=== PATIENT | male | born 1950 | race Caucasian/White ===

== ENCOUNTER 2020-03-11 18:19 | Inpatient (IN) | payer MEDICARE, MEDICAID, SELFPAY ==
--- NOTE | ~2020-03-11 | XR_ITS ---
EXAMINATION: XR chest 1V portable INDICATION: Shortness of breath TECHNIQUE: Portable AP chest at 2040 hours COMPARISON: None available FINDINGS: The lungs are free of acute opacities. A calcified nodule of the right upper lobe is consis tent with old granulomatous disease. There is no pleural effusion or pneumothorax. The cardiomediasti nal silhouette is normal. 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 IMPRESSION: 1. No acute cardiopulmonary abnormality. Reviewed, dictated and finalized at location A.
[2020-03-11 18:27] VITALS: BP 169/90; PULSE 107; RESP 22; TEMP 36.6; O2SAT 91
[2020-03-11 18:38] VITALS: O2SAT 91
--- NOTE | 2020-03-11 18:48 | PC.NURSE ---
o2 increased to 3 lpm nc due to o2 sat 90-91 on 2 lmp cannula. denies sob
[2020-03-11 19:42] LABS: Basophils Percent Auto 0.5 % (0.2-1.2); Eosinophils Percent Auto 0.5 % (0-4.4); Hemoglobin 15.9 g/dL (14.0-18.0); Immature Granulocyte Absolute 0.01 K/mm3 (0.00-0.031); Immature Granulocyte Percent A 0.2 % (0-0.5); Lymphocytes Absolute Auto 0.54 K/mm3 (0.9-3.2); Lymphocytes Percent Auto 9.6 % (18.3-44.2); Mean Corpuscular HGB Conc 33.1 g/dl (32-36); Mean Corpuscular Hemoglobin 31.9 pg (26-34); Mean Corpuscular Volume 96.4 fl (80-100); Mean Platelet Volume 12.1 fl (7.4-10.4); Monocytes Absolute Auto 0.5 K/mm3 (0.1-0.6); Monocytes Percent Auto 9.6 % (2.6-8.5); Neutrophils Absolute Auto 4.5 K/mm3 (1.3-6.7); Neutrophils Percent Auto 79.6 % (45.5-73.1); Platelet Count Result 140 k/mm3 (150-375); Red Blood Count 4.98 M/mm3 (4.6-6.20); Red Cell Distribution Width 14.6 % (11.5-14.5); White Blood Count 5.6 K/mm3 (4.5-10.0)
[2020-03-11 20:05] VITALS: BP 157/84; PULSE 90; RESP 18; O2SAT 97
[2020-03-11 20:10] LABS: Add Urine Microscopic? YES; Appearance Urine Clear (Clear); Bacteria Urine Trace /hpf; Bilirubin Urine Negative (Negative); Blood Urine Negative (Negative); Color Urine Yellow (Yellow); Glucose Urine UA Negative (Negative); Ketones Urine Negative (Negative); Leukocyte Esterase Ur Negative LEU/UL (Negative); Mucus Urine Rare /lpf; Nitrate Urine Negative (Negative); Protein Urine 2+ mg/dL (Negative); RBC Urine 0-2 /hpf (0-2); Squamous Epithelial Cell Urine Rare /hpf (Few); WBC Urine 0-3 /hpf
[2020-03-11 20:14] LABS: Alanine Aminotransferase 21 U/L (4-50); Albumin Level 3.7 g/dL (3.5-5.1); Alkaline Phosphatase 52 U/L (38-126); Aspartate Amino Transferase 26 U/L (17-59); Bilirubin,Total 0.7 mg/dL (0.2-1.3); Blood Urea Nitrogen 21 mg/dL (9-20); Calcium 8.5 mg/dL (8.4-10.2); Carbon Dioxide > 40 mmol/L (22-30); Chloride 91 mmol/L (98-107); Estimated CRCL calculation 69 ml/min; Estimated Glomerular Filt Rate > 60; Glucose 116 mg/dL (75-110); Potassium 4.6 mmol/L (3.4-5.0); Sodium 131 mmol/L (137-145)
[2020-03-11 20:20] LABS: INR 1.2; Prothrombin Time 14.7 Seconds (11.1-14.7)
[2020-03-11 20:26] LABS: NT Pro B Type Natriuretic Pept 5560 PG/ML (5-100); Troponin I 0.024 ng/mL (0.000-0.034)
--- NOTE | 2020-03-11 20:31 | ECG_ITS ---
Measurements Intervals [place] Rate: 100 P: 85 IN: 186 QRS: 90 QRSD: 72 T: 41 QT: 327 QTc: 423 Interpretive Statements SINUS TACHYCARDIA DELAYED PRECORDIAL R/S TRANSITION T WAVE ABNORMALITY IN ANTERIOR LEADS- CONSIDER ISCHEMIA BASELINE ARTIFACT- I, III, AVL, V1, V5-V6 ABNORMAL ECG Electronically Signed On 03-12-2020 7:45:29 CDT by Austin Shelley D.O.
--- NOTE | 2020-03-11 20:37 | ED.GENADULT ---
HPI - General Adult General Chief complaint: Extremity Problem,Nontraumatic Stated complaint: SWELLING LEGS Time Seen by Provider: 03/11/20 18:23 Source: patient Mode of arrival: ambulatory Limitations: no limitations History of Present Illness HPI narrative: 69-year-old with no major medical problems here with the complaints of bilateral leg swelling for last several weeks. He states that by end of the day the legs and ankles swell up and has difficulty in walking. He denies any chest pain, shortness of breath. No history of fever or chills. No previous history of any coronary artery disease or congestive heart failure. He states that he has not seen a doctor in several years. Onset (ago): week(s) (5) Severity: moderate Associated symptoms: denies other symptoms Related Data Home Medications Medication Instructions Recorded Confirmed No Home Medications 03/11/20 03/11/20 Allergies Allergy/AdvReac Type Severity Reaction Status Date / Time No Known Allergies Allergy Verified 03/11/20 18:37 Review of Systems Review of Systems: All systems reviewed & are unremarkable except as noted in HPI and below Constitutional: Constitutional: Reports no additional constitutional complaints Eyes: Eyes: Reports no additional eye complaints ENT: Reports system reviewed and no additional complaints, except as documented Cardiovascular: Cardiovascular: Reports no additional cardiovascular complaints Respiratory: Respiratory: Reports no additional respiratory complaints Gastrointestinal: Gastrointestinal: Reports no additional gastrointestinal complaints Musculoskeletal: Musculoskeletal: Reports no additional musculoskeletal complaints Neurologic: Reports system reviewed and no additional complaints, except as documented Endocrine: Endocrine: Reports no additional endocrine complaints Hematologic/Lymphatic: Hematologic/Lymphatic: Reports no additional hematologic/lymphatic complaints [facility] Social History Social History Gender identity (if verbalized by the patient): Male Exam Narrative: Exam Narrative: GENERAL: Well-appearing, thin, and in no acute distress. HEAD: Normocephalic, atraumatic. EYES: PERRLA and EOMI. ENT: Nares clear, Mucous membranes moist. NECK: Supple. CHEST: Clear to auscultation. No respiratory distress. HEART: Regular rate and rhythm. No murmur heard. Normal peripheral pulses. ABDOMEN: Soft, non tender, non distended, normal active bowel sounds. EXTREMITIES: Normal range of motion. has 2 plus edema SKIN: Warm, dry, no rash. NEURO: No focal deficits. Alert and oriented x3. PSYCH: Normal mood and affect. Course Course Emergency Course: Inform patient about his lab work. We will admit him to the hospital as his BNP is elevated. He has no primary care doctor to follow-up. We will give him Lasix 40 mg IV here in the ER. Consult cardiology in the morning. Discussed with Dr. Kwan agreed to admit the pt . Vital Signs Vital signs: Vital Signs Temperature 36.6 C 03/11/20 18:27 Pulse Rate 107 H 03/11/20 18:27 Respiratory Rate 22 H 03/11/20 18:27 Blood Pressure 169/90 H 03/11/20 18:27 Pulse Oximetry 91 03/11/20 18:27 Temperature 36.6 C 03/11/20 18:27 Pulse Rate 90 03/11/20 20:05 Respiratory Rate 18 03/11/20 20:05 Blood Pressure 157/84 H 03/11/20 20:05 Pulse Oximetry 97 03/11/20 20:05 Medical Decision Making Vital Signs Vital Signs: Vital Signs Temperature 36.6 C 03/11/20 18:27 Pulse Rate 107 H 03/11/20 18:27 Respiratory Rate 22 H 03/11/20 18:27 Blood Pressure 169/90 H 03/11/20 18:27 Pulse Oximetry 91 03/11/20 18:27 Temperature 36.6 C 03/11/20 18:27 Pulse Rate 90 03/11/20 20:05 Respiratory Rate 18 03/11/20 20:05 Blood Pressure 157/84 H 03/11/20 20:05 Pulse Oximetry 97 03/11/20 20:05 Lab Data Result diagrams: 03/11/20 19:32 03/11/20 19:54 Labs: Lab Results 03/11/20 03/11/20 06
[2020-03-11] MEDS: FUROSEMIDE INJ 40 MG/4 ML VIAL IV PUSH (21:17)
[2020-03-11 21:34] VITALS: BP 146/85; PULSE 90; RESP 19; O2SAT 90
[2020-03-11 22:00] VITALS: PULSE 102
[2020-03-11 22:31] VITALS: BP 143/83; PULSE 105; RESP 22; TEMP 36.7; O2SAT 91
[2020-03-11 22:33] VITALS: BMI 18.8
--- NOTE | 2020-03-11 23:47 | PM.IMHP ---
H&P: HPI History of Present Illness Chief complaint: Leg swelling and shortness of breath Narrative: Date and time of patient contact: 03/12/2020 at 1:10 a.m. Sam Sanchez is a 69 year old male a past medical history of chronic tobacco use and who has not seen a doctor in 50 years presented to the ER via EMS with new onset bilateral lower extremity swelling for 4 weeks. When EMS arrived at patient's home patient was found to have oxygen saturations of 84% on room air and was placed on 2 L nasal cannula. The patient reports that he has been having shortness of breath with exertion for about 3 weeks. He has not noticed any increased cough beyond his usual smoker's cough. He has noticed occasional wheezing. He denies any palpitations orthopnea or paroxysmal nocturnal dyspnea. When he arrived t he has not had any fevers or chills. He denies any recent ill contacts. He reports that his shortness of breath has improved after IV Lasix was administered in the ER. He reports his legs are much less swollen than they had been when he presented to the ER. He reports that his girlfriend has CHF and he eats the same diet that she eats. However he is not specific as to whether not this is a low-sodium diet. The patient does report she has always been on the thin side but over the last couple of years he has lost more weight. His weight loss has been gradual. He attributes most of his weight loss to the stress of having his girlfriend's adult son was a drug addict to living with them. He denies any nausea or vomiting. He has not noticed any hematochezia, melena or changes in bowel habits. When I arrived to the room to examine the patient he did not have his nasal cannula in place and stated that he did not have any shortness of breath and did not need the oxygen. Review of Systems Review of Systems: Narrative: 12 systems were reviewed with pertinent positives and negatives per HPI. Except as documented in the HPI, all other systems were reviewed and are negative. [facility] Past Medical History Medical History Tobacco use Surgical History Surgical History (Updated 03/12/20 @ 03:45 by Caitlin Kwan DO) Status post cataract extraction of both eyes with insertion of intraocular lens Approximately 2009 Family History Family History (Updated 03/12/20 @ 03:36 by Caitlin Kwan DO) Sibling Heart disease 3/4 the patient has 4 brothers have of heart disease. Diabetes mellitus The patient has 1 remaining living brother has diabetes. Social History Social History (Updated 03/12/20 @ 03:39 by Caitlin Kwan DO) Social History: Primary care physician: None Code status: Full code per EMR Smoking packs per day: 1 Smoking cigarettes per day: 20.0 Years smoked: 56 Smoking pack-years: 56.00 Smoking status: Current every day smoker Tobacco type: cigarettes Additional smoking assessment comments: The patient started smoking at age 13. Alcohol intake: former Alcohol use details: He used to drink a 12 pack of beer a day. He gradually decreased his alcohol consumption and quit drinking altogether about a month ago. He denies ever having symptoms of alcohol withdrawal. Substance use: never Additional living arrangements comments: He lives with his girlfriend of 11 years and her adult son who is addicted to drugs. He has 4 grown children her relatively healthy. 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 Gender identity (if verbalized by the patient): Male Spiritual care concerns: No Meds Home Medications and Allergies Home Medications Medication Instructions Recorded Confirmed Type No Home Medications 03/11/20 03/11/20 History Allergies Allergy/AdvReac Type Severity Reaction St
[2020-03-12] VITALS (19 sets, daily range): BP systolic 100–120; BP diastolic 50–68; PULSE 72–101; RESP 16–22; TEMP 36.3–36.9; O2SAT 91–100
--- NOTE | 2020-03-12 | ECHO_ITS ---
Patient Info Name: Sam Sanchez Age: 69 years : 1950 Gender: Male Ht: 69 in Wt: 124 lbs BSA: 1.64 m2 HR: 84 bpm Heart Rhythm: Sinus Rhythm Technical Quality: Good Exam Date: 03/12/2020 7:29 AM Exam Location: [facility] Pulmonary Exam Room: 343 Patient Status: Inpatient Admit Date: 03/12/2020 Staff Ordering Physician: Hank Sen MD Hog Man: Ambar Michel RDCS Attending Provider: Aviva Gonzalez PA-C Exam Type: CA echo doppler color flow Study Info Indications - CHF Complete two-dimensional, color flow and Doppler transthoracic echocardiogram is performed. Summary 1. Normal left ventricular size and thickness, with normal left ventricular systolic function and no focal wall motion abnormalities. The ejection fraction is calculated to be 77%. Global longitudinal strain is normal at -22%, again consistent with normal systolic function. There is grade 2 diastolic dysfunction. 2. Right ventricular chamber dimension is moderately enlarged, with moderate hypokinesis and right ventricular hypertrophy. 3. Left atrial chamber dimension is mildly enlarged. 4. Right atrial chamber dimension is moderately enlarged. 5. There is mild tricuspid valve regurgitation. 6. Moderate pulmonary hypertension, estimated pulmonary arterial systolic pressure is 50 mmHg. 7. Dilated inferior vena cava with >50% collapse upon inspiration consistent with elevated right atrial pressure, 10 mmHg. 8. Normal sinus rhythm. Left Ventricle Left ventricular chamber dimension is normal. Left ventricular systolic function is normal, estimated at >70%. There is no increased left ventricular wall thickness. Left ventricular septal wall motion is normal. The left ventricular diastolic function is grade II diastolic dysfunction. Global longitudinal strain is normal at 22 %. Right Ventricle Right ventricular chamber dimension is moderately enlarged, with moderate hypokinesis and right ventricular hypertrophy. Right ventricular systolic function is reduced. Left Atria Left atrial chamber dimension is mildly enlarged. Right Atria Right atrial chamber dimension is moderately enlarged. Aortic Valve The aortic valve is trileaflet. There is mild aortic valve sclerosis. There is no aortic valve stenosis. There is no aortic valve regurgitation. Pulmonic Valve The pulmonic valve is normal. There is no pulmonic valve stenosis. There is no pulmonic regurgitation. Mitral Valve The mitral valve has calcified annulus. There is no mitral valve stenosis. There is trace mitral valve regurgitation. Tricuspid Valve The tricuspid valve leaflets are normal. There is no significant tricuspid valve stenosis. There is mild tricuspid valve regurgitation. Moderate pulmonary hypertension, estimated pulmonary arterial systolic pressure is 50 mmHg. Pericardium/Pleural The pericardium appears normal. There is no pericardial effusion. Inferior Vena Cava Dilated inferior vena cava with >50% collapse upon inspiration consistent with elevated right atrial pressure, 10 mmHg. Aorta The aortic root size at the sinus of Valsalva is normal. The prox ascending aorta size is normal. Left Ventricular Outflow Tract Name Value Normal LVOT 2D
--- NOTE | 2020-03-12 00:39 | ADMGEN ---
This patient, Sam Sanchez, was admitted to Medical Room 343-01. Patient/family oriented to hospital policies and general routines including ID bracelet, bed and alarms, visiting hours, pain management, procedures, bathroom and other care routines, personal items, smoking policy, room service/diet, and visiting hours. Valuables list has been completed. Information on how to activate the Rapid Response Team has been discussed. Patient/Family are encouraged to report perceived risks to care and to ask questions if they do not understand what they are told or what they should do.
[2020-03-12 00:55] LABS: Troponin I 0.044 ng/mL (0.000-0.034)
[2020-03-12] MEDS: ALBUTEROL SULFATE NEB 2.5 MG/0.5 ML INH 5 MG INHALATION ×4 (01:50→19:06)
[2020-03-12] MEDS: IPRATROPIUM BR 0.02% INH SOLN 0.5 MG/2.5 ML VIAL INHALATION ×4 (01:51→19:06)
[2020-03-12 03:12] LABS: Blood Urea Nitrogen 19 mg/dL (9-20); Calcium 8.4 mg/dL (8.4-10.2); Carbon Dioxide > 40 mmol/L (22-30); Chloride 88 mmol/L (98-107); Cholesterol 122 mg/dL (0-200); Estimated CRCL calculation 78 ml/min; Estimated Glomerular Filt Rate > 60; Glucose 104 mg/dL (75-110); HDL Direct 62 mg/dL; Potassium 4.1 mmol/L (3.4-5.0); Sodium 132 mmol/L (137-145); Triglycerides 54 mg/dL (<150)
[2020-03-12 03:17] LABS: Hemoglobin A1C 5.8 % (<5.7)
[2020-03-12 03:24] LABS: LDL Cholesterol Direct 53 mg/dL
[2020-03-12 03:30] LABS: Troponin I 0.045 ng/mL (0.000-0.034)
[2020-03-12] MEDS: FUROSEMIDE INJ 40 MG/4 ML VIAL IV PUSH (08:24)
[2020-03-12] MEDS: ENOXAPARIN 40 MG/0.4 ML SYRINGE SUB-Q (08:25)
[2020-03-12 10:53] LABS: Hematocrit 47.6 % (42.0-52.0); Hemoglobin 15.7 g/dL (14.0-18.0); Mean Corpuscular Volume 96.9 fl (80-100); Mean Platelet Volume 12.3 fl (7.4-10.4); Platelet Count Result 126 k/mm3 (150-375); Red Blood Count 4.91 M/mm3 (4.6-6.20); Red Cell Distribution Width 14.5 % (11.5-14.5); White Blood Count 5.3 K/mm3 (4.5-10.0)
--- NOTE | 2020-03-12 12:20 | WPDCN ---
Assessment and Plan Assessment and plan (1) Acute right heart failure: Code(s): I50.811 - Acute right heart failure Status: Acute Assessment and Plan: The patient presents with signs and symptoms of heart failure but relatively clear lungs by chest x-ray and exam, suggesting this is primarily right-sided heart failure. The T-wave inversion on his EKG is probably from right heart strain. He has right ventricular enlargement and hypokinesis secondary to pulmonary hypertension, which is secondary to COPD and, perhaps to a degree, chronic diastolic heart failure. No evidence of any other etiologies such as chronic thromboembolic disease etc.. Continue diuresis Check a BMP in the morning (2) Acute diastolic heart failure: Code(s): I50.31 - Acute diastolic (congestive) heart failure Status: Acute Assessment and Plan: Patient has diastolic dysfunction on his echo, and probably a long standing history of hypertension which is untreated. Low-salt diet, control blood pressure (3) Pulmonary hypertension: Code(s): I27.20 - Pulmonary hypertension, unspecified Status: Acute Assessment and Plan: Pulmonary hypertension secondary to COPD and perhaps, to a degree, diastolic dysfunction (4) Hypertension: Code(s): I10 - Essential (primary) hypertension Status: Acute Assessment and Plan: Likely has been untreated for many years. Jose Maria inhibitors and beta-blockers as blood pressure tolerates. (5) COPD (chronic obstructive pulmonary disease): Code(s): J44.9 - Chronic obstructive pulmonary disease, unspecified Status: Acute Assessment and Plan: Treatment per hospitalists (6) Tobacco abuse disorder: Code(s): Z72.0 - Tobacco use Status: Acute Assessment and Plan: Reviewed the effects of smoking on lungs and heart. Strongly recommended complete cessation. Patient requested nicotine patch HPI Data of Consult Date/Time: 03/12/20 12:20 Requesting Physician: Aviva Gonzalez PA-C Primary Care Provider: JACK TAMP OPERATOR PHYSICIAN Consult Narrative Narrative: Date of service: 03/12/2020 Sam Sanchez is a 69 year old male whom we were asked to see at the request of Dr. Kwan for advice and opinion regarding his new onset of CHF in consultation. Mr. Sanchez has not seen a physician for a few decades. He was told once he has high blood pressure and took the medication until ran out. Over the last 2 months he has had progressive shortness of breath such that carrying in groceries or walking up stairs makes him very short of breath and worn out. He also has developed lower extremity edema. He came to the emergency room and appeared to be in heart failure with hypoxia and a proBNP of 5600. Subsequently he has been diuresed and is feeling better. Pain pressure tightness, PND orthopnea. No history of blood clots. No known diabetes, or hyperlipidemia. The patient smoked 1-1 and half packs daily since the age of 13. He does have some wheezing at times. He has experienced some weight loss but does not know how much. Review of Systems Constitutional: Constitutional: Reports lethargy Eyes: Eyes: Reports no additional eye complaints ENT: Denies epistaxis Cardiovascular: Cardiovascular: Denies chest pain, Reports pedal edema, Reports leg edema, Denies lightheadedness and Denies palpitations Respiratory: Respiratory: Reports dyspnea, Reports dyspnea on exertion and Reports wheezing Gastrointestinal: Gastrointestinal: Denies abdominal pain, Denies melena, Denies hematochezia, Denies constipation, Denies diarrhea and Denies nausea Genitourinary: Genitourinary: Denies hematuria and Denies dysuria Musculoskeletal: Musculoskeletal: Denies back p
--- NOTE | 2020-03-12 13:01 | PM.IMPN ---
Progress Note: A&P Assessment and Plan (1) CHF (congestive heart failure): Qualifiers: Heart failure chronicity: acute Heart failure type: unspecified Qualified Code(s): I50.9 - Heart failure, unspecified Code(s): I50.9 - Heart failure, unspecified Status: Acute Assessment and Plan: -----swelling and dyspnea on exertion likely related to CHF, although this is undiagnosed as he has not seen a doctor in 50 years. Echo has been ordered and pending. EKG shows twave abnormalities in anteroseptal leads. He was started on Lasix and is feeling better with that. He has had 2000 mL out so far today. We will wean oxygen as tolerated.. Lipid panel looks okay. Nephrotic syndrome seems less likely as he does have 2+ protein in his UA but his albumin and lipid panel is normal. Await further recommendations from cardiology. (2) Tobacco abuse disorder: Code(s): Z72.0 - Tobacco use Status: Acute Assessment and Plan: -----I spoke with the patient about the importance of stopping smoking. He says he would like a nicotine patch. (3) COPD (chronic obstructive pulmonary disease): Code(s): J44.9 - Chronic obstructive pulmonary disease, unspecified Status: Acute Assessment and Plan: -----will start maintenance inhalers. The patient is having trouble affording them since he does not have any Medicare prescription coverage. I talked to him about setting up with [facility] as I know they can see patient is on a sliding scale and may have [employer] resources. We also talked about obtaining his medications from [facility] or a smaller pharmacy which is typically cheaper and to utilize [facility] [employer] He needs to quit smoking and we discussed this for >10 min Time Spent With Patient Time with patient: 25 - 35 minutes Subjective Date/time seen: 03/12/20 13:01 Interval history: Pt is a 69-year-old male here for lower extremity swelling and shortness of breath. Patient states that he is currently not having any shortness of breath and his lower extremity swelling has improved. He is able to walk to the bathroom without any dyspnea on exertion. He says in the last couple months he has noticed some dyspnea on exertion walking longer distances but attributed this to his smoking. He then started having leg swelling about 4 weeks ago. His typical diet include sandwiches, some canned food, and occasional fast food. He used to salt his fries a lot but now tries to refrain from salt. He states he is able to lay flat and has not had any heart palpitations. He smokes about a pack cigarettes a day and has not tried quitting. He knows he has COPD but does not take any medications. The patient states he has not seen a primary care doctor because he cannot afford it. I spoke with him about low income care such as [facility], [facility], and [facility] Review of Systems Review of Systems: All systems reviewed & are unremarkable except as noted in HPI and below Exam Narrative: Exam Narrative: General: Underweight man resting comfortably in bed in no acute distress HEENT: normocephalic Neck: supple Neuro: Alert and oriented x4 CV:RRR. Telemetry shows occasional sinus tachycardia but otherwise relatively normal Resp: Moderately decreased breath sounds. No wheezing or rhonchi Abd: Soft, non distended. No pain to palpation. Positive bowel sounds Extremities: 2+ pitting edema up to the mid neff. No erythema or pain to palpation Objective Data Vital Signs Vital Signs: Vital Signs - 24 hr 03/11/20 18:27 03/11/20 18:38 03/11/20 20:05 Temperature 97.8 F Pulse Rate 107 H 90 Respiratory Rate 22 H 18 Blood Pressure 169/90 H 157/84 H Pulse Oximetry 91 91 97 03/11/20 21:34 03/11/20 22:00 03/11/20 22:31 Temperature 98.1 F Pulse Rate 90 102 H 105 H Respiratory Rate 19 22 H Blood Pressure 146/85 H 143/83 H Pulse Oximetry 90 91
[2020-03-12] MEDS: NICOTINE (*PBKC) 21 MG PATCH 1 PATCH TRANSDERM (13:51)
[2020-03-12] MEDS: lisinopriL 5 MG TABLET PO (16:24)
[2020-03-13] VITALS (17 sets, daily range): BP systolic 96–116; BP diastolic 53–58; PULSE 83–101; RESP 14–20; TEMP 36.5–37; O2SAT 87–100
[2020-03-13] MEDS: ALBUTEROL SULFATE NEB 2.5 MG/0.5 ML INH 5 MG INHALATION ×4 (01:08→20:18)
[2020-03-13] MEDS: IPRATROPIUM BR 0.02% INH SOLN 0.5 MG/2.5 ML VIAL INHALATION ×4 (01:09→20:17)
[2020-03-13 06:04] LABS: Blood Urea Nitrogen 15 mg/dL (9-20); Carbon Dioxide > 40 mmol/L (22-30); Chloride 86 mmol/L (98-107); Estimated CRCL calculation 75 ml/min; Estimated Glomerular Filt Rate > 60; Glucose 83 mg/dL (75-110); Potassium 3.7 mmol/L (3.4-5.0); Sodium 132 mmol/L (137-145)
[2020-03-13] MEDS: FUROSEMIDE INJ 40 MG/4 ML VIAL IV PUSH (08:08)
[2020-03-13] MEDS: ENOXAPARIN 40 MG/0.4 ML SYRINGE SUB-Q (08:08)
[2020-03-13] MEDS: NICOTINE (*PBKC) 21 MG PATCH 1 PATCH TRANSDERM (08:08)
[2020-03-13] MEDS: lisinopriL 5 MG TABLET PO (08:08)
--- NOTE | 2020-03-13 12:06 | PM.PNCARD ---
Progress Note: A&P Assessment and Plan (1) Acute right heart failure: Code(s): I50.811 - Acute right heart failure Status: Acute Assessment and Plan: Acute CHF, primarily right-sided 2nd COPD and pulm HTN, with diastolic dysfunction and perhaps a mild component of left sided diastolic failure. Counseled pt about CHF. Great response to IV Lasix. Change to po. OK for discharge if BP OK. Rec furosemide 20 mg qd, lisiinopril 5 mg qd, OPT BMP and FU w/ me and a cnc manufacturing engineer. (2) Acute diastolic heart failure: Code(s): I50.31 - Acute diastolic (congestive) heart failure Status: Acute Assessment and Plan: Has diastolic dysfunction, but a clear CXR, so this is not the primarly cause of his CHF. (3) Pulmonary hypertension: Code(s): I27.20 - Pulmonary hypertension, unspecified Status: Acute Assessment and Plan: 2nd to COPD and perhaps to diastolic dysfunction. (4) COPD (chronic obstructive pulmonary disease): Code(s): J44.9 - Chronic obstructive pulmonary disease, unspecified Status: Acute Assessment and Plan: REviewed effects of smoking on lungs. Pt likely has advanced COPD. May need home O2. (5) Hypertension: Code(s): I10 - Essential (primary) hypertension Status: Acute Assessment and Plan: Running low today 2nd diuresis. (6) Tobacco abuse disorder: Code(s): Z72.0 - Tobacco use Status: Acute Assessment and Plan: Pt says he is doing well w/o cigarettes using the nicotine patch. Subjective Date/time seen: 03/13/20 12:06 Follow-up for CHF, primarily right-sided, with some diastolic dysfunction as well. Patient presented with shortness of breath and edema, elevated BNP but clear chest x-ray. Echo showed EF 77%, grade 2 diastolic dysfunction, moderate right ventricular enlargement, hypokinesis and hypertrophy. RVSP 50 mmHg with mild valve disease. I felt he had acute CHF primarily right-sided due to his COPD and pulmonary hypertension, perhaps with a mild contribution of left-sided diastolic heart failure as well. Date of service: 03/13/2020 Feeling fine, wants to go home. Impressive diuresis; I's and O's yesterday were 1600 in and 3900 cc's out. Blood pressure is a little low this a.m. O2 sat low today 87% on O2. Review of Systems Constitutional: Constitutional: Denies difficulty sleeping Eyes: Eyes: Reports no additional eye complaints ENT: Denies nasal congestion Cardiovascular: Cardiovascular: Denies chest pain, Denies pedal edema and Denies palpitations Respiratory: Respiratory: Denies cough and Denies dyspnea Gastrointestinal: Gastrointestinal: Denies abdominal pain and Denies hematochezia Genitourinary: Genitourinary: Denies hematuria Musculoskeletal: Musculoskeletal: Denies back pain Integumentary/Breasts: Skin/Breast: Denies rash Neurologic: Denies confusion Psychiatric: Psychiatric: Reports no additional psychiatric complaints Exam Narrative: Exam Narrative: Thin male, friendly, NAD Const: General: comfortable and no acute distress HENMT: Mouth: Yes moist mucous membranes Eyes: EOM: EOMs intact bilaterally Neck: Neck: supple Resp: Effort & Inspection: normal respiratory effort Auscultation: diminished lung sounds (diminished BS throughout lung carreon) Cardio: Rate: regular rate Heart sounds: no murmurs GI: Inspection: non-distended Skin: General skin exam: no rashes or lesions noted Neuro: Speech: normal speech Motor exam (neuro): Normal motor muscle tone present throughout Extrem: General: normal to inspection and no edema Psych: Mental Status: mental status grossly normal Affect: normal affect Objective Data Vital Signs Vital Signs:
--- NOTE | 2020-03-13 15:17 | PM.IMPN ---
Progress Note: A&P Assessment and Plan (1) CHF (congestive heart failure): Qualifiers: Heart failure chronicity: acute Heart failure type: unspecified Qualified Code(s): I50.9 - Heart failure, unspecified Code(s): I50.9 - Heart failure, unspecified Status: Acute Assessment and Plan: -----acute on chronic right-sided heart failure with lower extremity swelling and clear lungs. Likely due to his COPD and pulmonary hypertension. The patient says he does not go to the doctor and he understands he probably has COPD. He has never been tested for sleep apnea. He has been urinating a lot on the diuretics and feels better. He is still requiring oxygen at this time. Plan to do an apnea link overnight and a home O2 evaluation in the morning. Patient only has Medicare Part a and may need financial assistance or help with oxygen at home if needed. He said he is going to quit smoking altogether. (2) Tobacco abuse disorder: Code(s): Z72.0 - Tobacco use Status: Acute Assessment and Plan: -----I spoke with the patient about the importance of stopping smoking. He says he would like a nicotine patch. (3) COPD (chronic obstructive pulmonary disease): Code(s): J44.9 - Chronic obstructive pulmonary disease, unspecified Status: Acute Assessment and Plan: -----will start maintenance inhalers. The patient is having trouble affording them since he does not have any Medicare prescription coverage. I talked to him about setting up with [facility] as I know they can see patient is on a sliding scale and may have [employer] resources. We also talked about obtaining his medications from [facility] or a smaller pharmacy which is typically cheaper and to utilize [employer]. He needs to quit smoking and we discussed this for >10 min (4) Acute respiratory failure with hypoxia: Code(s): J96.01 - Acute respiratory failure with hypoxia Status: Acute Assessment and Plan: -----patient has significant COPD and should range 89 and 92. 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 Home O2 evaluation the morning. Subjective Date/time seen: 03/13/20 15:17 Interval history: Pt is a 69-year-old male here for lower extremity swelling and shortness of breath. Pt was seen today and says he is feeling much better than when he was at home. He says his lower extremity swelling is better than it has been in a while. Pt denies nausea, vomiting, fevers, chills, constipation, diarrhea, chest pain, sob, or abdominal pain. 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 Exam Narrative: Exam Narrative: General: Underweight man resting comfortably in bed in no acute distress HEENT: normocephalic Neck: supple Neuro: Alert and oriented x4 CV:RRR. Telemetry shows occasional sinus tachycardia but otherwise relatively normal Resp: Moderately decreased breath sounds. No wheezing or rhonchi Abd: Soft, non distended. No pain to palpation. Positive bowel sounds Extremities: 1+ pitting edema--improved. No erythema or pain to palpation Objective Data Vital Signs Vital Signs: Vital Signs - 24 hr 03/12/20 16:00 03/12/20 16:22 03/12/20 19:07 Temperature Pulse Rate 87 90 Respiratory Rate 20 Blood Pressure 113/58 L Pulse Oximetry 03/12/20 19:10 03/12/20 19:13 03/12/20 20:00 Temperature 98.5 F Pulse Rate 92 101 H Respiratory Rate 20 16 Blood Pressure 100/50 L Pulse Oximetry 93 97 03/12/20 22:15 03/13/20 00:00 03/13/20 01:09 Temperature 97.7 F Pulse Rate 85 92 90 Respiratory Rate 18 18 18 Blood Pressure 106/57 L Pulse Oximetry 100 100 03/13/20 01:14 03/13/20 04:00 03/13/20 08:00 Temperature 98.1 F 98.2 F Pulse Rate 85 87 101 H Respiratory Rate 18 14 16 Blood Pressure 114/54 L 96/54 L Pulse Oximetry 96 93 03/13/20 08:06 03/13/20
[2020-03-14] VITALS (18 sets, daily range): BP systolic 111–126; BP diastolic 52–61; PULSE 65–104; RESP 16–18; TEMP 36.2–36.7; O2SAT 84–97
[2020-03-14 05:52] LABS: Blood Urea Nitrogen 13 mg/dL (9-20); Calcium 8.5 mg/dL (8.4-10.2); Carbon Dioxide > 40 mmol/L (22-30); Chloride 87 mmol/L (98-107); Estimated CRCL calculation 74 ml/min; Estimated Glomerular Filt Rate > 60; Glucose 86 mg/dL (75-110); Potassium 4.4 mmol/L (3.4-5.0); Sodium 134 mmol/L (137-145)
--- NOTE | 2020-03-14 06:41 | PCRCNOTE ---
Apnea link perform as ordered not enough data will re attempt 03/14
[2020-03-14] MEDS: FUROSEMIDE 20 MG TABLET PO (08:47)
[2020-03-14] MEDS: lisinopriL 5 MG TABLET PO (08:47)
[2020-03-14] MEDS: ENOXAPARIN 40 MG/0.4 ML SYRINGE SUB-Q (08:47)
[2020-03-14] MEDS: NICOTINE (*PBKC) 21 MG PATCH 1 PATCH TRANSDERM (08:47)
[2020-03-14] MEDS: ALBUTEROL SULFATE NEB 2.5 MG/0.5 ML INH 5 MG INHALATION ×2 (09:08→14:43)
[2020-03-14] MEDS: IPRATROPIUM BR 0.02% INH SOLN 0.5 MG/2.5 ML VIAL INHALATION ×2 (09:08→14:43)
--- NOTE | 2020-03-14 09:42 | PCRCNOTE ---
Apnea link did not record the flow. The test did record number of desaturations. Will scan results into patient chart. Will repeat testing tonight.
--- NOTE | 2020-03-14 11:18 | PCDIET ---
Dietitian Screen for BMI: 17.6 underweight. Patient is currently on a heart healthy diet. Spoke with patient today regarding diet and weight. He states to no diet questions and states his weight has been stable. Patient Instructions attached. No further nutritional interventions.
--- NOTE | 2020-03-14 12:22 | PM.PNCARD ---
Progress Note: A&P Assessment and Plan (1) Acute right heart failure: Code(s): I50.811 - Acute right heart failure Status: Acute Assessment and Plan: Acute CHF, primarily right-sided 2nd COPD and pulm HTN, with diastolic dysfunction and perhaps a mild component of left sided diastolic failure. Continue furosemide 20 mg qd, lisinopril 5 mg qd. Needs to establish primary care provider. Follow-up with [facility] has been arranged. (2) Acute diastolic heart failure: Code(s): I50.31 - Acute diastolic (congestive) heart failure Status: Acute Assessment and Plan: Has diastolic dysfunction, but a clear CXR, so this is not the primarly cause of his CHF. (3) Pulmonary hypertension: Code(s): I27.20 - Pulmonary hypertension, unspecified Status: Acute Assessment and Plan: 2nd to COPD and perhaps to diastolic dysfunction. (4) COPD (chronic obstructive pulmonary disease): Qualifiers: COPD type: unspecified COPD Qualified Code(s): J44.9 - Chronic obstructive pulmonary disease, unspecified Code(s): J44.9 - Chronic obstructive pulmonary disease, unspecified Status: Acute Assessment and Plan: He likely has advanced COPD. Smoking cessation counseling again done. Waiting home O2 eval (5) Hypertension: Qualifiers: Hypertension type: essential hypertension Qualified Code(s): I10 - Essential (primary) hypertension Code(s): I10 - Essential (primary) hypertension Status: Acute Assessment and Plan: Blood pressure stable. (6) Tobacco abuse disorder: Code(s): Z72.0 - Tobacco use Status: Acute Assessment and Plan: Doing well w/o cigarettes using the nicotine patch. Additional Plan OK to discharge from cardiac standpoint. See discharge instructions for follow-up Plan discussed with Dr Weber 12:30 03/14/2020 Time Spent With Patient Time with patient: less than 15 minutes Subjective Date/time seen: 03/14/20 12:22 Interval history: Follow-up for: Lower extremity swelling and shortness of breath found to have diastolic heart failure Date of service: 03/14/2020 Subjective: Denied chest discomfort, shortness of breath as long as he has oxygen. No lightheadedness or palpitations. Lower extremity edema improving. Review of Systems Constitutional: Constitutional: Denies difficulty sleeping Eyes: Eyes: Denies blurry vision ENT: Denies epistaxis and Denies nasal congestion Cardiovascular: Cardiovascular: Denies chest pain, Denies pedal edema, Reports leg edema (Improving), Denies lightheadedness, Denies palpitations, Denies dyspnea and Reports dyspnea on exertion (Better with oxygen) Respiratory: Respiratory: Denies cough, Denies dyspnea, Reports dyspnea on exertion and Denies wheezing Gastrointestinal: Gastrointestinal: Denies abdominal pain, Denies melena, Denies hematochezia, Denies constipation, Denies diarrhea and Denies nausea Genitourinary: Genitourinary: Denies hematuria and Denies dysuria Musculoskeletal: Musculoskeletal: Denies back pain and Denies arthralgias Integumentary/Breasts: Skin/Breast: Denies rash Neurologic: Denies Abnormal speech present and Denies confusion Psychiatric: Psychiatric: Reports no additional psychiatric complaints, Denies anxiety and Denies confusion Endocrine: Endocrine: Denies palpitations Allergic/Immunologic: Allergic/Immunologic: Reports wheezing Exam Narrative: Exam Narrative: Thin male laying in bed. No distress. Denied discomfort. Const: General: comfortable and no acute distress; No confusion Orientation/consciousness: No confusion HENMT: Mouth: Yes moist mucous membranes Eyes: General: appearance normal, both eyes
--- NOTE | 2020-03-14 16:12 | HOMEO2EVAL ---
Home Oxygen Evaluation RC: Home Oxygen (O2) Evaluation Start: 03/14/20 15:49 Freq: Status: Active Protocol: RPE Activity Type Activity Date Activity User E-Sign Co-Sign Detail Recorded Client Recorded Date Recorded By Document 03/14/20 15:30 CINTIA [id number] 03/14/20 15:58 CINTIA Document 03/14/20 15:33 CINTIA [email or web address] 03/14/20 15:58 CINTIA Document 03/14/20 15:35 CINTIA [email or web address] 03/14/20 15:58 CINTIA Document 03/14/20 15:40 CINTIA [email or web address] 03/14/20 15:58 CINTIA Document 03/14/20 15:43 CINTIA [email or web address] 03/14/20 15:58 CINTIA Document 03/14/20 15:50 CINTIA [email or web address] 03/14/20 15:58 CINTIA 03/14/20 03/14/20 03/14/20 15:30 15:33 15:35 Home O2 Evaluation Test Phase Resting Resting Resting Oxygen Delivery Room Air Nasal Cannula Nasal Cannula Oxygen Flow Rate (L/min) 1 2 Pulse Oximetry (90-100 %) 84 L 85 L 92 Pulse Rate (60-100 beats/min) 92 Ambulation Distance (feet) Home Oxygen Evaluation Comments Treatment Charges O2 Evaluation 03/14/20 03/14/20 03/14/20 15:40 15:43 15:50 Home O2 Evaluation Test Phase Exercise Exercise Resting Oxygen Delivery Nasal Cannula Nasal Cannula Nasal Cannula Oxygen Flow Rate (L/min) 2 3 2 Pulse Oximetry (90-100 %) 87 L 92 93 Pulse Rate (60-100 beats/min) 102 H 104 H 96 Ambulation Distance (feet) 300 Home Oxygen Evaluation Comments PT REQUIRES 2 L AT REST AND 3 L WITH ACTIVITY Treatment Charges
--- NOTE | 2020-03-14 17:06 | PM.DS ---
DS: Admitting Diagnosis Admitting Diagnosis Admitting Diagnosis: Heart failure, unspecified DS: Discharge Diagnosis Discharge Diagnosis (1) CHF (congestive heart failure): Qualifiers: Heart failure chronicity: acute Heart failure type: unspecified Qualified Code(s): I50.9 - Heart failure, unspecified Code(s): I50.9 - Heart failure, unspecified Status: Acute Assessment and Plan: -----acute on chronic right-sided heart failure with lower extremity swelling and clear lungs. Likely due to his COPD and pulmonary hypertension. The patient says he does not go to the doctor and he understands he probably has COPD. He has never been tested for sleep apnea. He has been urinating a lot on the diuretics and feels better. He had a home O2 evaluation which showed that he required oxygen. Patient states he can afford it and he was educated about oxygen use. He said he is going to quit smoking altogether. (2) Tobacco abuse disorder: Code(s): Z72.0 - Tobacco use Status: Acute Assessment and Plan: -----I spoke with the patient about the importance of stopping smoking. (3) COPD (chronic obstructive pulmonary disease): Qualifiers: COPD type: unspecified COPD Qualified Code(s): J44.9 - Chronic obstructive pulmonary disease, unspecified Code(s): J44.9 - Chronic obstructive pulmonary disease, unspecified Status: Acute Assessment and Plan: -----will start maintenance inhalers. The patient is having trouble affording them since he does not have any Medicare prescription coverage. I talked to him about setting up with [facility] as I know they can see patient is on a sliding scale and may have better resources. We also talked about obtaining his medications from [employer] [facility] [employer] or a smaller pharmacy which is typically cheaper and to utilize [facility]. He needs to quit smoking and we discussed this for >10 min (4) Acute respiratory failure with hypoxia: Code(s): J96.01 - Acute respiratory failure with hypoxia Status: Acute Assessment and Plan: -----patient has significant COPD and should range 89 and 92. 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 DS: Summary Hospital Course Reason for hospitalization: Shortness of breath with leg swelling Hospital Course: Patient is 69-year-old male who presented emergency room for shortness of breath and bilateral leg swelling. Vitals in the ER were temperature 36.6 degree C, pulse 107, respiratory rate 22, blood pressure 169/90, pulse ox 91 on room air. White blood cell count within normal limits. Platelets slightly low 140. Sodium 131, potassium 4.6, chloride 91, CO2 greater than 40, BUN 21, creatinine 0.7, glucose 116. Chest x-ray revealed no Cardiopulmonary abnormalities. Patient was admitted to the hospitalist service for CHF exacerbation and started on Lasix. He underwent an echo which showed a normal EF but grade 2 diastolic dysfunction. He also had right ventricular hypokinesis and hypertrophy likely due to pulmonary hypertension and uncontrolled COPD. He did have moderate pulmonary hypertension as well. Patient was seen by Cardiology and started on the medications below. He was unable to be weaned off oxygen and this was likely due to his COPD and not CHF exacerbation since his CHF exacerbation was mostly right-sided as his lungs were clear. He was educated about smoking cessation. Overall, the patient had much improvement through his stay. He was given resources and told he would need an outpatient sleep study. He was educated about the worrisome signs and symptoms come back to emergency room for was discharged stable condition. Time spent discussing smoking cessation with patient: more than 10 minutes Status at Discharge Functional status at discharge: independent ambulation Overall status at discharge: patient is back to baseline Time Spent with Pa
--- NOTE | 2020-03-14 17:13 | PCRCNOTE ---
PT TO PAY OUT OF POCKET FOR TANKS AND CONCENTRATOR FROM [email or web address]. TANK DROPPED OFF TO PT FOR TRANSPORT HOME ALONG WITH INFO OF PRICING AND PT AGREES. ALL REQUIRED DOCUMENTS WERE FAXED TO [facility] AND [facility] WILL BE EXPECTING HIS CALL FOR DELIVERY OF EQUIPMENT.
== END 2020-03-14 18:21 | disposition home or self-care (01) | DRG 291 ==
LOC: ANHED 20:49 → ANH3MED 21:16
PROVIDERS: Physician Assistant; Admitting Provider Internal Medicine; Emergency Provider Family Medicine; Visit Provider Internal Medicine
DX: I11.0 Hypertensive heart disease with heart failure (principal); I50.31 Acute diastolic (congestive) heart failure; J96.01 Acute respiratory failure with hypoxia; I50.813 Acute on chronic right heart failure; I27.20 Pulmonary hypertension, unspecified; J44.9 Chronic obstructive pulmonary disease, unspecified; F17.210 Nicotine dependence, cigarettes, uncomplicated; Z98.42 Cataract extraction status, left eye; Z98.41 Cataract extraction status, right eye; Z96.1 Presence of intraocular lens
CPT/HCPCS: 36415; 71045; 80048; 80053; 80061; 81001; 83036; 83880; 84443; 84484; 85025; 85027; 85055; 85610; 93005; 93306; 94618; 94640; 94762; 96374; 99285; A9270; G0378; J1650; J1940

== ENCOUNTER 2020-08-02 14:53 | Observation (INO) | payer MEDICAID, SELFPAY ==
[2020-08-02] VITALS (28 sets, daily range): BP systolic 98–141; BP diastolic 47–77; PULSE 76–127; RESP 13–27; TEMP 36.7–37.2; O2SAT 92–100
--- NOTE | ~2020-08-02 | XR_ITS ---
XR chest 2V DATE: 08/02/2020 15:44 INDICATION: Chest pain. History of hypertension and COPD. TECHNIQUE: PA and lateral views COMPARISON: 03/11/2020 portable AP chest FINDINGS: Bilateral hyperinflation and flattening of the diaphragm, as well as increased retrosternal airspace, consistent with given COPD clinical diagnosis. No pulmonary infiltrate or consolidation, pleural effusion or pulmonary vascular congestion or pneumo thorax. Old pulmonary granulomatous disease. Normal heart size. Aortic and great vessel calcification. Degenerative change and dextroscoliosis of the thoracic spine. IMPRESSION: COPD; no active cardiopulmonary disease Aortic and great vessel atherosclerosis Reviewed, dictated and finalized at location B. ER
--- NOTE | 2020-08-02 15:00 | ECG_ITS ---
Measurements Intervals [place] Rate: 127 P: VA: 0 QRS: 90 QRSD: 68 T: 76 QT: 276 QTc: 402 Interpretive Statements ATRIAL FLUTTER/TACHYCARDIA WITH RAPID VENTRICULAR RESPONSE BASELINE ARTIFACT- I, II, III, AVR, AVL, AVF, V2 ABNORMAL ECG Electronically Signed On 08-02-2020 16:02:59 BUNCH [employer] by Austin Shelley D.O.
[2020-08-02] MEDS: ASPIRIN 81 MG CHEWABLE TABLET 324 MG PO (15:05)
[2020-08-02 15:21] LABS: Basophils Percent Auto 0.3 % (0.2-1.2); Eosinophils Absolute Auto 0.1 K/mm3 (0-0.3); Eosinophils Percent Auto 1.3 % (0-4.4); Hematocrit 46.2 % (42.0-52.0); Hemoglobin 14.9 g/dL (14.0-18.0); Immature Granulocyte Absolute 0.02 K/mm3 (0.00-0.031); Immature Granulocyte Percent A 0.3 % (0-0.5); Lymphocytes Absolute Auto 0.98 K/mm3 (0.9-3.2); Lymphocytes Percent Auto 14.6 % (18.3-44.2); Mean Corpuscular HGB Conc 32.3 g/dl (32-36); Mean Corpuscular Hemoglobin 32.7 pg (26-34); Mean Corpuscular Volume 101.3 fl (80-100); Mean Platelet Volume 11.4 fl (7.4-10.4); Monocytes Absolute Auto 0.8 K/mm3 (0.1-0.6); Monocytes Percent Auto 11.9 % (2.6-8.5); Neutrophils Absolute Auto 4.8 K/mm3 (1.3-6.7); Neutrophils Percent Auto 71.6 % (45.5-73.1); Platelet Count Result 185 k/mm3 (150-375); Red Blood Count 4.56 M/mm3 (4.6-6.20); White Blood Count 6.7 K/mm3 (4.5-10.0)
[2020-08-02 15:29] LABS: INR 0.9; Prothrombin Time 12.6 Seconds (11.1-14.7)
[2020-08-02 15:30] LABS: Partial Thromboplastin Time 30.5 SECONDS (22.3-36.8)
[2020-08-02 15:33] LABS: Anion Gap 7.99999 mmol/L (8-16); Blood Urea Nitrogen 22 mg/dL (9-20); Calcium 9.2 mg/dL (8.4-10.2); Carbon Dioxide > 40 mmol/L (22-30); Chloride 92 mmol/L (98-107); Estimated CRCL calculation 62 ml/min; Estimated Glomerular Filt Rate > 60; Glucose 120 mg/dL (75-110); Potassium 4.6 mmol/L (3.4-5.0); Sodium 140 mmol/L (137-145)
[2020-08-02 15:42] LABS: Troponin I < 0.012 ng/mL (0.000-0.034)
--- NOTE | 2020-08-02 15:48 | ED.ARRPALP ---
HPI - Arrhythmia/Palpitations General Chief Complaint: Arrhythmia/Palpitations Stated Complaint: palpitations Time Seen by Provider: 08/02/20 15:45 History of Present Illness HPI narrative: He saw his babbitter yesterday and he was told that his heart rate was too fast and he should come to the ED. He was not having any symptoms, so he decided to wait until today. He was reportedly in flutter at 160 previously. EKG done during triage was suspiscious for flutter. He denies any symptoms. He was not aware that his heart was beating fast until he was told. Related Data Allergies Allergy/AdvReac Type Severity Reaction Status Date / Time No Known Allergies Allergy Verified 03/11/20 18:37 Review of Systems Review of Systems: All systems reviewed & are unremarkable except as noted in HPI and below Constitutional: Constitutional: Denies chills and Denies fever(s) Cardiovascular: Cardiovascular: Denies chest pain Respiratory: Respiratory: Denies dyspnea Gastrointestinal: Gastrointestinal: Denies abdominal pain and Denies nausea Neurologic: Denies dizziness and Denies weakness Psychiatric: Psychiatric: Denies anxiety [facility] Past Medical History Medical History Atrial flutter Chronic obstructive pulmonary disease Chronic respiratory failure with hypoxia, on home oxygen therapy Congestive heart failure Echocardiogram dated 03/12/2020 showed normal LV size and function with an EF of 77%, grade 2 diastolic dysfunction, and a moderately enlarged right ventricle with moderate hypokinesis and right ventricular hypertrophy. Hypertension Moderate pulmonary arterial systolic hypertension On echocardiogram dated 03/12/2020 with an estimated pulmonary arterial systolic pressure of 50 mmHg. Pulmonary hypertension Tobacco abuse Surgical History Surgical History History of cataract extraction Family History Family History Sibling Heart disease 3/4 the patient has 4 brothers have of heart disease. Diabetes mellitus The patient has 1 remaining living brother has diabetes. Mother Stomach cancer age 54, or perhaps a fourdrinier operator cancer, patient unsure. Father COPD (chronic obstructive pulmonary disease) age 87 of asbestosis and COPD Social History Social History Social History: Surrogate decision maker: Martínez Sanchez, brother. Code status: Full code. Smoking packs per day: 1 Smoking cigarettes per day: 20.0 Years smoked: 56 Smoking pack-years: 56.00 Smoking status: Current every day smoker Tobacco type: cigarettes Additional smoking assessment comments: Began smoking at age 13. Down to 1/2 pack a day as of 08/02/2020. Alcohol intake: former Substance use: never Substance use type: does not use Additional living arrangements comments: He lives in [place] with his girlfriend of 11 years. He has 4 grown children her relatively healthy. Has 2 daughters and 2 sons. 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 Gender identity (if verbalized by the patient): Male Spiritual care concerns: No Exam Const: General: no acute distress, alert and ill appearing chronically Nutritional Appearance: thin Orientation/consciousness: patient oriented x3 HENMT: Head: normal to inspection Neck: Neck: normal visual inspection and no lymphadenopathy Chest: Chest palpation & inspection: no tenderness Resp: Effort & Inspection: normal respiratory effort Auscultation: clear to auscultation bilaterally, no rales, no rhonchi and no wheezes Cardio: Jugular venous distens
[2020-08-02] MEDS: dilTIAZem HCl INJ 25 MG/5 ML VIAL 10 MG IV PUSH (16:13)
--- NOTE | 2020-08-02 18:12 | PM.CNCAR ---
Assessment and Plan Assessment and plan (1) Atrial flutter with rapid ventricular response: Code(s): I48.92 - Unspecified atrial flutter Status: Acute Assessment and Plan: New onset of atrial flutter, rapid ventricular response, well tolerated so far but putting him at risk of CHF and cardioembolic events. Will try to get control of the atrial flutter with Cardizem and avoid beta-blockers if possible. We will anticoagulate. I understand the patient does not have prescription drug coverage so will re-explore this but likely need to use warfarin, unfortunately, particularly in view of the patient's lack of follow-up and compliance. Also start Lovenox. If we cannot get control of the rhythm during the stay then we will consider a TAWNYA guided cardioversion. Because of his COPD he would be a little higher risk of respiratory problems with this procedure. (2) Chronic obstructive pulmonary disease: Code(s): J44.9 - Chronic obstructive pulmonary disease, unspecified Status: Acute Assessment and Plan: Severe COPD on home O2, relatively stable. (3) Pulmonary hypertension: Code(s): I27.20 - Pulmonary hypertension, unspecified Status: Acute Assessment and Plan: Pulmonary hypertension secondary to COPD, stable (4) CHF (congestive heart failure): Qualifiers: Heart failure chronicity: acute Heart failure type: unspecified Qualified Code(s): I50.9 - Heart failure, unspecified Code(s): I50.9 - Heart failure, unspecified Status: Acute Assessment and Plan: History of diastolic CHF and right-sided CHF, stable. (5) Noncompliance: Code(s): Z91.19 - Patient's noncompliance with other medical treatment and regimen Status: Acute Assessment and Plan: Noncompliance with follow-up History of Present Illness History of Present Illness Consult date/time: 08/02/20 18:13 Requesting physician: Mary Ann Stoddard MD Reason For Visit: New onset a fib/flutter Narrative: Date Of Service: 08/02/2020 Mr. Sam Sanchez is a 70-year-old white male with history of right-sided CHF and COPD whom we are asked to see at the request of hospitalist for our advice and opinion regarding his atrial flutter with rapid ventricular response. We met the patient in February when he was admitted with swelling, shortness of breath and CHF (ProBNP 5600, right-sided greater than left-sided ). Echo showed Echo showed EF 77%, grade 2 diastolic dysfunction, moderate right ventricular enlargement, hypokinesis and hypertrophy. RVSP 50 mmHg with mild valve disease. He was diuresed and discharged on home O2, but did not follow-up for his office as he had a lot of other things going on (girlfriend's son is having difficulties with drugs). He has no PCP. He ran out of his medications earlier this month and came in for an appointment yesterday. He was found to have a heart rate of 150 and was in new onset atrial flutter. He was urged to go to the emergency room but left the office having to take care of his dog but saying he would come back later. He had not arrived today so we reminded him he should go to the emergency room where he presented with atrial flutter, heart rate 130s. He has just been started on a Cardizem drip. He denies any palpitations, CP, edema or unusual ROBERTO. Does have shortness of breath with activity particularly if he does not wear his O2. No history of any bleeding problems. Review of Systems Constitutional: Constitutional: Denies fatigue Eyes: Eyes: Reports no additional eye complaints ENT: Reports epistaxis ( dry nose and mild epistaxis secondary to oxygen) and Denies nasal congestion Cardiovascular: Cardiovascular: Denies chest pain, Denies diap
--- NOTE | 2020-08-02 18:34 | PC.NURSE ---
1833 report received from DELIO Dexter.
[2020-08-02 18:38] LABS: Troponin I < 0.012 ng/mL (0.000-0.034)
[2020-08-02 19:12] LABS: Prothrombin Time 13.6 Seconds (11.1-14.7)
--- NOTE | 2020-08-02 20:04 | ADMIMU ---
This patient, Sam Sanchez, was admitted to IMU status, and placed in IMU Room 205-02 at 1853. Patient/family oriented to hospital policies and general routines including ID bracelet, bed and alarms, visiting hours, pain management, procedures, bathroom and other care routines, personal items, smoking policy, room service/diet, and visiting hours. Valuables list has been completed. Information on how to activate the Rapid Response Team has been discussed. Patient/Family are encouraged to report perceived risks to care and to ask questions if they do not understand what they are told or what they should do.
--- NOTE | 2020-08-02 20:05 | PC.NURSE ---
1904 Stood to walk to other side of bed, lost balance. Landed on buttocks - no injury noted. Patient reports frequent loss of balance at home. 1934 notified MOISE Tipton via face to face conversation.
--- NOTE | 2020-08-02 20:30 | PM.IMHP ---
H&P: HPI History of Present Illness Date/Time: 08/02/20 20:30 Chief complaint: ?Elevated heart rate.? Narrative: Sam Sanchez is a 70-year-old male smoker with chronic respiratory failure on home oxygen, COPD, hypertension, pulmonary hypertension, and congestive heart failure who presented to the emergency department earlier today via EMS from home for evaluation of an ?elevated heart rate.? He was seen by the nurse practitioner at Dr. Bay's office today for follow-up, as he had run out of his medications earlier this month. He was found to have a heart rate of 150 and was in new onset atrial flutter and was urged of the emergency department however he left the office as he had to go home to take care of his dog, and he said he would return later. He did not have a ride, and decided today to come in via EMS after Dr. Bay is office called to check on him. On presentation to the emergency department he was in atrial flutter with a heart rate in the 130s, and he has since been started on a Cardizem drip with some improvement in his rate. He is remarkably asymptomatic and denies palpitations and feelings of racing heart. He has occasional shortness of breath but nothing significant, and he attributes that to being started on inhalers and home oxygen after his admission in February 2020. He has not had chest pain, lightheadedness, nausea, vomiting, or sweats. Review of Systems Review of Systems: Narrative: Twelve systems were reviewed with pertinent positives and negatives as per HPI. He has a chronic smoker's cough which is unchanged. Weight has remained stable. He has had a good appetite. No orthopnea, PND, or lower extremity edema. He denies concerns for sleep apnea. Except as documented, all other systems were reviewed and are negative. [facility] Past Medical History Medical History (Updated 08/02/20 @ 22:56 by Laly Xavier PA-C) Atrial flutter Chronic obstructive pulmonary disease Chronic respiratory failure with hypoxia, on home oxygen therapy Congestive heart failure Echocardiogram dated 03/12/2020 showed normal LV size and function with an EF of 77%, grade 2 diastolic dysfunction, and a moderately enlarged right ventricle with moderate hypokinesis and right ventricular hypertrophy. Hypertension Moderate pulmonary arterial systolic hypertension On echocardiogram dated 03/12/2020 with an estimated pulmonary arterial systolic pressure of 50 mmHg. Pulmonary hypertension Tobacco abuse Surgical History Surgical History History of cataract extraction Family History Family History Sibling Heart disease 3/4 the patient has 4 brothers have of heart disease. Diabetes mellitus The patient has 1 remaining living brother has diabetes. Mother Stomach cancer age 54, or perhaps a fire tender cancer, patient unsure. Father COPD (chronic obstructive pulmonary disease) age 87 of asbestosis and COPD Social History Social History (Updated 08/02/20 @ 22:57 by Laly Xavier PA-C) Social History: Surrogate decision maker: Martínez Sanchez, brother. Code status: Full code. Smoking packs per day: 1 Smoking cigarettes per day: 20.0 Years smoked: 56 Smoking pack-years: 56.00 Smoking status: Current every day smoker Tobacco type: cigarettes Additional smoking assessment comments: Began smoking at age 13. Down to 1/2 pack a day as of 08/02/2020. Alcohol intake: former Substance use: never Substance use type: does not use Additional living arrangements comments: He lives in [place] with his girlfriend of 11 years. He has 4 grown children her relatively healthy. Has 2 daughters and 2 sons. 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 He then spent
[2020-08-02] MEDS: ENOXAPARIN 60 MG/0.6 ML SYRINGE 55 MG SUB-Q (21:13)
[2020-08-02] MEDS: WARFARIN (*PBKC) 7.5 MG TABLET PO (21:13)
[2020-08-02 22:06] LABS: Troponin I 0.013 ng/mL (0.000-0.034)
[2020-08-03] VITALS (19 sets, daily range): BP systolic 96–110; BP diastolic 47–61; PULSE 68–90; RESP 16–20; TEMP 36.1–36.7; O2SAT 93–98
[2020-08-03 05:11] LABS: Prothrombin Time 14.1 Seconds (11.1-14.7)
[2020-08-03 05:26] LABS: Alanine Aminotransferase 17 U/L (4-50); Albumin Level 3.8 g/dL (3.5-5.1); Alkaline Phosphatase 46 U/L (38-126); Anion Gap 1.99999 mmol/L (8-16); Aspartate Amino Transferase 33 U/L (17-59); Bilirubin,Total 0.5 mg/dL (0.2-1.3); Blood Urea Nitrogen 17 mg/dL (9-20); Calcium 8.8 mg/dL (8.4-10.2); Carbon Dioxide > 40 mmol/L (22-30); Chloride 94 mmol/L (98-107); Estimated CRCL calculation 85 ml/min; Estimated Glomerular Filt Rate > 60; Glucose 91 mg/dL (75-110); Potassium 4.3 mmol/L (3.4-5.0); Sodium 136 mmol/L (137-145)
[2020-08-03] MEDS: lisinopriL 5 MG TABLET PO (08:18)
[2020-08-03] MEDS: FUROSEMIDE 20 MG TABLET PO (08:18)
[2020-08-03] MEDS: ENOXAPARIN 60 MG/0.6 ML SYRINGE 55 MG SUB-Q (08:18)
--- NOTE | 2020-08-03 09:25 | PM.IMPN ---
Progress Note: A&P Assessment and Plan (1) Atrial flutter with rapid ventricular response: Code(s): I48.92 - Unspecified atrial flutter Status: Acute Assessment and Plan: New onset with RVR. Cardiology is following. TSH is normal at 0.761. He had an echocardiogram 03/12/20 which showed normal EF 77%, grade 2 diastolic dysfunction, right ventricular enlargement and hypokinesis in the setting of uncontrolled COPD and pulmonary hypertension. Rate has improved on cardizem gtt and he will be transitioned to cardizem PO today. Beta blockers will be avoided if possible given his COPD/chronic hypoxic respiratory failure. He is on therapeutic lovenox. Discussed with care coordination and both eliquis and xarelto are covered with his prescription drug plan. Will plan to transition to a DOAC at discharge. Appreciate cardiology input. (2) Hypertension: Qualifiers: Hypertension type: essential hypertension Qualified Code(s): I10 - Essential (primary) hypertension Code(s): I10 - Essential (primary) hypertension Status: Chronic Assessment and Plan: Blood pressures are reasonably controlled with a few readings on the soft side. He will be transitioned to cardizem PO from cardizem gtt. Continue lisinopril. Appreciate cardiology input. Continue to monitor. (3) Chronic obstructive pulmonary disease: Code(s): J44.9 - Chronic obstructive pulmonary disease, unspecified Status: Chronic Assessment and Plan: Chronic and not in acute exacerbation. He is on his baseline oxygen requirement of 2 liters per nasal cannula. Continue albuterol as needed and symbicort. (4) Chronic respiratory failure with hypoxia, on home oxygen therapy: Code(s): J96.11 - Chronic respiratory failure with hypoxia; Z99.81 - Dependence on supplemental oxygen Status: Chronic Assessment and Plan: Secondary to COPD. Stable. Continue home oxygen requirement. (5) Tobacco abuse: Code(s): Z72.0 - Tobacco use Status: Chronic Assessment and Plan: Nicoderm patch will be available while inpatient. I will try to encourage him to continue using nicoderm patches for smoking cessation at discharge if he tolerates this well while here. He understands the importance of smoking cessation and he endorses that he has decreased his smoking from 1-1.5PPD to 0.5PPD. I discussed adverse cardiopulmonary outcomes including . He is encouraged to continue working towards smoking cessation. (6) Congestive heart failure: Code(s): I50.9 - Heart failure, unspecified Status: Chronic Assessment and Plan: Chronic. Primarily right-sided due to severe COPD and pulmonary hypertension. He appears euvolemic and clinically compensated at this time. Echocardiogram from 03/12/20 demonstrated normal EF of 77% with grade 2 diastolic dysfunction. Continue to monitor volume status closely with daily weights and strict intake & output. Discontinue IV fluids to avoid volume overload. Subjective Date/time seen: 08/03/20 09:25 Mr. Sanchez is a 70 y.o. male with PMH significant for COPD with chronic hypoxic respiratory failure on 2 liters per nasal cannula, pulmonary hypertension, congestive heart failure, and current tobacco dependence who is seen in follow-up for atrial flutter. He is on cardizem gtt at the time of my evaluation with improvement in rate. He remains in atrial flutter at this time. He is doing very well overall. He notes the onset of the ability to hear my pulse in my ear 1 week ago which has subsided with better heart rate control. He is not having any chest pain, palpitations, or dyspnea. He is not feeling dizzy or lightheaded. He reports that his bowels are regular and he is not having any constipation, diarrhea, melena, or hematochezia. Review of Systems Review of Systems: All systems reviewed & are unremarkable except as noted in HPI and below Exam Narrati
[2020-08-03 10:21] LABS: Thyroid Stimulating Hormone Reflex 0.761 uIU/mL (0.465-4.68)
[2020-08-03] MEDS: dilTIAZem HCL 60 MG TABLET PO ×2 (11:19→17:25)
--- NOTE | 2020-08-03 11:47 | PM.PNCARD ---
Progress Note: A&P Assessment and Plan (1) Atrial flutter: Code(s): I48.92 - Unspecified atrial flutter Status: Acute Assessment and Plan: New onset of atrial flutter, rapid ventricular response, well tolerated so far but putting him at risk of CHF and cardioembolic events. Will try to get control of the atrial flutter with Cardizem and avoid beta-blockers if possible. Switch to p.o. short-acting Cardizem today, perhaps can be discharged tomorrow on long-acting Cardizem CD if heart rate is controlled. Ambulate and see how heart rate does with activity. We will anticoagulate. Warfarin 7.5 mg daily started yesterday as well as Lovenox. I understand the patient does not have prescription drug coverage so will re-explore this but likely need to use warfarin, unfortunately, particularly in view of the patient's lack of follow-up and compliance. Discussed anticoagulation with the patient as well as use of warfarin, follow-up lab tests etc. Possible eventual cardioversion after at least 4 weeks of anticoagulation. (2) Chronic obstructive pulmonary disease: Code(s): J44.9 - Chronic obstructive pulmonary disease, unspecified Status: Acute Assessment and Plan: Stable. Encouraged smoking cessation. Patient requests a nicotine patch. (3) Chronic diastolic CHF (congestive heart failure): Code(s): I50.32 - Chronic diastolic (congestive) heart failure Status: Acute Assessment and Plan: Has chronic diastolic CHF, right-sided greater than left-sided, with pulmonary hypertension, stable. (4) Noncompliance: Code(s): Z91.19 - Patient's noncompliance with other medical treatment and regimen Status: Acute Assessment and Plan: Discussed need for long-term cardiology care and compliance with medications, labs etc.. Subjective Date/time seen: 08/03/20 11:47 follow-up for new onset atrial flutter RVR. History of severe COPD on home O2. Date of service 08/03/2020: Patient was started on a Cardizem drip yesterday with improvement of heart rate, now running in the 80s. Denies any chest pain or shortness of breath. Started on warfarin yesterday but we are exploring the cost of the NOACs. Review of Systems Constitutional: Constitutional: Denies weakness ENT: Denies epistaxis Cardiovascular: Cardiovascular: Denies chest pain, Denies pedal edema, Denies lightheadedness and Denies palpitations Respiratory: Respiratory: Reports dyspnea on exertion (Chronic ROBERTO) and Reports wheezing (Chronic wheezes) Gastrointestinal: Gastrointestinal: Denies abdominal pain and Denies hematochezia Genitourinary: Genitourinary: Denies hematuria Musculoskeletal: Musculoskeletal: Denies back pain Integumentary/Breasts: Skin/Breast: Denies rash Neurologic: Denies confusion Psychiatric: Psychiatric: Denies behavioral changes Exam Const: General: comfortable and no acute distress HENMT: Mouth: Yes Abnormal oral and palatal mucosa present Eyes: EOM: EOMs intact bilaterally Neck: Neck: supple Resp: Effort & Inspection: normal respiratory effort Auscultation: clear to auscultation bilaterally Other: Distant and diminished breath sounds throughout all lung carreon Cardio: Rate: not tachycardic Rhythm: abnormal rhythm irregularly irregular GI: Inspection: non-distended GI Palp: Yes Soft to palpation and No Tenderness to palpation present (GI) Neuro: Speech: normal speech Motor exam (neuro): Normal motor muscle tone present throughout Extrem: General: no pedal edema Psych: Mental Status: mental status grossly normal Affect: normal affect Objective Data Vital Signs Vital Signs: Vital Signs - 24 hr 08/02/20 14:51 08/02/20 15:34 08/02/20 15:35 Temperature 99.0 F Pulse Rate 127 H 126 H 118 H Respiratory Rate 17 20 17 Blood Pressure 141/69 H 118/74
[2020-08-03] MEDS: NICOTINE (*PBKC) 14 MG PATCH 1 PATCH TRANSDERM (13:05)
[2020-08-03] MEDS: APIXABAN 5 MG TABLET PO (20:49)
[2020-08-04] VITALS (14 sets, daily range): BP systolic 100–109; BP diastolic 41–59; PULSE 67–86; RESP 12–20; TEMP 36.3–36.6; O2SAT 96–99
[2020-08-04] MEDS: dilTIAZem HCL 60 MG TABLET PO ×2 (00:06→06:01)
[2020-08-04 05:00] LABS: Hematocrit 31.4 % (42.0-52.0); Hemoglobin 10.6 g/dL (14.0-18.0); Mean Corpuscular HGB Conc 33.8 g/dl (32-36); Mean Corpuscular Hemoglobin 32.6 pg (26-34); Mean Corpuscular Volume 96.6 fl (80-100); Mean Platelet Volume 12.2 fl (7.4-10.4); Platelet Count Result 141 k/mm3 (150-375); Red Blood Count 3.25 M/mm3 (4.6-6.20); Red Cell Distribution Width 12.7 % (11.5-14.5); White Blood Count 6.3 K/mm3 (4.5-10.0)
[2020-08-04 05:08] LABS: INR 1.6; Prothrombin Time 19.5 Seconds (11.1-14.7)
[2020-08-04 05:14] LABS: Anion Gap 3.99999 mmol/L (8-16); Blood Urea Nitrogen 34 mg/dL (9-20); Calcium 8.8 mg/dL (8.4-10.2); Carbon Dioxide > 40 mmol/L (22-30); Chloride 90 mmol/L (98-107); Estimated CRCL calculation 70 ml/min; Estimated Glomerular Filt Rate > 60; Glucose 97 mg/dL (75-110); Magnesium 1.7 mg/dL (1.6-2.3); Potassium 4.6 mmol/L (3.4-5.0); Sodium 134 mmol/L (137-145)
[2020-08-04] MEDS: lisinopriL 5 MG TABLET PO (08:52)
[2020-08-04] MEDS: APIXABAN 5 MG TABLET PO ×2 (08:52→22:34)
[2020-08-04] MEDS: FUROSEMIDE 20 MG TABLET PO (08:52)
[2020-08-04] MEDS: NICOTINE (*PBKC) 14 MG PATCH 1 PATCH TRANSDERM (08:53)
[2020-08-04 09:50] LABS: Cholesterol 135 mg/dL (0-200); HDL Direct 60 mg/dL; Triglycerides 56 mg/dL (<150)
[2020-08-04 10:01] LABS: LDL Cholesterol Direct 54 mg/dL
--- NOTE | 2020-08-04 10:15 | PM.IMPN ---
Progress Note: A&P Assessment and Plan (1) Atrial flutter with rapid ventricular response: Code(s): I48.92 - Unspecified atrial flutter Status: Acute Assessment and Plan: New onset with RVR. Cardiology is following. TSH is normal at 0.761. He had an echocardiogram 03/12/20 which showed normal EF 77%, grade 2 diastolic dysfunction, right ventricular enlargement and hypokinesis in the setting of uncontrolled COPD and pulmonary hypertension. Rate on cardizem. Cardizem gtt was discontinued yesterday and short acting cardizem will be transitioned to long-acting cardizem today. Beta blockers will be avoided if possible given his COPD/chronic hypoxic respiratory failure. Lovenox was transitioned to eliquis last night which is covered by insurance. Appreciate cardiology input. Plan to monitor overnight on telemetry and increase ambulation to monitor heart rate with increased exertion. (2) Hypertension: Qualifiers: Hypertension type: essential hypertension Qualified Code(s): I10 - Essential (primary) hypertension Code(s): I10 - Essential (primary) hypertension Status: Chronic Assessment and Plan: Blood pressures are on the soft side. PO cardizem will be transitioned from short-acting to long-acting today per cardiology. Continue lisinopril. Appreciate cardiology input. Continue to monitor. (3) Chronic obstructive pulmonary disease: Qualifiers: COPD type: unspecified COPD Qualified Code(s): J44.9 - Chronic obstructive pulmonary disease, unspecified Code(s): J44.9 - Chronic obstructive pulmonary disease, unspecified Status: Chronic Assessment and Plan: Chronic and not in acute exacerbation. He is on his baseline oxygen requirement of 2 liters per nasal cannula. Continue albuterol as needed and symbicort. (4) Chronic respiratory failure with hypoxia, on home oxygen therapy: Code(s): J96.11 - Chronic respiratory failure with hypoxia; Z99.81 - Dependence on supplemental oxygen Status: Chronic Assessment and Plan: Secondary to COPD. Stable. Continue home oxygen requirement. (5) Tobacco abuse: Code(s): Z72.0 - Tobacco use Status: Chronic Assessment and Plan: Nicoderm patch will be available while inpatient. I will try to encourage him to continue using nicoderm patches for smoking cessation at discharge if he tolerates this well while here. He understands the importance of smoking cessation and he endorses that he has decreased his smoking from 1-1.5PPD to 0.5PPD. I discussed adverse cardiopulmonary outcomes including . He is encouraged to continue working towards smoking cessation. (6) Congestive heart failure: Code(s): I50.9 - Heart failure, unspecified Status: Chronic Assessment and Plan: Chronic. Primarily right-sided due to severe COPD and pulmonary hypertension. He appears euvolemic and clinically compensated at this time. Echocardiogram from 03/12/20 demonstrated normal EF of 77% with grade 2 diastolic dysfunction. Continue to monitor volume status closely with daily weights and strict intake & output. Subjective Date/time seen: 08/04/20 10:15 Mr. Sanchez is a 70 y.o. male with PMH significant for COPD with chronic hypoxic respiratory failure on 2 liters per nasal cannula, pulmonary hypertension, congestive heart failure, and current tobacco dependence who is seen in follow-up for atrial flutter. He remains in atrial flutter on PO cardizem with rate well-controlled. He is doing well today. He has no chest pain, dyspnea, or palpitations. He is not dizzy or lightheaded. He is tolerating his diet without nausea, vomiting, or abdominal pain. He has no leg pain or swelling. He denies any evidence of bleeding. He has not had a bowel movement yet while here but does not feel constipated. Review of Systems Review of Systems: All systems reviewed & are unremarkable except as noted
--- NOTE | 2020-08-04 12:31 | PM.PNCARD ---
Progress Note: A&P Assessment and Plan (1) Atrial flutter: Qualifiers: Atrial flutter type: unspecified Qualified Code(s): I48.92 - Unspecified atrial flutter Code(s): I48.92 - Unspecified atrial flutter Status: Acute Assessment and Plan: New onset of atrial flutter, rapid ventricular response, well tolerated so far but putting him at risk of CHF and cardioembolic events. Heart rate controlled overnight on short-acting Cardizem. Will transition to long-acting Cardizem CD 240 mg with noon dose. Monitor 1 more night on telemetry. Needs to increase activity such as ambulating in hallway to monitor heart rate response. His insurance does cover Eliquis which has been started. Consider cardioversion in 4-6 weeks if he is able to be compliant with anticoagulation and follow-up . (2) Chronic obstructive pulmonary disease: Qualifiers: COPD type: unspecified COPD Qualified Code(s): J44.9 - Chronic obstructive pulmonary disease, unspecified Code(s): J44.9 - Chronic obstructive pulmonary disease, unspecified Status: Chronic Assessment and Plan: Stable. He states that he has quit smoking. Chronic home oxygen. (3) Chronic diastolic CHF (congestive heart failure): Code(s): I50.32 - Chronic diastolic (congestive) heart failure Status: Acute Assessment and Plan: Has chronic diastolic CHF, right-sided greater than left-sided, with pulmonary hypertension, stable. (4) Noncompliance: Code(s): Z91.19 - Patient's noncompliance with other medical treatment and regimen Status: Acute Assessment and Plan: Discussed need for long-term cardiology care and compliance with medications. Additional Plan Plan discussed with Dr. Gus Vazquez 08/04/2020 Subjective Date/time seen: 08/04/20 12:31 Interval history: Follow-up for: Atrial flutter with rapid ventricular response chronic diastolic heart failure, pulmonary hypertension, noncompliance with medical therapy Date of service: 08/04/2020 Subjective: Feeling very well. Denied chest discomfort, lightheadedness or palpitations. Shortness of breath with exertional activity at baseline. Home oxygen. Review of Systems Constitutional: Constitutional: Denies fatigue and Denies weakness Eyes: Eyes: Denies blind spots and Denies blurry vision ENT: Denies epistaxis and Denies nasal congestion Cardiovascular: Cardiovascular: Denies chest pain, Denies diaphoresis, Denies pedal edema, Denies leg edema, Denies lightheadedness, Denies palpitations, Reports dyspnea and Reports dyspnea on exertion (Chronic ROBERTO) Respiratory: Respiratory: Denies cough, Denies hemoptysis, Reports dyspnea, Reports dyspnea on exertion (Chronic ROBERTO) and Reports wheezing (Chronic wheezes) Gastrointestinal: Gastrointestinal: Denies abdominal pain, Denies hematochezia and Denies hematemesis Genitourinary: Genitourinary: Denies hematuria and Denies dysuria Musculoskeletal: Musculoskeletal: Denies back pain Integumentary/Breasts: Skin/Breast: Denies rash Neurologic: Denies behavioral changes, Denies confusion and Denies weakness Psychiatric: Psychiatric: Reports no additional psychiatric complaints, Denies behavioral changes and Denies confusion Endocrine: Endocrine: Denies fatigue and Denies palpitations Allergic/Immunologic: Allergic/Immunologic: Reports wheezing (Chronic wheezes) Exam Narrative: Exam Narrative: Thin, barrel-chested polite pleasant older male in no distress Const: General: comfortable and no acute distress; No confusion Orientation/consciousness: No confusion HENMT: Mouth: Yes moist mucous membranes and Yes Abnormal oral and palatal mucosa present Other: edentulous Eyes: EOM: EOMs intact bilaterally Neck: Neck: supple Resp: Effort & Inspection: normal respiratory effort and able to
--- NOTE | 2020-08-04 14:26 | PCRCNOTE ---
Window of time for administration has passed. See next scheduled administration.
--- NOTE | 2020-08-04 19:53 | PC.NURSE ---
This patient, Sam Sanchez, was transferred to [facility] on 08/04/20 at 1950. Personal belongings sent with patient. Report given to Jostin KEBEDE. Appropriate documentation sent with patient.
--- NOTE | 2020-08-04 20:00 | PC.NURSE ---
Addendum entered by Corrie Jones RN 08/04/20 21:25: patient personal funds $260.00 taken to 2nd medical lockbox by Priyanka @ [id number] Original Note: This patient, Sam Sanchez, was received from [[id number]] on 08/04/20 at 1942. Patient/family oriented to unit policies and routines
[2020-08-05] VITALS (8 sets, daily range): BP systolic 95–107; BP diastolic 48–63; PULSE 72–93; RESP 14–18; TEMP 36.4–36.6; O2SAT 93–100
[2020-08-05 06:09] LABS: Hematocrit 30.9 % (42.0-52.0); Hemoglobin 10.2 g/dL (14.0-18.0); Mean Corpuscular Hemoglobin 31.5 pg (26-34); Mean Corpuscular Volume 95.4 fl (80-100); Mean Platelet Volume 12.3 fl (7.4-10.4); Platelet Count Result 141 k/mm3 (150-375); Red Blood Count 3.24 M/mm3 (4.6-6.20); Red Cell Distribution Width 12.6 % (11.5-14.5); White Blood Count 6.1 K/mm3 (4.5-10.0)
[2020-08-05 06:16] LABS: Anion Gap 3.99999 mmol/L (8-16); Blood Urea Nitrogen 32 mg/dL (9-20); Calcium 8.9 mg/dL (8.4-10.2); Carbon Dioxide > 40 mmol/L (22-30); Chloride 90 mmol/L (98-107); Estimated CRCL calculation 72 ml/min; Estimated Glomerular Filt Rate > 60; Glucose 97 mg/dL (75-110); Potassium 4.6 mmol/L (3.4-5.0); Sodium 134 mmol/L (137-145)
[2020-08-05] MEDS: NICOTINE (*PBKC) 14 MG PATCH 1 PATCH TRANSDERM (10:05)
[2020-08-05] MEDS: APIXABAN 5 MG TABLET PO (10:05)
[2020-08-05] MEDS: lisinopriL 5 MG TABLET PO (10:05)
[2020-08-05] MEDS: FUROSEMIDE 20 MG TABLET PO (10:08)
--- NOTE | 2020-08-05 12:54 | PM.PNCARD ---
Progress Note: A&P Assessment and Plan (1) Atrial flutter: Qualifiers: Atrial flutter type: unspecified Qualified Code(s): I48.92 - Unspecified atrial flutter Code(s): I48.92 - Unspecified atrial flutter Status: Acute Assessment and Plan: New onset of atrial flutter, rapid ventricular response, well tolerated so far but putting him at risk of CHF and cardioembolic events. Rate well controlled on Cardizem CD 200 40 mg daily. Anticoagulated with Eliquis. Stressed the importance of NOT missing any doses of his medications. Consider cardioversion in 4-6 weeks if he is able to be compliant with anticoagulation and follow-up . (2) Chronic obstructive pulmonary disease: Qualifiers: COPD type: unspecified COPD Qualified Code(s): J44.9 - Chronic obstructive pulmonary disease, unspecified Code(s): J44.9 - Chronic obstructive pulmonary disease, unspecified Status: Chronic Assessment and Plan: Stable. He states that he has quit smoking. Chronic home oxygen. (3) Chronic diastolic CHF (congestive heart failure): Code(s): I50.32 - Chronic diastolic (congestive) heart failure Status: Acute Assessment and Plan: Has chronic diastolic CHF, right-sided greater than left-sided, with pulmonary hypertension, stable. (4) Noncompliance: Code(s): Z91.19 - Patient's noncompliance with other medical treatment and regimen Status: Acute Assessment and Plan: Again discussed need for long-term cardiology care and compliance with medications. He verbalizes an understanding. Additional Plan OK to discharge from a cardiac standpoint if his stool is negative for occult blood. See discharge instructions for follow-up. Will need to follow his lab work as an outpatient. Plan discussed with Dr. Morales at 1:00 p.m. 08/05/2020 Subjective Date/time seen: 08/05/20 12:54 Interval history: Follow-up for: Atrial flutter with rapid ventricular response chronic diastolic heart failure, pulmonary hypertension, noncompliance with medical therapy Date of service: 08/05/2020 Subjective: Denied chest discomfort, shortness of breath, lightheadedness or palpitations. No nausea or vomiting. Review of Systems Constitutional: Constitutional: Denies fatigue and Denies weakness Eyes: Eyes: Denies blind spots and Denies blurry vision ENT: Denies epistaxis and Denies nasal congestion Cardiovascular: Cardiovascular: Denies chest pain, Denies diaphoresis, Denies pedal edema, Denies leg edema, Denies lightheadedness, Denies palpitations, Reports dyspnea and Reports dyspnea on exertion (Chronic ROBERTO) Respiratory: Respiratory: Denies cough, Denies hemoptysis, Reports dyspnea on exertion (Chronic ROBERTO) and Denies wheezing Gastrointestinal: Gastrointestinal: Denies abdominal pain, Denies melena, Denies hematochezia and Denies hematemesis Genitourinary: Genitourinary: Denies hematuria and Denies dysuria Musculoskeletal: Musculoskeletal: Denies back pain Integumentary/Breasts: Skin/Breast: Denies rash Neurologic: Denies behavioral changes, Denies confusion and Denies weakness Psychiatric: Psychiatric: Reports no additional psychiatric complaints, Denies behavioral changes and Denies confusion Endocrine: Endocrine: Denies fatigue and Denies palpitations Allergic/Immunologic: Allergic/Immunologic: Reports wheezing (Chronic wheezes) Exam Narrative: Exam Narrative: Thin, barrel-chested polite pleasant older male in no distress. Wants to go home Const: General: comfortable and no acute distress; No confusion Orientation/consciousness: No confusion HENMT: Mouth: Yes moist mucous membranes and Yes Abnormal oral and palatal mucosa present Other: edentulous Eyes: EOM: EOMs intact bilaterally Neck: Neck: supple Resp: Effort & Inspection: normal respi
[2020-08-05 13:45] LABS: IFOB Positive Control Positive; Immunochemical Fecal Occult Bl Negative (N)
--- NOTE | 2020-08-05 14:41 | PM.DS ---
DS: Admitting Diagnosis Admitting Diagnosis Admitting Diagnosis: ?Elevated heart rate.? DS: Discharge Diagnosis Discharge Diagnosis (1) Atrial flutter with rapid ventricular response: Code(s): I48.92 - Unspecified atrial flutter Status: Acute Assessment and Plan: Discharge Summary (Date of service 08/05/20): Mr. Sanchez is a 70 y.o. male with PMH significant for COPD with chronic hypoxic respiratory failure on 2 liters per nasal cannula, pulmonary hypertension, congestive heart failure, and current tobacco dependence who presented to the emergency department for the evaluation of an elevated heart rate. He was seen by cardiology outpatient and found to be in atrial flutter with rates in the 150s. He was advised to proceed to the emergency department immediatley but did not go right away as he stated that he had to care for his dog. On arrival to the ED, he was noted to be in atrial flutter with rates in the 130s. He noted he could hear his pulse in his ear but was otherwise asymptomatic. He was started on lovenox and cardizem gtt with improvement in his rate. He was admitted to the hospitalist service and cardiology was consulted. He remained in atrial flutter on cardizem gtt. He was transitioned to oral cardizem per cardiology. TSH was normal at 0.761. He had an echocardiogram 03/12/20 which showed normal EF 77%, grade 2 diastolic dysfunction, right ventricular enlargement and hypokinesis in the setting of uncontrolled COPD and pulmonary hypertension. Lovenox was transitioned to eliquis which was covered by his insurance. His Hb did decrease to 9.9. He had no evidence of bleeding and this may have been dilutional since he received IV fluids initially. Guaiac stool testing was performed to r/o GI bleeding and was negative for occult blood. He will need repeat H&H outpatient. He was felt stable for discharge from a cardiology standpoint. Cardiology may consider cardioversion in 4-6 weeks. Compliance was encouraged at length and the risks of non-compliance were discussed including but not limited to adverse cardiovascular outcomes including CVA and . He was discharged in hemodynamically stable condition on the afternoon of 08/05/20. (2) Hypertension: Qualifiers: Hypertension type: essential hypertension Qualified Code(s): I10 - Essential (primary) hypertension Code(s): I10 - Essential (primary) hypertension Status: Chronic Assessment and Plan: Blood pressures were reasonable with some readings on the soft side. Management was deferred to cardiology and he was encouraged to monitor BP daily and follow-up with cardiology outpatient for montoring. (3) Chronic obstructive pulmonary disease: Code(s): J44.9 - Chronic obstructive pulmonary disease, unspecified Status: Chronic Assessment and Plan: Chronic and not in acute exacerbation. Symbicort and albuterol were continued. (4) Chronic respiratory failure with hypoxia, on home oxygen therapy: Code(s): J96.11 - Chronic respiratory failure with hypoxia; Z99.81 - Dependence on supplemental oxygen Status: Chronic Assessment and Plan: Secondary to COPD. Stable. Home oxygen requirement of 2 liters per nasal cannula was continued. (5) Tobacco abuse: Code(s): Z72.0 - Tobacco use Status: Chronic Assessment and Plan: Nicoderm patch was available while inpatient. I discussed the importance of smoking cessation and adverse cardiopulmonary outcomes of tobacco use including . He requested to continue nicoderm patches at discharge for smoking cessation. (6) Congestive heart failure: Code(s): I50.9 - Heart failure, unspecified Status: Chronic Assessment and Plan: Chronic. Primarily right-sided due to severe COPD and pulmonary hypertension. He appeared euvolemic and clinically compensated. Echocardiogram from 03/12/20 demonstrated normal EF of 77% with grade 2 mcmullen
--- NOTE | 2020-08-05 15:35 | PC.NURSE ---
Pt belongings returned. Pt stated that everything is there.
== END 2020-08-05 15:51 | disposition home or self-care (01) ==
LOC: ANHED 15:45 → ANHIMU 20:07 → ANH3MED 08-05 09:25 → ANHIMU 08-08 13:30
PROVIDERS: Physician Assistant; Admitting Provider Family Medicine; Emergency Provider Emergency Medicine; PCP Internal Medicine Cardiovascular Disease; Visit Provider Physician Assistant
DX: I48.92 Unspecified atrial flutter (principal); J96.10 Chronic respiratory failure, unspecified whether with hypoxia or hypercapnia; I11.0 Hypertensive heart disease with heart failure; I50.32 Chronic diastolic (congestive) heart failure; I27.20 Pulmonary hypertension, unspecified; F17.210 Nicotine dependence, cigarettes, uncomplicated; J44.9 Chronic obstructive pulmonary disease, unspecified; Z91.19 Patient's noncompliance with other medical treatment and regimen; Z99.81 Dependence on supplemental oxygen; Z23 Encounter for immunization
CPT/HCPCS: 36415; 71046; 80048; 80053; 80061; 82274; 83735; 84443; 84484; 85025; 85027; 85610; 85730; 90471; 90653; 93005; 94640; 96365; 96366; 96372; 96376; 99285; A9270; G0008; G0378; G0379; J1650

== ENCOUNTER 2020-08-10 14:42 | Outpatient (CLI) | payer MEDICAID, SELFPAY ==
[2020-08-10 15:21] LABS: Hematocrit 30.8 % (42.0-52.0); Hemoglobin 9.9 g/dL (14.0-18.0)
[2020-08-10 15:34] LABS: Anion Gap 6.99999 mmol/L (8-16); Blood Urea Nitrogen 28 mg/dL (9-20); Calcium 8.8 mg/dL (8.4-10.2); Carbon Dioxide > 40 mmol/L (22-30); Chloride 87 mmol/L (98-107); Estimated Glomerular Filt Rate > 60; Glucose 107 mg/dL (75-110); Potassium 5.7 mmol/L (3.4-5.0); Sodium 134 mmol/L (137-145)
== END 2020-08-10 14:43 | disposition home or self-care (01) ==
LOC: ANHLAB 14:44
PROVIDERS: PCP Internal Medicine Cardiovascular Disease; Visit Provider Physician Assistant
DX: D64.9 Anemia, unspecified (principal); I48.92 Unspecified atrial flutter
CPT/HCPCS: 36415; 80048; 85014; 85018

== ENCOUNTER 2020-10-13 12:47 | Inpatient (IN) | payer MEDICARE, MEDICAID, SELFPAY ==
[2020-10-13] VITALS (21 sets, daily range): BP systolic 102–155; BP diastolic 50–67; PULSE 82–110; RESP 16–30; TEMP 36.2–36.8; O2SAT 87–100; BMI 16.7
--- NOTE | ~2020-10-13 | XR_ITS ---
EXAMINATION: XR chest 1V portable EXAM DATE: 10/13/2020 13:34 INDICATION: Altered mental status and weakness. TECHNIQUE: Portable AP frontal chest x-ray was obtained. Comparison is made to prior examination from 08/02/2020. FINDINGS: Right upper lobe calcified granuloma unchanged. Chronic hyperinflation. The lungs are other torres clear. There are no pleural effusions. The cardiomediastinal silhouette is within normal limit s. There is no pneumothorax suspected. The bones and soft tissues are unremarkable. There is no si gnificant interval change. IMPRESSION: 1. No acute cardiopulmonary findings. 2. Hyperinflation. Reviewed, dictated and finalized at location A. E EXAMINER
--- NOTE | ~2020-10-13 | CT_ITS ---
EXAMINATION: CT brain wo con DATE: 10/14/2020 13:28 INDICATION: Altered mental status. TECHNIQUE: Computed tomography (CT) of the head was performed without intravenous contrast. Sagittal and coronal reconstructions were performed. The mA was adjusted according to patient size. Iterative reconstruction technique was employed. The dose-length product was 605.33 mGy-cm. COMPARISON: None FINDINGS: No acute intracranial hemorrhage, acute infarction or abnormal extra axial fluid collection. Ventricl es are normal and symmetric. 8 x 4 x 3 mm hyperdense lesion in the anterior third ventricle near the foramen of Pérez. Changes of bilateral intraocular lens replacement. The orbits, paranasal sinuses a nd mastoid air cells are normal. Intracranial calcified cerebral atherosclerosis is noted. IMPRESSION: 1. 8 x 4 x 3 mm hyperdense lesion at the anterior third ventricle with classic location and appearanc e for a colloid cyst. Differential would include meningioma or astrocytoma. Although there is no evid ent hydronephrosis to suggest current obstruction, these can predispose towards acute onset obstructi on with potentially life-threatening hydrocephalus. Would recommend neurosurgical consultation which if patient is asymptomatic could be performed on a nonemergent basis as well as pre and postcontrast MRI to exclude solid neoplasm neurosurgical consultation. Reviewed, dictated and finalized at location B. [employer] IMPRESSION: 1. 8 x 4 x 3 mm hyperdense lesion at the anterior third ventricle with classic location and appearance for a colloid cyst. Differential would include meningio ma or astrocytoma. Although there is no evident hydronephrosis to suggest curre nt obstruction, these can predispose towards acute onset obstruction with poten tially life-threatening hydrocephalus. Would recommend neurosurgical consultati on which if patient is asymptomatic could be performed on a nonemergent basis a s well as pre and postcontrast MRI to exclude solid neoplasm neurosurgical cons ultation.
--- NOTE | 2020-10-13 13:07 | ECG_ITS ---
Measurements Intervals [place] Rate: 0 P: [place]: 0 QRS: QRSD: 0 T: QT: 0 QTc: 0 Interpretive Statements ATRIAL FLUTTER WITH RAPID VENTRICULAR RESPONSE BASELINE ARTIFACT- I, II, AVR, AVL, V3-V6 ABNORMAL ECG Electronically Signed On 10-13-2020 13:20:36 STAMP CLERK by Austin Shelley D.O.
--- NOTE | 2020-10-13 13:25 | ED.SOB ---
HPI - SOB/Dyspnea General Chief Complaint: Shortness of Breath/Dyspnea Stated Complaint: COPD/SOB Time Seen by Provider: 10/13/20 13:16 History of Present Illness HPI Narrative: 70 yo male w/ h/o COPD, a-fib presents to the ED for AMS. Family called EMS due to change in mental status. EMS found that he had an O2 saturation in the 70s on baseline 2 liters. They gave him a nebulizer treatment and increased his O2. On arrival to the ED he is obtunded and unable to answer most questions. History limited by medical condition. Related Data Allergies Allergy/AdvReac Type Severity Reaction Status Date / Time No Known Allergies Allergy Verified 10/13/20 20:25 Review of Systems Review of Systems: ROS unobtainable: Yes unobtainable due to medical condition and unobtainable due to mental status PMFSH Past Medical History Medical History Atrial flutter Chronic obstructive pulmonary disease Chronic respiratory failure with hypoxia, on home oxygen therapy Congestive heart failure Echocardiogram dated 03/12/2020 showed normal LV size and function with an EF of 77%, grade 2 diastolic dysfunction, and a moderately enlarged right ventricle with moderate hypokinesis and right ventricular hypertrophy. Hypertension Moderate pulmonary arterial systolic hypertension On echocardiogram dated 03/12/2020 with an estimated pulmonary arterial systolic pressure of 50 mmHg. Pulmonary hypertension Tobacco abuse Surgical History Surgical History History of cataract extraction Family History Family History Sibling Heart disease 3/4 the patient has 4 brothers have of heart disease. Diabetes mellitus The patient has 1 remaining living brother has diabetes. Mother Stomach cancer age 54, or perhaps a public works commissioner cancer, patient unsure. Father COPD (chronic obstructive pulmonary disease) age 87 of asbestosis and COPD Social History Social History (Updated 10/13/20 @ 17:35 by Lola Osullivan NP) Social History: The patient continues to smoke at least a half a pack a cigarettes a day. Surrogate decision maker: Martínez Daniel, brother. Code status: Full code. Smoking packs per day: 1 Smoking cigarettes per day: 20.0 Years smoked: 56 Smoking pack-years: 56.00 Smoking status: Current every day smoker Tobacco type: cigarettes Additional smoking assessment comments: Began smoking at age 13. Down to 1/2 pack a day as of 08/02/2020. Alcohol intake: former Substance use: never Substance use type: does not use Additional living arrangements comments: He lives in [place] with his girlfriend of 16 years. He has 4 grown children her relatively healthy. Has 2 daughters and 2 sons. 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 Gender identity (if verbalized by the patient): Male Sexual Orientation (if Verbalized by the Patient): Straight or Heterosexual Spiritual care concerns: No Exam Const: General: ill appearing Nutritional Appearance: thin Other: Moderate distress. Obtunded. HENMT: Head: normal to inspection Resp: Effort & Inspection: labored Auscultation: diminished lung sounds Cardio: Rate: tachycardic Rhythm: abnormal rhythm regularly irregular GI: GI Palp: Yes Soft to palpation and No Tenderness to palpation present (GI) Skin: General skin exam: normal color Neuro: General: moves all extremities Other: oriented x2 Extrem: General: normal to inspection Course Vital Signs Vital signs: Vital Signs Temperature 36.8 C 10/13/20 13:07 Pulse Rate 93 10/13/20 13:07 Respiratory Rate 25 H 10/13/20 13:07 Blood Pr
[2020-10-13] MEDS: IPRATROPIUM BR 0.02% INH SOLN 0.5 MG/2.5 ML VIAL 1 MG INHALATION (13:44)
[2020-10-13] MEDS: ALBUTEROL SULFATE NEB 2.5 MG/0.5 ML INH 10 MG INHALATION (13:44)
--- NOTE | 2020-10-13 14:03 | PC.NURSE ---
patient straight cath attempt at this time, 0ml urine output at this time.
[2020-10-13 14:09] LABS: Basophils Percent Auto 0.1 % (0.2-1.2); Hematocrit 50.4 % (42.0-52.0); Hemoglobin 15.5 g/dL (14.0-18.0); Immature Granulocyte Absolute 0.02 K/mm3 (0.00-0.031); Immature Granulocyte Percent A 0.3 % (0-0.5); Lymphocytes Absolute Auto 0.31 K/mm3 (0.9-3.2); Mean Corpuscular HGB Conc 30.8 g/dl (32-36); Mean Corpuscular Hemoglobin 32.6 pg (26-34); Mean Corpuscular Volume 106.1 fl (80-100); Mean Platelet Volume 12.6 fl (7.4-10.4); Monocytes Absolute Auto 0.4 K/mm3 (0.1-0.6); Monocytes Percent Auto 5.7 % (2.6-8.5); Neutrophils Absolute Auto 6.9 K/mm3 (1.3-6.7); Neutrophils Percent Auto 89.9 % (45.5-73.1); Platelet Count Result 123 k/mm3 (150-375); Red Blood Count 4.75 M/mm3 (4.6-6.20); Red Cell Distribution Width 13.6 % (11.5-14.5); White Blood Count 7.7 K/mm3 (4.5-10.0)
[2020-10-13 14:20] LABS: INR 1.5; Prothrombin Time 18.4 Seconds (11.1-14.7)
[2020-10-13 14:21] LABS: Partial Thromboplastin Time 32.4 SECONDS (22.3-36.8)
[2020-10-13 14:23] LABS: Alveolar/Arterial O2 Gradient 42.1 mmHg; Base Excess ABG 15.8 mEq/l (+/-2.0); Fractional Inspired Oxygen 50 %; HCO3 ABG 53.3 mEq/l (22.0-26.0); Oxygen Content ABG 19.7 %vol (16.0-22.0); Oxygen Saturation ABG 96.2 % (95.0-100.0); Oxyhemoglobin 92.5 % THb (90.0-100.0); PO2 ABG 119.9 mmHg (80.0-100.0)
[2020-10-13 14:26] LABS: Device NON-INVASIVE VENT; PCO2 ABG 172.9 mmHg (35.0-45.0); Site Drawn LEFT BRACHIAL; pH ABG 7.107 (7.350-7.450)
[2020-10-13 14:28] LABS: Non-Invasive Expiratory Pressure 7 CMH2O; Non-Invasive Inspiratory Pressure 14 CMH2O; Non-Invasive Vent Rate 14 /MIN
[2020-10-13 14:30] LABS: Ammonia 40 umol/L (9-30); Ethanol < 10 mg/dL (<10)
[2020-10-13 14:32] LABS: Lactic Acid Reflex 2.3 mmol/L (0.7-2.1)
[2020-10-13 14:40] LABS: Alanine Aminotransferase 25 U/L (4-50); Albumin Level 4.2 g/dL (3.5-5.1); Alkaline Phosphatase 68 U/L (38-126); Aspartate Amino Transferase 39 U/L (17-59); Blood Urea Nitrogen 32 mg/dL (9-20); Calcium 8.8 mg/dL (8.4-10.2); Carbon Dioxide > 40 mmol/L (22-30); Chloride 79 mmol/L (98-107); Estimated CRCL calculation 47 ml/min; Estimated Glomerular Filt Rate > 60; Glucose 130 mg/dL (75-110); Potassium 4.6 mmol/L (3.4-5.0); Sodium 133 mmol/L (137-145)
[2020-10-13 14:42] LABS: NT Pro B Type Natriuretic Pept 5710 PG/ML (5-100); Troponin I 0.025 ng/mL (0.000-0.034)
[2020-10-13] MEDS: SODIUM CHLORIDE 0.9% IV 1,000 ML 999 ML IV CONT (14:45)
[2020-10-13] MEDS: methylPREDNISolone SOD SUCC 125 MG VIAL IV PUSH (15:04)
[2020-10-13 15:40] LABS: Add Urine Microscopic? YES; Appearance Urine Cloudy (Clear); Bacteria Urine Trace /hpf; Bilirubin Urine Negative (Negative); Blood Urine 1+ (Negative); Color Urine Yellow (Yellow); Glucose Urine UA Negative (Negative); Hyaline Casts Urine 20-29 /lpf; Ketones Urine Negative (Negative); Leukocyte Esterase Ur Negative LEU/UL (Negative); Mucus Urine Rare /lpf; Nitrate Urine Negative (Negative); Protein Urine 2+ mg/dL (Negative); Squamous Epithelial Cell Urine Rare /hpf (Few); Urobilinogen Urine Negative mg/dL (<2.0)
[2020-10-13 16:25] LABS: Alveolar/Arterial O2 Gradient 141.5 mmHg; Base Excess ABG 15.8 mEq/l (+/-2.0); Fractional Inspired Oxygen 50 %; HCO3 ABG 49.2 mEq/l (22.0-26.0); Oxygen Content ABG 18.4 %vol (16.0-22.0); Oxygen Saturation ABG 92.9 % (95.0-100.0); Oxyhemoglobin 91.3 % THb (90.0-100.0); PO2 FiO2 Ratio Arterial Blood 1.64 %; Total Hemoglobin 14.3 g/dL (12.0-18.0)
[2020-10-13 16:28] LABS: Modified Allen's Test Pass; PCO2 ABG 118.2 mmHg (35.0-45.0); Site Drawn RIGHT RADIAL; pH ABG 7.237 (7.350-7.450)
[2020-10-13 16:29] LABS: Device NON-INVASIVE VENT
[2020-10-13 16:30] LABS: Non-Invasive Expiratory Pressure 7 CMH2O; Non-Invasive Inspiratory Pressure 14 CMH2O; Non-Invasive Vent Rate 20 /MIN
[2020-10-13 17:06] LABS: Reflex Lactic Acid Yes or No Add Lactic
--- NOTE | 2020-10-13 17:25 | PM.IMHP ---
H&P: HPI History of Present Illness Date/Time: 10/13/20 17:25 Chief Complaint: confused Narrative: Sam Sanchez is a 70 year old male with a history of COPD and tobacco abuse. The patient chronically wears oxygen at 2 L at home. However I was told that his filter in his oxygen at home was pretty much plugged. The patient stated that he has been short of breath today and he was also confused. The patient was found to have an O2 saturation the 70s on baseline today. They gave him a nebulizer treatment and increased his oxygen level. The patient was obtunded when he 1st came to the emergency room. ABGs were performed in 1st pH was 7.107 with 2nd repeat pH was 7.237. Patient's CO2 was 172.9 now 118.2. Patient's PO2 was 119.9 on the 1st draw and 82 on the 2nd. When I went to see the patient in the emergency room he was awake and talking. He was responding appropriately. The patient has been on a BiPAP 14/. With 50% oxygen bleed in. The patient denies any sleep apnea and stated that he thinks something went wrong with his oxygen at home since the filter was plugged.He does not have a nebulizer machine at home. lactic was 2.3. Patient was given a nebulizer treatment. He is also given a bolus of IV fluids and Solu-Medrol. patient's EKG was read as atrial flutter with rapid ventricular response when I saw the patient his heart rate was in the lower 100s. Chest x-ray was read as hyperinflation no acute cardiopulmonary findings. The patient had been swabbed for COVID-19 place and droplet isolation. Patient is being admitted to inpatient medical floor on the date of service 10/05/2020 Review of Systems Review of Systems: All systems reviewed & are unremarkable except as noted in HPI and below Constitutional: Constitutional: Reports as per HPI and Reports no additional constitutional complaints Eyes: Eyes: Reports as per HPI and Reports no additional eye complaints ENT: Reports system reviewed and no additional complaints, except as documented and Reports Normal hearing present Cardiovascular: Cardiovascular: Reports no additional cardiovascular complaints Respiratory: Respiratory: Reports no additional respiratory complaints and Reports no additional respiratory complaints Gastrointestinal: Gastrointestinal: Reports as per HPI and Reports no additional gastrointestinal complaints Musculoskeletal: Musculoskeletal: Reports no additional musculoskeletal complaints Integumentary/Breasts: Skin/Breast: Reports system reviewed and no additional complaints, except as docu and Reports as per HPI Neurologic: Reports system reviewed and no additional complaints, except as documented, Reports as per HPI and Reports Normal hearing present Psychiatric: Psychiatric: Reports no additional psychiatric complaints and Reports as per HPI Endocrine: Endocrine: Reports no additional endocrine complaints Hematologic/Lymphatic: Hematologic/Lymphatic: Reports no additional hematologic/lymphatic complaints Allergic/Immunologic: Allergic/Immunologic: Reports no additional allergic/immunologic complaints [facility] Past Medical History Medical History Atrial flutter Chronic obstructive pulmonary disease Chronic respiratory failure with hypoxia, on home oxygen therapy Congestive heart failure Echocardiogram dated 03/12/2020 showed normal LV size and function with an EF of 77%, grade 2 diastolic dysfunction, and a moderately enlarged right ventricle with moderate hypokinesis and right ventricular hypertrophy. Hypertension Moderate pulmonary arterial systolic hypertension On echocardiogram dated 03/12/2020 with an estimated pulmonary arterial systolic pressure of 50 mmHg. Pulmonary hypertension Tobacco abuse Surgical History Surgical History History of cataract extraction Family History Family History (Reviewed 10/13/20 @ 17:34 by Lola Osullivan
[2020-10-13 18:17] LABS: Lactic Acid 2.7 mmol/L (0.7-2.1)
--- NOTE | 2020-10-13 18:38 | PC.NURSE ---
Waiting for Respiratory to take patient to inpatient bed at this time due to Bi-PAP
--- NOTE | 2020-10-13 20:24 | ADMGEN ---
This patient, Sam Sanchez, was admitted to IMU Room 207-01 on 10/13/20 at 1930. Patient/family oriented to hospital policies and general routines including ID bracelet, bed and alarms, visiting hours, pain management, procedures, bathroom and other care routines, personal items, smoking policy, room service/diet, and visiting hours. Information on how to activate the Rapid Response Team has been discussed. Patient/Family are encouraged to report perceived risks to care and to ask questions if they do not understand what they are told or what they should do.
[2020-10-13 21:42] LABS: SARS-CoV-2 RNA PCR Negative
[2020-10-13] MEDS: IPRATROPIUM BR 0.02% INH SOLN 0.5 MG/2.5 ML VIAL INHALATION (22:42)
[2020-10-13] MEDS: ALBUTEROL SULFATE NEB 2.5 MG/0.5 ML INH 5 MG INHALATION (22:42)
[2020-10-13] MEDS: methylPREDNISolone SOD SUCC 125 MG VIAL 60 MG IV PUSH (23:40)
[2020-10-14] VITALS (25 sets, daily range): BP systolic 88–122; BP diastolic 51–70; PULSE 93–129; RESP 20–32; TEMP 36.1–37.5; O2SAT 90–98; BMI 16.7
[2020-10-14] MEDS: APIXABAN 5 MG TABLET PO ×3 (00:50→20:02)
[2020-10-14] MEDS: IPRATROPIUM BR 0.02% INH SOLN 0.5 MG/2.5 ML VIAL INHALATION ×4 (03:50→20:55)
[2020-10-14] MEDS: ALBUTEROL SULFATE NEB 2.5 MG/0.5 ML INH 5 MG INHALATION ×4 (03:50→20:54)
[2020-10-14] MEDS: methylPREDNISolone SOD SUCC 125 MG VIAL 60 MG IV PUSH ×4 (05:14→22:04)
[2020-10-14 05:21] LABS: Eosinophils Percent Auto 0.2 % (0-4.4); Hematocrit 37.8 % (42.0-52.0); Hemoglobin 12.3 g/dL (14.0-18.0); Immature Granulocyte Absolute 0.01 K/mm3 (0.00-0.031); Immature Granulocyte Percent A 0.2 % (0-0.5); Immature Platelet Fraction Pct 18.3 % (0.9-11.2); Lymphocytes Absolute Auto 0.09 K/mm3 (0.9-3.2); Lymphocytes Percent Auto 1.9 % (18.3-44.2); Mean Corpuscular HGB Conc 32.5 g/dl (32-36); Mean Corpuscular Hemoglobin 31.9 pg (26-34); Mean Corpuscular Volume 97.9 fl (80-100); Mean Platelet Volume 13.1 fl (7.4-10.4); Monocytes Absolute Auto 0.1 K/mm3 (0.1-0.6); Monocytes Percent Auto 1.5 % (2.6-8.5); Neutrophils Absolute Auto 4.5 K/mm3 (1.3-6.7); Neutrophils Percent Auto 96.2 % (45.5-73.1); Platelet Count Result 110 k/mm3 (150-375); Red Blood Count 3.86 M/mm3 (4.6-6.20); Red Cell Distribution Width 13.8 % (11.5-14.5); White Blood Count 4.7 K/mm3 (4.5-10.0)
[2020-10-14 05:31] LABS: Lactic Acid Reflex 0.8 mmol/L (0.7-2.1)
[2020-10-14 05:36] LABS: Alanine Aminotransferase 19 U/L (4-50); Albumin Level 3.4 g/dL (3.5-5.1); Alkaline Phosphatase 44 U/L (38-126); Aspartate Amino Transferase 30 U/L (17-59); Bilirubin,Total 0.8 mg/dL (0.2-1.3); Blood Urea Nitrogen 39 mg/dL (9-20); Calcium 8.5 mg/dL (8.4-10.2); Carbon Dioxide > 40 mmol/L (22-30); Chloride 82 mmol/L (98-107); Estimated CRCL calculation 60 ml/min; Estimated Glomerular Filt Rate > 60; Glucose 118 mg/dL (75-110); Magnesium 1.4 mg/dL (1.6-2.3); Potassium 4.9 mmol/L (3.4-5.0); Sodium 131 mmol/L (137-145)
[2020-10-14 06:19] LABS: Thyroid Stimulating Hormone Reflex 0.199 uIU/mL (0.465-4.68)
[2020-10-14 11:01] LABS: Alveolar/Arterial O2 Gradient 118.2 mmHg; Fractional Inspired Oxygen 35 %; HCO3 ABG 43.9 mEq/l (22.0-26.0); Oxygen Content ABG 17.7 %vol (16.0-22.0); Oxygen Saturation ABG 94.4 % (95.0-100.0); Oxyhemoglobin 93.1 % THb (90.0-100.0); PCO2 ABG 55.8 mmHg (35.0-45.0); PO2 ABG 66.5 mmHg (80.0-100.0); Total Hemoglobin 13.5 g/dL (12.0-18.0)
[2020-10-14 11:06] LABS: Device NON-INVASIVE VENT; Modified Allen's Test Pass; Site Drawn RIGHT RADIAL; pH ABG 7.514 (7.350-7.450)
[2020-10-14 11:08] LABS: Non-Invasive Expiratory Pressure 7 CMH2O; Non-Invasive Inspiratory Pressure 14 CMH2O; Non-Invasive Vent Rate 20 /MIN
--- NOTE | 2020-10-14 11:47 | PCNSR ---
On 10/14/20, the student, Evon De La Torre, provided care and [facility]. I have reviewed the student's documentation and agree with the findings.
[2020-10-14] MEDS: FUROSEMIDE 20 MG TABLET PO (12:19)
[2020-10-14 12:51] LABS: Free T4 Free Thyroxine Reflex 1.08 ng/dL (0.78-2.19)
--- NOTE | 2020-10-14 13:45 | PM.IMPN ---
Progress Note: A&P Assessment and Plan (1) COPD (chronic obstructive pulmonary disease): Qualifiers: COPD type: unspecified COPD Qualified Code(s): J44.9 - Chronic obstructive pulmonary disease, unspecified Code(s): J44.9 - Chronic obstructive pulmonary disease, unspecified Status: Acute Assessment and Plan: Acute COPD exacerbation associated with acute on top of chronic hypercapnic respiratory failure secondary to malfunctioning BiPAP continue with nebulizer treatments and Solu-Medrol. Patient has malfunctioning BiPAP machine at home case folder to evaluate. (2) Suspected COVID-19 virus infection: Code(s): Z20.822 - Contact with and (suspected) exposure to COVID-19 Status: Acute Assessment and Plan: COVID-19 was negative BC precaution. (3) Congestive heart failure: Code(s): I50.9 - Heart failure, unspecified Status: Chronic Assessment and Plan: Most likely diastolic stable continue with Lasix and lisinopril (4) Atrial flutter: Qualifiers: Atrial flutter type: unspecified Qualified Code(s): I48.92 - Unspecified atrial flutter Code(s): I48.92 - Unspecified atrial flutter Status: Acute Assessment and Plan: Continue home medication Cardizem and Eliquis (5) Hypertension: Qualifiers: Hypertension type: essential hypertension Qualified Code(s): I10 - Essential (primary) hypertension Code(s): I10 - Essential (primary) hypertension Status: Chronic Assessment and Plan: Continue Cardizem lisinopril Subjective Date/time seen: 10/14/20 13:45 Interval history: Patient seen and examined Patient feels weak is still complaining of shortness of breath but better than yesterday Patient denies fever headache chest I am seeing the patient for CO2 retention Exam Narrative: Exam Narrative: Alert Chest scattered wheeze Abdomen nontender nondistended CVS S1 + S2 Negative Lower extremity edema Objective Data Vital Signs Vital Signs: Vital Signs - 24 hr 10/13/20 13:53 10/13/20 14:00 10/13/20 14:17 Temperature Pulse Rate 102 H 94 94 Respiratory Rate 30 H 20 16 Blood Pressure 155/64 H Pulse Oximetry 99 93 10/13/20 15:05 10/13/20 15:34 10/13/20 15:56 Temperature Pulse Rate 97 110 H 100 Respiratory Rate 16 24 H 26 H Blood Pressure 128/67 109/61 Pulse Oximetry 100 99 10/13/20 16:15 10/13/20 16:59 10/13/20 17:53 Temperature Pulse Rate 102 H 82 98 Respiratory Rate 25 H 16 19 Blood Pressure 103/50 L 107/66 Pulse Oximetry 93 96 99 10/13/20 17:57 10/13/20 19:01 10/13/20 19:44 Temperature Pulse Rate 97 84 98 Respiratory Rate 17 18 Blood Pressure 107/66 102/61 Pulse Oximetry 96 100 10/13/20 19:58 10/13/20 20:00 10/13/20 22:00 Temperature 97.2 F L Pulse Rate 103 H 103 H 95 Respiratory Rate 22 H 22 H Blood Pressure 113/63 Pulse Oximetry 100 100 10/13/20 22:43 10/13/20 22:59 10/13/20 23:00 Temperature Pulse Rate 97 102 H 97 Respiratory Rate 20 20 20 Blood Pressure Pulse Oximetry 94 10/14/20 00:00 10/14/20 02:00 10/14/20 03:50 Temperature 97.2 F L Pulse Rate 103 H 93 108 H Respiratory Rate 32 H 20 Blood Pressure 116/69 Pulse Oximetry 97 10/14/20 03:56 10/14/20 04:00 10/14/20 04:01 Temperature 99.5 F Pulse Rate 108 H 103 H 99 Respiratory Rate 20 20 20 Blood Pressure 122/69 Pulse Oximetry 96 98 10/14/20 06:00 10/14/20 08:00 10/14/20 08:32 Temperature 97.2 F L Pulse Rate 108 H 110 H 124 H Respiratory Rate 26 H 20 Blood Pressure 100/70 Pulse Oximetry 98 10/14/20 08:35 10/14/20 08:44 10/14/20 10:00 Temperature Pulse Rate 124 H 124 H 115 H Respiratory Rate 20 20 Blood Pressure Pulse Oximetry 96 10/14/20 10:55 10/14/20 11:30 10/14/20 12:00 Temperature 97 F L Pulse Rate 111 H 110 H 129 H Respiratory Rate 20 20 26 H Blood Pressure 113/67 Pulse Oximetry 96 96 97 01/2
--- NOTE | 2020-10-14 13:45 | PM.CNCAR ---
Assessment and Plan Assessment and plan (1) Acute on chronic respiratory failure with hypoxia and hypercapnia: Code(s): J96.21 - Acute and chronic respiratory failure with hypoxia; J96.22 - Acute and chronic respiratory failure with hypercapnia Status: Acute Assessment and Plan: Markedly improved (2) Chronic diastolic CHF (congestive heart failure): Code(s): I50.32 - Chronic diastolic (congestive) heart failure Status: Acute Assessment and Plan: Compensated (3) Atrial flutter with rapid ventricular response: Code(s): I48.92 - Unspecified atrial flutter Status: Acute Assessment and Plan: Continue anticoagulation and will increase his diltiazem to 360 mg daily (4) Pulmonary hypertension: Code(s): I27.20 - Pulmonary hypertension, unspecified Status: Acute Assessment and Plan: Related to underlying lung disease History of Present Illness History of Present Illness Consult date/time: 10/14/20 13:45 Requesting physician: Lola Osullivan NP Consult reason: Other (Atrial flutter) Reason For Visit: Acute on chronic respiratory failure e hypercapnea Narrative: Date of service 10/14/2020: History patient is a 70-year-old male the history of COPD and tobacco abuse. History of atrial flutter and was admitted last fall. He was control with diltiazem at that time. Follows with Dr. jimenez. He is on anticoagulation. Came to hospital with a CO2 most 170. Him altered mental status and confusion his O2 sats were in the 70s. ABG showed a pH of 7.1. He was placed on BiPAP which did keep him from becoming intubated. He is now off of BiPAP actually in his gases have markedly improved. He is in atrial flutter with rapid ventricular response but tolerating it well. He denies any chest pain, shortness of breath, syncope, presyncope, paroxysmal nocturnal dyspnea, orthopnea, edema palpitations. His oral diltiazem has been resumed. Review of Systems Review of Systems: All systems reviewed & are unremarkable except as noted in HPI and below Constitutional: Constitutional: Denies weakness Eyes: Eyes: Denies blurry vision ENT: Reports Normal hearing present Cardiovascular: Cardiovascular: Denies chest pain Respiratory: Respiratory: Reports dyspnea Gastrointestinal: Gastrointestinal: Denies abdominal pain Genitourinary: Genitourinary: Denies dysuria Musculoskeletal: Musculoskeletal: Denies neck pain Integumentary/Breasts: Skin/Breast: Denies dry skin Neurologic: Denies headache(s) Psychiatric: Psychiatric: Denies anxiety and Denies confusion Endocrine: Endocrine: Denies fatigue Hematologic/Lymphatic: Hematologic/Lymphatic: Denies easy bleeding Allergic/Immunologic: Allergic/Immunologic: Denies GI upset with certain foods PMFSH Past Medical History Medical History Atrial flutter Chronic obstructive pulmonary disease Chronic respiratory failure with hypoxia, on home oxygen therapy Congestive heart failure Echocardiogram dated 03/12/2020 showed normal LV size and function with an EF of 77%, grade 2 diastolic dysfunction, and a moderately enlarged right ventricle with moderate hypokinesis and right ventricular hypertrophy. Hypertension Moderate pulmonary arterial systolic hypertension On echocardiogram dated 03/12/2020 with an estimated pulmonary arterial systolic pressure of 50 mmHg. Pulmonary hypertension Tobacco abuse Surgical History Surgical History History of cataract extraction Family History Family History Sibling Heart disease 3/4 the patient has 4 brothers have of heart disease. Diabetes mellitus The patient has 1 remaining living brother has diabetes. Mother Stomach cancer age 54, or perhaps a java developer analyst cancer, patient unsure.
[2020-10-15] VITALS (22 sets, daily range): BP systolic 97–117; BP diastolic 43–72; PULSE 79–140; RESP 18–24; TEMP 36.2–36.7; O2SAT 90–99
[2020-10-15] MEDS: IPRATROPIUM BR 0.02% INH SOLN 0.5 MG/2.5 ML VIAL INHALATION ×4 (02:36→20:45)
[2020-10-15] MEDS: ALBUTEROL SULFATE NEB 2.5 MG/0.5 ML INH 5 MG INHALATION ×4 (02:36→20:45)
[2020-10-15] MEDS: methylPREDNISolone SOD SUCC 125 MG VIAL 60 MG IV PUSH ×4 (03:40→22:57)
[2020-10-15] MEDS: lisinopriL 5 MG TABLET PO (09:14)
[2020-10-15] MEDS: FUROSEMIDE 20 MG TABLET PO (09:14)
[2020-10-15] MEDS: dilTIAZem HCL CD 180 MG CAP.ER.24H 360 MG PO (09:14)
[2020-10-15] MEDS: APIXABAN 5 MG TABLET PO ×2 (09:15→19:51)
--- NOTE | 2020-10-15 11:15 | PM.IMPN ---
Progress Note: A&P Assessment and Plan (1) COPD (chronic obstructive pulmonary disease): Qualifiers: COPD type: unspecified COPD Qualified Code(s): J44.9 - Chronic obstructive pulmonary disease, unspecified Code(s): J44.9 - Chronic obstructive pulmonary disease, unspecified Status: Acute Assessment and Plan: Acute COPD exacerbation associated with acute on top of chronic hypercapnic respiratory failure secondary to malfunctioning BiPAP continue with nebulizer treatments and Solu-Medrol. Patient has malfunctioning BiPAP machine at home caseworker protective services to evaluate Shortness of breath has improved Anticipate discharge in 1-2 days 1 shortness of breath improved. (2) Suspected COVID-19 virus infection: Code(s): Z20.822 - Contact with and (suspected) exposure to COVID-19 Status: Acute Assessment and Plan: COVID-19 was negative DC precaution. (3) Congestive heart failure: Code(s): I50.9 - Heart failure, unspecified Status: Chronic Assessment and Plan: Most likely diastolic stable continue with Lasix and lisinopril (4) Atrial flutter: Qualifiers: Atrial flutter type: unspecified Qualified Code(s): I48.92 - Unspecified atrial flutter Code(s): I48.92 - Unspecified atrial flutter Status: Acute Assessment and Plan: Continue home medication Cardizem and Eliquis (5) Hypertension: Qualifiers: Hypertension type: essential hypertension Qualified Code(s): I10 - Essential (primary) hypertension Code(s): I10 - Essential (primary) hypertension Status: Chronic Assessment and Plan: Continue Cardizem lisinopril Subjective Date/time seen: 10/15/20 11:15 Interval history: Patient seen and examined Patient still short breath have requiring intermittent BiPAP but better than yesterday continue on IV steroid Discussed with the nurse to arrange for CPAP as outpatient Patient denies fever headache chest I am seeing the patient for CO2 retention Exam Narrative: Exam Narrative: Alert Chest decreased air entry bilateral short of breath but better than yesterday Abdomen nontender nondistended CVS S1 + S2 Negative Lower extremity edema Objective Data Vital Signs Vital Signs: Vital Signs - 24 hr 10/14/20 11:30 10/14/20 12:00 10/14/20 12:20 Temperature 97 F L Pulse Rate 110 H 129 H Respiratory Rate 20 26 H Blood Pressure 113/67 Pulse Oximetry 96 97 97 10/14/20 13:59 10/14/20 14:20 10/14/20 14:22 Temperature Pulse Rate 113 H 123 H 122 H Respiratory Rate 20 Blood Pressure Pulse Oximetry 90 10/14/20 16:00 10/14/20 18:00 10/14/20 20:00 Temperature 97.2 F L 97.4 F L Pulse Rate 116 H 129 H 104 H Respiratory Rate 22 H 20 Blood Pressure 88/67 L 97/51 L Pulse Oximetry 92 94 10/14/20 20:55 10/14/20 21:06 10/14/20 22:00 Temperature Pulse Rate 102 H 100 105 H Respiratory Rate 22 H 22 H Blood Pressure Pulse Oximetry 92 10/15/20 00:00 10/15/20 01:30 10/15/20 02:36 Temperature 97.2 F L Pulse Rate 101 H 94 94 Respiratory Rate 20 24 H Blood Pressure 97/50 L Pulse Oximetry 97 96 10/15/20 02:46 10/15/20 04:00 10/15/20 05:40 Temperature 97.4 F L Pulse Rate 97 107 H 107 H Respiratory Rate 24 H 20 Blood Pressure 117/55 L Pulse Oximetry 99 10/15/20 08:00 10/15/20 10:07 Temperature 97.4 F L Pulse Rate 139 H 95 Respiratory Rate 20 22 H Blood Pressure 102/58 L Pulse Oximetry 94 Intake/Output Intake/Output: Intake & Output 10/12/20 10/13/20 10/14/20 10/15/20 23:59 23:59 23:59 23:59 Intake Total 1000 340 422 Output Total 340 400 400 Balance 660 -60 22 Meds/Results Medications: Active Medications Generic Name Dose Route Start Last Admin Trade Name Freq PRN Reason Stop Dose Admin Albuterol 5 mg 10/13/20 20:00 10/15/20 10:04 Albuterol Sulfate Neb 2.5 Mg/0.5 Ml Inh INHALATION 5 mg Q6HRT REDD Administration Apixa
[2020-10-15 11:30] LABS: Eosinophils Percent Auto 0.1 % (0-4.4); Hematocrit 35.1 % (42.0-52.0); Hemoglobin 11.7 g/dL (14.0-18.0); Immature Granulocyte Absolute 0.03 K/mm3 (0.00-0.031); Immature Granulocyte Percent A 0.4 % (0-0.5); Lymphocytes Absolute Auto 0.07 K/mm3 (0.9-3.2); Lymphocytes Percent Auto 0.8 % (18.3-44.2); Mean Corpuscular HGB Conc 33.3 g/dl (32-36); Mean Corpuscular Hemoglobin 31.8 pg (26-34); Mean Corpuscular Volume 95.4 fl (80-100); Mean Platelet Volume 12.9 fl (7.4-10.4); Monocytes Absolute Auto 0.2 K/mm3 (0.1-0.6); Monocytes Percent Auto 2.5 % (2.6-8.5); Neutrophils Absolute Auto 8.1 K/mm3 (1.3-6.7); Neutrophils Percent Auto 96.2 % (45.5-73.1); Platelet Count Result 104 k/mm3 (150-375); Red Blood Count 3.68 M/mm3 (4.6-6.20); White Blood Count 8.4 K/mm3 (4.5-10.0)
[2020-10-15 11:56] LABS: Alanine Aminotransferase 19 U/L (4-50); Albumin Level 3.3 g/dL (3.5-5.1); Alkaline Phosphatase 36 U/L (38-126); Aspartate Amino Transferase 28 U/L (17-59); Bilirubin,Total 0.7 mg/dL (0.2-1.3); Blood Urea Nitrogen 42 mg/dL (9-20); Calcium 8.4 mg/dL (8.4-10.2); Carbon Dioxide > 40 mmol/L (22-30); Chloride 83 mmol/L (98-107); Estimated CRCL calculation 65 ml/min; Estimated Glomerular Filt Rate > 60; Glucose 263 mg/dL (75-110); Potassium 3.9 mmol/L (3.4-5.0); Sodium 129 mmol/L (137-145)
--- NOTE | 2020-10-15 13:07 | PM.PNCARD ---
Progress Note: A&P Assessment and Plan (1) Acute on chronic respiratory failure with hypoxia and hypercapnia: Code(s): J96.21 - Acute and chronic respiratory failure with hypoxia; J96.22 - Acute and chronic respiratory failure with hypercapnia Status: Acute Assessment and Plan: Improved, remains on O2. Continue supportive care, bronchodilator, steroids. (2) Chronic diastolic CHF (congestive heart failure): Code(s): I50.32 - Chronic diastolic (congestive) heart failure Status: Acute Assessment and Plan: Compensated at present but concerned if a flutter not controlled may compromise cardiovascular status. Remains on Lasix 20 mg daily. (3) Atrial flutter with rapid ventricular response: Code(s): I48.92 - Unspecified atrial flutter Status: Acute Assessment and Plan: Persistent, rapid ventricular response not controlled despite increase in diltiazem to 360 mg daily. Discussed options, given severe underlying lung disease best to avoid beta-clemencia therapy if possible. Renal function stable as are electrolytes. Discussed digoxin. Will give IV 0.25 mg followed by 0.125 mg 6 hours later and observe response. Concern for development of tachycardia-induced Cardiomyopathy if remains poorly controlled. Poor candidate for sedation for CV. (4) Pulmonary hypertension: Code(s): I27.20 - Pulmonary hypertension, unspecified Status: Acute Assessment and Plan: Related to underlying lung disease Subjective Date/time seen: Date of service: 10/15/20 13:07 Follow-up for atrial flutter with rapid ventricular response, respiratory failure, diastolic heart failure Patient states she feels okay. Denies new or progressive shortness of breath at this time. Patient has been in atrial flutter with rapid ventricular response generally 140-150 beats per minute. Patient on occasion notes palpitations. Denies chest pain. Denies bleeding. No hemoptysis. Review of Systems Review of Systems: All systems reviewed & are unremarkable except as noted in HPI and below Constitutional: Constitutional: Reports as per HPI, Denies fatigue, Denies headache(s) and Denies weakness Eyes: Eyes: Reports as per HPI and Denies blurry vision ENT: Reports as per HPI, Reports Normal hearing present, Denies headache(s) and Denies neck pain Cardiovascular: Cardiovascular: Reports as per HPI, Denies chest pain, Reports palpitations and Reports dyspnea Respiratory: Respiratory: Reports as per HPI, Reports cough, Reports dyspnea and Reports dyspnea on exertion Gastrointestinal: Gastrointestinal: Reports as per HPI and Denies abdominal pain Genitourinary: Genitourinary: Reports as per HPI and Denies dysuria Musculoskeletal: Musculoskeletal: Reports as per HPI and Denies neck pain Integumentary/Breasts: Skin/Breast: Reports as per HPI and Denies dry skin Neurologic: Reports as per HPI, Reports Normal hearing present, Denies confusion, Denies headache(s) and Denies weakness Psychiatric: Psychiatric: Reports as per HPI, Denies anxiety and Denies confusion Endocrine: Endocrine: Reports no additional endocrine complaints, Reports as per HPI and Denies fatigue Hematologic/Lymphatic: Hematologic/Lymphatic: Reports no additional hematologic/lymphatic complaints, Reports as per HPI and Denies easy bleeding Allergic/Immunologic: Allergic/Immunologic: Reports no additional allergic/immunologic complaints and Denies GI upset with certain foods Exam Narrative: Exam Narrative: Cachectic but awake and alert. Sitting upright in bed Const: General: comfortable and no acute distress; No confusion Orientation/consciousness: No confusion HENMT: General nose exam: Normal nares present Other: Nasal cannula noted Eyes: Sclera: sclerae normal Neck: Neck: supple and no JVD Chest: Other: Barrel chested Resp: Auscultation: diminished lung sounds Cardio: Rate: tachycardic Rhythm: abnormal rhythm regularly
[2020-10-15] MEDS: DIGOXIN INJ 250 MCG/ML 2 ML AMP (*BKC) IV PUSH (16:14)
[2020-10-15] MEDS: DIGOXIN INJ 250 MCG/ML 2 ML AMP (*BKC) 125 MCG IV PUSH (22:58)
[2020-10-15] MEDS: guaiFENesin/DEXTROMETHORPHAN 10 ML UDC PO (23:03)
[2020-10-16] VITALS (21 sets, daily range): BP systolic 108–125; BP diastolic 53–64; PULSE 68–127; RESP 18–24; TEMP 36.1–36.8; O2SAT 93–98
[2020-10-16] MEDS: ALBUTEROL SULFATE NEB 2.5 MG/0.5 ML INH 5 MG INHALATION ×4 (02:17→20:29)
[2020-10-16] MEDS: IPRATROPIUM BR 0.02% INH SOLN 0.5 MG/2.5 ML VIAL INHALATION ×4 (02:17→20:30)
[2020-10-16] MEDS: methylPREDNISolone SOD SUCC 125 MG VIAL 60 MG IV PUSH ×4 (04:09→20:55)
[2020-10-16 09:27] LABS: Blood Urea Nitrogen 35 mg/dL (9-20); Calcium 8.3 mg/dL (8.4-10.2); Carbon Dioxide > 40 mmol/L (22-30); Chloride 82 mmol/L (98-107); Estimated CRCL calculation 68 ml/min; Estimated Glomerular Filt Rate > 60; Glucose 214 mg/dL (75-110); Magnesium 1.2 mg/dL (1.6-2.3); Potassium 3.7 mmol/L (3.4-5.0); Sodium 128 mmol/L (137-145)
[2020-10-16] MEDS: APIXABAN 5 MG TABLET PO ×2 (10:32→20:55)
[2020-10-16] MEDS: FUROSEMIDE 20 MG TABLET PO (10:33)
[2020-10-16] MEDS: lisinopriL 5 MG TABLET PO (10:33)
[2020-10-16] MEDS: dilTIAZem HCL CD 180 MG CAP.ER.24H 360 MG PO (10:33)
[2020-10-16] MEDS: DIGOXIN TAB 125 MCG TABLET PO (10:34)
--- NOTE | 2020-10-16 11:37 | PM.PNCARD ---
Progress Note: A&P Assessment and Plan (1) Atrial flutter with rapid ventricular response: Code(s): I48.92 - Unspecified atrial flutter Status: Acute Assessment and Plan: Persistent, rapid ventricular response much improved yesterday after receiving IV Digoxin load. More tachycardic this AM therefore will continue daily Digoxin, Will order. -Continue Diltiazem 360mg daily and Digoxin .125mg daily. Will check level tomorrow. May need to increase to 0.25 mg daily. -Discussed once again concern for development of tachycardia-induced Cardiomyopathy if remains poorly controlled. Poor candidate for sedation for CV. -Must monitor renal function and electrolytes to avoid arrhythmia/toxicity complications. (2) Acute on chronic respiratory failure with hypoxia and hypercapnia: Code(s): J96.21 - Acute and chronic respiratory failure with hypoxia; J96.22 - Acute and chronic respiratory failure with hypercapnia Status: Acute Assessment and Plan: Improved, remains on O2. Continue supportive care, bronchodilator, steroids. (3) Chronic diastolic CHF (congestive heart failure): Code(s): I50.32 - Chronic diastolic (congestive) heart failure Status: Acute Assessment and Plan: Compensated at present but concerned if a flutter not controlled may compromise cardiovascular status. Remains on Lasix 20 mg daily. (4) Pulmonary hypertension: Code(s): I27.20 - Pulmonary hypertension, unspecified Status: Acute Assessment and Plan: Related to underlying lung disease Subjective Date/time seen: Date of service: 10/16/20 11:37 Follow-up for atrial flutter with rapid ventricular response Patient feels better this morning. Denies significant shortness of breath. Notes increased cough after nebulizer treatments occasionally productive. No chest pain. Received IV digoxin yesterday due to uncontrolled atrial flutter with marked improvement although more tachycardic this morning prior to receiving medications. Patient less aware palpitations denies chest pain, fevers, chills. Eating well without difficulty. Review of Systems Review of Systems: All systems reviewed & are unremarkable except as noted in HPI and below Constitutional: Constitutional: Reports as per HPI, Denies fatigue, Denies headache(s) and Denies weakness Eyes: Eyes: Reports as per HPI and Denies blurry vision ENT: Reports as per HPI, Reports Normal hearing present, Denies headache(s) and Denies neck pain Cardiovascular: Cardiovascular: Reports as per HPI, Denies chest pain, Reports palpitations, Reports dyspnea and Reports dyspnea on exertion Respiratory: Respiratory: Reports as per HPI, Reports cough, Reports dyspnea and Reports dyspnea on exertion Gastrointestinal: Gastrointestinal: Reports as per HPI and Denies abdominal pain Genitourinary: Genitourinary: Reports as per HPI and Denies dysuria Musculoskeletal: Musculoskeletal: Reports as per HPI and Denies neck pain Integumentary/Breasts: Skin/Breast: Reports as per HPI and Denies dry skin Neurologic: Reports as per HPI, Reports Normal hearing present, Denies confusion, Denies headache(s) and Denies weakness Psychiatric: Psychiatric: Reports as per HPI, Denies anxiety and Denies confusion Endocrine: Endocrine: Reports no additional endocrine complaints, Reports as per HPI, Denies fatigue and Reports palpitations Hematologic/Lymphatic: Hematologic/Lymphatic: Reports no additional hematologic/lymphatic complaints, Reports as per HPI and Denies easy bleeding Allergic/Immunologic: Allergic/Immunologic: Reports no additional allergic/immunologic complaints and Denies GI upset with certain foods Exam Narrative: Exam Narrative: Cachectic but awake and alert. Sitting upright in bed eating Const: General: comfortable and no acute distress; No confusion Orientation/consciousness: No confusion HENMT: General nose exam: Normal nares present Other: Nasal cannula note
[2020-10-16] MEDS: MAGNESIUM SULF 2 GM/WATER 50ML 2 GM/50 ML BAG IVPB (13:12)
--- NOTE | 2020-10-16 13:17 | PM.IMPN ---
Progress Note: A&P Assessment and Plan (1) COPD (chronic obstructive pulmonary disease): Qualifiers: COPD type: unspecified COPD Qualified Code(s): J44.9 - Chronic obstructive pulmonary disease, unspecified Code(s): J44.9 - Chronic obstructive pulmonary disease, unspecified Status: Acute Assessment and Plan: Acute COPD exacerbation associated with acute on top of chronic hypercapnic respiratory failure secondary to malfunctioning BiPAP continue with nebulizer treatments and Solu-Medrol. Patient has malfunctioning BiPAP machine at home major case detective to evaluate Shortness of breath has improved Anticipate discharge in 1-2 days 1 shortness of breath improved. 10/16/20 13:17 patient is 70-year-old male with history of severe COPD chronic respiratory failure on home oxygen 2 L secondary to chronic hypercapnic respiratory failure patient had been using malfunctioning BiPAP at home, while in hospital patient is on BIPAP and his CO2 is improving, patient is being treated with Solu-Medrol and updraft for exacerbation of COPD, patient also had developed ventricle tachycardia seen by mobile sales consultant patient is on diltiazem 360 mg daily, digoxin was loaded is 0.25 mg IV and continue on 0.125mg q.6 and heart rate is trending down and digoxin is switch over to daily, patient is high risk of developing tachycardia induced cardiomyopathy, patient is clinically stable, will continue to monitor will have a PT OT evaluate the patient (2) Suspected COVID-19 virus infection: Code(s): Z20.822 - Contact with and (suspected) exposure to COVID-19 Status: Acute Assessment and Plan: COVID-19 was negative DC precaution. (3) Congestive heart failure: Code(s): I50.9 - Heart failure, unspecified Status: Chronic Assessment and Plan: Most likely diastolic stable continue with Lasix and lisinopril (4) Atrial flutter: Qualifiers: Atrial flutter type: unspecified Qualified Code(s): I48.92 - Unspecified atrial flutter Code(s): I48.92 - Unspecified atrial flutter Status: Acute Assessment and Plan: Continue home medication Cardizem and Eliquis (5) Hypertension: Qualifiers: Hypertension type: essential hypertension Qualified Code(s): I10 - Essential (primary) hypertension Code(s): I10 - Essential (primary) hypertension Status: Chronic Assessment and Plan: Continue Cardizem lisinopril Subjective Date/time seen: 10/16/20 13:17 patient is 70-year-old male with history of severe COPD chronic respiratory failure on home oxygen 2 L secondary to chronic hypercapnic respiratory failure patient had been using malfunctioning BiPAP at home, while in hospital patient is on BIPAP and his CO2 is improving, patient is being treated with Solu-Medrol and updraft for exacerbation of COPD, patient also had developed ventricle tachycardia seen by mobile sales consultant patient is on diltiazem 360 mg daily, digoxin was loaded is 0.25 mg IV and continue on 0.125mg q.6 and heart rate is trending down and digoxin is switch over to daily, patient is high risk of developing tachycardia induced cardiomyopathy, patient is clinically stable, will continue to monitor will have a PT OT evaluate the patient Review of Systems Review of Systems: All systems reviewed & are unremarkable except as noted in HPI and below Exam Narrative: Exam Narrative: Appears chronically ill and malnourished Patient is comfortable, NAD HEENT: eyes are clear and none icteric LUNGS: Bilateral poor air entry with rhonchi and wheezing HEART: RR S1S2 ABD: BS+, Soft and nontender Lower extremities: no edema SKIN: nonjaundiced Neuro: grossly intact. Objective Data Vital Signs Vital Signs: Vital Signs - 24 hr 10/15/20 14:00 10/15/20 15:01 10/15/20 16:00 Temperature 98.1 F Pulse Rate 113 H 95 103 H Respiratory Rate 20 18 Blood Pressure 97/53 L Pulse Oximetry 90 10/15/20 16:14
[2020-10-16 15:36] LABS: Blood Urea Nitrogen 35 mg/dL (9-20); Carbon Dioxide > 40 mmol/L (22-30); Chloride 80 mmol/L (98-107); Estimated CRCL calculation 59 ml/min; Estimated Glomerular Filt Rate > 60; Glucose 180 mg/dL (75-110); Magnesium 1.7 mg/dL (1.6-2.3); Potassium 3.6 mmol/L (3.4-5.0); Sodium 127 mmol/L (137-145)
[2020-10-16] MEDS: POTASSIUM CHLORIDE 20 MEQ TABLET 40 MEQ PO (17:33)
[2020-10-16] MEDS: MAGNESIUM OXIDE 400 MG TABLET PO (17:33)
[2020-10-17] VITALS (24 sets, daily range): BP systolic 99–118; BP diastolic 50–61; PULSE 78–106; RESP 16–24; TEMP 36.1–36.7; O2SAT 91–98
[2020-10-17] MEDS: ALBUTEROL SULFATE NEB 2.5 MG/0.5 ML INH 5 MG INHALATION ×4 (02:00→21:28)
[2020-10-17] MEDS: IPRATROPIUM BR 0.02% INH SOLN 0.5 MG/2.5 ML VIAL INHALATION ×4 (02:01→21:28)
[2020-10-17 04:44] LABS: Hematocrit 33.7 % (42.0-52.0); Hemoglobin 11.1 g/dL (14.0-18.0); Mean Corpuscular HGB Conc 32.9 g/dl (32-36); Mean Corpuscular Hemoglobin 31.5 pg (26-34); Mean Corpuscular Volume 95.7 fl (80-100); Mean Platelet Volume 12.1 fl (7.4-10.4); Platelet Count Result 102 k/mm3 (150-375); Red Blood Count 3.52 M/mm3 (4.6-6.20); Red Cell Distribution Width 13.7 % (11.5-14.5); White Blood Count 8.2 K/mm3 (4.5-10.0)
[2020-10-17] MEDS: methylPREDNISolone SOD SUCC 125 MG VIAL 60 MG IV PUSH ×4 (05:06→21:48)
[2020-10-17 05:25] LABS: Blood Urea Nitrogen 36 mg/dL (9-20); Calcium 7.9 mg/dL (8.4-10.2); Carbon Dioxide > 40 mmol/L (22-30); Chloride 84 mmol/L (98-107); Estimated CRCL calculation 68 ml/min; Estimated Glomerular Filt Rate > 60; Glucose 137 mg/dL (75-110); Magnesium 1.6 mg/dL (1.6-2.3); Potassium 5.2 mmol/L (3.4-5.0); Sodium 128 mmol/L (137-145)
[2020-10-17 05:58] LABS: Digoxin 0.8 ng/mL (0.8-2.0)
[2020-10-17] MEDS: DIGOXIN TAB 125 MCG TABLET PO (10:20)
[2020-10-17] MEDS: lisinopriL 5 MG TABLET PO (10:20)
[2020-10-17] MEDS: FUROSEMIDE 20 MG TABLET PO (10:20)
[2020-10-17] MEDS: dilTIAZem HCL CD 180 MG CAP.ER.24H 360 MG PO (10:20)
[2020-10-17] MEDS: MAGNESIUM OXIDE 400 MG TABLET PO (10:20)
[2020-10-17] MEDS: APIXABAN 5 MG TABLET PO ×2 (10:20→21:48)
--- NOTE | 2020-10-17 10:57 | PCDIET ---
Nutrition Follow-Up Complete: Nutrition Diagnosis: Inadequate oral intake related to BiPAP as evidenced by NPO diet. Nutrition Goal: Meet nutritional needs. Goal in progress. Patient consuming 100% of meals on heart healthy diet and reports good appetite. Reports taking Ensure at home and would like to receive while here. Recommend Ensure Enlive (350kcal, 20g protein) TID to promote weight gain. Last recorded weight is 52.8 kg which is increased from last review. Bowel Motility: Last documented BM on 10/15/20. Labs Reviewed: Hgb (11.1), Hct (33.7), Glu (137), BUN (36), Cr (0.6), K (5.2), Na (128), Ca (7.9) Meds Noted: Albuterol, Symbicort, Lasix, Atrovent, Lisinopril, Mag-Ox, Solu Medrol Additional Notes: No skin breakdown documented. Will continue to monitor with same goal. Nutrition Monitoring and Evaluation: Follow up in 5 days.
--- NOTE | 2020-10-17 11:03 | PC.NURSE ---
Notified Dr. Wray of patient Poatassium level. Ordered repeat BMP and Magnesium count for 1500 today.
--- NOTE | 2020-10-17 14:58 | PM.PNCARD ---
Progress Note: A&P Assessment and Plan (1) Atrial flutter with rapid ventricular response: Code(s): I48.92 - Unspecified atrial flutter Status: Acute Assessment and Plan: Persistent, rapid ventricular response but overall better controlled. Continue digoxin 0.125 mg daily in addition to diltiazem 360 mg daily. Digoxin level 0.8. -Continue Diltiazem 360mg daily and Digoxin .125mg daily. -Discussed once again concern for development of tachycardia-induced Cardiomyopathy if remains poorly controlled. Poor candidate for sedation for CV. -Must monitor renal function and electrolytes to avoid arrhythmia/toxicity complications. -outpatient referral for atrial flutter ablation (2) Acute on chronic respiratory failure with hypoxia and hypercapnia: Code(s): J96.21 - Acute and chronic respiratory failure with hypoxia; J96.22 - Acute and chronic respiratory failure with hypercapnia Status: Acute Assessment and Plan: Improved, remains on O2. Continue supportive care, bronchodilator, steroids. (3) Chronic diastolic CHF (congestive heart failure): Code(s): I50.32 - Chronic diastolic (congestive) heart failure Status: Acute Assessment and Plan: Compensated at present but concerned if a flutter not controlled may compromise cardiovascular status. Remains on Lasix 20 mg daily. (4) Pulmonary hypertension: Code(s): I27.20 - Pulmonary hypertension, unspecified Status: Acute Assessment and Plan: Related to underlying lung disease (5) Hyperkalemia: Code(s): E87.5 - Hyperkalemia Status: Acute Assessment and Plan: Potassium 5.2 after supplementation yesterday afternoon. Caution to monitor electrolyte abnormalities. Hold off on potassium supplementation. Magnesium now repleted. Check level in a.m.. Subjective Date/time seen: Date of service: 10/17/20 14:58 Follow-up for atrial flutter with rapid ventricular response Feels okay. Wheezing this morning. Denies palpitations, chest pain. No nausea vomiting. Heart rate better controlled although remains somewhat rapid low 100s. No bleeding. Review of Systems Review of Systems: All systems reviewed & are unremarkable except as noted in HPI and below Constitutional: Constitutional: Reports as per HPI, Denies fatigue, Denies headache(s) and Denies weakness Eyes: Eyes: Reports as per HPI and Denies blurry vision ENT: Reports as per HPI, Reports Normal hearing present, Denies headache(s) and Denies neck pain Cardiovascular: Cardiovascular: Reports as per HPI, Denies chest pain, Reports palpitations, Reports dyspnea and Reports dyspnea on exertion Respiratory: Respiratory: Reports as per HPI, Reports cough, Reports dyspnea and Reports dyspnea on exertion Gastrointestinal: Gastrointestinal: Reports as per HPI and Denies abdominal pain Genitourinary: Genitourinary: Reports as per HPI and Denies dysuria Musculoskeletal: Musculoskeletal: Reports as per HPI and Denies neck pain Integumentary/Breasts: Skin/Breast: Reports as per HPI and Denies dry skin Neurologic: Reports as per HPI, Reports Normal hearing present, Denies confusion, Denies headache(s) and Denies weakness Psychiatric: Psychiatric: Reports as per HPI, Denies anxiety and Denies confusion Endocrine: Endocrine: Reports no additional endocrine complaints, Reports as per HPI, Denies fatigue and Reports palpitations Hematologic/Lymphatic: Hematologic/Lymphatic: Reports no additional hematologic/lymphatic complaints, Reports as per HPI and Denies easy bleeding Allergic/Immunologic: Allergic/Immunologic: Reports no additional allergic/immunologic complaints and Denies GI upset with certain foods Exam Narrative: Exam Narrative: Cachectic but awake and alert. Sitting upright in bed eating Const: General: comfortable and no acute distress; No confusion Orientation/consciousness: No confusion HENMT: General nose exam: Normal nares present Othe
[2020-10-17 15:01] LABS: Magnesium 1.6 mg/dL (1.6-2.3)
[2020-10-17 15:04] LABS: Blood Urea Nitrogen 34 mg/dL (9-20); Calcium 8.1 mg/dL (8.4-10.2); Carbon Dioxide > 40 mmol/L (22-30); Chloride 80 mmol/L (98-107); Estimated CRCL calculation 61 ml/min; Estimated Glomerular Filt Rate > 60; Glucose 148 mg/dL (75-110); Potassium 5.1 mmol/L (3.4-5.0); Sodium 127 mmol/L (137-145)
--- NOTE | 2020-10-17 17:25 | PM.IMPN ---
Progress Note: A&P Assessment and Plan (1) COPD (chronic obstructive pulmonary disease): Qualifiers: COPD type: unspecified COPD Qualified Code(s): J44.9 - Chronic obstructive pulmonary disease, unspecified Code(s): J44.9 - Chronic obstructive pulmonary disease, unspecified Status: Acute Assessment and Plan: Acute COPD exacerbation associated with acute on top of chronic hypercapnic respiratory failure secondary to malfunctioning BiPAP continue with nebulizer treatments and Solu-Medrol. Patient has malfunctioning BiPAP machine at home nurse outreach case manager to evaluate Shortness of breath has improved Anticipate discharge in 1-2 days 1 shortness of breath improved. 10/17/20 17:25 patient is 70-year-old male with history of severe COPD chronic respiratory failure on home oxygen 2 L secondary to chronic hypercapnic respiratory failure patient had been using malfunctioning BiPAP at home, while in hospital patient is on BIPAP and his CO2 is improving, patient is being treated with Solu-Medrol and updraft for exacerbation of COPD, patient also had developed ventricle tachycardia seen by e learning manager patient is on diltiazem 360 mg daily, digoxin was loaded is 0.25 mg IV and continue on 0.125mg q.6 and heart rate is trending down and digoxin is switch over to daily, patient is high risk of developing tachycardia induced cardiomyopathy, patient is clinically stable, will continue to monitor will have a PT OT evaluate the patient 10/17 patient with atrial fibrillation ventricle tachycardia on diltiazem 360mg and digoxin 0.125 mg heart rate remains stable slightly of 100, patient seen by e learning manager, patient is not candidate for cardio is patient cannot tolerate sedation due to severe COPD, patient is clinically stable will continue to monitor, will keep potassium above 4 and magnesium above 2. Will monitor digoxin level. (2) Suspected COVID-19 virus infection: Code(s): Z20.822 - Contact with and (suspected) exposure to COVID-19 Status: Acute Assessment and Plan: COVID-19 was negative DC precaution. (3) Congestive heart failure: Code(s): I50.9 - Heart failure, unspecified Status: Chronic Assessment and Plan: Most likely diastolic stable continue with Lasix and lisinopril (4) Atrial flutter: Qualifiers: Atrial flutter type: unspecified Qualified Code(s): I48.92 - Unspecified atrial flutter Code(s): I48.92 - Unspecified atrial flutter Status: Acute Assessment and Plan: Continue home medication Cardizem and Eliquis (5) Hypertension: Qualifiers: Hypertension type: essential hypertension Qualified Code(s): I10 - Essential (primary) hypertension Code(s): I10 - Essential (primary) hypertension Status: Chronic Assessment and Plan: Continue Cardizem lisinopril Subjective Date/time seen: 10/17/20 17:25 patient is 70-year-old male with history of severe COPD chronic respiratory failure on home oxygen 2 L secondary to chronic hypercapnic respiratory failure patient had been using malfunctioning BiPAP at home, while in hospital patient is on BIPAP and his CO2 is improving, patient is being treated with Solu-Medrol and updraft for exacerbation of COPD, patient also had developed ventricle tachycardia seen by e learning manager patient is on diltiazem 360 mg daily, digoxin was loaded is 0.25 mg IV and continue on 0.125mg q.6 and heart rate is trending down and digoxin is switch over to daily, patient is high risk of developing tachycardia induced cardiomyopathy, patient is clinically stable, will continue to monitor will have a PT OT evaluate the patient 10/17 patient with atrial fibrillation ventricle tachycardia on diltiazem 360mg and digoxin 0.125 mg heart rate remains stable slightly of 100, patient seen by e learning manager, patient is not candidate for cardio is patient cannot tolerate sedation due to severe COPD, patient is clinically stable will
[2020-10-17] MEDS: guaiFENesin/DEXTROMETHORPHAN 10 ML UDC PO (17:50)
[2020-10-17] MEDS: MAG HYDROX/AL HYDROX/SIMETH 30 ML UDC PO (18:32)
[2020-10-18] VITALS (28 sets, daily range): BP systolic 104–142; BP diastolic 52–64; PULSE 77–116; RESP 16–25; TEMP 35.9–36.8; O2SAT 90–99
[2020-10-18] MEDS: ALBUTEROL SULFATE NEB 2.5 MG/0.5 ML INH 5 MG INHALATION ×4 (02:45→22:15)
[2020-10-18] MEDS: IPRATROPIUM BR 0.02% INH SOLN 0.5 MG/2.5 ML VIAL INHALATION ×4 (02:45→22:15)
[2020-10-18] MEDS: methylPREDNISolone SOD SUCC 125 MG VIAL 60 MG IV PUSH ×2 (03:27→08:34)
[2020-10-18 04:47] LABS: Hematocrit 33.5 % (42.0-52.0); Hemoglobin 11.2 g/dL (14.0-18.0); Mean Corpuscular HGB Conc 33.4 g/dl (32-36); Mean Corpuscular Hemoglobin 31.8 pg (26-34); Mean Corpuscular Volume 95.2 fl (80-100); Mean Platelet Volume 12.4 fl (7.4-10.4); Platelet Count Result 98 k/mm3 (150-375); Red Blood Count 3.52 M/mm3 (4.6-6.20); Red Cell Distribution Width 13.6 % (11.5-14.5); White Blood Count 6.9 K/mm3 (4.5-10.0)
[2020-10-18 05:04] LABS: Blood Urea Nitrogen 32 mg/dL (9-20); Calcium 8.1 mg/dL (8.4-10.2); Carbon Dioxide > 40 mmol/L (22-30); Chloride 82 mmol/L (98-107); Estimated CRCL calculation 62 ml/min; Estimated Glomerular Filt Rate > 60; Glucose 133 mg/dL (75-110); Magnesium 1.8 mg/dL (1.6-2.3); Potassium 5.5 mmol/L (3.4-5.0); Sodium 127 mmol/L (137-145)
[2020-10-18] MEDS: guaiFENesin/DEXTROMETHORPHAN 10 ML UDC PO (08:34)
[2020-10-18] MEDS: MAGNESIUM OXIDE 400 MG TABLET PO (08:34)
[2020-10-18] MEDS: FUROSEMIDE 20 MG TABLET PO (08:34)
[2020-10-18] MEDS: lisinopriL 5 MG TABLET PO (08:34)
[2020-10-18] MEDS: DIGOXIN TAB 125 MCG TABLET PO (08:34)
[2020-10-18] MEDS: APIXABAN 5 MG TABLET PO ×2 (08:34→20:16)
[2020-10-18] MEDS: dilTIAZem HCL CD 180 MG CAP.ER.24H 360 MG PO (08:34)
--- NOTE | 2020-10-18 09:34 | PCRCNOTE ---
Arrangements for home Trilogy pending with [facility].
[2020-10-18] MEDS: SODIUM POLYSTYRENE SULFONONATE 15 GM/60 ML BTL PO (11:20)
--- NOTE | 2020-10-18 15:42 | PM.PNCARD ---
Progress Note: A&P Assessment and Plan (1) Atrial flutter with rapid ventricular response: Code(s): I48.92 - Unspecified atrial flutter Status: Acute Assessment and Plan: Persistent, rapid ventricular response but overall better but refractory to medical therapy. Continue digoxin 0.125 mg daily in addition to diltiazem 360 mg daily. Digoxin level is fine. Electrolyte abnormalities concerning any to be rectified. Lisinopril discontinued due to persistent hyperkalemia. Once clarified we discussed options with regards to management of his atrial flutter as I am not comfortable with his current level tachycardia. Discussed IV amiodarone in hopes he would convert but discussed risk with concomitant digoxin and calcium channel clemencia therapy particularly with electrolyte abnormalities. We discussed electrical cardioversion but patient and I share concerns with regards to sedation in his ability to tolerate. He states he is not interested in undergoing sedation even with Anesthesiology due to the severity of his lungs. -Continue Diltiazem 360mg daily and Digoxin .125mg daily. -Discussed once again concern for development of tachycardia-induced Cardiomyopathy if remains poorly controlled. Poor candidate for sedation for CV. -Must monitor renal function and electrolytes to avoid arrhythmia/toxicity complications. -outpatient referral for atrial flutter ablation but would like to cardiovert prior to discharge if possible. -trying to avoid beta-clemencia due to severity of his underlying lung disease. Further recommendations to follow once electrolyte abnormalities are corrected. Patient remains hyponatremic. Defer to primary service for further workup and management. (2) Acute on chronic respiratory failure with hypoxia and hypercapnia: Code(s): J96.21 - Acute and chronic respiratory failure with hypoxia; J96.22 - Acute and chronic respiratory failure with hypercapnia Status: Acute Assessment and Plan: Improved, remains on O2. Continue supportive care, bronchodilator, steroids. (3) Chronic diastolic CHF (congestive heart failure): Code(s): I50.32 - Chronic diastolic (congestive) heart failure Status: Acute Assessment and Plan: Compensated at present but concerned if a flutter not controlled may compromise cardiovascular status. Remains on Lasix 20 mg daily. (4) Pulmonary hypertension: Code(s): I27.20 - Pulmonary hypertension, unspecified Status: Acute Assessment and Plan: Related to underlying lung disease (5) Hyperkalemia: Code(s): E87.5 - Hyperkalemia Status: Acute Assessment and Plan: Potassium 5.5 without additional supplementation or change in renal function. I discontinue lisinopril. Primary service give Kayexalate. Will repeat electrolytes. Subjective Date/time seen: Date of service: 10/18/20 15:42 Follow-up for atrial flutter with rapid ventricular response Patient feels okay. Denies palpitation. Remains tachycardic but improved overall heart rate in the low 100s. Tolerating medications. Potassium elevated at 5.5 this morning, given Kayexalate by primary service. Patient states he wants to go home. Still wheezing but improved overall. No chest pain or new shortness of breath. Review of Systems Review of Systems: All systems reviewed & are unremarkable except as noted in HPI and below Constitutional: Constitutional: Reports as per HPI, Denies fatigue, Denies headache(s) and Denies weakness Eyes: Eyes: Reports as per HPI and Denies blurry vision ENT: Reports as per HPI, Reports Normal hearing present, Denies headache(s) and Denies neck pain Cardiovascular: Cardiovascular: Reports as per HPI, Denies chest pain, Reports palpitations, Reports dyspnea and Reports dyspnea on exertion Respiratory: Respiratory: Reports as per HPI, Reports cough, Reports dyspnea and Reports dyspnea on exertion Gastrointestinal: Gastrointestinal: Reports
--- NOTE | 2020-10-18 16:42 | PM.IMPN ---
Progress Note: A&P Assessment and Plan (1) COPD (chronic obstructive pulmonary disease): Qualifiers: COPD type: unspecified COPD Qualified Code(s): J44.9 - Chronic obstructive pulmonary disease, unspecified Code(s): J44.9 - Chronic obstructive pulmonary disease, unspecified Status: Acute Assessment and Plan: Acute COPD exacerbation associated with acute on top of chronic hypercapnic respiratory failure secondary to malfunctioning BiPAP continue with nebulizer treatments and Solu-Medrol. Patient has malfunctioning BiPAP machine at home high risk case manager to evaluate Shortness of breath has improved Anticipate discharge in 1-2 days 1 shortness of breath improved. 10/18/20 16:42 patient is 70-year-old male with history of severe COPD chronic respiratory failure on home oxygen 2 L secondary to chronic hypercapnic respiratory failure patient had been using malfunctioning BiPAP at home, while in hospital patient is on BIPAP and his CO2 is improving, patient is being treated with Solu-Medrol and updraft for exacerbation of COPD, patient also had developed ventricle tachycardia seen by service dog trainer patient is on diltiazem 360 mg daily, digoxin was loaded is 0.25 mg IV and continue on 0.125mg q.6 and heart rate is trending down and digoxin is switch over to daily, patient is high risk of developing tachycardia induced cardiomyopathy, patient is clinically stable, will continue to monitor will have a PT OT evaluate the patient 2/ patient with atrial fibrillation ventricle tachycardia on diltiazem 360mg and digoxin 0.125 mg heart rate remains stable slightly of 100, patient seen by service dog trainer, patient is not candidate for cardio is patient cannot tolerate sedation due to severe COPD, patient is clinically stable will continue to monitor, will keep potassium above 4 and magnesium above 2. Will monitor digoxin level. 2/ patient with atrial fibrillation ventricle tachycardia on diltiazem 360mg and digoxin 0.125 mg heart rate remains stable slightly above 100, patient seen by service dog trainer, patient is not candidate for cardiovert as patient cannot tolerate sedation due to severe COPD, discussed with Cardiology recommending continue present management as patient is clinically stable, patient with hyperkalemia etiology uncertain will give Kayexalate and monitor, patient with hyponatremia will place the patient on fluid restriction to help with hyponatremia, patient is on low-dose of Lasix 20 mg q.day p.o. will continue, patient will be seen by Nephrology and further recommendation to follow, patient with history of severe COPD hypercapnic respiratory failure on home oxygen, patient will benefit from noninvasive ventilator will try to arrange for trilogy for the patient, will also discharge patient home on nebulizer. Will taper patient Solu-Medrol to prednisone as patient's symptoms are improving. (2) Suspected COVID-19 virus infection: Code(s): Z20.822 - Contact with and (suspected) exposure to COVID-19 Status: Acute Assessment and Plan: COVID-19 was negative DC precaution. (3) Congestive heart failure: Code(s): I50.9 - Heart failure, unspecified Status: Chronic Assessment and Plan: Most likely diastolic stable continue with Lasix and lisinopril (4) Atrial flutter: Qualifiers: Atrial flutter type: unspecified Qualified Code(s): I48.92 - Unspecified atrial flutter Code(s): I48.92 - Unspecified atrial flutter Status: Acute Assessment and Plan: Continue home medication Cardizem and Eliquis (5) Hypertension: Qualifiers: Hypertension type: essential hypertension Qualified Code(s): I10 - Essential (primary) hypertension Code(s): I10 - Essential (primary) hypertension Status: Chronic Assessment and Plan: Continue Cardizem lisinopril Subjective Date/time seen: 10/18/20 16:42 patient is 70-year-old male with history of severe COPD
[2020-10-19] VITALS (26 sets, daily range): BP systolic 116–136; BP diastolic 51–67; PULSE 77–109; RESP 18–24; TEMP 35.9–36.6; O2SAT 90–100
[2020-10-19] MEDS: ALBUTEROL SULFATE NEB 2.5 MG/0.5 ML INH 5 MG INHALATION ×2 (02:10→08:07)
[2020-10-19] MEDS: IPRATROPIUM BR 0.02% INH SOLN 0.5 MG/2.5 ML VIAL INHALATION ×4 (02:11→20:25)
[2020-10-19 04:42] LABS: Hematocrit 33.9 % (42.0-52.0); Hemoglobin 11.3 g/dL (14.0-18.0); Mean Corpuscular HGB Conc 33.3 g/dl (32-36); Mean Corpuscular Hemoglobin 31.2 pg (26-34); Mean Corpuscular Volume 93.6 fl (80-100); Mean Platelet Volume 12.1 fl (7.4-10.4); Platelet Count Result 94 k/mm3 (150-375); Red Blood Count 3.62 M/mm3 (4.6-6.20); Red Cell Distribution Width 13.5 % (11.5-14.5); White Blood Count 6.9 K/mm3 (4.5-10.0)
[2020-10-19 05:17] LABS: Blood Urea Nitrogen 28 mg/dL (9-20); Calcium 8.2 mg/dL (8.4-10.2); Carbon Dioxide > 40 mmol/L (22-30); Chloride 83 mmol/L (98-107); Estimated CRCL calculation 72 ml/min; Estimated Glomerular Filt Rate > 60; Glucose 125 mg/dL (75-110); Magnesium 1.6 mg/dL (1.6-2.3); Potassium 4.8 mmol/L (3.4-5.0); Sodium 129 mmol/L (137-145)
[2020-10-19 05:39] LABS: Digoxin 0.6 ng/mL (0.8-2.0)
[2020-10-19] MEDS: guaiFENesin/DEXTROMETHORPHAN 10 ML UDC PO (07:55)
[2020-10-19] MEDS: predniSONE 20 MG TABLET 60 MG PO (09:11)
[2020-10-19] MEDS: MAGNESIUM OXIDE 400 MG TABLET PO (09:11)
[2020-10-19] MEDS: FUROSEMIDE 20 MG TABLET PO (09:11)
[2020-10-19] MEDS: dilTIAZem HCL CD 180 MG CAP.ER.24H 360 MG PO (09:11)
[2020-10-19] MEDS: APIXABAN 5 MG TABLET PO ×2 (09:12→20:46)
[2020-10-19] MEDS: AMIODARONE 150 MG/D5W 100 ML 150 MG/100 ML BAG 600 MG IV CONT (10:46)
--- NOTE | 2020-10-19 10:47 | PM.CNNEP ---
Assessment and Plan Assessment and plan (1) Hyponatremia: Code(s): E87.1 - Hypo-osmolality and hyponatremia Status: Acute Assessment and Plan: the patient has hyponatremia. Most likely this is from several issues. He does have COPD which is fairly severe requiring home oxygen. This can cause hyponatremia at times. He has pulmonary hypertension and swelling and so takes furosemide to get rid of the swelling. He therefore has chronic pre renal azotemia which could lead to hyponatremia as well. Unfortunately we can't do anything about the above 2 issues because if we stop furosemide to have a lot his sodium to get better, he will swell up again. Other causes include : hypothyroidism, adrenal insufficiency : We will check levels. 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 It is unclear whether this would cause hyponatremia. I believe he is going to get neuro surgical evaluation as an outpatient. This is something we will have to work around as well. cancer. He should get cancer surveillance. I will check a serum TSH and cortisol level. At this point I would encourage fluid restriction. If he drinks lots of fluids he may drive his sodium level even lower which can lead to symptoms such as seizures. (2) Hyperkalemia: Code(s): E87.5 - Hyperkalemia Status: Acute Assessment and Plan: This was present on admission but resolved now. (3) Acute on chronic respiratory failure with hypoxia and hypercapnia: Code(s): J96.21 - Acute and chronic respiratory failure with hypoxia; J96.22 - Acute and chronic respiratory failure with hypercapnia Status: Acute Assessment and Plan: I encouraged him to stop smoking. (4) Tobacco abuse: Code(s): Z72.0 - Tobacco use Status: Chronic Assessment and Plan: I encouraged him to stop smoking (5) Anemia: Code(s): D64.9 - Anemia, unspecified Status: Acute History of Present Illness Reason for Consult Consult date: 10/19/20 Chief Complaint Chief complaint: Acute on chronic respiratory failure e hypercapnea History of Present Illness Narrative: Sam is a very pleasant 70-year-old gentleman who has multiple medical problems including current cigarette use, COPD, pulmonary hypertension, right-sided heart failure, hypertension, Atrial flutter,and now a low sodium. the patient came in the hospital because his oxygen tank malfunctioned. Apparently the filter was clogged. He became confused and his girlfriend recognize this and had him taken over to the emergency room. There his pCO2 was extremely high. He was treated supportively and has improved. He is on some diuretics now as he was when he was at home. Over the course of the hospital stay his sodium level has decreased so renal consultation was requested. He says that he is on furosemide at home. He takes this because if he does not take it he swells. The patient says that he does drink a lot of water or soda at home. He does not take nonsteroidal anti-inflammatory agents. He is on Lasix once a day at home. He does not take antidepressants or narcotics. He does not have a history of cancer that he knows of. No history of stroke or other brain abnormality. Of course he does have his COPD. Review of Systems Constitutional: Constitutional: Reports no additional constitutional complaints Eyes: Eyes: Reports no additional eye complaints ENT: Reports system reviewed and no additional complaints, except as documented Cardiovascular: Cardiovascular: Reports no additional cardiovascular complaints Respiratory: Respiratory: Reports no additional respiratory complaints Gastrointestinal: Gastrointestinal: Reports no additional gastrointestinal complaints Genitourinary: Genitourinary: Reports no additional male genitourinary complaints Musculoskeletal: Musculoskeletal: Reports no addition
--- NOTE | 2020-10-19 10:57 | PM.PNCARD ---
Progress Note: A&P Assessment and Plan (1) Atrial flutter with rapid ventricular response: Code(s): I48.92 - Unspecified atrial flutter Status: Acute Assessment and Plan: Persistent, rapid ventricular response refractory to medical therapy. -Once again, discussed IV Amiodarone in hopes he would convert to SR with short term use for 1 month as our options are limited. We discussed several potential risks w/ Amiodarone including effects on the eyes, liver, especially lungs, and thyroid generally over longer term, rarely short term. We should avoid sedation due to severity of underlying lung disease and patient does not wish to pursue in this regard. We again discussed my concerns with regards to bradyarrhythmia with combination of amiodarone, digoxin and diltiazem yet current therapy is not adequately controlling his heart rate raising concern for ventral tachycardia induced cardiomyopathy and grave complications in that regard. Patient verbalized understanding. As such, as his digoxin level is acceptably low at 0.6, electrolytes have been rectified and he has yet to receive his dose of digoxin today I will discontinue digoxin and proceed with IV amiodarone bolus and initial drip in hopes he will convert to sinus rhythm. He states he has been on anticoagulation without interruption since initiation and for at least 4 weeks. Therefore, anticipated embolic stroke risk low/acceptable with chemical cardioversion. -If above management is effective we will continue diltiazem and amiodarone without digoxin as appropriate. -we discussed risks, benefits, and alternatives with the above plan including the possibility we may be unsuccessful, he develope symptomatic bradycardia, and/or high grade AV block. All questions answered to his satisfaction and he is in agreement to proceed with amiodarone in effort to chemically cardiovert to sinus rhythm. -Continue Diltiazem 360mg daily -Discussed once again concern for development of tachycardia-induced Cardiomyopathy if remains poorly controlled. Poor candidate for sedation for CV. -Continue systemic anticoagulation without interruption. Monitor for bleeding. -Must monitor renal function and electrolytes to avoid arrhythmia/toxicity complications. -Trying to avoid beta-clemencia due to severity of his underlying lung disease. (2) Acute on chronic respiratory failure with hypoxia and hypercapnia: Code(s): J96.21 - Acute and chronic respiratory failure with hypoxia; J96.22 - Acute and chronic respiratory failure with hypercapnia Status: Acute Assessment and Plan: Improved, remains on O2. Continue supportive care, bronchodilator, steroids. (3) Chronic diastolic CHF (congestive heart failure): Code(s): I50.32 - Chronic diastolic (congestive) heart failure Status: Acute Assessment and Plan: Compensated at present but concerned if a flutter not controlled may compromise cardiovascular status. Remains on Lasix 20 mg daily. (4) Pulmonary hypertension: Code(s): I27.20 - Pulmonary hypertension, unspecified Status: Acute Assessment and Plan: Related to underlying lung disease (5) Hyperkalemia: Code(s): E87.5 - Hyperkalemia Status: Acute Assessment and Plan: Resolved this morning. Kayexalate given by primary service, lisinopril discontinued. Subjective Date/time seen: Date of service: 10/19/20 10:57 Follow-up for atrial flutter with rapid ventricular response, acute on chronic respiratory failure and COPD exacerbation Feels okay. Notes exertional dyspnea but generally improved. Walking physical therapy without great difficulty with exception of dyspnea. No chest pain or palpitation. Patient remains in atrial flutter with rapid ventricular response. No dizziness, bleeding. Review of Systems Review of Systems: All systems reviewed & are unremarkable except as noted in HPI and below Constitutional: Constitutional
--- NOTE | 2020-10-19 11:10 | PCRCNOTE ---
CARE MEDICAL NOTIFED OF ORDER FOR HOME NEBULIZER.
[2020-10-19] MEDS: AMIODARONE 360 MG/D5W 200 ML 360 MG/200 ML BAG 33.33 MG IV CONT (11:36)
[2020-10-19 13:47] LABS: Sodium Urine Random 66 meq/L
[2020-10-19] MEDS: ALBUTEROL SULFATE NEB 2.5 MG/0.5 ML INH INHALATION ×2 (14:32→20:26)
--- NOTE | 2020-10-19 15:15 | PM.IMPN ---
Progress Note: A&P Assessment and Plan (1) COPD (chronic obstructive pulmonary disease): Qualifiers: COPD type: unspecified COPD Qualified Code(s): J44.9 - Chronic obstructive pulmonary disease, unspecified Code(s): J44.9 - Chronic obstructive pulmonary disease, unspecified Status: Acute Assessment and Plan: Acute COPD exacerbation associated with acute on top of chronic hypercapnic respiratory failure secondary to malfunctioning BiPAP continue with nebulizer treatments and Solu-Medrol. Patient has malfunctioning BiPAP machine at home casework specialist to evaluate Shortness of breath has improved Anticipate discharge in 1-2 days 1 shortness of breath improved. 10/19/20 15:15 patient is 70-year-old male with history of severe COPD chronic respiratory failure on home oxygen 2 L secondary to chronic hypercapnic respiratory failure patient had been using malfunctioning BiPAP at home, while in hospital patient is on BIPAP and his CO2 is improving, patient is being treated with Solu-Medrol and updraft for exacerbation of COPD, patient also had developed ventricle tachycardia seen by marketing liaison patient is on diltiazem 360 mg daily, digoxin was loaded is 0.25 mg IV and continue on 0.125mg q.6 and heart rate is trending down and digoxin is switch over to daily, patient is high risk of developing tachycardia induced cardiomyopathy, patient is clinically stable, will continue to monitor will have a PT OT evaluate the patient 2/ patient with atrial fibrillation ventricle tachycardia on diltiazem 360mg and digoxin 0.125 mg heart rate remains stable slightly of 100, patient seen by marketing liaison, patient is not candidate for cardio is patient cannot tolerate sedation due to severe COPD, patient is clinically stable will continue to monitor, will keep potassium above 4 and magnesium above 2. Will monitor digoxin level. 2/ patient with atrial fibrillation ventricle tachycardia on diltiazem 360mg and digoxin 0.125 mg heart rate remains stable slightly above 100, patient seen by marketing liaison, patient is not candidate for cardiovert as patient cannot tolerate sedation due to severe COPD, discussed with Cardiology recommending continue present management as patient is clinically stable, patient with hyperkalemia etiology uncertain will give Kayexalate and monitor, patient with hyponatremia will place the patient on fluid restriction to help with hyponatremia, patient is on low-dose of Lasix 20 mg q.day p.o. will continue, patient will be seen by Nephrology and further recommendation to follow, patient with history of severe COPD hypercapnic respiratory failure on home oxygen, patient will benefit from noninvasive ventilator will try to arrange for trilogy for the patient, will also discharge patient home on nebulizer. Will taper patient Solu-Medrol to prednisone as patient's symptoms are improving. 2/ patient with atrial fibrillation ventricle tachycardia on diltiazem 360mg and digoxin 0.125 mg heart rate remains stable slightly above 100, patient seen by marketing liaison, patient is not candidate for cardiovert as patient cannot tolerate sedation due to severe COPD, discussed with Cardiology recommending to start amiodarone drip in hope chemically converting to sinus rhythm, marketing liaison spoke with the patient in great detail the side effects of amiodarone and patient is agreeable with treatment, digoxin is discontinue, will continue to monitor, patient with hyperkalemiaon 10/18 etiology uncertain received Kayexalate on 10/19 potassium is close to normal and monitor, patient with hyponatremia placed the patient on fluid restriction on 10/18 to help with hyponatremia, patient seen by Nephrology and agreed with the plan, patient is on low-dose of Lasix 20 mg q.day p.o. will continue, patient will be seen by Nephrology and further recommendation to follow, patient with history of severe COPD hypercapnic respiratory failure on home oxygen, patient will benefit from n
[2020-10-19] MEDS: AMIODARONE 360 MG/D5W 200 ML 360 MG/200 ML BAG 16.67 MG IV CONT (18:53)
[2020-10-19] MEDS: guaiFENesin 12 HR 600 MG TABCR PO (20:46)
[2020-10-20] VITALS (30 sets, daily range): BP systolic 103–129; BP diastolic 50–65; PULSE 74–91; RESP 12–23; TEMP 35.6–36.7; O2SAT 92–100
[2020-10-20] MEDS: IPRATROPIUM BR 0.02% INH SOLN 0.5 MG/2.5 ML VIAL INHALATION ×4 (02:59→20:48)
[2020-10-20] MEDS: ALBUTEROL SULFATE NEB 2.5 MG/0.5 ML INH INHALATION ×4 (02:59→20:48)
[2020-10-20 05:18] LABS: Hemoglobin 10.7 g/dL (14.0-18.0); Mean Corpuscular HGB Conc 32.4 g/dl (32-36); Mean Corpuscular Hemoglobin 30.9 pg (26-34); Mean Corpuscular Volume 95.4 fl (80-100); Mean Platelet Volume 12.2 fl (7.4-10.4); Platelet Count Result 98 k/mm3 (150-375); Red Blood Count 3.46 M/mm3 (4.6-6.20); Red Cell Distribution Width 13.7 % (11.5-14.5); White Blood Count 9.3 K/mm3 (4.5-10.0)
[2020-10-20 05:38] LABS: Chloride 82 mmol/L (98-107)
[2020-10-20 05:56] LABS: Albumin Level 2.8 g/dL (3.5-5.1); Blood Urea Nitrogen 37 mg/dL (9-20); Calcium 7.9 mg/dL (8.4-10.2); Carbon Dioxide > 40 mmol/L (22-30); Estimated CRCL calculation 72 ml/min; Estimated Glomerular Filt Rate > 60; Glucose 90 mg/dL (75-110); Magnesium 1.6 mg/dL (1.6-2.3); Phosphorus 2.6 mg/dL (2.5-4.5); Potassium 4.5 mmol/L (3.4-5.0); Sodium 127 mmol/L (137-145)
[2020-10-20 06:08] LABS: Digoxin 0.7 ng/mL (0.8-2.0)
[2020-10-20] MEDS: AMIODARONE 360 MG/D5W 200 ML 360 MG/200 ML BAG 16.67 MG IV CONT (08:38)
[2020-10-20] MEDS: MAGNESIUM OXIDE 400 MG TABLET PO (08:38)
[2020-10-20] MEDS: guaiFENesin 12 HR 600 MG TABCR PO ×2 (08:38→20:37)
[2020-10-20] MEDS: APIXABAN 5 MG TABLET PO ×2 (08:38→20:37)
[2020-10-20] MEDS: dilTIAZem HCL CD 180 MG CAP.ER.24H 360 MG PO (08:38)
[2020-10-20] MEDS: FUROSEMIDE 20 MG TABLET PO (08:39)
[2020-10-20] MEDS: predniSONE 20 MG TABLET 60 MG PO (08:39)
--- NOTE | 2020-10-20 10:40 | PCPTNOTE ---
Patient refused treatment this session due to fatigue. Patient states not right now, I am waiting on my doctor and I have an IV in. Patient requested for therapy to come back later. Eli Atwood, POLYETHYLENE BAG MACHINE OPERATOR
--- NOTE | 2020-10-20 13:04 | PM.PNNEP ---
Progress Note: A&P Assessment and Plan (1) Hyponatremia: Code(s): E87.1 - Hypo-osmolality and hyponatremia Status: Acute Assessment and Plan: the patient has hyponatremia. Most likely this is from several issues, including COPD, pulmonary hypertension, chronic pre renal azotemia,? 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 Today sodium is pending Continue fluid restriction. (2) Hyperkalemia: Code(s): E87.5 - Hyperkalemia Status: Acute Assessment and Plan: This was present on admission but resolved now. (3) Acute on chronic respiratory failure with hypoxia and hypercapnia: Code(s): J96.21 - Acute and chronic respiratory failure with hypoxia; J96.22 - Acute and chronic respiratory failure with hypercapnia Status: Acute Assessment and Plan: I encouraged him to stop smoking. (4) Tobacco abuse: Code(s): Z72.0 - Tobacco use Status: Chronic Assessment and Plan: I encouraged him to stop smoking (5) Anemia: Code(s): D64.9 - Anemia, unspecified Status: Acute Assessment and Plan: hemoglobin is 10.7. Subjective Date/time seen: 10/20/20 13:04 Interval history: Sam is feeling about the same . He is still swollen. Breathing okay on his oxygen Review of Systems Cardiovascular: Cardiovascular: Reports no additional cardiovascular complaints Respiratory: Respiratory: Reports no additional respiratory complaints Gastrointestinal: Gastrointestinal: Reports no additional gastrointestinal complaints Genitourinary: Genitourinary: Reports no additional male genitourinary complaints Exam Narrative: Exam Narrative: WDWN in NAD skin no rash head ncat lungs decreased breath sounds at the bases, mild increase in expiratory phase cor reg no rub abd BS+ nontender and soft ext no edema. Objective Data Vital Signs Vital Signs: Vital Signs - 24 hr 10/19/20 14:00 10/19/20 14:32 10/19/20 14:40 Temperature Pulse Rate 88 79 80 Respiratory Rate 20 22 H Blood Pressure Pulse Oximetry 10/19/20 16:00 10/19/20 16:22 10/19/20 18:00 Temperature 35.9 C L Pulse Rate 84 84 90 Respiratory Rate 24 H Blood Pressure 136/51 L Pulse Oximetry 100 93 10/19/20 20:00 10/19/20 20:26 10/19/20 20:29 Temperature 36.6 C Pulse Rate 79 78 78 Respiratory Rate 20 20 18 Blood Pressure 120/55 L Pulse Oximetry 93 93 10/19/20 20:39 10/19/20 21:43 10/19/20 23:44 Temperature 36.6 C Pulse Rate 79 79 77 Respiratory Rate 20 20 Blood Pressure 116/53 L Pulse Oximetry 97 10/20/20 00:00 10/20/20 00:05 10/20/20 02:00 Temperature Pulse Rate 78 78 78 Respiratory Rate 20 Blood Pressure Pulse Oximetry 92 92 10/20/20 02:59 10/20/20 03:02 10/20/20 03:07 Temperature Pulse Rate 79 79 77 Respiratory Rate 20 20 Blood Pressure Pulse Oximetry 94 10/20/20 04:00 10/20/20 06:00 10/20/20 08:00 Temperature 36.4 C Pulse Rate 76 78 76 Respiratory Rate 20 23 H Blood Pressure 118/59 L Pulse Oximetry 97 100 10/20/20 08:31 10/20/20 08:38 10/20/20 10:00 Temperature 35.8 C L Pulse Rate 76 76 91 Respiratory Rate 23 H Blood Pressure 103/65 Pulse Oximetry 100 10/20/20 12:26 Temperature 35.6 C L Pulse Rate 79 Respiratory Rate 22 H Blood Pressure 106/50 L Pulse Oximetry 92 Intake/Output Intake/Output: Intake & Output 10/17/20 10/18/20 10/19/20 10/20/20 23:59 23:59 23:59 23:59 Intake Total 2984 1810 1460 690 Output Total 1310 2250 840 875 Balance 0554 -772 841 -173 Meds/Results Medications: Active Medications Generic Name Dose Route Start Last Admin Trade Name Freq PRN Reason Stop Dose Admin Albuterol 2.5 mg 10/19/20 14:00 10/20/20 07:43 Albuterol Sulfate Neb 2.5 Mg/0.5 Ml Inh INHALATION 2.5 mg Q6HRT REDD Administration Apixaban 5 mg 10/13/20 23:05 10/20/20 08:38 Apixaban 5 Mg Tablet PO 5 mg Q12HR REDD Administration Budesonide/Formotero
[2020-10-20 13:13] LABS: Blood Urea Nitrogen 39 mg/dL (9-20); Calcium 8.2 mg/dL (8.4-10.2); Carbon Dioxide > 40 mmol/L (22-30); Chloride 81 mmol/L (98-107); Estimated CRCL calculation 72 ml/min; Estimated Glomerular Filt Rate > 60; Glucose 202 mg/dL (75-110); Potassium 4.8 mmol/L (3.4-5.0); Sodium 128 mmol/L (137-145)
--- NOTE | 2020-10-20 14:27 | PM.PNCARD ---
Progress Note: A&P Assessment and Plan (1) Atrial flutter with rapid ventricular response: Code(s): I48.92 - Unspecified atrial flutter Status: Acute Assessment and Plan: Persistent, rapid ventricular response refractory to medical therapy. - continue diltiazem. Lower extremity edema may be due to diltiazem; continue Lasix 20 mg daily. Atrial flutter persistent despite intravenous amiodarone. Heart rate better controlled. Will transition to oral regimen 400 mg p.o. t.i.d. x2 days, 400 mg b.i.d. for 4 days, then 400mg daily for 1 week then 200mg daily with plans for short term use one month or until seen in the office. - if he does not revert to uncontrolled a flutter with RVR or symptomatic bradycardia may be discharged home tomorrow to follow up in the office within the next 2 weeks. Patient verbalized understanding and agreed with plan of care. - Continue Eliquis 5 mg twice daily. Monitor for bleeding particularly given thrombocytopenia. -Trying to avoid beta-clemencia due to severity of his underlying lung disease. (2) Acute on chronic respiratory failure with hypoxia and hypercapnia: Code(s): J96.21 - Acute and chronic respiratory failure with hypoxia; J96.22 - Acute and chronic respiratory failure with hypercapnia Status: Acute Assessment and Plan: Improved, remains on O2. Continue supportive care, bronchodilator, steroids. (3) Chronic diastolic CHF (congestive heart failure): Code(s): I50.32 - Chronic diastolic (congestive) heart failure Status: Acute Assessment and Plan: Compensated at present but concerned if a flutter not controlled may compromise cardiovascular status. Remains on Lasix 20 mg daily. (4) Pulmonary hypertension: Code(s): I27.20 - Pulmonary hypertension, unspecified Status: Acute Assessment and Plan: Related to underlying lung disease (5) Hyperkalemia: Code(s): E87.5 - Hyperkalemia Status: Acute Assessment and Plan: Resolved (6) Hyponatremia: Code(s): E87.1 - Hypo-osmolality and hyponatremia Status: Acute Assessment and Plan: Fluid restriction, recommendations per Nephrology. (7) Thrombocytopenia: Code(s): D69.6 - Thrombocytopenia, unspecified Status: Acute Assessment and Plan: Slowly progressive but not new since admission. Monitor for bleeding, no active signs at this time. H&H stable. Check in a.m.. Subjective Date/time seen: date of service: 10/20/20 14:27 Follow-up for atrial flutter with rapid ventricular response, COPD exacerbation, acute on chronic respiratory failure patient denies new issues overnight. Shortness of breath with activity, no dizziness or lightheadedness. No palpitations. Remains in atrial flutter despite intravenous amiodarone yet heart rate much better controlled. No bleeding. Notes increasing lower extremity edema. Review of Systems Review of Systems: All systems reviewed & are unremarkable except as noted in HPI and below Constitutional: Constitutional: Reports as per HPI, Denies fatigue, Denies headache(s) and Denies weakness Eyes: Eyes: Reports as per HPI and Denies blurry vision ENT: Reports as per HPI, Reports Normal hearing present, Denies headache(s) and Denies neck pain Cardiovascular: Cardiovascular: Reports as per HPI, Denies chest pain, Reports palpitations, Reports dyspnea and Reports dyspnea on exertion Respiratory: Respiratory: Reports as per HPI, Reports cough, Reports dyspnea and Reports dyspnea on exertion Gastrointestinal: Gastrointestinal: Reports as per HPI and Denies abdominal pain Genitourinary: Genitourinary: Reports as per HPI and Denies dysuria Musculoskeletal: Musculoskeletal: Reports as per HPI and Denies neck pain Integumentary/Breasts: Skin/Breast: Reports as per HPI and Denies dry skin Neurologic: Reports as per HPI, Reports Normal hearing present, Denies confusion, Denies headach
--- NOTE | 2020-10-20 14:37 | PM.IMPN ---
Progress Note: A&P Assessment and Plan (1) COPD (chronic obstructive pulmonary disease): Qualifiers: COPD type: unspecified COPD Qualified Code(s): J44.9 - Chronic obstructive pulmonary disease, unspecified Code(s): J44.9 - Chronic obstructive pulmonary disease, unspecified Status: Acute Assessment and Plan: Acute COPD exacerbation associated with acute on top of chronic hypercapnic respiratory failure secondary to malfunctioning BiPAP continue with nebulizer treatments and Solu-Medrol. 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 10/20/20 14:37 patient is 70-year-old male with history of severe COPD chronic respiratory failure on home oxygen 2 L secondary to chronic hypercapnic respiratory failure patient had been using malfunctioning BiPAP at home, while in hospital patient is on BIPAP and his CO2 is improving, patient is being treated with Solu-Medrol and updraft for exacerbation of COPD, patient also had developed ventricle tachycardia seen by food mixer assembler patient is on diltiazem 360 mg daily, digoxin was loaded is 0.25 mg IV and continue on 0.125mg q.6 and heart rate is trending down and digoxin is switch over to daily, patient is high risk of developing tachycardia induced cardiomyopathy, patient is clinically stable, will continue to monitor will have a PT OT evaluate the patient 2/ patient with atrial fibrillation ventricle tachycardia on diltiazem 360mg and digoxin 0.125 mg heart rate remains stable slightly of 100, patient seen by food mixer assembler, patient is not candidate for cardio is patient cannot tolerate sedation due to severe COPD, patient is clinically stable will continue to monitor, will keep potassium above 4 and magnesium above 2. Will monitor digoxin level. 2/ patient with atrial fibrillation ventricle tachycardia on diltiazem 360mg and digoxin 0.125 mg heart rate remains stable slightly above 100, patient seen by food mixer assembler, patient is not candidate for cardiovert as patient cannot tolerate sedation due to severe COPD, discussed with Cardiology recommending continue present management as patient is clinically stable, patient with hyperkalemia etiology uncertain will give Kayexalate and monitor, patient with hyponatremia will place the patient on fluid restriction to help with hyponatremia, patient is on low-dose of Lasix 20 mg q.day p.o. will continue, patient will be seen by Nephrology and further recommendation to follow, patient with history of severe COPD hypercapnic respiratory failure on home oxygen, patient will benefit from noninvasive ventilator will try to arrange for trilogy for the patient, will also discharge patient home on nebulizer. Will taper patient Solu-Medrol to prednisone as patient's symptoms are improving. 2/ patient with atrial fibrillation ventricle tachycardia on diltiazem 360mg and digoxin 0.125 mg heart rate remains stable slightly above 100, patient seen by food mixer assembler, patient is not candidate for cardiovert as patient cannot tolerate sedation due to severe COPD, discussed with Cardiology recommending to start amiodarone drip in hope chemically converting to sinus rhythm, food mixer assembler spoke with the patient in great detail the side effects of amiodarone and patient is agreeable with treatment, digoxin is discontinue, will continue to monitor, patient with hyperkalemiaon 10/18 etiology uncertain received Kayexalate on 10/19 potassium is close to normal and monitor, patient with hyponatremia placed the patient on fluid restriction on 10/18 to help with hyponatremia, patient seen by Nephrology and agreed with the plan, patient is on low-dose of Lasix 20 mg q.day p.o. will continue, patient will be seen by Nephrology and further recommendation to follow, patient with history of severe COPD hypercapnic respiratory failure on home oxygen, patient will benefit from n
--- NOTE | 2020-10-20 15:25 | PCPTNOTE ---
Patient refused treatment this session due to fatigue. Attempted to see patient again in PM at 15:18, however patient continues to refuse PT. Patient states that he is tired and already did therapy today. Will attempt to see patient tomorrow as appropriate. Eli Atwood, MOTORBIKE COURIER
[2020-10-20] MEDS: AMIODARONE HCL 200 MG TABLET 400 MG PO ×2 (15:58→20:37)
[2020-10-21] VITALS (19 sets, daily range): BP systolic 111–132; BP diastolic 57–63; PULSE 71–104; RESP 16–20; TEMP 36.2–36.8; O2SAT 90–97
[2020-10-21] MEDS: IPRATROPIUM BR 0.02% INH SOLN 0.5 MG/2.5 ML VIAL INHALATION ×3 (02:20→13:44)
[2020-10-21] MEDS: ALBUTEROL SULFATE NEB 2.5 MG/0.5 ML INH INHALATION ×3 (02:20→13:44)
[2020-10-21 04:53] LABS: Hematocrit 31.6 % (42.0-52.0); Hemoglobin 10.5 g/dL (14.0-18.0); Mean Corpuscular HGB Conc 33.2 g/dl (32-36); Mean Corpuscular Hemoglobin 32.2 pg (26-34); Mean Corpuscular Volume 96.9 fl (80-100); Mean Platelet Volume 12.4 fl (7.4-10.4); Platelet Count Result 102 k/mm3 (150-375); Red Blood Count 3.26 M/mm3 (4.6-6.20); Red Cell Distribution Width 13.7 % (11.5-14.5); White Blood Count 8.9 K/mm3 (4.5-10.0)
[2020-10-21 05:19] LABS: Digoxin 0.5 ng/mL (0.8-2.0)
[2020-10-21 05:25] LABS: Albumin Level 2.8 g/dL (3.5-5.1); Blood Urea Nitrogen 33 mg/dL (9-20); Calcium 7.7 mg/dL (8.4-10.2); Carbon Dioxide > 40 mmol/L (22-30); Chloride 84 mmol/L (98-107); Estimated CRCL calculation 85 ml/min; Estimated Glomerular Filt Rate > 60; Glucose 157 mg/dL (75-110); Magnesium 1.5 mg/dL (1.6-2.3); Phosphorus 3.1 mg/dL (2.5-4.5); Potassium 4.3 mmol/L (3.4-5.0); Sodium 127 mmol/L (137-145)
--- NOTE | 2020-10-21 10:11 | PM.PNNEP ---
Progress Note: A&P Assessment and Plan (1) Hyponatremia: Code(s): E87.1 - Hypo-osmolality and hyponatremia Status: Acute Assessment and Plan: the patient has hyponatremia. Most likely this is from several issues, including COPD, pulmonary hypertension, chronic pre renal azotemia,? 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 Sodium level is relatively stable in the high 120s. Continue fluid restriction, especially since he is on furosemide. (2) Hyperkalemia: Code(s): E87.5 - Hyperkalemia Status: Acute Assessment and Plan: This was present on admission but resolved now. (3) Acute on chronic respiratory failure with hypoxia and hypercapnia: Code(s): J96.21 - Acute and chronic respiratory failure with hypoxia; J96.22 - Acute and chronic respiratory failure with hypercapnia Status: Acute Assessment and Plan: Getting supportive care (4) Tobacco abuse: Code(s): Z72.0 - Tobacco use Status: Chronic Assessment and Plan: I encouraged him to stop smoking (5) Anemia: Code(s): D64.9 - Anemia, unspecified Status: Acute Assessment and Plan: hemoglobin is 10.5. Subjective Date/time seen: 10/21/20 10:11 Interval history: Sam is feeling about the same . His swelling is better he says. He is getting used to his fluid restriction. Exam Narrative: Exam Narrative: WDWN in NAD skin no rash head ncat lungs decreased breath sounds at the bases, mild increase in expiratory phase cor reg no rub or gallop abd BS+ nontender and soft ext 1+ edema. Objective Data Vital Signs Vital Signs: Vital Signs - 24 hr 10/20/20 12:00 10/20/20 12:26 10/20/20 13:58 Temperature 35.6 C L Pulse Rate 86 79 76 Respiratory Rate 23 H 22 H 20 Blood Pressure 106/50 L Pulse Oximetry 100 92 10/20/20 14:00 10/20/20 15:58 10/20/20 16:00 Temperature 36.4 C L Pulse Rate 75 80 85 Respiratory Rate 12 Blood Pressure 129/59 L Pulse Oximetry 93 10/20/20 16:45 10/20/20 18:00 10/20/20 20:00 Temperature Pulse Rate 75 77 75 Respiratory Rate 20 Blood Pressure Pulse Oximetry 94 10/20/20 20:35 10/20/20 20:37 10/20/20 20:49 Temperature 36.7 C Pulse Rate 78 78 84 Respiratory Rate 18 20 Blood Pressure 123/57 L Pulse Oximetry 92 94 10/20/20 20:50 10/20/20 22:00 10/20/20 23:18 Temperature Pulse Rate 80 78 80 Respiratory Rate 20 Blood Pressure Pulse Oximetry 95 10/20/20 23:40 10/20/20 23:58 10/21/20 02:00 Temperature 36.6 C Pulse Rate 74 74 74 Respiratory Rate 20 20 Blood Pressure 118/64 Pulse Oximetry 93 93 10/21/20 02:19 10/21/20 02:20 10/21/20 03:01 Temperature 36.2 C L Pulse Rate 84 72 78 Respiratory Rate 20 20 Blood Pressure 122/61 Pulse Oximetry 94 97 10/21/20 04:00 10/21/20 05:58 10/21/20 08:00 Temperature 36.8 C Pulse Rate 76 72 91 Respiratory Rate 20 18 Blood Pressure 111/63 Pulse Oximetry 97 94 10/21/20 08:05 10/21/20 08:15 10/21/20 08:45 Temperature Pulse Rate 77 78 104 H Respiratory Rate 20 20 Blood Pressure Pulse Oximetry 10/21/20 09:25 Temperature Pulse Rate 85 Respiratory Rate 20 Blood Pressure Pulse Oximetry 94 Intake/Output Intake/Output: Intake & Output 10/18/20 10/19/20 10/20/20 10/21/20 23:59 23:59 23:59 23:59 Intake Total 1810 1460 1545.5 480 Output Total 2250 840 1475 700 Balance -440 620 70.5 -220 Meds/Results Medications: Active Medications Generic Name Dose Route Start Last Admin Trade Name lAexeiq PRN Reason Stop Dose Admin Albuterol 2.5 mg 10/19/20 14:00 10/21/20 08:06 Albuterol Sulfate Neb 2.5 Mg/0.5 Ml Inh INHALATION 2.5 mg Q6HRT REDD Administration Amiodarone HCl 400 mg 10/20/20 15:00 10/20/20 20:37 Amiodarone Hcl 200 Mg Tablet PO 400 mg TID REDD Administration Apixaban 5 mg 10/13/20 23:05 10/20/20 20:37 Apixaban 5 Mg Tablet PO 5 mg Q12HR REDD Administration Budesonide/
[2020-10-21] MEDS: MAGNESIUM SULF 2 GM/WATER 50ML 2 GM/50 ML BAG IVPB (10:15)
[2020-10-21] MEDS: AMIODARONE HCL 200 MG TABLET 400 MG PO ×2 (10:16→14:14)
[2020-10-21] MEDS: FUROSEMIDE 20 MG TABLET PO (10:16)
[2020-10-21] MEDS: predniSONE 40 MG, predniSONE 10 MG 50 MG PO (10:16)
[2020-10-21] MEDS: dilTIAZem HCL CD 180 MG CAP.ER.24H 360 MG PO (10:17)
[2020-10-21] MEDS: APIXABAN 5 MG TABLET PO (10:17)
[2020-10-21] MEDS: guaiFENesin 12 HR 600 MG TABCR PO (10:17)
[2020-10-21] MEDS: MAGNESIUM OXIDE 400 MG TABLET PO (10:17)
--- NOTE | 2020-10-21 11:26 | PM.DS ---
DS: Admitting Diagnosis Admitting Diagnosis Admitting Diagnosis: Confused DS: Discharge Diagnosis Discharge Diagnosis (1) COPD (chronic obstructive pulmonary disease): Qualifiers: COPD type: unspecified COPD Qualified Code(s): J44.9 - Chronic obstructive pulmonary disease, unspecified Code(s): J44.9 - Chronic obstructive pulmonary disease, unspecified Status: Acute Assessment and Plan: Acute COPD exacerbation associated with acute on top of chronic hypercapnic respiratory failure secondary to malfunctioning BiPAP continue with nebulizer treatments and Solu-Medrol. Patient has malfunctioning BiPAP machine at home onsite case manager to evaluate Shortness of breath has improved Anticipate discharge in 1-2 days 1 shortness of breath improved. 10/20/20 14:37 patient is 70-year-old male with history of severe COPD chronic respiratory failure on home oxygen 2 L secondary to chronic hypercapnic respiratory failure patient had been using malfunctioning BiPAP at home, while in hospital patient is on BIPAP and his CO2 is improving, patient is being treated with Solu-Medrol and updraft for exacerbation of COPD, patient also had developed ventricle tachycardia seen by cognos bi developer patient is on diltiazem 360 mg daily, digoxin was loaded is 0.25 mg IV and continue on 0.125mg q.6 and heart rate is trending down and digoxin is switch over to daily, patient is high risk of developing tachycardia induced cardiomyopathy, patient is clinically stable, will continue to monitor will have a PT OT evaluate the patient 2 patient with atrial fibrillation ventricle tachycardia on diltiazem 360mg and digoxin 0.125 mg heart rate remains stable slightly of 100, patient seen by cognos bi developer, patient is not candidate for cardio is patient cannot tolerate sedation due to severe COPD, patient is clinically stable will continue to monitor, will keep potassium above 4 and magnesium above 2. Will monitor digoxin level. 2/ patient with atrial fibrillation ventricle tachycardia on diltiazem 360mg and digoxin 0.125 mg heart rate remains stable slightly above 100, patient seen by cognos bi developer, patient is not candidate for cardiovert as patient cannot tolerate sedation due to severe COPD, discussed with Cardiology recommending continue present management as patient is clinically stable, patient with hyperkalemia etiology uncertain will give Kayexalate and monitor, patient with hyponatremia will place the patient on fluid restriction to help with hyponatremia, patient is on low-dose of Lasix 20 mg q.day p.o. will continue, patient will be seen by Nephrology and further recommendation to follow, patient with history of severe COPD hypercapnic respiratory failure on home oxygen, patient will benefit from noninvasive ventilator will try to arrange for trilogy for the patient, will also discharge patient home on nebulizer. Will taper patient Solu-Medrol to prednisone as patient's symptoms are improving. 2/ patient with atrial fibrillation ventricle tachycardia on diltiazem 360mg and digoxin 0.125 mg heart rate remains stable slightly above 100, patient seen by cognos bi developer, patient is not candidate for cardiovert as patient cannot tolerate sedation due to severe COPD, discussed with Cardiology recommending to start amiodarone drip in hope chemically converting to sinus rhythm, cognos bi developer spoke with the patient in great detail the side effects of amiodarone and patient is agreeable with treatment, digoxin is discontinue, will continue to monitor, patient with hyperkalemiaon 10/18 etiology uncertain received Kayexalate on 10/19 potassium is close to normal and monitor, patient with hyponatremia placed the patient on fluid restriction on 10/18 to help with hyponatremia, patient seen by Nephrology and agreed with the plan, patient is on low-dose of Lasix 20 mg q.day p.o. will continue, patient will be seen by Nephrology and further recommendation to follow, patient with history of sev
--- NOTE | 2020-10-21 14:09 | PCDIET ---
Nutrition Follow-Up Complete: Nutrition Diagnosis: Inadequate oral intake related to BiPAP as evidenced by NPO diet. Nutrition Goal: Meet nutritional needs. Goal met. Patient consumed average of 88% of recorded meals since 10/18/20 and reports taking Ensure Enlive TID. Diet is heart healthy with 1200mL fluid restriction. Patient would like to continue to receive Ensure with meals, even though it is contributing significantly toward fluid restriction. Last recorded weight is 54 kg which is increased from last review. Bowel Motility: Last documented BM on 10/18/20. Labs Reviewed: Hgb (10.5), Hct (31.6), Glu (157), BUN (33), Cr (0.5), Na (127), Alb (2.8), Ashly Ca (8.66), Mg (1.5) Meds Noted: Magnesium Sulfate, Mag-Ox, Albuterol, Atrovent, Symbicort, Lasix, Prednisone Additional Notes: No documented pressure ulcers. Will continue to monitor with same goal. Nutrition Monitoring and Evaluation: Follow up in 7 days.
--- NOTE | 2020-10-21 14:12 | PM.PNCARD ---
Progress Note: A&P Assessment and Plan (1) Atrial flutter with rapid ventricular response: Code(s): I48.92 - Unspecified atrial flutter Status: Acute Assessment and Plan: Persistent Atrial flutter refractory to medical therapy heart rate better controlled on diltiazem and amiodarone. -Amiodarone 400 mg p.o. t.i.d. today. -Starting tomorrow 10/22/20 take Amiodarone 400 mg b.i.d. for 4 days, then 400mg daily for 7 days, then 200mg daily thereafter with plans for short term use until seen in the office. - Reviewed the above in detail with the patient verbalized understanding and agreed with plan of care. All questions answered to his satisfaction. - Stable for discharge from cardiovascular perspective. Disposition per hospitalist service. -Follow-up with Dr. Bay in [place] office in 2-4 weeks as scheduled. - Continue Eliquis 5 mg twice daily. Monitor for bleeding particularly given thrombocytopenia. (2) Acute on chronic respiratory failure with hypoxia and hypercapnia: Code(s): J96.21 - Acute and chronic respiratory failure with hypoxia; J96.22 - Acute and chronic respiratory failure with hypercapnia Status: Acute Assessment and Plan: Improved, remains on O2. Continue supportive care, bronchodilator, steroids. (3) Chronic diastolic CHF (congestive heart failure): Code(s): I50.32 - Chronic diastolic (congestive) heart failure Status: Acute Assessment and Plan: Compensated at present but concerned if a flutter not controlled may compromise cardiovascular status. Remains on Lasix 20 mg daily. (4) Pulmonary hypertension: Code(s): I27.20 - Pulmonary hypertension, unspecified Status: Acute Assessment and Plan: Related to underlying lung disease (5) Hyperkalemia: Code(s): E87.5 - Hyperkalemia Status: Acute Assessment and Plan: Resolved (6) Hyponatremia: Code(s): E87.1 - Hypo-osmolality and hyponatremia Status: Acute Assessment and Plan: Fluid restriction, recommendations per Nephrology. (7) Thrombocytopenia: Code(s): D69.6 - Thrombocytopenia, unspecified Status: Acute Assessment and Plan: Slowly progressive but not new since admission. Monitor for bleeding, no active signs at this time. H&H stable. Check in a.m.. Subjective Date/time seen: Date of service: 10/21/20 14:12 Follow-up for atrial flutter with rapid ventricular response patient feels fairly well. Denies shortness of breath at rest still with some exertional dyspnea but much improved since admission. No chest pain or palpitations. Heart rate controlled generally 70s to 90s in atrial flutter despite amiodarone. Mild edema no change. Eating well, no nausea, vomiting. Review of Systems Review of Systems: All systems reviewed & are unremarkable except as noted in HPI and below Constitutional: Constitutional: Reports as per HPI, Denies fatigue, Denies headache(s) and Denies weakness Eyes: Eyes: Reports as per HPI and Denies blurry vision ENT: Reports as per HPI, Reports Normal hearing present, Denies headache(s) and Denies neck pain Cardiovascular: Cardiovascular: Reports as per HPI, Denies chest pain, Reports palpitations, Reports dyspnea and Reports dyspnea on exertion Respiratory: Respiratory: Reports as per HPI, Reports cough, Reports dyspnea and Reports dyspnea on exertion Gastrointestinal: Gastrointestinal: Reports as per HPI and Denies abdominal pain Genitourinary: Genitourinary: Reports as per HPI and Denies dysuria Musculoskeletal: Musculoskeletal: Reports as per HPI and Denies neck pain Integumentary/Breasts: Skin/Breast: Reports as per HPI and Denies dry skin Neurologic: Reports as per HPI, Reports Normal hearing present, Denies confusion, Denies headache(s) and Denies weakness Psychiatric: Psychiatric: Reports as per HPI, Denies anxiety and Denies confusion Endocrine: Endocrine: Reports no ad
[2020-10-22 04:39] LABS: Osmolality, Urine 487 mOsm/kg (50-1200)
[2020-10-23 04:30] LABS: Albumin 3.9 g/dL (3.8-4.8); Alpha 1 Globulin 0.2 g/dL (0.2-0.3); Alpha 2 Globulin 0.6 g/dL (0.5-0.9); Beta 1 Globulin 0.4 g/dL (0.4-0.6); Gamma Globulin 0.6 g/dL (0.8-1.7); Interpretation Consistent with; Protein, Total 5.8 g/dL (6.1-8.1)
== END 2020-10-21 16:45 | disposition home or self-care (01) | DRG 190 ==
LOC: ANHED 13:21 → ANHIMU 10-14 00:10
PROVIDERS: Emergency Medicine; Internal Medicine; Internal Medicine Cardiovascular Disease; Internal Medicine Nephrology; Nurse Practitioner; Admitting Provider Internal Medicine; Emergency Provider Emergency Medicine; PCP Internal Medicine Cardiovascular Disease; Visit Provider Family Medicine
DX: J44.1 Chronic obstructive pulmonary disease with (acute) exacerbation (principal); J96.21 Acute and chronic respiratory failure with hypoxia; J96.22 Acute and chronic respiratory failure with hypercapnia; E87.1 Hypo-osmolality and hyponatremia; I50.32 Chronic diastolic (congestive) heart failure; I48.92 Unspecified atrial flutter; J95.850 Mechanical complication of respirator; E46 Unspecified protein-calorie malnutrition; Z68.1 Body mass index [BMI] 19.9 or less, adult; I47.2 Ventricular tachycardia; I11.0 Hypertensive heart disease with heart failure; Z20.822 Contact with and (suspected) exposure to COVID-19; E87.5 Hyperkalemia; F17.210 Nicotine dependence, cigarettes, uncomplicated; Z99.81 Dependence on supplemental oxygen; D69.6 Thrombocytopenia, unspecified; D64.9 Anemia, unspecified; I27.20 Pulmonary hypertension, unspecified; G93.9 Disorder of brain, unspecified; Z98.42 Cataract extraction status, left eye; Z98.41 Cataract extraction status, right eye
CPT/HCPCS: 36415; 36600; 70450; 71045; 80048; 80053; 80069; 80162; 80307; 81001; 82140; 82533; 82805; 83605; 83735; 83880; 83930; 83935; 84155; 84165; 84300; 84439; 84443; 84480; 84484; 85025; 85027; 85055; 85610; 85730; 87040; 87077; 93005; 94002; 94003; 94640; 97110; 97116; 97161; 97165; 97530; 97535; 99285; A9270; C9803; J0282; J1160; J2930; J3475; J7030; J7512; U0003; U0005

== ENCOUNTER 2020-10-23 12:06 | Inpatient (IN) | payer MEDICARE, MEDICAID, SELFPAY ==
[2020-10-23] VITALS (72 sets, daily range): BP systolic 86–128; BP diastolic 44–96; PULSE 58–90; RESP 14–20; TEMP 35.7–37.2; O2SAT 97–100; BMI 20.2
--- NOTE | ~2020-10-23 | XR_ITS ---
EXAMINATION: XR chest 1V portable DATE: 11/07/2020 05:45 INDICATION: Acute hypercapnic respiratory failure. Pleural effusion. TECHNIQUE: frontal view of the chest was obtained. COMPARISON: Chest radiograph dated 11/06/2020 FINDINGS: Right upper extremity peripherally inserted central venous catheter (PICC) tip at the mid superior v vignesh cava. Hyperexpansion of lungs suggestive but not diagnostic of COPD. Mild bibasilar opacities wit h blunting at the costophrenic angles consistent with small bilateral pleural effusions with associat ed basilar atelectasis and/or pneumonia. Mild increased interstitial pattern with peripheral Aftab B -lines consistent with mild pulmonary edema. Calcified nodules in the right upper lung zone consisten t with old granulomatous disease. The cardiomediastinal silhouette is normal. IMPRESSION: 1. Small bilateral pleural effusions with bibasilar atelectasis and/or pneumonia. 2. Mild pulmonary edema. 3. Hyperexpansion of lungs suggestive but not diagnostic of COPD. Reviewed, dictated and finalized at location A. GER INFUSION IMPRESSION: 1. Small bilateral pleural effusions with bibasilar atelectasis and/or pneumoni a. 2. Mild pulmonary edema. 3. Hyperexpansion of lungs suggestive but not diagnostic of COPD.
--- NOTE | ~2020-10-23 | XR_ITS ---
EXAMINATION: XR chest 1V portable DATE: 11/12/2020 19:34 INDICATION: Chest pain. TECHNIQUE: A single frontal view of the chest was obtained on 2 radiographs. COMPARISON: Chest single view 11/09/2020, chest CT 11/03/2020, 10/23/2020 FINDINGS: There is complete opacification of left hemithorax with volume loss. There are lucencies in right lung, consistent with emphysema. A calcified right lung nodule is consistent with old granulom atous disease. There is a small right pleural effusion. No pneumothorax. The heart size is normal. A right upper extremity peripherally inserted central venous catheter (PICC) is seen with tip in the fagan perior vena cava. IMPRESSION: 1. Complete opacification of left hemithorax with volume loss, likely a combination of atelectasis an d pleural effusion. Mucous plugging is a likely cause for the volume loss. 2. Small right pleural effusion. 3. Emphysema. Reviewed, dictated and finalized at location A. OWAVE ENGINEER IMPRESSION: 1. Complete opacification of left hemithorax with volume loss, likely a combina tion of atelectasis and pleural effusion. Mucous plugging is a likely cause for the volume loss. 2. Small right pleural effusion. 3. Emphysema.
--- NOTE | ~2020-10-23 | CT_ITS ---
EXAMINATION: CT brain wo con DATE: 10/23/2020 12:52 INDICATION: Unresponsive. TECHNIQUE: Computed tomography (CT) of the head was performed without intravenous contrast. The mA wa s adjusted according to patient size. Iterative reconstruction technique was employed. The dose-lengt h product was 908.00 mGy-cm. COMPARISON: Head CT 10/14/2020 FINDINGS: There is a 5 mm hyperdense mass in the anterior third ventricle. There are scattered areas of low attenuation in the cerebral white matter, which is within normal limits for the patient's age. There is no acute ischemic infarct or intracranial hemorrhage. The ventricles are normal in size. Th e mastoid air cells are normal. There is mucosal thickening in the paranasal sinuses with dependent f luid in the maxillary sinuses. There are likely changes of ocular lens replacement surgeries. IMPRESSION: 1. 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 Reviewed, dictated and finalized at location A. FRAZER
--- NOTE | ~2020-10-23 | XR_ITS ---
EXAMINATION: XR chest 1V portable DATE: 10/26/2020 05:45 INDICATION: Respiratory failure. TECHNIQUE: A single frontal view of the chest was obtained. COMPARISON: Chest single view 10/25/2020, chest CT 10/23/2020 FINDINGS: A calcified right lung nodule is consistent with old granulomatous disease. The lungs are h yperexpanded with chronic reticular opacities, consistent with emphysema. No pleural effusion or pneu mothorax. The heart size is normal. IMPRESSION: 1. Emphysema. Reviewed, dictated and finalized at location A. TESTER IMPRESSION: 1. Emphysema.
--- NOTE | ~2020-10-23 | XR_ITS ---
EXAMINATION: XR ribs LT 2V w CXR 2V EXAM DATE: 10/31/2020 14:41 INDICATION: Left anterior rib pain after CPR. TECHNIQUE: Frontal projection of the upper left ribs, frontal projection of the lower left ribs, obli que projection of the left ribs, frontal and lateral chest x-ray(s) for interpretation. Comparison m ezekiel to chest x-ray from 10/26/2020. FINDINGS: There is an acute sternal fracture about 2 cm below the sternomanubrial junction, with abou t 5 mm posterior depression. This also appears to be posteriorly angulated. This is best seen on the lateral chest x-ray, has been indicated for review. There are no displaced acute left rib fractures i dentified. Consider educating patient that even if there is a radiographically occult nondisplaced ri b fracture, there is no specific treatment other than to refrain from activity that prevents healing. Patient has been extubated. There is right upper lobe granuloma. There is segmental left lower lobe o pacity appearance is most consistent with atelectasis or consolidation such as pneumonia. This is new compared to 10/26/2020. No pneumothorax. Severe chronic appearing hyperinflation. Blunted costophreni c recesses, and possible small pleural effusions. There is aortic arteriosclerosis. Mild thoracic spo ndylosis. IMPRESSION: 1. Acute sternal fracture with mild depression and angulation. 2. No displaced left rib fractures. 3. New segmental retrocardiac segmental atelectasis and/or consolidation. 4.. Chronic findings. Reviewed, dictated and finalized at location G. IDE B2B SALES
--- NOTE | ~2020-10-23 | XR_ITS ---
EXAMINATION: XR chest ET placement DATE: 10/23/2020 12:37 INDICATION: Intubation. TECHNIQUE: A single frontal view of the chest was obtained on 2 radiographs. COMPARISON: Chest single view 10/13/2020 FINDINGS: The lungs are hyperexpanded, consistent with emphysema. A calcified right lung nodule is co nsistent with old granulomatous disease. No pleural effusion or pneumothorax. The heart size is tej l. The endotracheal tube tip is 8.6 cm above the miguel. The nasogastric tube tip is in the stomach. IMPRESSION: 1. Emphysema. Reviewed, dictated and finalized at location A. T PATROL INSPECTOR IMPRESSION: 1. Emphysema.
--- NOTE | ~2020-10-23 | XR_ITS ---
EXAMINATION: XR chest 1V portable INDICATION: Respiratory failure TECHNIQUE: Portable AP chest at 0502 hours COMPARISON: 11/04/2020 FINDINGS: The endotracheal tube ends approximately 4.8 cm above the miguel. The nasogastric tube is f ollowed as far as the stomach. Its tip is beyond the inferior margin of the radiograph. A right upper extremity PICC ends with its tip in the proximal superior vena cava. The lungs are hyperinflated. Th ere are small pleural effusions. Minimal airspace opacities are present in the lung bases. Previously described left perihilar opacities have resolved. There is no pneumothorax. The cardiomediastinal si lhouette is normal. IMPRESSION: 1. Bibasilar airspace opacities, consistent with atelectasis versus pneumonia. 2. Small pleural effusions. Reviewed, dictated and finalized at location A. DISTILLATION SUPERVISOR
--- NOTE | ~2020-10-23 | XR_ITS ---
EXAMINATION: XR chest 1V portable DATE: 11/09/2020 05:40 INDICATION: Acute hypercapnic respiratory failure. Pleural effusion. TECHNIQUE: frontal view of the chest was obtained. COMPARISON: Chest radiograph dated 11/08/2020 FINDINGS: Right upper extremity peripherally inserted central venous catheter (PICC) tip at the mid superior v vignesh cava. Hyperexpansion of lungs. Persistent opacities in the lower lung zones, left greater than right with b lunting at the costophrenic angles. Unchanged mild increased interstitial pattern in the lower lung z ones with peripheral Aftab B-lines on the right consistent with mild pulmonary edema. Calcified nodu les in the right upper lung zone consistent with old granulomatous disease. No pneumothorax. Radio me diastinal silhouette is normal. IMPRESSION: 1. No significant interval change in small bilateral pleural effusions with bibasilar atelectasis and /or pneumonia, left greater than right. 2. Mild pulmonary edema. 3. Hyperexpansion lungs suggestive but not diagnostic of COPD. Reviewed, dictated and finalized at location A. NOLOGY TEACHER IMPRESSION: 1. No significant interval change in small bilateral pleural effusions with bib asilar atelectasis and/or pneumonia, left greater than right. 2. Mild pulmonary edema. 3. Hyperexpansion lungs suggestive but not diagnostic of COPD.
--- NOTE | ~2020-10-23 | XR_ITS ---
EXAMINATION: XR chest 1V portable INDICATION: Worsening hypoxia and shortness of breath TECHNIQUE: Portable AP chest at 1537 hours COMPARISON: 10/31/2020 FINDINGS: There is now complete opacification of the left hemithorax. The patient is slightly rotated to the left. There appears to be leftward shift of the heart and mediastinum, consistent with volume loss in the left hemithorax. The right lung is clear. There is a calcified nodule of the right lung apex. The cardiac silhouette is obscured. IMPRESSION: 1. Interval development of complete opacification of the left hemithorax with volume loss which could be due to pleural effusion and/or atelectasis due to mucous plugging and/or pneumonia. Reviewed, dictated and finalized at location A. DEVELOPMENT DIRECTOR IMPRESSION: 1. Interval development of complete opacification of the left hemithorax with v olume loss which could be due to pleural effusion and/or atelectasis due to muc ous plugging and/or pneumonia.
--- NOTE | ~2020-10-23 | XR_ITS ---
EXAMINATION: XR chest 1V portable DATE: 11/14/2020 05:25 INDICATION: Left pleural effusion. TECHNIQUE: A single frontal view of the chest was obtained. COMPARISON: Chest single view 11/13/2020 FINDINGS: The lungs are hyperexpanded, consistent with emphysema. A calcified right lung nodule is co nsistent with old granulomatous disease. There is a small left pleural effusion. There are airspace o pacities at left lung base. No pneumothorax. The heart size is normal. A right upper extremity periph erally inserted central venous catheter (PICC) is seen with tip in the superior vena cava. IMPRESSION: 1. Small left pleural effusion. 2. Airspace opacities at left lung base with improvement, consistent with atelectasis versus pneumoni a. 3. Emphysema. Reviewed, dictated and finalized at location A. DENT INTERN IMPRESSION: 1. Small left pleural effusion. 2. Airspace opacities at left lung base with improvement, consistent with atele ctasis versus pneumonia. 3. Emphysema.
--- NOTE | ~2020-10-23 | XR_ITS ---
XR chest ET placement DATE: 11/04/2020 13:39 INDICATION: Endotracheal tube placement TECHNIQUE: Portable AP chest on November 04, 2020 at 1339 hours COMPARISON: November 04, 2020 portable AP chest at 0536 hours FINDINGS: Interval placement of endotracheal tube in satisfactory position 4.5 cm above miguel. There is partial reexpansion of the left lung with extensive left mid and upper lung infiltrate and p ersistent left lower lobe atelectasis with leftward shift of the heart and mediastinum. There is blunting of left costophrenic angle consistent with mild left pleural effusion. There is hyperinflation of the right lung suggesting COPD as well as compensatory hyperinflation seco ndary to the left lung atelectasis. No right pleural effusion or pneumothorax is evident. Aortic arch calcification. NG tube in proximal stomach, the proximal port not far beyond the diaphragmatic hiatus. Diffuse osteopenia. Degenerative changes of the thoracic spine. IMPRESSION: ET tube in satisfactory position Partial reexpansion of the left lung; extensive left lung infiltrate and persistent left lower lobe a telectasis, left for shift of heart and mediastinum NG tube in proximal stomach, proximal port not far beyond the diaphragmatic hiatus Reviewed, dictated and finalized at Location A. Reviewed, dictated and finalized at location B. TOR OF EDUCATION IMPRESSION: ET tube in satisfactory position Partial reexpansion of the left lung; extensive left lung infiltrate and persis tent left lower lobe atelectasis, left for shift of heart and mediastinum NG tube in proximal stomach, proximal port not far beyond the diaphragmatic hia lo
--- NOTE | ~2020-10-23 | XR_ITS ---
EXAMINATION: XR chest 1V portable INDICATION: Acute hypercapnic respiratory failure TECHNIQUE: Portable AP chest at 0536 hours COMPARISON: 11/05/2020 FINDINGS: The endotracheal tube ends approximately 5.0 cm above the miguel. The nasogastric tube is f ollowed as far as the stomach. Its tip is beyond the inferior margin of the radiograph. A right upper extremity PICC ends with its tip in the midsuperior vena cava. Small pleural effusions are unchanged . The cardiomediastinal silhouette is normal. Minimal opacities persist in the lung bases without sig nificant change. There is no pneumothorax. IMPRESSION: 1. Minimal bibasilar airspace opacity, consistent with atelectasis versus pneumonia. 2. Small stable pleural effusions. Reviewed, dictated and finalized at location A. ETING OPERATIONS ASSOCIATE IMPRESSION: 1. Minimal bibasilar airspace opacity, consistent with atelectasis versus pneum onia. 2. Small stable pleural effusions.
--- NOTE | ~2020-10-23 | XR_ITS ---
EXAMINATION: XR chest 1V portable DATE: 10/24/2020 05:58 INDICATION: Respiratory failure. TECHNIQUE: A single frontal view of the chest was obtained. COMPARISON: Chest single view 10/23/2020, chest CT 10/23/2020 FINDINGS: The lungs are hyperexpanded with lucencies, consistent with emphysema. A calcified right lou ng nodule is consistent with old granulomatous disease. There are small pleural effusions. No pneumot horax. The heart size is normal. The endotracheal tube tip is 6.2 cm above the miguel. The nasogastri c tube tip is in the stomach. IMPRESSION: 1. Stable small pleural effusions. 2. Emphysema. Reviewed, dictated and finalized at location A. 'S CARPENTER
--- NOTE | ~2020-10-23 | XR_ITS ---
EXAMINATION: [id number]_CR DATE: 11/04/2020 11:25 INDICATION: Status post thoracentesis. TECHNIQUE: frontal and lateral views of the chest were obtained. COMPARISON: Chest radiograph dated 11/04/2020 at 5:36 AM FINDINGS: Decrease in size of a now moderate left pleural effusion with new aeration in the upper half of the l eft hemithorax. The lower half of the left hemithorax remains opacified. No pneumothorax. Right lung remains hyperexpanded. Mild reticular opacities at the right lung base and blunting at the costophren ic angle consistent with mild atelectasis and tiny right pleural effusion. Calcified nodules in the r ight upper lung zone consistent with old granulomatous disease. The cardiac silhouette remains obscur ed on the left. Decrease in the prior leftward shift of the mediastinum. Pectus excavatum likely rela angelica to previously noted sternal and bilateral anterior rib fractures. IMPRESSION: 1. Decreased now small to moderate left pleural effusion with improved aeration of the left upper simone g zone with persistent collapse/consolidation in the right lower lung zone. 2. Tiny right pleural effusion with mild right basilar atelectasis. Reviewed, dictated and finalized at location A. CE CLERK ROUTINE IMPRESSION: 1. Decreased now small to moderate left pleural effusion with improved aeration of the left upper lung zone with persistent collapse/consolidation in the righ t lower lung zone. 2. Tiny right pleural effusion with mild right basilar atelectasis.
--- NOTE | ~2020-10-23 | XR_ITS ---
EXAMINATION: XR abdomen NG/feed tube insert DATE: 10/23/2020 12:37 INDICATION: Nasogastric tube placement. TECHNIQUE: A supine view of the abdomen was obtained. COMPARISON: None. FINDINGS: The lower abdomen is excluded. There are no dilated loops of bowel. The nasogastric tube ti p is in the stomach with proximal side port in the distal esophagus. IMPRESSION: 1. Nasogastric tube tip in the stomach with proximal side port in the distal esophagus. Advancement 4 cm is recommended. Reviewed, dictated and finalized at location A. K DRIVER RUBBISH COLLECTOR IMPRESSION: 1. Nasogastric tube tip in the stomach with proximal side port in the distal es ophagus. Advancement 4 cm is recommended.
--- NOTE | ~2020-10-23 | CT_ITS ---
EXAMINATION: CTA chest PE protocol DATE: 10/23/2020 16:55 AUTOMATED TELLER MANAGER INDICATION: Cardiac arrest. TECHNIQUE: Computed tomographic angiography (CTA) of the chest was performed with 100 mL Omnipaque-35 0 intravenous contrast. The dose-length product was 274.29 mGy-cm. Maximum intensity projection 3D-re constructions of the aorta and other arteries were constructed by the technologist on a separate work station. Automated exposure control and iterative reconstruction technique were employed. COMPARISON: None. FINDINGS: Study is technically adequate without evidence for pulmonary embolism. There is an endotrac heal tube present. Small pleural effusions. No thoracic lymphadenopathy. There is emphysema. There is a calcified granuloma of the right upper lobe. There is a pleural-based density measuring 1.8 x 1.1 cm superior segment right lower lobe. There is an adjacent pleural-based density superiorly measuring 10 x 8 mm. There is dependent atelectasis. There are scattered reticulonodular densities predominant ly in the right upper lobe and middle lobe. IMPRESSION: 1. No evidence for pulmonary embolism. 2: Reticulonodular densities predominantly of the right upper and middle lobe, most likely infectious /inflammatory. 3: Multiple pleural based irregular shaped nodules right upper thorax posteriorly which may be infec tious/inflammatory, although neoplasm is not excluded. 4: Emphysema. 5: Small pleural effusions. Reviewed, dictated and finalized at location A. MATED TELLER MANAGER IMPRESSION: 1. No evidence for pulmonary embolism. 2: Reticulonodular densities predominantly of the right upper and middle lobe, most likely infectious/inflammatory. 3: Multiple pleural based irregular shaped nodules right upper thorax posterio rly which may be infectious/inflammatory, although neoplasm is not excluded. 4: Emphysema. 5: Small pleural effusions.
--- NOTE | ~2020-10-23 | XR_ITS ---
XR abdomen NG/feed tube insert DATE: 11/04/2020 13:39 INDICATION: NG tube placement TECHNIQUE: Portable AP view on November 04, 2020 at 1340 hours COMPARISON: None FINDINGS: NG tube in upper body of stomach, the proximal side port approximately 5-6 cm distal to the diaphragmatic hiatus. Extensive calcification of the abdominal aorta without apparent aneurysm. Left lower lobe atelectasis, left pleural effusion. Leftward shift of heart and mediastinum. Right lou ng hyperinflation. IMPRESSION: NG tube in proximal stomach Reviewed, dictated and finalized at Location A. Reviewed, dictated and finalized at location B. DENTIAL ELECTRICIAN IMPRESSION: NG tube in proximal stomach
--- NOTE | ~2020-10-23 | US_ITS ---
EXAMINATION: US thoracentesis DATE: 11/04/2020 11:16 INDICATION: pleural effusion TECHNIQUE: The procedure and its risks and benefits were discussed with the patient. Potential risks discussed included bleeding, infection, and pneumothorax. The patient understood the risks and agreed to proceed. The skin was prepped and draped in sterile fashion. 1% lidocaine was used for local anes thesia. Under ultrasound guidance, a 5 Fr catheter with trochar was advanced into the left pleural ef fusion. Fluid was aspirated. The catheter was removed, and a dressing was applied. Following the proc edure the patient's oxygen saturations decreased to 75% on 4 L nasal cannula. Postprocedure radiogra ph demonstrated improved aeration in the left upper lung zone with no pneumothorax and persistent col lapse of the left mid to lower lung. The patient was placed on 10 L with a nonrebreather mask with in crease in oxygen saturations to 92%. Per discussion with the patient's nurse the patient had only rec ently been decreased from prior BiPAP ventilation. The patient was transferred to the ICU for closer monitoring and is scheduled for bronchoscopy in a couple hours. FINDINGS: Ultrasound images demonstrate a small to moderate-sized left pleural effusion and the catheter within the fluid. IMPRESSION: 1. Successful ultrasound-guided thoracentesis yielding 1000 mL of maroon-colored fluid. Reviewed, dictated and finalized at location A. MAKE UP ARTIST IMPRESSION: 1. Successful ultrasound-guided thoracentesis yielding 1000 mL of maroon-color ed fluid.
--- NOTE | ~2020-10-23 | XR_ITS ---
EXAMINATION: XR chest 1V portable DATE: 11/08/2020 05:48 INDICATION: Acute hypercapnic respiratory failure. Pleural effusion. TECHNIQUE: frontal view of the chest was obtained. COMPARISON: Chest radiograph dated 11/07/2020 FINDINGS: Right upper extremity peripherally inserted central venous catheter (PICC) tip at the mid superior v vignesh cava. Hyperexpansion of the lungs. Persistent opacities in the bilateral lower lung zones, left g reater than right, with blunting of the costophrenic angles consistent with small bilateral pleural e ffusions. Mild increased interstitial pattern in the mid to lower lung zones consistent with mild pul monary edema. Calcified nodules in the right upper lung zone consistent with old granulomatous diseas e. No pneumothorax. The cardiomediastinal silhouette is normal. IMPRESSION: 1. Small bilateral pleural effusions with bibasilar atelectasis and/or pneumonia with slight worsenin g on the left. 2. Mild pulmonary edema. 3. Hyperexpansion of lungs suggestive but not diagnostic of COPD. Reviewed, dictated and finalized at location A. D/OSTOMY CLINICAL NURSE SPECIALIST IMPRESSION: 1. Small bilateral pleural effusions with bibasilar atelectasis and/or pneumoni a with slight worsening on the left. 2. Mild pulmonary edema. 3. Hyperexpansion of lungs suggestive but not diagnostic of COPD.
--- NOTE | ~2020-10-23 | XR_ITS ---
XR chest 1V portable DATE: 11/13/2020 05:43 INDICATION: COPD. Chest pain. Oxygen desaturation. TECHNIQUE: Portable upright AP chest on November 13, 2020 at 0525 hours COMPARISON: November 12, 2020 portable AP chest at 1934 hours FINDINGS: There is partial reexpansion with interstitial infiltrate of the left upper lung. There is a large left pleural effusion and left lung atelectasis. There is persistent leftward shift of heart and mediastinum. There is hyperinflation of the right lung. No right lung infiltrate is evident. No pneumothorax. Mini mal if any right pleural effusion is noted. Heart size is not optimally evaluated due to silhouette sign of the left cardiac margin by the pleura l effusion and left lung atelectasis. Aortic atherosclerosis. Right upper extremity PIC catheter tip overlies superior vena cava. IMPRESSION: Partial reexpansion of left upper lung since November 12, 2020; persistent large left ple ural effusion Reviewed, dictated and finalized at location A. E INSTALLER IMPRESSION: Partial reexpansion of left upper lung since November 12, 2020; per sistent large left pleural effusion
--- NOTE | ~2020-10-23 | CT_ITS ---
EXAMINATION: CT diagnostic chest w con DATE: 11/03/2020 10:06 INDICATION: r/o left hemothorax, s/p CPR and sternal fx TECHNIQUE: Computed tomography (CT) of the chest was performed with 75 mL Omnipaque-350 intravenous c ontrast. Additional 3D reconstructions utilizing coronal maximum intensity projection (MIP) were perf ormed. Automated exposure control and iterative reconstruction technique were employed. The dose-maya th product was 175.45 mGy-cm. COMPARISON: 10/23/2020 FINDINGS: Emphysema. Complete collapse of the left lower lobe and lingula and partial collapse of the left uppe r lobe. There is low-density fluid/mucus filling the bronchi throughout the majority of the left lung extending into the left mainstem bronchus. There is a moderate-sized left pleural effusion which is of low density argue against hemothorax. There is also volume loss in the left hemithorax with leftwa rd shift of the heart and mediastinum and elevation of the left hemidiaphragm despite the presence of the pleural effusion suggesting the effusion is secondary to the lung disease and associated volume loss as opposed to vice versa. Very small right pleural effusion with dependent compressive atelectas is in the right lower lobe. Calcified right upper lobe nodule consistent with old granulomatous disea se. Subtle scattered tree-in-bud opacities most prominent in the right middle lobe and anterior segme nt of the right upper lobe consistent with endobronchial spread of disease. No pneumothorax. Mild pec tus excavatum along with a transverse fracture of the upper sternum and a few bilateral anterior rib fractures which are new since the prior CT likely secondary to reported interval cardiopulmonary resu scitation. Heart size is normal. No pericardial effusion. Enlargement of the central pulmonary arteri es particularly on the left lung consistent with pulmonary arterial hypertension. Thoracic aorta is n ormal in caliber with no dissection. Attenuation material layering in the dependent aspect of the gal lbladder most likely vicariously excreted contrast related to the earlier CT with differential includ ing sludge or gallstones. IMPRESSION: 1. Sternal fracture and multiple bilateral anterior rib fractures likely sequela of reported recent c ardiopulmonary resuscitation. 2. Very small right and moderate-sized left pleural effusions, which are without increased density to suggest hemothorax. 3. Near complete collapse of the left upper lobe with fluid/mucus filling the bronchi extending to th e left mainstem bronchus. The volume loss in the left hemithorax despite the presence of the pleural effusion suggests effusion is secondary to the collapse of the lung and airspace disease rather than the effusion causing the collapse. Consider pulmonary toilet and/or bronchoscopy. 4. Emphysema. 5. Subtle tree-in-bud opacities in the right upper and middle lobes consistent with endobronchial spr ead of disease. The nondependent predominance would favor bronchitis/bronchiolitis or aspiration or p ulmonary hemorrhage. Reviewed, dictated and finalized at location A. ENTARY ART TEACHER IMPRESSION: 1. Sternal fracture and multiple bilateral anterior rib fractures likely sequel a of reported recent cardiopulmonary resuscitation. 2. Very small right and moderate-sized left pleural effusions, which are withou t increased density to suggest hemothorax. 3. Near complete collapse of the left upper lobe with fluid/mucus filling the b ronchi extending to the left mainstem bronchus. The volume loss in the left hem ithorax despite the presence of the pleural effusion suggests effusion is secon jeffery to the collapse of the lung and airspace disease rather than the effusion causing the collapse. Consider pulmonary toilet and/or bronchoscopy. 4. Emphysema.
--- NOTE | ~2020-10-23 | XR_ITS ---
EXAMINATION: XR chest 1V portable DATE: 10/25/2020 05:51 INDICATION: Respiratory failure. TECHNIQUE: A single frontal view of the chest was obtained. COMPARISON: Chest single view 10/24/2020, 10/13/2020, chest CT 10/23/2020 FINDINGS: The lungs are hyperexpanded with mild chronic reticular opacities, consistent with emphysem a. A calcified right lung nodule is consistent with old granulomatous disease. No pleural effusion or pneumothorax. The heart size is normal. The nasogastric tube tip is beyond the inferior margin of th e radiograph, but at least to the stomach. The endotracheal tube tip is 5.3 cm above the miguel. IMPRESSION: 1. Emphysema. Reviewed, dictated and finalized at location A. WAY PATROL OFFICER IMPRESSION: 1. Emphysema.
--- NOTE | ~2020-10-23 | US_ITS ---
EXAMINATION: US abdomen limited DATE: 10/24/2020 09:27 INDICATION: Abnormal liver function tests. TECHNIQUE: Multiple grayscale and Doppler ultrasound images of the abdomen were obtained. COMPARISON: Chest CT 10/23/2020 FINDINGS: The visualized portions of the head, body, and tail of the pancreas are normal. The liver i s normal without focal lesion. No liver surface nodularity. There is normal flow in main portal vein. The gallbladder is normal in size contains sludge. Gallbladder wall thickening is noted. The common duct is normal and measures 4 mm. IMPRESSION: 1. Gallbladder sludge. Gallbladder wall thickening is likely secondary to interstitial edema. Reviewed, dictated and finalized at location A. NCE CONSULTANT IMPRESSION: 1. Gallbladder sludge. Gallbladder wall thickening is likely secondary to inter stitial edema.
--- NOTE | ~2020-10-23 | XR_ITS ---
EXAMINATION: XR chest 1V portable INDICATION: Left atelectasis/pleural effusion TECHNIQUE: Portable AP chest at 0536 hours COMPARISON: 11/03/2020 FINDINGS: Complete opacification of the left hemithorax is once again developed. There is volume loss in the left hemithorax with mild leftward shift of the mediastinal structures. No pneumothorax is id entified. The right lung is clear. The cardiac silhouette is obscured. A calcified nodule of the righ t lung apex is consistent with old granulomatous disease. IMPRESSION: 1. Complete opacification of the left hemithorax, demonstrated to be a combination of moderate size p leural effusion and atelectasis due to mucous plugging on yesterday's CT. Reviewed, dictated and finalized at location A. ICAL LABORATORY SCIENTIST IMPRESSION: 1. Complete opacification of the left hemithorax, demonstrated to be a combinat ion of moderate size pleural effusion and atelectasis due to mucous plugging on yesterday's CT.
--- NOTE | ~2020-10-23 | XR_ITS ---
EXAMINATION: XR chest PICC line DATE: 11/04/2020 15:14 INDICATION: PICC line placement TECHNIQUE: frontal view of the chest was obtained. COMPARISON: Chest radiograph dated 11/04/2020 at 1:39 PM FINDINGS: Right upper extremity peripherally inserted central venous catheter (PICC) tip at the mid superior v vignesh cava. Endotracheal tube tip 3.3 cm above the miguel. Nasogastric with proximal side-port below l evel of the gastroesophageal junction and with distal tip collimated off the study. Continued significant improvement in aeration of the left lung now including the lower lung zone. [place] in the bilateral lower lung zones, left greater than right with blunting at the costophrenic a ngles consistent with small bilateral pleural effusions and associated basilar atelectasis and/or pne umonia. Decrease in the more subtle perihilar increased interstitial pattern in the left lung which c ould represent increasing atelectasis, pulmonary edema or less likely pneumonia. No pneumothorax. Sawyer cified nodule in the right upper lung zone consistent with old granulomatous disease. The cardiomedia stinal silhouette is normal. IMPRESSION: 1. Right PICC line tip in the midsuperior vena cava. 2. Continued improvement in expansion of the left lung with aeration now extending into the lower simone g zone. 3. Decreasing left perihilar opacities which could represent improving atelectasis, pulmonary edema o r less likely pneumonia. 4. Small bilateral pleural effusions with atelectasis in the lower lung zones, left greater than righ t consistent with associated atelectasis and/or pneumonia. Reviewed, dictated and finalized at location A. LSTERY RESTORER IMPRESSION: 1. Right PICC line tip in the midsuperior vena cava. 2. Continued improvement in expansion of the left lung with aeration now extend ing into the lower lung zone. 3. Decreasing left perihilar opacities which could represent improving atelecta sis, pulmonary edema or less likely pneumonia. 4. Small bilateral pleural effusions with atelectasis in the lower lung zones, left greater than right consistent with associated atelectasis and/or pneumonia .
--- NOTE | ~2020-10-23 | XR_ITS ---
EXAMINATION: XR chest 1V portable INDICATION: Shortness of breath TECHNIQUE: Portable AP chest at 0542 hours COMPARISON: 11/02/2020 FINDINGS: There is near complete opacification of the left hemithorax with slight improvement in the lung apex. Mediastinal structures remain slightly shifted to the left. No pneumothorax is identified. The right lung is clear. The cardiac silhouette is obscured. A calcified nodule of the right lung ap ex is consistent with old granulomatous disease. IMPRESSION: 1. Near complete opacification of the left hemithorax with slight improvement in the lung apex. Findi ng could relate to pleural effusion and/or atelectasis and/or pneumonia. Reviewed, dictated and finalized at location A. WABLE ENERGY DIVISION MANAGER IMPRESSION: 1. Near complete opacification of the left hemithorax with slight improvement i n the lung apex. Finding could relate to pleural effusion and/or atelectasis an d/or pneumonia.
--- NOTE | 2020-10-23 12:14 | PC.NURSE ---
Pt intubated by Dr. Galvan. 8.0 ETT, 24 @ lip, to left side of mouth.
--- NOTE | 2020-10-23 12:21 | ECG_ITS ---
Measurements Intervals [place] Rate: 62 P: 89 NM: 267 QRS: 95 QRSD: 90 T: 168 QT: 426 QTc: 435 Interpretive Statements SINUS RHYTHM WITH FIRST DEGREE AV BLOCK VENTRICULAR PREMATURE COMPLEXES INCOMPLETE RIGHT BUNDLE BRANCH BLOCK BORDERLINE T WAVE ABNORMALITY- INF/HIGH LAT LEADS BASELINE ARTIFACT- I, AVR, AVL, AVF, V1-V6 ABNORMAL ECG Electronically Signed On 10-23-2020 14:17:50 PHYSICAL THERAPY TEACHER by Austin Shelley D.O.
--- NOTE | 2020-10-23 12:35 | PC.NURSE ---
Pt taken to CT- accompanied by RN and RT. Ventilations assisted via BVM.
[2020-10-23] MEDS: fentaNYL CITRATE INJ (*CRX) 100 MCG/2 ML VIAL IV PUSH (12:57)
[2020-10-23] MEDS: MIDAZOLAM HCL (*CRX) 2 MG/2 ML VIAL IV PUSH (12:57)
--- NOTE | 2020-10-23 13:03 | PC.NURSE ---
Pt becoming agitated. 100mg Fentanyl and 2mg Versed given IVP per Dr. Galvan verbal orders.
--- NOTE | 2020-10-23 13:04 | PC.NURSE ---
ETT advanced to 26 at the lip by RT.
--- NOTE | 2020-10-23 13:10 | PC.NURSE ---
Pt is very difficult IV stick. Multiple attempts made at collecting labs.
--- NOTE | 2020-10-23 13:12 | ED.GENADULT ---
HPI - General Adult General Chief complaint: Cardiac Arrest/CPR Stated complaint: cardiac arrest post fall/rosc Time Seen by Provider: 10/23/20 12:21 Source: EMS Mode of arrival: EMS Limitations: clinical condition History of Present Illness HPI narrative: Patient is a 70 year old male with history of COPD, chronic respiratory failure with home O2, CHF who presents from home for altered mental status. EMS reports they were called to patient's house because he has been unresponsive to all day. EMS reports on arrival , patient found to have agonal respiration but with a pulse. Patient lost his pulse while EMS was on scene. They reports he was PEA so they started ACLS protocol. They started chest compressions and he was given 2 doses of epinephrine. They were reports they obtained a pulse again after 10 minutes. EMS is assisting ventilation with an supraglottic airway. Patient has pulse on arrival. He is still unresponsive. Related Data Home Medications Medication Instructions Recorded Confirmed albuterol sulfate 2 puff INHALATION Q4-6H PRN 10/23/20 10/23/20 amiodarone 200 mg PO USEASDIRECTD 10/23/20 10/23/20 Allergies Allergy/AdvReac Type Severity Reaction Status Date / Time No Known Allergies Allergy Verified 10/13/20 20:25 Review of Systems Review of Systems: ROS unobtainable: Yes unobtainable due to endotracheal tube PMFSH Past Medical History Medical History (Updated 10/23/20 @ 22:54 by Michela Galvan MD) Atrial flutter Chronic anemia Chronic obstructive pulmonary disease Chronic respiratory failure with hypoxia, on home oxygen therapy Congestive heart failure Echocardiogram dated 03/12/2020 showed normal LV size and function with an EF of 77%, grade 2 diastolic dysfunction, and a moderately enlarged right ventricle with moderate hypokinesis and right ventricular hypertrophy. Hypertension Moderate pulmonary arterial systolic hypertension On echocardiogram dated 03/12/2020 with an estimated pulmonary arterial systolic pressure of 50 mmHg. Tobacco abuse Surgical History Surgical History History of cataract extraction Family History Family History Sibling Heart disease 3/4 the patient has 4 brothers have of heart disease. Diabetes mellitus The patient has 1 remaining living brother has diabetes. Mother Stomach cancer age 54, or perhaps a sheriff deputy cancer, patient unsure. Father COPD (chronic obstructive pulmonary disease) age 87 of asbestosis and COPD Social History Social History (Updated 10/23/20 @ 19:55 by Laly Xavier PA-C) Social History: Surrogate decision maker: Martínez Sanchez, brother, as documented by myself in July 2020. Code status: Full code. Smoking packs per day: 1 Smoking cigarettes per day: 20.0 Years smoked: 56 Smoking pack-years: 56.00 Smoking status: Current every day smoker Tobacco type: cigarettes Additional smoking assessment comments: Began smoking at age 13. Down to 1/2 pack a day as of 08/02/2020. Alcohol intake: former Substance use: never Substance use type: does not use Additional living arrangements comments: He lives in [place] with his girlfriend of 16 years. He has 4 grown children her relatively healthy. Has 2 daughters and 2 sons. 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 Gender identity (if verbalized by the patient): Male Spiritual care concerns: No Exam Const: General: ill appearing Eyes: Other: bilateral pupils unequal, sluggish Resp: Effort & Inspection: no use of accessory muscles Auscultation: clear to auscultation bilaterally Cardio:
[2020-10-23] MEDS: LACTATED RINGERS 1,000 ML 999 ML IV CONT (13:28)
[2020-10-23 13:30] LABS: Basophils Percent Auto 0.2 % (0.2-1.2); Eosinophils Percent Auto 0.1 % (0-4.4); Hematocrit 37.8 % (42.0-52.0); Hemoglobin 11.8 g/dL (14.0-18.0); Immature Granulocyte Absolute 0.18 K/mm3 (0.00-0.031); Immature Granulocyte Percent A 1.6 % (0-0.5); Lymphocytes Absolute Auto 0.18 K/mm3 (0.9-3.2); Lymphocytes Percent Auto 1.6 % (18.3-44.2); Mean Corpuscular HGB Conc 31.2 g/dl (32-36); Mean Corpuscular Hemoglobin 31.9 pg (26-34); Mean Corpuscular Volume 102.2 fl (80-100); Mean Platelet Volume 11.9 fl (7.4-10.4); Monocytes Absolute Auto 0.7 K/mm3 (0.1-0.6); Monocytes Percent Auto 5.9 % (2.6-8.5); Neutrophils Absolute Auto 10.2 K/mm3 (1.3-6.7); Neutrophils Percent Auto 90.6 % (45.5-73.1); Platelet Count Result 164 k/mm3 (150-375); Red Cell Distribution Width 13.7 % (11.5-14.5); White Blood Count 11.3 K/mm3 (4.5-10.0)
--- NOTE | 2020-10-23 13:37 | PC.NURSE ---
Pt returned to room. Pt becoming agitated. Dr. Galvan at bedside. Breathing assisted via mechanical vent.
[2020-10-23 13:41] LABS: INR 1.4; Prothrombin Time 18.1 Seconds (11.1-14.7)
[2020-10-23 13:42] LABS: Partial Thromboplastin Time 30.3 SECONDS (22.3-36.8)
[2020-10-23 13:45] LABS: Alveolar/Arterial O2 Gradient 327.5 mmHg; Base Excess ABG 4.9 mEq/l (+/-2.0); Carboxyhemoglobin 2.3 % THb (0-2.0); Fractional Inspired Oxygen 70 %; Methemoglobin ABG 0.3 %THb (0-1.5); Oxygen Content ABG 9.8 %vol (16.0-22.0); Oxyhemoglobin 57.7 % THb (90.0-100.0); PO2 FiO2 Ratio Arterial Blood 0.55 %; Reduced Hemoglobin 39.7 %THb (0-5.0); Total Hemoglobin 12.1 g/dL (12.0-18.0)
[2020-10-23 13:52] LABS: PCO2 ABG 123.9 mmHg (35.0-45.0); PO2 ABG 38.4 mmHg (80.0-100.0); pH ABG 7.105 (7.350-7.450)
[2020-10-23 13:53] LABS: Device VENTILATOR; Site Drawn LEFT BRACHIAL
[2020-10-23 13:53] LABS: Lactic Acid Reflex 5.4 mmol/L (0.7-2.1)
[2020-10-23 13:55] LABS: Add Urine Microscopic? YES; Appearance Urine Clear (Clear); Bilirubin Urine Negative (Negative); Blood Urine 2+ (Negative); Color Urine Yellow (Yellow); Glucose Urine UA Negative (Negative); Hyaline Casts Urine 30-49 /lpf; Ketones Urine Negative (Negative); Leukocyte Esterase Ur Negative LEU/UL (Negative); Mucus Urine Few /lpf; Nitrate Urine Negative (Negative); Protein Urine 1+ mg/dL (Negative); RBC Urine >75 /hpf (0-2); Specific Grav Ur 1.017 (1.001-1.035); Squamous Epithelial Cell Urine Occasional /hpf (Few); Urobilinogen Urine Negative mg/dL (<2.0)
[2020-10-23 13:55] LABS: Arterial Blood Gas PEEP 5 cmH2O; Arterial Blood Gas Tidal Volume 450 ml; Arterial Blood Gas Vent Mode CMV; Arterial Blood Gas Ventilator rate 14 /MIN
[2020-10-23 13:56] LABS: Arterial Blood Gas Pressure Support 0 cmH2O
[2020-10-23 13:58] LABS: NT Pro B Type Natriuretic Pept 3490 PG/ML (5-100)
--- NOTE | 2020-10-23 14:25 | PC.NURSE ---
vorb from dr nunn febtanyl 100 mg ivp x1 versed 2mg ivp x1 given 1420.
--- NOTE | 2020-10-23 14:28 | PC.NURSE ---
georgi from dr nunn to give the pt ems fluids 1l ns started 1424
[2020-10-23] MEDS: RAPID SEQUENCE INTUBATION KIT 1 EACH (14:30)
--- NOTE | 2020-10-23 14:47 | PC.NURSE ---
Supplies at bedside for central line placement.
--- NOTE | 2020-10-23 15:05 | PC.NURSE ---
Pt's condition stable. Awaiting lab results. Continuous vital signs and cardiac monitoring in place.
[2020-10-23 15:06] LABS: Troponin I 0.035 ng/mL (0.000-0.034)
[2020-10-23 15:29] LABS: Anion Gap 7 mmol/L (8-16); Blood Urea Nitrogen 59 mg/dL (9-20); Carbon Dioxide 31 mmol/L (22-30); Chloride 95 mmol/L (98-107); Sodium 133 mmol/L (137-145)
[2020-10-23 15:30] LABS: Alanine Aminotransferase 210 U/L (4-50); Aspartate Amino Transferase 189 U/L (17-59); Bilirubin,Total 1.2 mg/dL (0.2-1.3); Estimated Glomerular Filt Rate > 60; Glucose 158 mg/dL (75-110)
[2020-10-23 15:31] LABS: Albumin Level 3.1 g/dL (3.5-5.1); Alkaline Phosphatase 41 U/L (38-126)
--- NOTE | 2020-10-23 15:44 | PC.NURSE ---
Updated pt's daughter in law Mindy and son Sam. Mindy reports pt's breathing has not been well since being discharged from the hospital. Daughter reports pt does not have a working furnace and therefore keeps his gas stove lit at all times in order to keep his house warm.
[2020-10-23] MEDS: LORazepam INJ (*CRX) 2 MG/ML VIAL (16:03)
--- NOTE | 2020-10-23 16:03 | PC.NURSE ---
2 mg Ativan ivp given per Dr. Galvan verbal orders.
--- NOTE | 2020-10-23 16:05 | PC.NURSE ---
Seizure like activity noted. ERP at bedside for evaluation.
[2020-10-23] MEDS: LORazepam INJ (*CRX) 2 MG/ML VIAL 4 MG (16:07)
--- NOTE | 2020-10-23 16:07 | PC.NURSE ---
Seizure activity still noted. 2mg Ativan given ivp per Dr. Galvan verbal orders.
--- NOTE | 2020-10-23 16:11 | PC.NURSE ---
Sam (pt's son) gave verbal consent over the phone to administer IV contrast for chest CT as well as central line placement.
[2020-10-23] MEDS: SODIUM CHLORIDE 0.9% IV 1,000 ML 125 ML IV CONT (16:22)
--- NOTE | 2020-10-23 16:25 | PC.NURSE ---
Respiratory called to help transfer pt to CT.
[2020-10-23 16:53] LABS: Reflex Lactic Acid Yes or No Add Lactic
--- NOTE | 2020-10-23 18:00 | PM.IMHP ---
H&P: HPI History of Present Illness Date/Time: 10/23/20 18:00 Chief Complaint: Unresponsive. Narrative: This is a 70-year-old male smoker with chronic respiratory failure on home oxygen, COPD, hypertension, pulmonary hypertension, diastolic congestive heart failure, and atrial flutter who presented to the emergency department via EMS from home after his significant other called 911 because he had apparently been unresponsive all day. On EMS arrival he was found with agonal respirations but did have a pulse however went into PEA shortly thereafter. CPR was initiated and after 2 doses of epinephrine he had return of spontaneous circulation, within approximately 10 minutes or less. A supraglottic airway was placed and he was being bagged on arrival to the emergency department. He was intubated not long after arrival but on several occasions in the emergency department he did attempt to move around and sit up but he is sedated at the time my evaluation and does not interact. The patient is known to myself and the hospitalist service with a recent admission on 10/13/2020 for acute respiratory failure with hypoxia and hypercarbia as well as COPD exacerbation. He was also in atrial flutter with rapid ventricular response and there were some difficulties controlling his rate, requiring an increase in his amiodarone dosing. In fact he was discharged home on 10/21/2020 with instructions to take 400 mg twice daily for 4 days, then 400 mg daily for 7 days, then 200 mg daily thereafter. Unfortunately I have only been able to get a hold of his daughter in-law, who lives several hours away, and thus do not know exactly what has transpired since his discharge. Review of Systems Review of Systems: Narrative: Unable to be obtained given current condition as detailed above. [facility] Past Medical History Medical History (Updated 10/23/20 @ 20:07 by Laly Xavier PA-C) Atrial flutter Chronic anemia Chronic obstructive pulmonary disease Chronic respiratory failure with hypoxia, on home oxygen therapy Congestive heart failure Echocardiogram dated 03/12/2020 showed normal LV size and function with an EF of 77%, grade 2 diastolic dysfunction, and a moderately enlarged right ventricle with moderate hypokinesis and right ventricular hypertrophy. Hypertension Moderate pulmonary arterial systolic hypertension On echocardiogram dated 03/12/2020 with an estimated pulmonary arterial systolic pressure of 50 mmHg. Tobacco abuse Surgical History Surgical History History of cataract extraction Family History Family History Sibling Heart disease 3/4 the patient has 4 brothers have of heart disease. Diabetes mellitus The patient has 1 remaining living brother has diabetes. Mother Stomach cancer age 54, or perhaps a personal injury attorney cancer, patient unsure. Father COPD (chronic obstructive pulmonary disease) age 87 of asbestosis and COPD Social History Social History (Updated 10/23/20 @ 19:55 by Laly Xavier PA-C) Social History: Surrogate decision maker: Martínez Sanchez, brother, as documented by myself in July 2020. Code status: Full code. Smoking packs per day: 1 Smoking cigarettes per day: 20.0 Years smoked: 56 Smoking pack-years: 56.00 Smoking status: Current every day smoker Tobacco type: cigarettes Additional smoking assessment comments: Began smoking at age 13. Down to 1/2 pack a day as of 08/02/2020. Alcohol intake: former Substance use: never Substance use type: does not use Additional living arrangements comments: He lives in [place] with his girlfriend of 16 years. He has 4 grown children her relatively healthy. Has 2 daughters and 2 sons. 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
[2020-10-23 18:26] LABS: Alveolar/Arterial O2 Gradient 121.6 mmHg; Base Excess ABG 8.5 mEq/l (+/-2.0); Fractional Inspired Oxygen 40 %; HCO3 ABG 34.2 mEq/l (22.0-26.0); Oxygen Content ABG 15.8 %vol (16.0-22.0); Oxygen Saturation ABG 97.7 % (95.0-100.0); Oxyhemoglobin 96.2 % THb (90.0-100.0); PO2 ABG 102.7 mmHg (80.0-100.0); PO2 FiO2 Ratio Arterial Blood 2.57 %; Total Hemoglobin 11.6 g/dL (12.0-18.0); pH ABG 7.428 (7.350-7.450)
[2020-10-23 18:27] LABS: Arterial Blood Gas PEEP 5 cmH2O; Arterial Blood Gas Tidal Volume 450 ml; Arterial Blood Gas Vent Mode ASSIST CONTROL; Arterial Blood Gas Ventilator rate 18 /MIN; Device VENTILATOR; Modified Allen's Test Pass; Site Drawn RIGHT RADIAL
[2020-10-23 18:58] LABS: Glucose Point of Care 104 (65-105)
--- NOTE | 2020-10-23 19:06 | ADMGEN ---
This patient, Sam Sanchez, was admitted to Intensive Care Unit-5 at 1835 on 10/23/20. Report Received from Jo Ann KEBEDE. Patient/family oriented to hospital policies and general routines including ID bracelet, bed and alarms, visiting hours, pain management, procedures, bathroom and other care routines, personal items, smoking policy, room service/diet, and visiting hours. Information on how to activate the Rapid Response Team has been discussed. Patient/Family are encouraged to report perceived risks to care and to ask questions if they do not understand what they are told or what they should do.
--- NOTE | 2020-10-23 19:07 | PC.NURSE ---
STAT Lactic Acid and 1630 Blood Glucose not obtained in ED prior to being transferred to ICU-5. Blood Glucose is 104 at TOA and Lactic Acid was sent to lab and still pending.
[2020-10-23 19:11] LABS: Lactic Acid 2.5 mmol/L (0.7-2.1)
[2020-10-23 21:40] LABS: Anion Gap 3 mmol/L (8-16); Blood Urea Nitrogen 56 mg/dL (9-20); Calcium 7.8 mg/dL (8.4-10.2); Carbon Dioxide 37 mmol/L (22-30); Chloride 89 mmol/L (98-107); Estimated CRCL calculation 56 ml/min; Estimated Glomerular Filt Rate > 60; Glucose 104 mg/dL (75-110); Lactate Dehydrogenase 660 U/L (313-618); Magnesium 1.7 mg/dL (1.6-2.3); Potassium 4.7 mmol/L (3.4-5.0); Sodium 129 mmol/L (137-145)
[2020-10-23 21:53] LABS: Troponin I 0.045 ng/mL (0.000-0.034)
[2020-10-23] MEDS: APIXABAN 5 MG TABLET PO (21:55)
[2020-10-23 23:01] LABS: Thyroid Stimulating Hormone Reflex 0.811 uIU/mL (0.465-4.68)
[2020-10-23 23:02] LABS: Hepatitis B Surface Antigen Negative (Negative)
[2020-10-23 23:07] LABS: HAV RESULT Negative (Negative); Hepatitis B Core IgM Result Negative (Negative)
[2020-10-23 23:19] LABS: Hepatitis C Virus Antibody Negative (Negative)
[2020-10-23] MEDS: SODIUM CHLORIDE 0.9% IV 1,000 ML 60 ML IV CONT (23:32)
[2020-10-23 23:46] LABS: Glucose Point of Care 97 (65-105)
[2020-10-24] VITALS (36 sets, daily range): BP systolic 91–131; BP diastolic 57–87; PULSE 78–94; RESP 14–22; TEMP 36.1–37.2; O2SAT 84–100; BMI 20.7
[2020-10-24] MEDS: ALBUTEROL SULFATE NEB 2.5 MG/0.5 ML INH INHALATION ×4 (02:25→20:29)
[2020-10-24] MEDS: IPRATROPIUM BR 0.02% INH SOLN 0.5 MG/2.5 ML VIAL INHALATION ×4 (02:25→20:30)
[2020-10-24 04:58] LABS: Alveolar/Arterial O2 Gradient 100.2 mmHg; Base Excess ABG 13.1 mEq/l (+/-2.0); Carboxyhemoglobin 0.3 % THb (0-2.0); Fractional Inspired Oxygen 30 %; Methemoglobin ABG 0.3 %THb (0-1.5); Oxygen Content ABG 14.6 %vol (16.0-22.0); Oxygen Saturation ABG 95.7 % (95.0-100.0); Oxyhemoglobin 93.4 % THb (90.0-100.0); PCO2 ABG 39.3 mmHg (35.0-45.0); PO2 ABG 67.5 mmHg (80.0-100.0); PO2 FiO2 Ratio Arterial Blood 2.25 %; Total Hemoglobin 11.1 g/dL (12.0-18.0)
[2020-10-24 04:59] LABS: Arterial Blood Gas Ventilator rate 18 /MIN; Device VENTILATOR; Modified Allen's Test Unable to perform; Site Drawn RIGHT RADIAL
[2020-10-24 05:00] LABS: Arterial Blood Gas PEEP 5 cmH2O; Arterial Blood Gas Tidal Volume 450 ml; Arterial Blood Gas Vent Mode CMV
[2020-10-24 05:06] LABS: Basophils Percent Auto 0.1 % (0.2-1.2); Hematocrit 30.5 % (42.0-52.0); Hemoglobin 10.1 g/dL (14.0-18.0); Immature Granulocyte Absolute 0.12 K/mm3 (0.00-0.031); Immature Granulocyte Percent A 0.9 % (0-0.5); Immature Platelet Fraction Pct 12.5 % (0.9-11.2); Lymphocytes Absolute Auto 0.21 K/mm3 (0.9-3.2); Lymphocytes Percent Auto 1.5 % (18.3-44.2); Mean Corpuscular HGB Conc 33.1 g/dl (32-36); Mean Corpuscular Hemoglobin 31.7 pg (26-34); Mean Corpuscular Volume 95.6 fl (80-100); Mean Platelet Volume 11.7 fl (7.4-10.4); Monocytes Absolute Auto 0.9 K/mm3 (0.1-0.6); Monocytes Percent Auto 6.3 % (2.6-8.5); Neutrophils Absolute Auto 12.5 K/mm3 (1.3-6.7); Neutrophils Percent Auto 91.2 % (45.5-73.1); Platelet Count Result 130 k/mm3 (150-375); Red Blood Count 3.19 M/mm3 (4.6-6.20); Red Cell Distribution Width 13.6 % (11.5-14.5); White Blood Count 13.7 K/mm3 (4.5-10.0)
[2020-10-24 05:19] LABS: INR 1.7; Partial Thromboplastin Time 38.1 SECONDS (22.3-36.8); Prothrombin Time 20.8 Seconds (11.1-14.7)
[2020-10-24 05:20] LABS: Alanine Aminotransferase 166 U/L (4-50); Albumin Level 2.8 g/dL (3.5-5.1); Alkaline Phosphatase 42 U/L (38-126); Anion Gap 4 mmol/L (8-16); Aspartate Amino Transferase 96 U/L (17-59); Blood Urea Nitrogen 55 mg/dL (9-20); Calcium 7.6 mg/dL (8.4-10.2); Carbon Dioxide 37 mmol/L (22-30); Chloride 90 mmol/L (98-107); Estimated CRCL calculation 64 ml/min; Estimated Glomerular Filt Rate > 60; Glucose 86 mg/dL (75-110); Magnesium 1.7 mg/dL (1.6-2.3); Phosphorus 3.2 mg/dL (2.5-4.5); Potassium 4.3 mmol/L (3.4-5.0); Sodium 131 mmol/L (137-145)
[2020-10-24 05:33] LABS: Troponin I 0.045 ng/mL (0.000-0.034)
[2020-10-24] MEDS: BUDESONIDE RESPULE NEB 0.5 MG/2 ML AMP INHALATION ×2 (08:51→20:29)
--- NOTE | 2020-10-24 09:07 | WPDCNINT ---
Assessment and Plan Assessment and plan (1) Acute on chronic respiratory failure with hypoxia and hypercapnia: Code(s): J96.21 - Acute and chronic respiratory failure with hypoxia; J96.22 - Acute and chronic respiratory failure with hypercapnia Status: Acute Assessment and Plan: Acute Respiratory failure secondary to cardiac arrest, COPD exacerbation, questionable aspiration pneumonia CTA Lung 1. No evidence for pulmonary embolism. 2: Reticulonodular densities predominantly of the right upper and middle lobe, most likely infectious/inflammatory. 3: Multiple pleural based irregular shaped nodules right upper thorax posteriorly which may be infectious/inflammatory, although neoplasm is not excluded. 4: Emphysema. 5: Small pleural effusion Continue full mechanical ventilation support to prevent hypoxemia/hypercarbia and end organ damage. ABG and PCXR reviewed Decreased to 350 and respiratory rate decreased to 15. Will repeat ABG Low tidal volume ventilation strategy to prevent volutrauma Bronchodilators, steroids Empiric Zosyn Culture sent and pending (2) Cardiac arrest with pulseless electrical activity: Code(s): I46.9 - Cardiac arrest, cause unspecified Status: Acute Assessment and Plan: Likely secondary to hypercarbic respiratory failure from severe COPD CTA negative for PE Patient following commands (3) Chronic obstructive pulmonary disease: Code(s): J44.9 - Chronic obstructive pulmonary disease, unspecified Status: Chronic Assessment and Plan: See above (4) Diastolic congestive heart failure: Code(s): I50.30 - Unspecified diastolic (congestive) heart failure Status: Acute Assessment and Plan: His last echo showed RV dilation, hypokinesis and hypertrophy suggestive of cor pulmonale along with pulmonary hypertension, also has grade 2 diastolic dysfunction of LV Currently Lasix is on hold (5) Suspected COVID-19 virus infection: Code(s): Z20.822 - Contact with and (suspected) exposure to COVID-19 Status: Acute Assessment and Plan: PCR is pending and patient is in isolation (6) Atrial flutter: Qualifiers: Atrial flutter type: unspecified Qualified Code(s): I48.92 - Unspecified atrial flutter Code(s): I48.92 - Unspecified atrial flutter Status: Acute Assessment and Plan: Currently in NSR Continue amiodarone and Eliquis (7) NSTEMI (non-ST elevated myocardial infarction): Code(s): I21.4 - Non-ST elevation (NSTEMI) myocardial infarction Status: Acute Assessment and Plan: Mildly elevated troponin likely secondary to cardiac arrest CPR and epi, levels are flat EKG reviewed Patient already on Eliquis. Add aspirin Hold beta-clemencia due to low blood pressure and severe COPD Additional Plan DVT prophylaxis -patient is on Eliquis Stress ulcer prophylaxis -start Protonix Nutrition -start Tube Feeds Code Status - Full Code Total Critical Care Time -40 minutes Due to a high probability of clinically significant, life threatening deterioration, the patient required my highest level of preparedness to intervene emergently and I personally spent this critical care time directly and personally managing the patient. This critical care time included obtaining a history; examining the patient; pulse oximetry; ordering and review of studies; arranging urgent treatment with development of a management plan; evaluation of patient's response to treatment; frequent reassessment; and discussions with other providers. It was exclusive of separately billable procedures and treating other patients and teaching time. Please see Assessment and Plan section and the rest of the note for further information on patient assessment and treatment Kick Plate Installer Consult Note Consult date: 10/24/20 Time Seen: 07:30 HPI: Sam Sanchez is a 70 year old male smoker with chronic respiratory failure on home oxygen,
[2020-10-24] MEDS: APIXABAN 5 MG TABLET PO ×2 (09:29→20:25)
[2020-10-24 10:09] LABS: Alveolar/Arterial O2 Gradient 86.9 mmHg; Base Excess ABG 11.9 mEq/l (+/-2.0); Carboxyhemoglobin 0.4 % THb (0-2.0); Fractional Inspired Oxygen 30 %; HCO3 ABG 37.9 mEq/l (22.0-26.0); Methemoglobin ABG 0.4 %THb (0-1.5); Oxygen Content ABG 13.8 %vol (16.0-22.0); Oxygen Saturation ABG 91.6 % (95.0-100.0); Oxyhemoglobin 89.1 % THb (90.0-100.0); PCO2 ABG 56.5 mmHg (35.0-45.0); PO2 ABG 60.6 mmHg (80.0-100.0); PO2 FiO2 Ratio Arterial Blood 2.02 %; Reduced Hemoglobin 10.1 %THb (0-5.0); pH ABG 7.444 (7.350-7.450)
[2020-10-24 10:13] LABS: Modified Allen's Test Pass; Site Drawn RIGHT RADIAL
[2020-10-24 10:14] LABS: Arterial Blood Gas Vent Mode ASSIST CONTROL; Device VENTILATOR
[2020-10-24 10:15] LABS: Arterial Blood Gas PEEP 5 cmH2O; Arterial Blood Gas Tidal Volume 350 ml; Arterial Blood Gas Ventilator rate 15 /MIN
[2020-10-24] MEDS: methylPREDNISolone SOD SUCC 125 MG VIAL 60 MG IV PUSH (11:34)
[2020-10-24] MEDS: PANTOPRAZOLE SODIUM IV 40 MG VIAL IV PUSH (11:34)
[2020-10-24] MEDS: AMIODARONE HCL 200 MG TABLET PO (11:34)
[2020-10-24] MEDS: ASPIRIN 325 MG TABLET PO (11:35)
[2020-10-24 11:57] LABS: Glucose Point of Care 87 (65-105)
--- NOTE | 2020-10-24 12:52 | PM.CNCAR ---
Assessment and Plan Additional Plan Patient is a 70-year-old man with: Extensive chronic obstructive lung disease has markedly his advanced lung disease at least by his exam and appearance of his chest x-ray. His blood gases during last hospitalization are also consistent with this. I suspect he was symptomatic Maribel hypercarbic and sedated and for this reason was unresponsive at home. When he left the hospital last time he was in atrial flutter he is currently in sinus rhythm at a obviously has converted on the amiodarone regimen. This is going to be continued for now as well as continuing the apixaban. The plan was to attempt to wean off the amiodarone after he has been stable for a while as we wish to avoid exposing him to this agent chronically. Will follow with you during this hospitalization thank you for asking us to see this gentleman during this challenging situation Sam Morales MD [facility] History of Present Illness History of Present Illness Consult date/time: 10/24/20 12:52 Reason For Visit: acute respiratory failure/post cardiac arrest Narrative: This is a 70-year-old man on known to me but known to other physicians of our practice. I am seeing him a at the request of the hospitalist-ICU staff because of a PE a arrest that occurred yesterday [facility] after which he was readmitted to the hospital. Spoke with the field sampling technician staff they appears fairly obvious this was a primary respiratory event is he was markedly hypercarbic upon arrival after intubation and is now awake alert responsive and still intubated. The patient has a history of extensive severe chronic obstructive lung disease and is chronically hypercarbic. We were seeing the patient in consultation just in the last week in the hospital because of atrial flutter. He has a history of atrial flutter and was rate controlled in the past with diltiazem and anticoagulated with apixaban. The patient's evaluation has demonstrated normal-appearing LV systolic function. During the last hospitalization heart rate control was somewhat difficult and he was placed on amiodarone at a loading dose with tapering dosage instructions and for follow-up arrangement with Dr. Bay in our office. Patient is currently intubated in the ICU room 5. He is in normal sinus rhythm with a heart rate in the 80s he is receiving his amiodarone and a apixaban through his NG tube. According to the notes that are in the chart he was brought to the emergency room about 36 hours after being discharged because of unresponsiveness and for that reason was intubated upon arrival. Review of Systems Review of Systems: ROS unobtainable: Yes unobtainable due to endotracheal tube PMFSH Past Medical History Medical History Atrial flutter Chronic anemia Chronic obstructive pulmonary disease Chronic respiratory failure with hypoxia, on home oxygen therapy Congestive heart failure Echocardiogram dated 03/12/2020 showed normal LV size and function with an EF of 77%, grade 2 diastolic dysfunction, and a moderately enlarged right ventricle with moderate hypokinesis and right ventricular hypertrophy. Hypertension Moderate pulmonary arterial systolic hypertension On echocardiogram dated 03/12/2020 with an estimated pulmonary arterial systolic pressure of 50 mmHg. Tobacco abuse Surgical History Surgical History History of cataract extraction Family History Family History Sibling Heart disease 3/4 the patient has 4 brothers have of heart disease. Diabetes mellitus The patient has 1 remaining living brother has diabetes. Mother Stomach cancer age 54, or perhaps a warehouse administrator cancer, patient unsure. Father COPD (chronic obstructive pulmonary disease) age 87 of asbestosis and COPD Social History
--- NOTE | 2020-10-24 16:16 | PM.IMPN ---
Progress Note: A&P Assessment and Plan (1) Cardiac arrest with pulseless electrical activity: Code(s): I46.9 - Cardiac arrest, cause unspecified Status: Acute Assessment and Plan: 10/24/20 16:16 this 70-year-old male with severe COPD chronic respiratory failure on home oxygen he was recently discharged by me after he was treated for atrial flutter and was sent home on tapering dose of amiodarone, patient also received a trilogy and he had tried it before discharge, patient was brought to the emergency department as he was unresponsive most of the day at home and his called EMS, upon arrival to emergency department he was having agonal breathing with pulse and later he went into PEA and had a cardiac arrest CPR was was started with ACL protocol and patient was given 2 rounds of epinephrine and he recovered ROSC, and patient was intubated and currently in ICU and being tested for COVID-19 under isolation, patient was seen by his geology teacher and now is in sinus rhythm patient has converted from atrial flutter, patient on vent unable to provide any ROS, history recorded from electronic chart. (2) Acute on chronic respiratory failure with hypoxia and hypercapnia: Code(s): J96.21 - Acute and chronic respiratory failure with hypoxia; J96.22 - Acute and chronic respiratory failure with hypercapnia Status: Acute Assessment and Plan: Chronic (3) Lactic acidosis: Code(s): E87.2 - Acidosis Status: Acute Assessment and Plan: Most likely secondary to hypoxia and cardiac arrest now resolved (4) Elevated LFTs: Code(s): R79.89 - Other specified abnormal findings of blood chemistry Status: Acute Assessment and Plan: Most shock hypoxia cardiac arrest and CPR will continue to monitor (5) Diastolic congestive heart failure: Code(s): I50.30 - Unspecified diastolic (congestive) heart failure Status: Acute Assessment and Plan: Does not appear volume overloaded (6) Pulmonary hypertension: Code(s): I27.20 - Pulmonary hypertension, unspecified Status: Acute Assessment and Plan: Secondary to severe COPD clinically stable (7) Atrial flutter: Qualifiers: Atrial flutter type: unspecified Qualified Code(s): I48.92 - Unspecified atrial flutter Code(s): I48.92 - Unspecified atrial flutter Status: Acute Assessment and Plan: Patient was seen by Cardiology nose discharge on a tapering dose of amiodarone patient converted to sinus rhythm will continue to monitor (8) Hypertension: Qualifiers: Hypertension type: essential hypertension Qualified Code(s): I10 - Essential (primary) hypertension Code(s): I10 - Essential (primary) hypertension Status: Chronic Assessment and Plan: Will monitor (9) Abnormal lung scan: Code(s): R94.2 - Abnormal results of pulmonary function studies Status: Acute Assessment and Plan: No pulmonary emboli most likely chronic infiltrate will continue to monitor Additional Plan The patient was reportedly unresponsive all day before his significant other called 911 this afternoon. He was agonal breathing on EMS arrival and went into PEA shortly thereafter. ROSC was achieved within 10 minutes, and he was intubated on arrival to the emergency department. ABG demonstrates acute on chronic hypercarbic and hypoxic respiratory failure, much improved on repeat gases. I suspect his PEA was a result of his hypoxia and acidosis and less likely a primary cardiac event. Lactic acid is also likely elevated due to hypoxia and arrest although there were some findings of possible infection in the right lung on chest CTA the sepsis needs to be ruled out. He has been empirically started on piperacillin/tazobactam, pending blood and sputum cultures. LFTs are likely elevated due to shock liver from arrest and less likely due to recent increase in amiodarone though will obta
[2020-10-24 18:28] LABS: SARS-CoV-2 RNA PCR Negative
[2020-10-24 19:02] LABS: Glucose Point of Care 122 (65-105)
[2020-10-25] VITALS (32 sets, daily range): BP systolic 100–130; BP diastolic 49–93; PULSE 67–110; RESP 15–24; TEMP 36.1–36.9; O2SAT 40–100
[2020-10-25 00:01] LABS: Glucose Point of Care 138 (65-105)
[2020-10-25] MEDS: IPRATROPIUM BR 0.02% INH SOLN 0.5 MG/2.5 ML VIAL INHALATION ×4 (01:52→19:56)
[2020-10-25] MEDS: ALBUTEROL SULFATE NEB 2.5 MG/0.5 ML INH INHALATION ×4 (01:53→19:56)
[2020-10-25 05:17] LABS: Hematocrit 29.1 % (42.0-52.0); Hemoglobin 9.7 g/dL (14.0-18.0); Mean Corpuscular HGB Conc 33.3 g/dl (32-36); Mean Corpuscular Hemoglobin 31.3 pg (26-34); Mean Corpuscular Volume 93.9 fl (80-100); Mean Platelet Volume 12.2 fl (7.4-10.4); Platelet Count Result 121 k/mm3 (150-375); Red Cell Distribution Width 13.9 % (11.5-14.5)
[2020-10-25 05:19] LABS: Alveolar/Arterial O2 Gradient 56.2 mmHg; Base Excess ABG 14.2 mEq/l (+/-2.0); Carboxyhemoglobin 0.3 % THb (0-2.0); Fractional Inspired Oxygen 30 %; HCO3 ABG 40.1 mEq/l (22.0-26.0); Methemoglobin ABG 0.3 %THb (0-1.5); Oxygen Content ABG 13.2 %vol (16.0-22.0); Oxygen Saturation ABG 96.9 % (95.0-100.0); Oxyhemoglobin 94.9 % THb (90.0-100.0); PCO2 ABG 58.5 mmHg (35.0-45.0); PO2 FiO2 Ratio Arterial Blood 2.97 %; Reduced Hemoglobin 4.5 %THb (0-5.0); Total Hemoglobin 9.8 g/dL (12.0-18.0); pH ABG 7.454 (7.350-7.450)
[2020-10-25 05:20] LABS: Device VENTILATOR; Modified Allen's Test Pass; Site Drawn LEFT RADIAL
[2020-10-25 05:21] LABS: Arterial Blood Gas PEEP 5 cmH2O; Arterial Blood Gas Tidal Volume 350 ml; Arterial Blood Gas Vent Mode CMV; Arterial Blood Gas Ventilator rate 15 /MIN
[2020-10-25 05:32] LABS: Alanine Aminotransferase 127 U/L (4-50); Albumin Level 2.6 g/dL (3.5-5.1); Alkaline Phosphatase 43 U/L (38-126); Aspartate Amino Transferase 46 U/L (17-59); Bilirubin,Total 0.8 mg/dL (0.2-1.3); Blood Urea Nitrogen 43 mg/dL (9-20); Calcium 7.7 mg/dL (8.4-10.2); Carbon Dioxide > 40 mmol/L (22-30); Chloride 92 mmol/L (98-107); Estimated CRCL calculation 71 ml/min; Estimated Glomerular Filt Rate > 60; Glucose 149 mg/dL (75-110); Magnesium 1.7 mg/dL (1.6-2.3); Potassium 3.9 mmol/L (3.4-5.0); Sodium 133 mmol/L (137-145)
--- NOTE | 2020-10-25 08:00 | WPDINTPN ---
Progress Note: A&P Assessment and Plan (1) Acute on chronic respiratory failure with hypoxia and hypercapnia: Code(s): J96.21 - Acute and chronic respiratory failure with hypoxia; J96.22 - Acute and chronic respiratory failure with hypercapnia Status: Acute Assessment and Plan: Acute Respiratory failure secondary to cardiac arrest, COPD exacerbation, questionable aspiration pneumonia CTA Lung 1. No evidence for pulmonary embolism. 2: Reticulonodular densities predominantly of the right upper and middle lobe, most likely infectious/inflammatory. 3: Multiple pleural based irregular shaped nodules right upper thorax posteriorly which may be infectious/inflammatory, although neoplasm is not excluded. 4: Emphysema. 5: Small pleural effusion Continue full mechanical ventilation support to prevent hypoxemia/hypercarbia and end organ damage. ABG and PCXR reviewed Decreased to 300 and respiratory rate decreased to 15. Will attempt weaning trial today Low tidal volume ventilation strategy to prevent volutrauma Bronchodilators, steroids Empiric Zosyn Culture sent and negative till now (2) Cardiac arrest with pulseless electrical activity: Code(s): I46.9 - Cardiac arrest, cause unspecified Status: Acute Assessment and Plan: Likely secondary to hypercarbic respiratory failure from severe COPD CTA negative for PE Patient following commands (3) Chronic obstructive pulmonary disease: Code(s): J44.9 - Chronic obstructive pulmonary disease, unspecified Status: Chronic Assessment and Plan: See above (4) Diastolic congestive heart failure: Code(s): I50.30 - Unspecified diastolic (congestive) heart failure Status: Acute Assessment and Plan: His last echo showed RV dilation, hypokinesis and hypertrophy suggestive of cor pulmonale along with pulmonary hypertension, also has grade 2 diastolic dysfunction of LV Currently Lasix is on hold (5) Suspected COVID-19 virus infection: Code(s): Z20.822 - Contact with and (suspected) exposure to COVID-19 Status: Acute Assessment and Plan: PCR was negative (6) Atrial flutter: Qualifiers: Atrial flutter type: unspecified Qualified Code(s): I48.92 - Unspecified atrial flutter Code(s): I48.92 - Unspecified atrial flutter Status: Acute Assessment and Plan: Currently in NSR Continue amiodarone and Eliquis (7) NSTEMI (non-ST elevated myocardial infarction): Code(s): I21.4 - Non-ST elevation (NSTEMI) myocardial infarction Status: Acute Assessment and Plan: Mildly elevated troponin likely secondary to cardiac arrest CPR and epi, levels are flat EKG reviewed Patient already on Eliquis. Added aspirin Hold beta-clemencia due to low blood pressure and severe COPD Patient seen by Cardiology Additional Plan DVT prophylaxis -patient is on Eliquis Stress ulcer prophylaxis -start Protonix Nutrition -continue tube Feeds Code Status - Full Code Total Critical Care Time -30 minutes Due to a high probability of clinically significant, life threatening deterioration, the patient required my highest level of preparedness to intervene emergently and I personally spent this critical care time directly and personally managing the patient. This critical care time included obtaining a history; examining the patient; pulse oximetry; ordering and review of studies; arranging urgent treatment with development of a management plan; evaluation of patient's response to treatment; frequent reassessment; and discussions with other providers. It was exclusive of separately billable procedures and treating other patients and teaching time. Please see Assessment and Plan section and the rest of the note for further information on patient assessment and treatment Subjective Date/time seen: 10/25/20 0800 Overnight events reviewed. Afebrile Continues to be on mechanical ventilation Continues
[2020-10-25] MEDS: PANTOPRAZOLE SODIUM IV 40 MG VIAL IV PUSH (08:07)
[2020-10-25] MEDS: APIXABAN 5 MG TABLET PO ×2 (08:07→20:13)
[2020-10-25] MEDS: ASPIRIN 325 MG TABLET PO (08:07)
[2020-10-25] MEDS: AMIODARONE HCL 200 MG TABLET PO (08:07)
[2020-10-25] MEDS: methylPREDNISolone SOD SUCC 125 MG VIAL 60 MG IV PUSH (08:08)
[2020-10-25] MEDS: CALCIUM GLUC 2,000 MG/NS 100ML 2,000 MG/100 ML BAG 100 MG IVPB (08:50)
[2020-10-25] MEDS: BUDESONIDE RESPULE NEB 0.5 MG/2 ML AMP INHALATION ×2 (08:56→19:56)
[2020-10-25 09:39] LABS: Alveolar/Arterial O2 Gradient 51.5 mmHg; Base Excess ABG 14.8 mEq/l (+/-2.0); Carboxyhemoglobin 0.1 % THb (0-2.0); Fractional Inspired Oxygen 30 %; HCO3 ABG 42.6 mEq/l (22.0-26.0); Methemoglobin ABG 0.3 %THb (0-1.5); Oxygen Content ABG 14.3 %vol (16.0-22.0); Oxygen Saturation ABG 94.7 % (95.0-100.0); Oxyhemoglobin 93.1 % THb (90.0-100.0); PO2 ABG 77.2 mmHg (80.0-100.0); PO2 FiO2 Ratio Arterial Blood 2.57 %; Reduced Hemoglobin 6.5 %THb (0-5.0); Total Hemoglobin 10.9 g/dL (12.0-18.0); pH ABG 7.387 (7.350-7.450)
[2020-10-25 09:42] LABS: PCO2 ABG 72.5 mmHg (35.0-45.0)
[2020-10-25 09:43] LABS: Arterial Blood Gas PEEP 5 cmH2O; Arterial Blood Gas Vent Mode SPONTANEOUS; Device VENTILATOR; Modified Allen's Test Pass; Site Drawn RIGHT RADIAL
[2020-10-25 09:44] LABS: Arterial Blood Gas Pressure Support 5 cmH2O
[2020-10-25] MEDS: MAGNESIUM SULF 2 GM/WATER 50ML 2 GM/50 ML BAG IVPB (09:54)
--- NOTE | 2020-10-25 11:06 | PCDIET ---
Nutrition Follow-Up Complete: Nutrition Diagnosis: Inadequate oral intake related to oral intubation as evidenced by NPO status. Nutrition Goal: Patient to meet estimated nutritional needs. Goal in progress. Patient tolerated Vital 1.2 at 40mL/hr with goal of 50mL/hr, but currently on hold for anticipated extubation. Last recorded weight is 61 kg which is slightly decreased from last review. -I/O. Bowel Motility: No documented BM as of yet. Labs Reviewed: Hgb (9.7), Hct (29.1), Glu (149), BUN (43), Na (133), Alb (2.6), Ashly Ca (8.82) Meds Noted: Albuterol, Pulmicort, Atrovent, Solu Medrol, Calcium Gluconate, Versed, Protonix, Zosyn, Magnesium Sulfate Additional Notes: Skin tears and blistering reported. Will continue to monitor with same goal. Nutrition Monitoring and Evaluation: Follow up every Saturday/Saturday.
[2020-10-25 23:34] LABS: Glucose Point of Care 153 (65-105)
[2020-10-26] VITALS (27 sets, daily range): BP systolic 115–148; BP diastolic 64–95; PULSE 90–135; RESP 13–27; TEMP 36.1–37.2; O2SAT 89–100
[2020-10-26] MEDS: IPRATROPIUM BR 0.02% INH SOLN 0.5 MG/2.5 ML VIAL INHALATION ×4 (02:03→20:18)
[2020-10-26] MEDS: ALBUTEROL SULFATE NEB 2.5 MG/0.5 ML INH INHALATION ×4 (02:03→20:19)
[2020-10-26 05:10] LABS: Hemoglobin 9.1 g/dL (14.0-18.0); Mean Corpuscular HGB Conc 33.7 g/dl (32-36); Mean Corpuscular Hemoglobin 31.2 pg (26-34); Mean Corpuscular Volume 92.5 fl (80-100); Mean Platelet Volume 12.2 fl (7.4-10.4); Platelet Count Result 133 k/mm3 (150-375); Red Blood Count 2.92 M/mm3 (4.6-6.20); Red Cell Distribution Width 13.8 % (11.5-14.5); White Blood Count 13.1 K/mm3 (4.5-10.0)
[2020-10-26 05:23] LABS: Alveolar/Arterial O2 Gradient 52.7 mmHg; Base Excess ABG 14.8 mEq/l (+/-2.0); Carboxyhemoglobin 0.3 % THb (0-2.0); Fractional Inspired Oxygen 28 %; HCO3 ABG 41.8 mEq/l (22.0-26.0); Methemoglobin ABG 0.4 %THb (0-1.5); Oxygen Content ABG 13.6 %vol (16.0-22.0); Oxygen Saturation ABG 93.4 % (95.0-100.0); Oxyhemoglobin 91.6 % THb (90.0-100.0); PO2 ABG 68.8 mmHg (80.0-100.0); PO2 FiO2 Ratio Arterial Blood 2.46 %; Reduced Hemoglobin 7.7 %THb (0-5.0); Total Hemoglobin 10.5 g/dL (12.0-18.0); pH ABG 7.418 (7.350-7.450)
[2020-10-26 05:27] LABS: Device NASAL CANNULA; Modified Allen's Test Pass; PCO2 ABG 66.2 mmHg (35.0-45.0); Site Drawn RIGHT RADIAL
[2020-10-26 05:45] LABS: Alanine Aminotransferase 97 U/L (4-50); Albumin Level 2.6 g/dL (3.5-5.1); Alkaline Phosphatase 39 U/L (38-126); Aspartate Amino Transferase 27 U/L (17-59); Bilirubin,Total 0.5 mg/dL (0.2-1.3); Blood Urea Nitrogen 38 mg/dL (9-20); Calcium 7.9 mg/dL (8.4-10.2); Carbon Dioxide > 40 mmol/L (22-30); Chloride 93 mmol/L (98-107); Estimated CRCL calculation 63 ml/min; Estimated Glomerular Filt Rate > 60; Glucose 163 mg/dL (75-110); Magnesium 1.8 mg/dL (1.6-2.3); Potassium 4.2 mmol/L (3.4-5.0); Sodium 135 mmol/L (137-145)
[2020-10-26] MEDS: BUDESONIDE RESPULE NEB 0.5 MG/2 ML AMP INHALATION ×2 (08:29→20:19)
--- NOTE | 2020-10-26 08:36 | WPDINTPN ---
Progress Note: A&P Assessment and Plan (1) Acute on chronic respiratory failure with hypoxia and hypercapnia: Code(s): J96.21 - Acute and chronic respiratory failure with hypoxia; J96.22 - Acute and chronic respiratory failure with hypercapnia Status: Acute Assessment and Plan: Acute Respiratory failure secondary to cardiac arrest, COPD exacerbation, questionable aspiration pneumonia CTA Lung 1. No evidence for pulmonary embolism. 2: Reticulonodular densities predominantly of the right upper and middle lobe, most likely infectious/inflammatory. 3: Multiple pleural based irregular shaped nodules right upper thorax posteriorly which may be infectious/inflammatory, although neoplasm is not excluded. 4: Emphysema. 5: Small pleural effusion 2/ extubated after successful weaning trial. Needed BiPAP post extubation until this morning Currently saturating well on nasal cannula 2 L with no respiratory distress Continue nasal cannula and use BiPAP p.r.n. and at night ABG and PCXR reviewed Continue Bronchodilators, steroids Empiric Zosyn. Will continue for 5 days Culture sent and negative till now (2) Cardiac arrest with pulseless electrical activity: Code(s): I46.9 - Cardiac arrest, cause unspecified Status: Acute Assessment and Plan: Likely secondary to hypercarbic respiratory failure from severe COPD CTA negative for PE Patient now alert awake and extubated (3) Chronic obstructive pulmonary disease: Code(s): J44.9 - Chronic obstructive pulmonary disease, unspecified Status: Chronic Assessment and Plan: See above (4) Diastolic congestive heart failure: Code(s): I50.30 - Unspecified diastolic (congestive) heart failure Status: Acute Assessment and Plan: His last echo showed RV dilation, hypokinesis and hypertrophy suggestive of cor pulmonale along with pulmonary hypertension, also has grade 2 diastolic dysfunction of LV Resume Lasix (5) Suspected COVID-19 virus infection: Code(s): Z20.822 - Contact with and (suspected) exposure to COVID-19 Status: Acute Assessment and Plan: PCR was negative (6) Atrial flutter: Qualifiers: Atrial flutter type: unspecified Qualified Code(s): I48.92 - Unspecified atrial flutter Code(s): I48.92 - Unspecified atrial flutter Status: Acute Assessment and Plan: Currently in NSR Continue amiodarone and Eliquis (7) NSTEMI (non-ST elevated myocardial infarction): Code(s): I21.4 - Non-ST elevation (NSTEMI) myocardial infarction Status: Acute Assessment and Plan: Mildly elevated troponin likely secondary to cardiac arrest CPR and epi, levels are flat EKG reviewed Patient already on Eliquis. Added aspirin Hold beta-clemencia due to low blood pressure and severe COPD Patient seen by Cardiology Additional Plan DVT prophylaxis -patient is on Eliquis Stress ulcer prophylaxis -start Protonix Nutrition -advance diet Code Status - Full Code Consult PT OT, incentive spirometry, up in chair Transfer out of ICU today Subjective Date/time seen: 10/26/20 Overnight events reviewed. Patient was extubated yesterday after successful weaning trial but later developed respiratory distress and desaturated. He was placed on BiPAP any wore BiPAP until early this morning. This morning he states he feels better. He was talking on phone when I went to see him. He feels breathing is better although he still feels short of breath on exertion. Continues to have cough which is blood tinged sputum. He also complains of pain in his chest where he received CPR. Denies any fever. He states he is hungry and would like to eat food and was drinking coffee when I went to see him. He claims he wears his BiPAP at night at home All other systems were reviewed and were negative Review of Systems Review of Systems: All systems reviewed & are unremarkable except as noted in HPI and bel
[2020-10-26] MEDS: PANTOPRAZOLE SODIUM IV 40 MG VIAL IV PUSH (09:03)
[2020-10-26] MEDS: methylPREDNISolone SOD SUCC 125 MG VIAL 60 MG IV PUSH (09:03)
[2020-10-26] MEDS: ASPIRIN 325 MG TABLET PO (09:04)
[2020-10-26] MEDS: AMIODARONE HCL 200 MG TABLET PO ×2 (09:04→17:05)
[2020-10-26] MEDS: APIXABAN 5 MG TABLET PO ×2 (09:04→19:47)
[2020-10-26] MEDS: FUROSEMIDE INJ 40 MG/4 ML VIAL 20 MG IV PUSH (10:13)
--- NOTE | 2020-10-26 11:03 | PCDIET ---
Nutrition Follow-Up Complete: Nutrition Diagnosis: Inadequate oral intake related to oral intubation as evidenced by NPO status. Nutrition Goal: Patient to meet estimated nutritional needs. Goal in progress. Patient extubated and ate 100% of breakfast on heart healthy diet. Patient had Ensure Enlive (350kcal, 20g protein) with meals on previous admission and would like to continue with that. Recommend adding the Ensure Enlive TID with meals. Last recorded weight is 61.5 kg which is slightly increased from last review. Bowel Motility: No documented BM as of yet. Labs Reviewed: Hgb (9.1), Hct (27.0), Glu (163), Na (135), Alb (2.6), Ashly Ca (9.02) Meds Noted: Albuterol, Pulmicort, Lasix, Atrovent, Solu Medrol, Protonix Additional Notes: Deep tissue injuries to left ischium and bilateral heels. Left upper nose with abrasion. Will continue to monitor with same goal. Nutrition Monitoring and Evaluation: Follow up every 5 days.
[2020-10-26] MEDS: oxyCODONE/ACETAMINOPHEN (*CRX) 5-325 MG TABLET 1 TABLET PO ×2 (12:02→19:46)
--- NOTE | 2020-10-26 14:36 | PM.PNCARD ---
Progress Note: A&P Assessment and Plan (1) Paroxysmal atrial flutter: Code(s): I48.92 - Unspecified atrial flutter Status: Acute Assessment and Plan: Looks like patient has is likely back in atrial flutter with a reasonably controlled rate on amiodarone 200 mg daily. Will increase to b.i.d.. Continue Eliquis 5 mg b.i.d. We are hoping for short-term amiodarone use but options are limited with this patient. Previously not well controlled with Diltiazem 360 mg daily plus digoxin. I wonder he will ever get well enough to consider an atrial flutter ablation? (2) Acute and chronic respiratory failure: Code(s): J96.20 - Acute and chronic respiratory failure, unspecified whether with hypoxia or hypercapnia Status: Acute Assessment and Plan: Severe COPD. Respiratory failure improving, needs BiPAP at night. (3) Cardiac arrest with pulseless electrical activity: Code(s): I46.9 - Cardiac arrest, cause unspecified Status: Acute Assessment and Plan: Status post PA arrest secondary to hypercarbia, good recovery. (4) Elevated troponin: Code(s): R77.8 - Other specified abnormalities of plasma proteins Status: Acute Assessment and Plan: 0.045 and 0.045, secondary to cardiac arrest not a acute coronary syndrome event. Subjective Date/time seen: 10/26/20 14:36 Interval history: Follow-up for atrial flutter. Admitted with a PE a cardiac arrest likely secondary to hypercarbic respiratory failure secondary to severe COPD. Date of service 10/26/2020: Needed BiPAP overnight. Currently sitting up in a chair, on 2 L of oxygen feeling well. Complains of chest soreness from his CPR. Was admitted in NSR but telemetry on my review now looks like he is in atrial flutter heart rate generally about 104 beats per minute, occasionally up to 130. Review of Systems Constitutional: Constitutional: Reports fatigue ENT: Denies epistaxis Cardiovascular: Cardiovascular: Reports chest pain (Sore from CPR) and Reports pedal edema Respiratory: Respiratory: Denies cough, Denies dyspnea and Reports dyspnea on exertion Gastrointestinal: Gastrointestinal: Denies abdominal pain Musculoskeletal: Musculoskeletal: Denies back pain Integumentary/Breasts: Skin/Breast: Denies rash Neurologic: Denies confusion Psychiatric: Psychiatric: Denies behavioral changes Exam Const: General: comfortable Other: Chronically ill-appearing male sitting up in chair in no distress HENMT: Mouth: Yes moist mucous membranes Eyes: EOM: EOMs intact bilaterally Neck: Neck: supple Resp: Effort & Inspection: normal respiratory effort Auscultation: diminished lung sounds Cardio: Rate: regular rate and tachycardic GI: Inspection: non-distended GI Palp: Yes Soft to palpation and No Firmness to palpation present (GI) Skin: Rashes: no rashes noted Neuro: Cognition (Neuro): normal cognition Speech: normal speech Motor exam (neuro): Normal motor muscle tone present throughout Extrem: General: edema (Mild edema of lower tibia bilaterally) Psych: Mental Status: mental status grossly normal Affect: normal affect Objective Data Vital Signs Vital Signs: Vital Signs - 24 hr 10/25/20 14:55 10/25/20 16:00 10/25/20 16:35 Temperature 98.2 F Pulse Rate 96 98 Respiratory Rate 21 H Blood Pressure 121/74 Pulse Oximetry 100 94 92 10/25/20 18:00 10/25/20 19:51 10/25/20 19:56 Temperature Pulse Rate 110 H 96 93 Respiratory Rate 20 24 H 20 Blood Pressure 120/93 H Pulse Oximetry 95 96 94 10/25/20 20:00 10/25/20 20:10 10/25/20 22:00 Temperature 98.0 F Pulse Rate 98 92 91 Respiratory Rate 22 H 20 15 Blood Pressure 130/65 110/49 L Pulse Oximetry 96 97 10/26/20 00:00 10/26/20 00:36 10/26/20 02:00 Temperature 97.9 F Pulse Rate 111 H 98 96 Respiratory Rate 18 20 18 Blo
[2020-10-27] VITALS (25 sets, daily range): BP systolic 120–145; BP diastolic 61–81; PULSE 84–119; RESP 12–26; TEMP 36–36.6; O2SAT 92–100
[2020-10-27] MEDS: oxyCODONE/ACETAMINOPHEN (*CRX) 5-325 MG TABLET 1 TABLET PO ×4 (00:13→21:32)
[2020-10-27] MEDS: ALBUTEROL SULFATE NEB 2.5 MG/0.5 ML INH INHALATION ×4 (02:32→21:38)
[2020-10-27] MEDS: IPRATROPIUM BR 0.02% INH SOLN 0.5 MG/2.5 ML VIAL INHALATION ×4 (02:32→21:38)
[2020-10-27 06:58] LABS: Alanine Aminotransferase 78 U/L (4-50); Albumin Level 2.9 g/dL (3.5-5.1); Alkaline Phosphatase 44 U/L (38-126); Aspartate Amino Transferase 24 U/L (17-59); Bilirubin,Total 0.9 mg/dL (0.2-1.3); Blood Urea Nitrogen 33 mg/dL (9-20); Calcium 7.9 mg/dL (8.4-10.2); Carbon Dioxide > 40 mmol/L (22-30); Chloride 87 mmol/L (98-107); Estimated CRCL calculation 83 ml/min; Estimated Glomerular Filt Rate > 60; Glucose 112 mg/dL (75-110); Magnesium 1.4 mg/dL (1.6-2.3); Potassium 4.3 mmol/L (3.4-5.0); Sodium 131 mmol/L (137-145)
[2020-10-27 07:18] LABS: Hematocrit 31.9 % (42.0-52.0); Hemoglobin 10.5 g/dL (14.0-18.0); Immature Platelet Fraction Pct 11.9 % (0.9-11.2); Mean Corpuscular HGB Conc 32.9 g/dl (32-36); Mean Corpuscular Hemoglobin 31.6 pg (26-34); Mean Corpuscular Volume 96.1 fl (80-100); Platelet Count Result 136 k/mm3 (150-375); Red Blood Count 3.32 M/mm3 (4.6-6.20); Red Cell Distribution Width 13.6 % (11.5-14.5); White Blood Count 13.6 K/mm3 (4.5-10.0)
[2020-10-27] MEDS: BUDESONIDE RESPULE NEB 0.5 MG/2 ML AMP INHALATION ×2 (08:14→21:38)
[2020-10-27] MEDS: APIXABAN 5 MG TABLET PO ×2 (08:34→21:22)
[2020-10-27] MEDS: AMIODARONE HCL 200 MG TABLET PO ×2 (08:35→17:24)
[2020-10-27] MEDS: PANTOPRAZOLE SODIUM IV 40 MG VIAL IV PUSH (08:35)
[2020-10-27] MEDS: FUROSEMIDE INJ 40 MG/4 ML VIAL 20 MG IV PUSH (08:35)
[2020-10-27] MEDS: ASPIRIN 325 MG TABLET PO (08:35)
[2020-10-27] MEDS: methylPREDNISolone SOD SUCC 125 MG VIAL 60 MG IV PUSH (08:36)
--- NOTE | 2020-10-27 11:01 | WPDINTPN ---
Progress Note: A&P Assessment and Plan (1) Acute on chronic respiratory failure with hypoxia and hypercapnia: Code(s): J96.21 - Acute and chronic respiratory failure with hypoxia; J96.22 - Acute and chronic respiratory failure with hypercapnia Status: Acute Assessment and Plan: Acute Respiratory failure secondary to cardiac arrest, COPD exacerbation, questionable aspiration pneumonia CTA Lung 1. No evidence for pulmonary embolism. 2: Reticulonodular densities predominantly of the right upper and middle lobe, most likely infectious/inflammatory. 3: Multiple pleural based irregular shaped nodules right upper thorax posteriorly which may be infectious/inflammatory, although neoplasm is not excluded. 4: Emphysema. 5: Small pleural effusion / extubated after successful weaning trial. Needed BiPAP post extubation until next morning Currently saturating well on nasal cannula 2 L with no respiratory distress Continue nasal cannula and use BiPAP p.r.n. and at night. Again emphasized need to use BiPAP at night to the patient and he verbalized understanding and agreed to wear tonight Most recent ABG and PCXR reviewed Continue Bronchodilators, steroids Empiric Zosyn for 5 days Culture sent and negative till now (2) Cardiac arrest with pulseless electrical activity: Code(s): I46.9 - Cardiac arrest, cause unspecified Status: Acute Assessment and Plan: Likely secondary to hypercarbic respiratory failure from severe COPD CTA negative for PE Patient now alert awake and extubated (3) Chronic obstructive pulmonary disease: Code(s): J44.9 - Chronic obstructive pulmonary disease, unspecified Status: Chronic Assessment and Plan: See above (4) Diastolic congestive heart failure: Code(s): I50.30 - Unspecified diastolic (congestive) heart failure Status: Acute Assessment and Plan: His last echo showed RV dilation, hypokinesis and hypertrophy suggestive of cor pulmonale along with pulmonary hypertension, also has grade 2 diastolic dysfunction of LV Continue Lasix (5) Suspected COVID-19 virus infection: Code(s): Z20.822 - Contact with and (suspected) exposure to COVID-19 Status: Acute Assessment and Plan: PCR was negative (6) Atrial flutter: Qualifiers: Atrial flutter type: unspecified Qualified Code(s): I48.92 - Unspecified atrial flutter Code(s): I48.92 - Unspecified atrial flutter Status: Acute Assessment and Plan: Currently in NSR Continue amiodarone and Eliquis (7) NSTEMI (non-ST elevated myocardial infarction): Code(s): I21.4 - Non-ST elevation (NSTEMI) myocardial infarction Status: Acute Assessment and Plan: Mildly elevated troponin likely secondary to cardiac arrest CPR and epi, levels are flat EKG reviewed Patient already on Eliquis. Added aspirin Not on beta-clemencia due to severe COPD Resume Cardizem Patient seen by Cardiology (8) Bacteremia: Code(s): R78.81 - Bacteremia Status: Acute Assessment and Plan: Patient is growing out Gram-positive cocci in 1/2 bottles. On empiric vancomycin until identification is back. It may be just a contaminant Additional Plan DVT prophylaxis -patient is on Eliquis Stress ulcer prophylaxis -Protonix Nutrition -advance diet Code Status - Full Code Consult PT OT, incentive spirometry, up in chair Transfer out of ICU today Subjective Date/time seen: 10/27/20 11:01 Patient did not wear BiPAP for most of the night last night. He states he feels better and his breathing is better. He complains of chest pain especially with deep breathing and coughing. Pain is located in the anterior chest likely from the CPR he received. Denies any other complaints. He has good appetite and eating 100% of his tray. Sits in chair most of the day. Saturating well on nasal cannula with no respiratory distress. All other systems were reviewed
[2020-10-27] MEDS: MAGNESIUM SULF 2 GM/WATER 50ML 2 GM/50 ML BAG IVPB (11:13)
[2020-10-27] MEDS: dilTIAZem HCL 60 MG TABLET PO ×3 (13:54→23:41)
--- NOTE | 2020-10-27 16:56 | PC.NURSE ---
This patient, Sam Sanchez, was transferred to [ [facility] imu] on 10/27/20 at 1656. Personal belongings sent with patient. Report given to [elizabeth carroll rn ]. Appropriate documentation sent with patient.
[2020-10-28] VITALS (22 sets, daily range): BP systolic 131–164; BP diastolic 59–70; PULSE 64–101; RESP 17–30; TEMP 36.1–36.7; O2SAT 90–99
[2020-10-28] MEDS: ALBUTEROL SULFATE NEB 2.5 MG/0.5 ML INH INHALATION ×4 (03:11→21:07)
[2020-10-28] MEDS: IPRATROPIUM BR 0.02% INH SOLN 0.5 MG/2.5 ML VIAL INHALATION ×4 (03:11→21:07)
[2020-10-28 05:07] LABS: Alveolar/Arterial O2 Gradient 57.3 mmHg; Base Excess ABG 19.2 mEq/l (+/-2.0); Carboxyhemoglobin 0.3 % THb (0-2.0); Fractional Inspired Oxygen 30 %; HCO3 ABG 45.4 mEq/l (22.0-26.0); Methemoglobin ABG 0.3 %THb (0-1.5); Oxygen Content ABG 13.7 %vol (16.0-22.0); Oxygen Saturation ABG 96.5 % (95.0-100.0); Oxyhemoglobin 95.1 % THb (90.0-100.0); PO2 ABG 83.5 mmHg (80.0-100.0); PO2 FiO2 Ratio Arterial Blood 2.78 %; Reduced Hemoglobin 4.3 %THb (0-5.0); Total Hemoglobin 10.2 g/dL (12.0-18.0); pH ABG 7.481 (7.350-7.450)
[2020-10-28 05:09] LABS: Device NON-INVASIVE VENT; Modified Allen's Test Pass; PCO2 ABG 62.2 mmHg (35.0-45.0); Site Drawn RIGHT RADIAL
[2020-10-28 05:09] LABS: Hematocrit 27.3 % (42.0-52.0); Hemoglobin 9.1 g/dL (14.0-18.0); Immature Platelet Fraction Pct 11.2 % (0.9-11.2); Mean Corpuscular HGB Conc 33.3 g/dl (32-36); Mean Corpuscular Volume 92.9 fl (80-100); Mean Platelet Volume 11.8 fl (7.4-10.4); Platelet Count Result 108 k/mm3 (150-375); Red Blood Count 2.94 M/mm3 (4.6-6.20); Red Cell Distribution Width 13.2 % (11.5-14.5); White Blood Count 11.7 K/mm3 (4.5-10.0)
[2020-10-28 05:10] LABS: Non-Invasive Expiratory Pressure 8 CMH2O; Non-Invasive Inspiratory Pressure 14 CMH2O; Non-Invasive Vent Rate 4 /MIN
[2020-10-28 05:21] LABS: Alanine Aminotransferase 56 U/L (4-50); Albumin Level 2.7 g/dL (3.5-5.1); Alkaline Phosphatase 41 U/L (38-126); Aspartate Amino Transferase 22 U/L (17-59); Bilirubin,Total 0.7 mg/dL (0.2-1.3); Blood Urea Nitrogen 25 mg/dL (9-20); Calcium 7.6 mg/dL (8.4-10.2); Carbon Dioxide > 40 mmol/L (22-30); Chloride 84 mmol/L (98-107); Estimated CRCL calculation 97 ml/min; Estimated Glomerular Filt Rate > 60; Glucose 123 mg/dL (75-110); Magnesium 1.5 mg/dL (1.6-2.3); Potassium 4.4 mmol/L (3.4-5.0); Sodium 127 mmol/L (137-145)
[2020-10-28] MEDS: dilTIAZem HCL 60 MG TABLET PO ×3 (06:01→17:37)
[2020-10-28] MEDS: oxyCODONE/ACETAMINOPHEN (*CRX) 5-325 MG TABLET 1 TABLET PO ×3 (06:49→21:58)
[2020-10-28] MEDS: BUDESONIDE RESPULE NEB 0.5 MG/2 ML AMP INHALATION ×2 (08:23→21:07)
[2020-10-28] MEDS: ASPIRIN 325 MG TABLET PO (09:17)
[2020-10-28] MEDS: methylPREDNISolone SOD SUCC 125 MG VIAL 60 MG IV PUSH (09:17)
[2020-10-28] MEDS: APIXABAN 5 MG TABLET PO ×2 (09:17→21:57)
[2020-10-28] MEDS: FUROSEMIDE INJ 40 MG/4 ML VIAL 20 MG IV PUSH (09:18)
[2020-10-28] MEDS: PANTOPRAZOLE SODIUM IV 40 MG VIAL IV PUSH (09:18)
[2020-10-28] MEDS: AMIODARONE HCL 200 MG TABLET PO ×2 (09:19→17:29)
--- NOTE | 2020-10-28 10:32 | PM.IMPN ---
Progress Note: A&P Assessment and Plan (1) Acute and chronic respiratory failure: Code(s): J96.20 - Acute and chronic respiratory failure, unspecified whether with hypoxia or hypercapnia Status: Acute Assessment and Plan: Patient is getting better. Will continue to use BiPAP. Will start physical therapy. (2) Diastolic congestive heart failure: Code(s): I50.30 - Unspecified diastolic (congestive) heart failure Status: Acute Assessment and Plan: Stable on medications. (3) Cardiac arrest with pulseless electrical activity: Code(s): I46.9 - Cardiac arrest, cause unspecified Status: Acute Assessment and Plan: Stable medications at present time, patient is alert and awake. (4) Hypertension: Qualifiers: Hypertension type: essential hypertension Qualified Code(s): I10 - Essential (primary) hypertension Code(s): I10 - Essential (primary) hypertension Status: Chronic Assessment and Plan: Stable on medication. (5) COPD (chronic obstructive pulmonary disease): Qualifiers: COPD type: unspecified COPD Qualified Code(s): J44.9 - Chronic obstructive pulmonary disease, unspecified Code(s): J44.9 - Chronic obstructive pulmonary disease, unspecified Status: Acute Assessment and Plan: Stable on medications (6) Paroxysmal atrial flutter: Code(s): I48.92 - Unspecified atrial flutter Status: Acute Assessment and Plan: Stable on medication. Subjective Date/time seen: 10/28/20 10:32 Interval history: Patient was seen during the morning rounds today. Patient is feeling much better. Denies any shortness of breath or chest pain. Mood stable. Review of Systems Review of Systems: All systems reviewed & are unremarkable except as noted in HPI and below Constitutional: Constitutional: Reports as per HPI Eyes: Eyes: Reports as per HPI ENT: Reports system reviewed and no additional complaints, except as documented Cardiovascular: Cardiovascular: Reports as per HPI Respiratory: Respiratory: Reports as per HPI Gastrointestinal: Gastrointestinal: Reports as per HPI Musculoskeletal: Musculoskeletal: Reports no additional musculoskeletal complaints Neurologic: Reports system reviewed and no additional complaints, except as documented and Reports as per HPI Psychiatric: Psychiatric: Reports no additional psychiatric complaints and Reports as per HPI Endocrine: Endocrine: Reports as per HPI Exam Const: General: cooperative and no acute distress Orientation/consciousness: oriented to person, oriented to place, oriented to time and patient oriented x3 HENMT: Head: normal to inspection Ears: hearing grossly normal bilaterally and external ears normal General nose exam: Normal external nose present Face and sinus: normal facial exam Mouth: Yes Normal oral and palatal mucosa present Eyes: General: appearance normal, both eyes and all related structures Neck: Neck: normal visual inspection and full ROM Chest: Chest palpation & inspection: normal inspection of the chest and normal palpation of entire chest wall Resp: Effort & Inspection: normal respiratory effort Auscultation: clear to auscultation bilaterally Cardio: Jugular venous distension: no JVD Palpation: normal PMI Rate: regular rate Heart sounds: S1 normal heart sound present and S2 normal heart sound present GI: Inspection: normal to inspection GI Palp: No abdominal tenderness Neuro: General: oriented to person, oriented to place, oriented to time and patient oriented x3 Cranial nerves: Yes CN's II-XII intact bilaterally Speech: normal speech Gait exam (Neuro): Normal gait present Motor exam (neuro): 5/5 motor strength present throughout Sensory Exam: normal sensation Psych: Appearance: grossly normal Objective Data Vital Signs Vital Signs: Vital Signs - 24 hr 10/27/20 11:04 10/27/20 12:00 10/27/20 13:32 Temperatur
--- NOTE | 2020-10-28 12:09 | PM.PNCARD ---
Progress Note: A&P Additional Plan 70-year-old man with: Atrial flutter in the setting of severe/end-stage COPD. Providing rate control with the combination of diltiazem and amiodarone at this time. He is receiving short-acting diltiazem on a Q 6 hours schedule I will transition this to diltiazem CD for convenience in anticipation of discharge at some point. Sam Morales MD [facility] Subjective Date/time seen: Date of service: 10/28/20 12:09 Interval history: Follow-up for atrial flutter. Admitted with a PE a cardiac arrest likely secondary to hypercarbic respiratory failure secondary to severe COPD. Date of service 10/26/2020: Needed BiPAP overnight. Currently sitting up in a chair, on 2 L of oxygen feeling well. Complains of chest soreness from his CPR. Was admitted in NSR but telemetry on my review now looks like he is in atrial flutter heart rate generally about 104 beats per minute, occasionally up to 130. Date of service 10/28/2020: Continues to be in rate controlled atrial flutter. Patient is receiving amiodarone and diltiazem for rate control. Objective Data Vital Signs Vital Signs: Vital Signs - 24 hr 10/27/20 13:32 10/27/20 14:02 10/27/20 15:18 Temperature Pulse Rate 118 H 107 H Respiratory Rate 20 Blood Pressure Pulse Oximetry 95 10/27/20 16:00 10/27/20 17:24 10/27/20 18:00 Temperature 36.6 C Pulse Rate 102 H 113 H 105 H Respiratory Rate 20 Blood Pressure 130/71 Pulse Oximetry 98 10/27/20 19:45 10/27/20 20:00 10/27/20 21:40 Temperature 36.4 C L Pulse Rate 100 100 95 Respiratory Rate 16 18 Blood Pressure 144/68 H Pulse Oximetry 99 98 10/27/20 21:47 10/27/20 22:00 10/27/20 23:42 Temperature 36.0 C L Pulse Rate 87 101 H Respiratory Rate 20 Blood Pressure 145/81 H Pulse Oximetry 98 93 10/27/20 23:55 10/28/20 00:00 10/28/20 02:00 Temperature Pulse Rate 87 88 70 Respiratory Rate 26 H Blood Pressure Pulse Oximetry 98 96 10/28/20 03:11 10/28/20 03:14 10/28/20 04:00 Temperature 36.1 C L Pulse Rate 73 73 70 Respiratory Rate 24 H 24 H 17 Blood Pressure 137/59 L Pulse Oximetry 94 96 10/28/20 05:10 10/28/20 06:00 10/28/20 08:00 Temperature 36.4 C Pulse Rate 68 76 80 Respiratory Rate 30 H 24 H Blood Pressure 164/66 H Pulse Oximetry 99 94 10/28/20 08:20 10/28/20 08:24 10/28/20 08:30 Temperature Pulse Rate 75 78 Respiratory Rate 20 20 Blood Pressure Pulse Oximetry 99 10/28/20 10:00 Temperature Pulse Rate 76 Respiratory Rate Blood Pressure Pulse Oximetry Intake/Output Intake/Output: Intake & Output 10/25/20 10/26/20 10/27/20 10/28/20 23:59 23:59 23:59 23:59 Intake Total 710 2050 1280 850 Output Total 443 497 1847 1250 Balance -190 1625 -260 -400 Meds/Results Medications: Active Medications Generic Name Dose Route Start Last Admin Trade Name Alexeiq PRN Reason Stop Dose Admin Albuterol 2.5 mg 10/24/20 02:00 10/28/20 08:23 Albuterol Sulfate Neb 2.5 Mg/0.5 Ml Inh INHALATION 2.5 mg Q6HRT REDD Administration Amiodarone HCl 200 mg 10/26/20 17:00 10/28/20 09:19 Amiodarone Hcl 200 Mg Tablet PO 200 mg BID REDD Administration Apixaban 5 mg 10/23/20 21:00 10/28/20 09:17 Apixaban 5 Mg Tablet PO 5 mg Q12HR [facility] Administration Aspirin 325 mg 10/24/20 09:25 10/28/20 09:17 Aspirin 325 Mg Tablet PO 325 mg DAILY@0800 REDD Administration Budesonide 0.5 mg 10/24/20 08:35 10/28/20 08:23 Budesonide Respule Neb 0.5 Mg/2 Ml Amp INHALATION 0.5 mg Q12HRT REDD Administration Diltiazem HCl 60 mg 10/27/20 12:00 10/28/20 06:01 Diltiazem Hcl 60 Mg Tablet PO 60 mg Q6HR [facility]D Administration Furosemide 20 mg 10/26/20 09:00 10/28/20 09:18 Furosemide Inj 40 Mg/4 Ml Vial IV PUSH 20 mg DAILY REDD Administration Piperacillin/Tazobactam/Dextrose 3.375 gm in 50 mls @ 100 mls/hr 10/24/20 11:00 10/28/20 06:31 Zosyn 3.375 Gm/D5w
[2020-10-28 18:20] LABS: SARS-CoV-2 RNA PCR Negative
--- NOTE | 2020-10-28 18:44 | PC.NURSE ---
This patient, Sam Sanchez, was transferred to [facility] on 10/28/20 at 1830. Personal belongings sent with patient. Report given to Zabrina. Appropriate documentation sent with patient.
--- NOTE | 2020-10-28 19:57 | PC.NURSE ---
1848 This patient, Sam Sanchez, was received from [IMU ] on 10/28/20 at 1958. Patient/family oriented to unit policies and routines
[2020-10-28 21:54] LABS: Vancomycin Trough 7.1 ug/mL (10.0-20.0)
[2020-10-29] VITALS (19 sets, daily range): BP systolic 110–128; BP diastolic 61–71; PULSE 70–110; RESP 19–22; TEMP 36.3–36.9; O2SAT 89–100
--- NOTE | 2020-10-29 03:55 | PC.NURSE ---
PT STATES HE IS NOT GETTING ANY AIR WITH BIPAP ON; DOES NOT TOLERATE BIPAP. PLACED ON 4LPM. BRYANNA PARRA, MADE AWARE.
[2020-10-29] MEDS: oxyCODONE/ACETAMINOPHEN (*CRX) 5-325 MG TABLET 1 TABLET PO ×5 (06:19→22:22)
[2020-10-29 06:20] LABS: Hematocrit 28.4 % (42.0-52.0); Hemoglobin 9.7 g/dL (14.0-18.0); Mean Corpuscular HGB Conc 34.2 g/dl (32-36); Mean Corpuscular Hemoglobin 31.4 pg (26-34); Mean Corpuscular Volume 91.9 fl (80-100); Mean Platelet Volume 12.3 fl (7.4-10.4); Platelet Count Result 101 k/mm3 (150-375); Red Blood Count 3.09 M/mm3 (4.6-6.20); Red Cell Distribution Width 12.9 % (11.5-14.5); White Blood Count 12.8 K/mm3 (4.5-10.0)
[2020-10-29 06:36] LABS: Alanine Aminotransferase 51 U/L (4-50); Alkaline Phosphatase 41 U/L (38-126); Aspartate Amino Transferase 26 U/L (17-59); Bilirubin,Total 1.2 mg/dL (0.2-1.3); Blood Urea Nitrogen 21 mg/dL (9-20); Calcium 8.1 mg/dL (8.4-10.2); Carbon Dioxide > 40 mmol/L (22-30); Chloride 82 mmol/L (98-107); Estimated CRCL calculation 111 ml/min; Estimated Glomerular Filt Rate > 60; Glucose 101 mg/dL (75-110); Magnesium 1.3 mg/dL (1.6-2.3); Potassium 4.3 mmol/L (3.4-5.0); Sodium 127 mmol/L (137-145)
[2020-10-29] MEDS: ALBUTEROL SULFATE NEB 2.5 MG/0.5 ML INH INHALATION ×3 (08:37→21:01)
[2020-10-29] MEDS: IPRATROPIUM BR 0.02% INH SOLN 0.5 MG/2.5 ML VIAL INHALATION ×3 (08:38→21:01)
[2020-10-29] MEDS: BUDESONIDE RESPULE NEB 0.5 MG/2 ML AMP INHALATION ×2 (08:38→21:01)
[2020-10-29] MEDS: ASPIRIN 325 MG TABLET PO (08:56)
[2020-10-29] MEDS: AMIODARONE HCL 200 MG TABLET PO ×2 (08:58→18:02)
[2020-10-29] MEDS: APIXABAN 5 MG TABLET PO ×2 (08:58→22:12)
[2020-10-29] MEDS: FUROSEMIDE INJ 40 MG/4 ML VIAL 20 MG IV PUSH (08:58)
[2020-10-29] MEDS: PANTOPRAZOLE SODIUM IV 40 MG VIAL IV PUSH (08:59)
--- NOTE | 2020-10-29 10:14 | PM.IMPN ---
Progress Note: A&P Assessment and Plan (1) Acute and chronic respiratory failure: Code(s): J96.20 - Acute and chronic respiratory failure, unspecified whether with hypoxia or hypercapnia Status: Acute Assessment and Plan: Patient is getting better. Will continue to use BiPAP. Will start physical therapy. (2) Diastolic congestive heart failure: Code(s): I50.30 - Unspecified diastolic (congestive) heart failure Status: Acute Assessment and Plan: Stable on medications. (3) Cardiac arrest with pulseless electrical activity: Code(s): I46.9 - Cardiac arrest, cause unspecified Status: Acute Assessment and Plan: Stable medications at present time, patient is alert and awake. (4) Hypertension: Qualifiers: Hypertension type: essential hypertension Qualified Code(s): I10 - Essential (primary) hypertension Code(s): I10 - Essential (primary) hypertension Status: Chronic Assessment and Plan: Stable on medication. (5) COPD (chronic obstructive pulmonary disease): Qualifiers: COPD type: unspecified COPD Qualified Code(s): J44.9 - Chronic obstructive pulmonary disease, unspecified Code(s): J44.9 - Chronic obstructive pulmonary disease, unspecified Status: Acute Assessment and Plan: Stable on medications (6) Paroxysmal atrial flutter: Code(s): I48.92 - Unspecified atrial flutter Status: Acute Assessment and Plan: Stable on medication. Subjective Date/time seen: 10/29/20 10:14 Interval history: Patient was seen during the morning rounds today. Patient is feeling much better. Denies any shortness of breath or chest pain. Mood stable. No new complaints. Review of Systems Review of Systems: All systems reviewed & are unremarkable except as noted in HPI and below (the history and physical) Exam Const: General: cooperative and no acute distress Orientation/consciousness: oriented to person, oriented to place, oriented to time and patient oriented x3 HENMT: Head: normal to inspection Ears: hearing grossly normal bilaterally and external ears normal General nose exam: Normal external nose present Face and sinus: normal facial exam Mouth: Yes Normal oral and palatal mucosa present Eyes: General: appearance normal, both eyes and all related structures Neck: Neck: normal visual inspection and full ROM Chest: Chest palpation & inspection: normal inspection of the chest and normal palpation of entire chest wall Resp: Effort & Inspection: normal respiratory effort Auscultation: clear to auscultation bilaterally Cardio: Jugular venous distension: no JVD Palpation: normal PMI Rate: regular rate Heart sounds: S1 normal heart sound present and S2 normal heart sound present GI: Inspection: normal to inspection Neuro: General: oriented to person, oriented to place, oriented to time and patient oriented x3 Cranial nerves: Yes CN's II-XII intact bilaterally Speech: normal speech Gait exam (Neuro): Normal gait present Motor exam (neuro): 5/5 motor strength present throughout Sensory Exam: normal sensation Psych: Appearance: grossly normal Objective Data Vital Signs Vital Signs: Vital Signs - 24 hr 10/28/20 12:00 10/28/20 14:00 10/28/20 14:35 Temperature 36.3 C L Pulse Rate 91 97 78 Respiratory Rate 26 H 20 Blood Pressure 131/70 Pulse Oximetry 90 10/28/20 14:45 10/28/20 16:00 10/28/20 20:00 Temperature 36.1 C L Pulse Rate 82 93 70 Respiratory Rate 20 20 Blood Pressure 131/62 Pulse Oximetry 99 98 10/28/20 21:11 10/28/20 21:13 10/28/20 21:35 Temperature Pulse Rate 80 79 Respiratory Rate 20 20 Blood Pressure Pulse Oximetry 98 10/28/20 22:00 10/29/20 00:00 10/29/20 01:45 Temperature 36.7 C Pulse Rate 89 75 70 Respiratory Rate 20 19 Blood Pressure 136/70 Pulse Oximetry 93 98 10/29/20 04:00 10/29/20 06:00 10/29/20 08:39 Temperat
--- NOTE | 2020-10-29 10:41 | PM.PNCARD ---
Progress Note: A&P Additional Plan Atrial flutter heart rate response is controlled. Continue current medical regimen for now. Will treat his chest wall pain symptomaticly. Sam Morales MD [facility] Subjective Date/time seen: Date of service: 10/29/20 10:41 Interval history: Follow-up for atrial flutter. Admitted with a PE a cardiac arrest likely secondary to hypercarbic respiratory failure secondary to severe COPD. Date of service 10/29/2020: Patient continues to be in atrial flutter with controlled response. He is receiving both diltiazem and amiodarone for this. Today's reporting more left precordial chest discomfort with respiratory effort that appears to be the result of CPR that he received upon admission Exam Const: General: comfortable and no acute distress; No confusion Orientation/consciousness: No confusion Other: Chronically ill-appearing male sitting up in chair in no distress HENMT: Mouth: Yes moist mucous membranes Eyes: Sclera: sclerae normal Pupils: Equal, round and reactive pupils present EOM: EOMs intact bilaterally Neck: Neck: supple and no JVD Resp: Effort & Inspection: normal respiratory effort Auscultation: diminished lung sounds Other: Breath sounds are markedly diminished in both lung carreon Cardio: Rate: regular rate and tachycardic Rhythm: regular rhythm GI: Inspection: non-distended Auscultation: normal bowel sounds Skin: General skin exam: normal color Rashes: no rashes noted Neuro: General: No confusion Cranial nerves: Yes Equal, round and reactive pupils present Cognition (Neuro): normal cognition Speech: normal speech Motor exam (neuro): Normal motor muscle tone present throughout Other: Cannot assess neurological status as he is currently intubated Extrem: General: normal to inspection and edema (Mild edema of lower tibia bilaterally) Psych: Mental Status: mental status grossly normal Affect: normal affect Objective Data Vital Signs Vital Signs: Vital Signs - 24 hr 10/28/20 12:00 10/28/20 14:00 10/28/20 14:35 Temperature 36.3 C L Pulse Rate 91 97 78 Respiratory Rate 26 H 20 Blood Pressure 131/70 Pulse Oximetry 90 10/28/20 14:45 10/28/20 16:00 10/28/20 20:00 Temperature 36.1 C L Pulse Rate 82 93 70 Respiratory Rate 20 20 Blood Pressure 131/62 Pulse Oximetry 99 98 10/28/20 21:11 10/28/20 21:13 10/28/20 21:35 Temperature Pulse Rate 80 79 Respiratory Rate 20 20 Blood Pressure Pulse Oximetry 98 10/28/20 22:00 10/29/20 00:00 10/29/20 01:45 Temperature 36.7 C Pulse Rate 89 75 70 Respiratory Rate 20 19 Blood Pressure 136/70 Pulse Oximetry 93 98 10/29/20 04:00 10/29/20 06:00 10/29/20 08:39 Temperature 36.8 C Pulse Rate 88 102 H 80 Respiratory Rate 22 H 20 Blood Pressure 128/67 Pulse Oximetry 93 10/29/20 08:40 10/29/20 08:44 10/29/20 08:58 Temperature Pulse Rate 80 110 H Respiratory Rate 20 Blood Pressure Pulse Oximetry 94 Intake/Output Intake/Output: Intake & Output 10/26/20 10/27/20 10/28/20 10/29/20 23:59 23:59 23:59 23:59 Intake Total 2050 1280 1250 500 Output Total 425 1540 1850 600 Balance 1625 -260 -600 -100 Meds/Results Medications: Active Medications Generic Name Dose Route Start Last Admin Trade Name Freq PRN Reason Stop Dose Admin Albuterol 2.5 mg 10/24/20 02:00 10/29/20 08:37 Albuterol Sulfate Neb 2.5 Mg/0.5 Ml Inh INHALATION 2.5 mg Q6HRT [facility] Administration Amiodarone HCl 200 mg 10/26/20 17:00 10/29/20 08:58 Amiodarone Hcl 200 Mg Tablet PO 200 mg BID REDD Administration Apixaban 5 mg 10/23/20 21:00 10/29/20 08:58 Apixaban 5 Mg Tablet PO 5 mg Q12HR [facility] Administration Aspirin 325 mg 10/24/20 09:25 10/29/20 08:56 Aspirin 325 Mg Tablet PO 325 mg DAILY@0800 [facility] Administration Budesonide 0.5 mg 10/24/20 08:35 10/29/20 08:38 Budesonide Respule Neb 0.5 Mg/2 Ml Amp INHALATION 0.5 mg Q12HRT [facility]
--- NOTE | 2020-10-29 11:09 | PCPTNOTE ---
Checked on patient at 1030 this am, RN was giving patient pain medicine and asked therapy to come back when it has kicked in. Therapy came back around 1109 and patient declined therapy stating his chest was hurting him so bad. Attempted to perform LE exercises with encouragement and patient continues to decline. Education provided with no avail. Will continue to check on patient as time allows.
--- NOTE | 2020-10-29 11:47 | PCOTNOTE ---
Attempted to see pt this AM for OT tx. Pt declined all aspects of OT tx including adls, therapeutic activities, or Bue exercises stating increased pain in chest area. RN was informed of pt's complaints and stated that they were aware of his pain due to hx of having compressions done on him. Pt declined to have therapist come back in the PM, stating he would not be up to it then. Will continue per POC frequency/duration tomorrow.
[2020-10-29] MEDS: methylPREDNISolone SOD SUCC 125 MG VIAL 60 MG IV PUSH (13:28)
[2020-10-30] VITALS (22 sets, daily range): BP systolic 128–138; BP diastolic 67–73; PULSE 84–115; RESP 18–34; TEMP 36.1–36.6; O2SAT 90–100
[2020-10-30] MEDS: IPRATROPIUM BR 0.02% INH SOLN 0.5 MG/2.5 ML VIAL INHALATION ×4 (02:11→22:48)
[2020-10-30] MEDS: ALBUTEROL SULFATE NEB 2.5 MG/0.5 ML INH INHALATION ×4 (02:11→22:49)
[2020-10-30] MEDS: oxyCODONE/ACETAMINOPHEN (*CRX) 5-325 MG TABLET 1 TABLET PO ×5 (06:07→23:56)
[2020-10-30 08:07] LABS: Hematocrit 28.1 % (42.0-52.0); Hemoglobin 9.5 g/dL (14.0-18.0); Mean Corpuscular HGB Conc 33.8 g/dl (32-36); Mean Corpuscular Hemoglobin 31.5 pg (26-34); Mean Platelet Volume 12.3 fl (7.4-10.4); Platelet Count Result 69 k/mm3 (150-375); Red Blood Count 3.02 M/mm3 (4.6-6.20); White Blood Count 13.4 K/mm3 (4.5-10.0)
[2020-10-30] MEDS: BUDESONIDE RESPULE NEB 0.5 MG/2 ML AMP INHALATION ×2 (08:49→22:48)
[2020-10-30] MEDS: ASPIRIN 325 MG TABLET PO (09:02)
[2020-10-30] MEDS: APIXABAN 5 MG TABLET PO ×2 (09:03→20:01)
[2020-10-30] MEDS: AMIODARONE HCL 200 MG TABLET PO ×2 (09:03→17:40)
[2020-10-30 09:04] LABS: Vancomycin Trough 10.9 ug/mL (10.0-20.0)
[2020-10-30] MEDS: PANTOPRAZOLE SODIUM IV 40 MG VIAL IV PUSH (09:04)
[2020-10-30] MEDS: FUROSEMIDE INJ 40 MG/4 ML VIAL 20 MG IV PUSH ×3 (09:04→23:57)
[2020-10-30] MEDS: methylPREDNISolone SOD SUCC 125 MG VIAL 60 MG IV PUSH (09:04)
--- NOTE | 2020-10-30 09:12 | PM.IMPN ---
Progress Note: A&P Assessment and Plan (1) Acute and chronic respiratory failure: Code(s): J96.20 - Acute and chronic respiratory failure, unspecified whether with hypoxia or hypercapnia Status: Acute Assessment and Plan: Patient is getting better. Will continue to use BiPAP. Will start physical therapy. (2) Diastolic congestive heart failure: Code(s): I50.30 - Unspecified diastolic (congestive) heart failure Status: Acute Assessment and Plan: Stable on medications. (3) Cardiac arrest with pulseless electrical activity: Code(s): I46.9 - Cardiac arrest, cause unspecified Status: Acute Assessment and Plan: Stable medications at present time, patient is alert and awake. (4) Hypertension: Qualifiers: Hypertension type: essential hypertension Qualified Code(s): I10 - Essential (primary) hypertension Code(s): I10 - Essential (primary) hypertension Status: Chronic Assessment and Plan: Stable on medication. (5) COPD (chronic obstructive pulmonary disease): Qualifiers: COPD type: unspecified COPD Qualified Code(s): J44.9 - Chronic obstructive pulmonary disease, unspecified Code(s): J44.9 - Chronic obstructive pulmonary disease, unspecified Status: Acute Assessment and Plan: Stable on medications. Will switch to p.o. prednisone. (6) Paroxysmal atrial flutter: Code(s): I48.92 - Unspecified atrial flutter Status: Acute Assessment and Plan: Stable on medication. (7) Hyponatremia: Code(s): E87.1 - Hypo-osmolality and hyponatremia Status: Acute Assessment and Plan: Sodium is still running low will consult nephrology. Subjective Date/time seen: 10/30/20 09:12 Interval history: Patient was seen during the morning rounds today. Patient is feeling much better. Denies any shortness of breath or chest pain. Mood stable. No new complaints. Review of Systems Review of Systems: All systems reviewed & are unremarkable except as noted in HPI and below (the history and physical) Constitutional: Constitutional: Reports as per HPI Eyes: Eyes: Reports as per HPI ENT: Reports system reviewed and no additional complaints, except as documented Cardiovascular: Cardiovascular: Reports as per HPI Respiratory: Respiratory: Reports as per HPI Gastrointestinal: Gastrointestinal: Reports as per HPI Musculoskeletal: Musculoskeletal: Reports no additional musculoskeletal complaints Neurologic: Reports system reviewed and no additional complaints, except as documented and Reports as per HPI Psychiatric: Psychiatric: Reports no additional psychiatric complaints and Reports as per HPI Endocrine: Endocrine: Reports as per HPI Exam Const: General: cooperative and no acute distress Orientation/consciousness: oriented to person, oriented to place, oriented to time and patient oriented x3 HENMT: Head: normal to inspection Ears: hearing grossly normal bilaterally and external ears normal General nose exam: Normal external nose present Face and sinus: normal facial exam Mouth: Yes Normal oral and palatal mucosa present Eyes: General: appearance normal, both eyes and all related structures Neck: Neck: normal visual inspection and full ROM Chest: Chest palpation & inspection: normal inspection of the chest and normal palpation of entire chest wall Resp: Effort & Inspection: normal respiratory effort Auscultation: clear to auscultation bilaterally Cardio: Jugular venous distension: no JVD Palpation: normal PMI Rate: regular rate Heart sounds: S1 normal heart sound present and S2 normal heart sound present GI: Inspection: normal to inspection Neuro: General: oriented to person, oriented to place, oriented to time and patient oriented x3 Cranial nerves: Yes CN's II-XII intact bilaterally Speech: normal speech Gait exam (Neuro): Normal gait present Motor exam (neuro): 55 motor
[2020-10-30 10:44] LABS: Alveolar/Arterial O2 Gradient 85.1 mmHg; Base Excess ABG 19.7 mEq/l (+/-2.0); Fractional Inspired Oxygen 32 %; HCO3 ABG 47.9 mEq/l (22.0-26.0); Oxygen Content ABG 12.5 %vol (16.0-22.0); Oxyhemoglobin 83.3 % THb (90.0-100.0); PO2 ABG 51.2 mmHg (80.0-100.0); Total Hemoglobin 10.7 g/dL (12.0-18.0); pH ABG 7.403 (7.350-7.450)
[2020-10-30 10:45] LABS: Device NASAL CANNULA; Modified Allen's Test Pass; Oxygen Saturation ABG 84.2 % (95.0-100.0); PCO2 ABG 78.5 mmHg (35.0-45.0); Site Drawn RIGHT RADIAL
[2020-10-30 13:11] LABS: Base Excess ABG 24.8 mEq/l (+/-2.0); Device NASAL CANNULA; Fractional Inspired Oxygen 40 %; HCO3 ABG 53.7 mEq/l (22.0-26.0); Modified Allen's Test Pass; Oxygen Content ABG 13.4 %vol (16.0-22.0); Oxygen Saturation ABG 90.3 % (95.0-100.0); Oxyhemoglobin 90.4 % THb (90.0-100.0); PO2 ABG 62.2 mmHg (80.0-100.0); PO2 FiO2 Ratio Arterial Blood 1.56 %; Site Drawn RIGHT RADIAL; Total Hemoglobin 10.5 g/dL (12.0-18.0); pH ABG 7.408 (7.350-7.450)
--- NOTE | 2020-10-30 13:15 | PCOTNOTE ---
Attempted to see Pt for OT tx. Per RN, pt is not appropriate for therapy today due to decreasing o2 levels and pain. Will continue tomorrow per POC duration/frequency if appropriate.
--- NOTE | 2020-10-30 13:32 | PM.CNNEP ---
Assessment and Plan Assessment and plan (1) Hyponatremia: Code(s): E87.1 - Hypo-osmolality and hyponatremia Status: Chronic Assessment and Plan: chronic issues since at least February 2020 sodium levels fluctuate around 127 - 135mmol/L extensive evaluation done by Dr. Moreno on last hospitalization a week ago: - TSH and cortisol okay - no evidence of paraproteinemia - no culprit medications patient has hyponatremia - no evidence of any malignancies (although I am unclear when he was last screened) - CT of head with colloid cyst but unclear if this would cause the problem low sodium likely secondary to severe COPD and chronic prerenal azotemia from his pulmonary HTN with ongoing need for diuretic therapy would continue fluid restriction (2) Acute and chronic respiratory failure: Code(s): J96.20 - Acute and chronic respiratory failure, unspecified whether with hypoxia or hypercapnia Status: Acute Assessment and Plan: resolving monitor respiratory status closely (3) Cardiac arrest with pulseless electrical activity: Code(s): I46.9 - Cardiac arrest, cause unspecified Status: Acute Assessment and Plan: thought to be respiratory in origin with regard to CO2 narcosis Cardiology following Will continue to follow. History of Present Illness Reason for Consult Consult date: 10/30/20 Reason for consult: hyponatremia Chief Complaint Chief complaint: acute respiratory failure/post cardiac arrest History of Present Illness Narrative: The patient is a 70-year-old male with extensive past medical history as outlined below who presented to [facility] Emergency room via EMS after he was found unresponsive. The patient's significant other call 911 when she noted that he had been somewhat unresponsive most of the entire day on the day of admission. On arrival by EMS, he is found have agonal respirations but did have a pulse. I am unclear on the timing of events but he shortly then went in to a PA arrest and he was started on ACLS protocol with prompt return of systemic circulation within less than 10 min by report. He was being bagged on his arrival to the emergency room and then was promptly intubated and placed on mechanical ventilation. Prior to intubation, he was apparently moving all extremities and even attempted to sit up. Routine blood test demonstrated his known chronic hyponatremia and CO2 retention which is felt to be responsible for his PA arrest. He was subsequently transferred to the ICU for further management and therapy. Since his admission, he has since been extubated and transferred out to the floor and appears to be doing reasonably well from a respiratory standpoint. Routine labs over the last several days have demonstrate his known chronic hyponatremia but has not appears to have clinically worsened in the time that he has been hospitalized. Renal consultation was requested due to his chronic hyponatremia. When the patient was hospitalized here about a week ago, Dr. Moreno had seen the patient for evaluation of this same issue. He underwent a fairly extensive workup and it was felt that his hyponatremia was probably secondary to his long extensive history of COPD coupled with possible chronic prerenal azotemia from his pulmonary hypertension and assess the of diuretic therapy to maintain his volume status. His baseline sodium level tends to run anywhere from 127-135 millimoles per L in the last year and a half. Currently, at the time my visit, he appears to be doing reasonably well with no other acute issues or complaints voiced. [facility] Past Medical History Medical History (Updated 10/30/20 @ 15:36 by Alley Rutledge MD) Atrial flutter Chronic anemia Chronic obstructive pulmonary disease Chronic respiratory failure with hypoxia, on home oxygen therapy Congestive heart
[2020-10-30] MEDS: acetaZOLAMIDE TAB 250 MG TABLET 500 MG PO (17:41)
[2020-10-31] VITALS (21 sets, daily range): BP systolic 115–134; BP diastolic 56–75; PULSE 70–110; RESP 16–26; TEMP 36.4–36.6; O2SAT 90–100
[2020-10-31] MEDS: IPRATROPIUM BR 0.02% INH SOLN 0.5 MG/2.5 ML VIAL INHALATION ×2 (04:15→20:30)
[2020-10-31] MEDS: ALBUTEROL SULFATE NEB 2.5 MG/0.5 ML INH INHALATION (04:20)
[2020-10-31] MEDS: oxyCODONE/ACETAMINOPHEN (*CRX) 5-325 MG TABLET 1 TABLET PO ×3 (06:05→21:16)
[2020-10-31] MEDS: FUROSEMIDE INJ 40 MG/4 ML VIAL 20 MG IV PUSH ×2 (06:21→20:00)
[2020-10-31 06:35] LABS: Hematocrit 25.7 % (42.0-52.0); Hemoglobin 8.5 g/dL (14.0-18.0); Immature Platelet Fraction Pct 12.4 % (0.9-11.2); Mean Corpuscular HGB Conc 33.1 g/dl (32-36); Mean Corpuscular Hemoglobin 31.8 pg (26-34); Mean Corpuscular Volume 96.3 fl (80-100); Mean Platelet Volume 12.1 fl (7.4-10.4); Platelet Count Result 80 k/mm3 (150-375); Red Blood Count 2.67 M/mm3 (4.6-6.20); Red Cell Distribution Width 13.2 % (11.5-14.5)
[2020-10-31 06:48] LABS: Blood Urea Nitrogen 30 mg/dL (9-20); Calcium 7.8 mg/dL (8.4-10.2); Carbon Dioxide > 40 mmol/L (22-30); Chloride 80 mmol/L (98-107); Estimated CRCL calculation 75 ml/min; Estimated Glomerular Filt Rate > 60; Glucose 107 mg/dL (75-110); Potassium 4.1 mmol/L (3.4-5.0); Sodium 123 mmol/L (137-145)
--- NOTE | 2020-10-31 07:41 | PM.PNNEP ---
Progress Note: A&P Assessment and Plan (1) Hyponatremia: Code(s): E87.1 - Hypo-osmolality and hyponatremia Status: Chronic Assessment and Plan: chronic issues since at least February 2020 sodium levels fluctuate around 127 - 135mmol/L extensive evaluation done by Dr. Moreno on last hospitalization a week ago: - TSH and cortisol okay - no evidence of paraproteinemia - no culprit medications patient has hyponatremia - no evidence of any malignancies (although I am unclear when he was last screened) - CT of head with colloid cyst but unclear if this would cause the problem sodium was stable on lasix one a day. His sodium is lower today on q8h lasix. this happens since the urine osmo has no time to normalize and excrete the excess water. He is fluid overloaded so needs the diuretics. to help keep the sodium from dropping, will give nacl tabs with each dose of lasix. (2) Acute and chronic respiratory failure: Code(s): J96.20 - Acute and chronic respiratory failure, unspecified whether with hypoxia or hypercapnia Status: Acute Assessment and Plan: resolving monitor respiratory status closely (3) Cardiac arrest with pulseless electrical activity: Code(s): I46.9 - Cardiac arrest, cause unspecified Status: Acute Assessment and Plan: thought to be respiratory in origin with regard to CO2 narcosis sore chest from this Cardiology following Subjective Date/time seen: 10/31/20 15:41 Interval history: pt is alert. feels okay. he has some swelliing but this is better today. no cp. breatihing is about the same. Review of Systems Cardiovascular: Cardiovascular: Reports no additional cardiovascular complaints Respiratory: Respiratory: Reports no additional respiratory complaints Gastrointestinal: Gastrointestinal: Reports no additional gastrointestinal complaints Genitourinary: Genitourinary: Reports no additional male genitourinary complaints Exam Narrative: Exam Narrative: WDWN in NAD skin no rash head ncat lungs clear cor reg no rub or gallop abd BS+ nontender and soft ext 1+ edema. Objective Data Vital Signs Vital Signs: Vital Signs - 24 hr 10/30/20 16:00 10/30/20 17:40 10/30/20 20:00 Temperature Pulse Rate 111 H 103 H 103 H Respiratory Rate Blood Pressure Pulse Oximetry 96 10/30/20 21:59 10/30/20 22:45 10/30/20 22:50 Temperature 36.1 C L Pulse Rate 99 84 Respiratory Rate 20 20 Blood Pressure 128/67 Pulse Oximetry 96 94 10/30/20 22:53 10/30/20 23:05 10/31/20 00:00 Temperature Pulse Rate 84 99 102 H Respiratory Rate 20 Blood Pressure Pulse Oximetry 94 10/31/20 00:40 10/31/20 04:00 10/31/20 04:15 Temperature Pulse Rate 98 70 74 Respiratory Rate 19 26 H Blood Pressure Pulse Oximetry 98 10/31/20 04:21 10/31/20 04:23 10/31/20 06:00 Temperature 36.4 C Pulse Rate 79 78 77 Respiratory Rate 16 22 H 20 Blood Pressure 115/56 L Pulse Oximetry 93 91 10/31/20 08:00 10/31/20 08:28 10/31/20 08:29 Temperature Pulse Rate 82 93 93 Respiratory Rate 20 20 Blood Pressure Pulse Oximetry 91 10/31/20 08:35 10/31/20 09:04 10/31/20 12:00 Temperature Pulse Rate 88 100 106 H Respiratory Rate 20 Blood Pressure Pulse Oximetry 10/31/20 13:25 10/31/20 13:41 Temperature Pulse Rate 88 88 Respiratory Rate 20 20 Blood Pressure Pulse Oximetry Intake/Output Intake/Output: Intake & Output 10/28/20 10/29/20 10/30/20 10/31/20 23:59 23:59 23:59 23:59 Intake Total 1250 1950 1450 740 Output Total 1850 1200 950 900 Balance -600 750 500 -160 Meds/Results Medications: Active Medications Generic Name Dose Route Start Last Admin Trade Name Alexeiq PRN Reason Stop Dose Admin Acetazolamide 500 mg 10/30/20 17:00 10/31/20 09:03 Acetazolamide Tab 250 Mg Tablet PO
[2020-10-31] MEDS: predniSONE 20 MG TABLET 40 MG PO (09:03)
[2020-10-31] MEDS: acetaZOLAMIDE TAB 250 MG TABLET 500 MG PO ×2 (09:03→17:23)
[2020-10-31] MEDS: APIXABAN 5 MG TABLET PO ×2 (09:04→20:00)
[2020-10-31] MEDS: AMIODARONE HCL 200 MG TABLET PO ×2 (09:04→17:23)
[2020-10-31] MEDS: PANTOPRAZOLE 40 MG TABLET PO (09:05)
--- NOTE | 2020-10-31 09:36 | PM.IMPN ---
Progress Note: A&P Assessment and Plan (1) Acute and chronic respiratory failure: Code(s): J96.20 - Acute and chronic respiratory failure, unspecified whether with hypoxia or hypercapnia Status: Acute Assessment and Plan: Patient is getting better. Will continue to use BiPAP. Will start physical therapy. Evaluate for home oxygen (2) Diastolic congestive heart failure: Code(s): I50.30 - Unspecified diastolic (congestive) heart failure Status: Acute Assessment and Plan: Stable on medications. (3) Cardiac arrest with pulseless electrical activity: Code(s): I46.9 - Cardiac arrest, cause unspecified Status: Acute Assessment and Plan: Stable medications at present time, patient is alert and awake. (4) Hypertension: Qualifiers: Hypertension type: essential hypertension Qualified Code(s): I10 - Essential (primary) hypertension Code(s): I10 - Essential (primary) hypertension Status: Chronic Assessment and Plan: Stable on medication. (5) COPD (chronic obstructive pulmonary disease): Qualifiers: COPD type: unspecified COPD Qualified Code(s): J44.9 - Chronic obstructive pulmonary disease, unspecified Code(s): J44.9 - Chronic obstructive pulmonary disease, unspecified Status: Acute Assessment and Plan: Stable on medications. Will switch to p.o. prednisone. (6) Paroxysmal atrial flutter: Code(s): I48.92 - Unspecified atrial flutter Status: Acute Assessment and Plan: Stable on medication. (7) Hyponatremia: Code(s): E87.1 - Hypo-osmolality and hyponatremia Status: Chronic Assessment and Plan: Sodium is still running low will consult nephrology. Additional Plan 1. Continue current treatment 2. Evaluate for home oxygen 3. Start physical therapy 4. Sodium is low 123 Nephrology on consult monitor sodium closely. 5. Hemoglobin is slightly low, will repeat hemoglobin tomorrow. Patient was started on p.o. iron if hemoglobin drops will transfuse. Subjective Date/time seen: 10/31/20 09:36 Interval history: Patient was seen during the morning rounds today. Patient is feeling much better. Mild shortness of breath or chest pain. Mood stable. No new complaints. Review of Systems Review of Systems: All systems reviewed & are unremarkable except as noted in HPI and below (the history and physical) Constitutional: Constitutional: Reports as per HPI Eyes: Eyes: Reports as per HPI ENT: Reports system reviewed and no additional complaints, except as documented Cardiovascular: Cardiovascular: Reports as per HPI Respiratory: Respiratory: Reports as per HPI Gastrointestinal: Gastrointestinal: Reports as per HPI Musculoskeletal: Musculoskeletal: Reports no additional musculoskeletal complaints Neurologic: Reports system reviewed and no additional complaints, except as documented and Reports as per HPI Psychiatric: Psychiatric: Reports no additional psychiatric complaints and Reports as per HPI Endocrine: Endocrine: Reports as per HPI Exam Const: General: cooperative and no acute distress Orientation/consciousness: oriented to person, oriented to place, oriented to time and patient oriented x3 HENMT: Head: normal to inspection Ears: hearing grossly normal bilaterally and external ears normal General nose exam: Normal external nose present Face and sinus: normal facial exam Mouth: Yes Normal oral and palatal mucosa present Eyes: General: appearance normal, both eyes and all related structures Neck: Neck: normal visual inspection and full ROM Chest: Chest palpation & inspection: normal inspection of the chest and normal palpation of entire chest wall Resp: Effort & Inspection: normal respiratory effort Auscultation: clear to auscultation bilaterally Cardio: Jugular venous distension: no JVD Palpation: normal PMI Rate: regular rate Heart sounds: S1 normal heart veto
--- NOTE | 2020-10-31 11:06 | PCDIET ---
Nutrition Follow-Up Complete: Nutrition Diagnosis: Inadequate oral intake related to oral intubation as evidenced by NPO status. Nutrition Goal: Patient to meet estimated nutritional needs. Goal in progress. Patient reports decreased appetite due to pain in chest which he feels is related to chest compressions and states MD is aware. Patient reports limited intake over the past few days but has been taking Ensure Enlive which is being provided with meals TID. Diet is heart healthy with 800mL fluid restriction. Recommend liberalizing diet since oral sodium is being given. Will continue to monitor with same goal. Last recorded weight is 56.1 kg which is increased from last review. +I/O. Bowel Motility: Last documented BM on 10/28/20 x 1. Labs Reviewed: Hgb (8.5), Hct (25.7), BUN (30), Cr (0.6), Na (123) Meds Noted: Diamox, Albuterol, Pulmicort, Lasix, Atrovent, Protonix, Prednisone, Sodium Chloride, Vancomycin Additional Notes: Deep tissue injuries to bilateral heels and left ischium. Nutrition Monitoring and Evaluation: Follow up every 3 days.
--- NOTE | 2020-10-31 11:19 | PM.PNCARD ---
Progress Note: A&P Assessment and Plan (1) Paroxysmal atrial flutter: Code(s): I48.92 - Unspecified atrial flutter Status: Acute Assessment and Plan: Looks like patient has is likely back in atrial flutter with a reasonably controlled rate on amiodarone 200 mg daily. Will increase to b.i.d.. Continue Eliquis 5 mg b.i.d. We are hoping for short-term amiodarone use but options are limited with this patient. heart rate is fairly well controlled with diltiazem and amiodarone although this is not a great combination given his underlying lung disease long-term. Once well enough, consider referral for ablation Reduce his furosemide at 20 mg IV Q 12 hours. He is not significantly volume overloaded at this point in my opinion (2) Acute and chronic respiratory failure: Code(s): J96.20 - Acute and chronic respiratory failure, unspecified whether with hypoxia or hypercapnia Status: Acute Assessment and Plan: Severe COPD. Respiratory failure improving, needs BiPAP at night. (3) Cardiac arrest with pulseless electrical activity: Code(s): I46.9 - Cardiac arrest, cause unspecified Status: Acute Assessment and Plan: Status post PA arrest secondary to hypercarbia, good recovery. (4) Elevated troponin: Code(s): R77.8 - Other specified abnormalities of plasma proteins Status: Acute Assessment and Plan: 0.045 and 0.045, secondary to cardiac arrest not a acute coronary syndrome event. Subjective Date/time seen: 10/31/20 11:19 Interval history: Follow-up for atrial flutter. Admitted with a PE a cardiac arrest likely secondary to hypercarbic respiratory failure secondary to severe COPD. Date of service 10/31/2020: Still has chest wall pain. No shortness of breath though. No syncope Review of Systems Review of Systems: ROS unobtainable: Yes unobtainable due to endotracheal tube Constitutional: Constitutional: Reports fatigue ENT: Denies epistaxis Cardiovascular: Cardiovascular: Reports chest pain (Sore from CPR), Reports pedal edema, Denies dyspnea and Reports dyspnea on exertion Respiratory: Respiratory: Denies cough, Denies dyspnea and Reports dyspnea on exertion Gastrointestinal: Gastrointestinal: Denies abdominal pain Musculoskeletal: Musculoskeletal: Denies back pain Integumentary/Breasts: Skin/Breast: Denies rash Neurologic: Denies behavioral changes and Denies confusion Psychiatric: Psychiatric: Denies behavioral changes and Denies confusion Endocrine: Endocrine: Reports fatigue Exam Const: General: comfortable and no acute distress; No confusion Orientation/consciousness: No confusion Other: Chronically ill-appearing male sitting up in chair in no distress HENMT: Mouth: Yes moist mucous membranes Eyes: Sclera: sclerae normal Pupils: Equal, round and reactive pupils present EOM: EOMs intact bilaterally Neck: Neck: supple and no JVD Chest: Other: chest wall pain to palpate Resp: Effort & Inspection: normal respiratory effort Auscultation: diminished lung sounds Other: Breath sounds are markedly diminished in both lung carreon Cardio: Rate: regular rate and tachycardic Rhythm: abnormal rhythm GI: Inspection: non-distended Auscultation: normal bowel sounds Skin: General skin exam: normal color Rashes: no rashes noted Neuro: General: No confusion Cranial nerves: Yes Equal, round and reactive pupils present Cognition (Neuro): normal cognition Speech: normal speech Motor exam (neuro): Normal motor muscle tone present throughout Other: Cannot assess neurological status as he is currently intubated Extrem: General: normal to inspection Psych: Mental Status: mental status grossly normal Affect: normal affect Objective Data Vital Signs Vital Signs: Vital Signs - 24 hr 10/30/20 12:00 10/30/20 13:07 10/30/20 13:16 T
--- NOTE | 2020-10-31 11:58 | PCOTNOTE ---
Attempted to see patient for skilled OT, however, patient declined any interventions suggested. Patient verbalized, I'm just having a bad day...can we do it tomorrow? Patient not seen for OT this date. Will continue plan of care tomorrow, 11/01/2020.
--- NOTE | 2020-10-31 12:12 | PM.CNPUL ---
Assessment and Plan Assessment and plan (1) Acute on chronic respiratory failure with hypoxia and hypercapnia: Code(s): J96.21 - Acute and chronic respiratory failure with hypoxia; J96.22 - Acute and chronic respiratory failure with hypercapnia Status: Acute Assessment and Plan: Likely due to acute congestive heart failure with preserved ejection fraction. I do not see significant signs of COPD exacerbation. The patient claims he has an NIV machine at home likely [facility] and has had it for a month visit but has only used it 1 night. I encouraged him to use it during sleep (2) Acute CHF (congestive heart failure): Code(s): I50.9 - Heart failure, unspecified Status: Acute Assessment and Plan: Improved with increased dose of diuretics. I will add Diamox 500 mg p.o. b.i.d. for a few days. (3) Pulmonary hypertension: Code(s): I27.20 - Pulmonary hypertension, unspecified Status: Acute Assessment and Plan: Likely due to combination of congestive heart failure and COPD. (4) COPD (chronic obstructive pulmonary disease): Qualifiers: COPD type: unspecified COPD Qualified Code(s): J44.9 - Chronic obstructive pulmonary disease, unspecified Code(s): J44.9 - Chronic obstructive pulmonary disease, unspecified Status: Acute Assessment and Plan: Continue albuterol 2.5 mg Q 6 hours p.r.n. Continue ipratropium 0.5 mg q.6 hours scheduled Continue budesonide 0.5 mg nebulized q.12 hours Prednisone can be discontinued encourage patient quit smoke. Nicotine replacement therapy be used hospital If patient requests. History of Present Illness History of Present Illness Consult date: 10/31/20 Chief complaint: acute respiratory failure/post cardiac arrest Narrative: This is a very pleasant 70-year-old male with a history of severe COPD and still currently smokes presents with acute respiratory failure. He says he can't remember what happened and loss consciousness. At some point he had CPR and is complaining of left-sided rib pain from the CPR. Chest x-ray shows increased interstitial opacities with bilateral pleural effusions NT-BNP level of greater than 3000 on admission. With a normal creatinine. I see no evidence of pneumonia and he denies productive cough, fever, chills, night sweats, loss of taste or smell or GI symptoms. His COVID test was negative. An echocardiogram done in March 2020 shows significant diastolic dysfunction with preserved ejection fraction as well as moderate pulmonary hypertension. Yesterday I increased his Lasix dose to 20 mg IV q.8 hours and since diuresing he feels much better and less short of breath this morning. Review of Systems Review of Systems: All systems reviewed & are unremarkable except as noted in HPI and below PMFSH Past Medical History Medical History (Updated 10/31/20 @ 12:19 by Alysa Sanchez MD) Atrial flutter Chronic anemia Chronic obstructive pulmonary disease Chronic respiratory failure with hypoxia, on home oxygen therapy Congestive heart failure Echocardiogram dated 03/12/2020 showed normal LV size and function with an EF of 77%, grade 2 diastolic dysfunction, and a moderately enlarged right ventricle with moderate hypokinesis and right ventricular hypertrophy. Hypertension Moderate pulmonary arterial systolic hypertension On echocardiogram dated 03/12/2020 with an estimated pulmonary arterial systolic pressure of 50 mmHg. Paroxysmal atrial flutter Tobacco abuse Surgical History Surgical History History of cataract extraction Family History Family History Sibling Heart disease 3/4 the patient has 4 brothers have of heart disease. Diabetes mellitus The patient has 1 remaining living brother has diabetes. Mother Stomach cancer age 54, or perhaps a sr community manager
[2020-10-31] MEDS: ASPIRIN 325 MG TABLET PO (12:44)
[2020-10-31] MEDS: SODIUM CHLORIDE 1 GM TABLET PO ×2 (12:45→21:17)
[2020-10-31] MEDS: MULTIVITAMIN HEMATINIC (*BKC) TABLET 1 TABLET PO (12:45)
[2020-10-31 19:06] LABS: Sodium 125 mmol/L (137-145)
[2020-10-31] MEDS: BUDESONIDE RESPULE NEB 0.5 MG/2 ML AMP INHALATION (20:30)
[2020-11-01] VITALS (15 sets, daily range): BP systolic 100–112; BP diastolic 54–56; PULSE 79–91; RESP 17–27; TEMP 36.4–36.9; O2SAT 89–99
[2020-11-01] MEDS: IPRATROPIUM BR 0.02% INH SOLN 0.5 MG/2.5 ML VIAL INHALATION ×4 (02:04→20:52)
[2020-11-01] MEDS: oxyCODONE/ACETAMINOPHEN (*CRX) 5-325 MG TABLET 1 TABLET PO ×2 (05:37→17:49)
[2020-11-01] MEDS: SODIUM CHLORIDE 1 GM TABLET PO ×3 (05:38→20:24)
[2020-11-01 06:46] LABS: Blood Urea Nitrogen 25 mg/dL (9-20); Carbon Dioxide > 40 mmol/L (22-30); Chloride 85 mmol/L (98-107); Estimated CRCL calculation 72 ml/min; Estimated Glomerular Filt Rate > 60; Glucose 105 mg/dL (75-110); Phosphorus 2.8 mg/dL (2.5-4.5); Potassium 3.5 mmol/L (3.4-5.0); Sodium 125 mmol/L (137-145)
--- NOTE | 2020-11-01 07:25 | PM.PNNEP ---
Progress Note: A&P Assessment and Plan (1) Hyponatremia: Code(s): E87.1 - Hypo-osmolality and hyponatremia Status: Chronic Assessment and Plan: chronic issues since at least February 2020 sodium levels fluctuate around 127 - 135mmol/L extensive evaluation done by Dr. Moreno on last hospitalization a week ago: - TSH and cortisol okay - no evidence of paraproteinemia - no culprit medications patient has hyponatremia - no evidence of any malignancies (although I am unclear when he was last screened) - CT of head with colloid cyst but unclear if this would cause the problem sodium improved with the salt tabs. edema better, change back to daily furos and daily salt tabs (2) Acute and chronic respiratory failure: Code(s): J96.20 - Acute and chronic respiratory failure, unspecified whether with hypoxia or hypercapnia Status: Acute Assessment and Plan: resolving monitor respiratory status closely (3) Cardiac arrest with pulseless electrical activity: Code(s): I46.9 - Cardiac arrest, cause unspecified Status: Acute Assessment and Plan: thought to be respiratory in origin with regard to CO2 narcosis sore chest from this Cardiology following Subjective Date/time seen: 11/01/20 15:25 Interval history: pt is alert. feels okay. Urinated all night long edema gone Exam Narrative: Exam Narrative: WDWN in NAD skin no rash head ncat lungs clear cor reg no rub or gallop abd BS+ nontender and soft ext trace edema. Objective Data Vital Signs Vital Signs: Vital Signs - 24 hr 10/31/20 17:23 10/31/20 20:00 10/31/20 20:30 Temperature Pulse Rate 100 89 Respiratory Rate 20 Blood Pressure Pulse Oximetry 100 94 10/31/20 20:45 10/31/20 21:47 11/01/20 02:04 Temperature 36.4 C L Pulse Rate 86 94 84 Respiratory Rate 20 22 H 18 Blood Pressure 132/75 Pulse Oximetry 100 11/01/20 02:13 11/01/20 06:00 11/01/20 08:07 Temperature 36.6 C Pulse Rate 82 88 91 Respiratory Rate 18 22 H 22 H Blood Pressure 110/55 L Pulse Oximetry 92 89 L 11/01/20 08:17 11/01/20 09:57 11/01/20 14:00 Temperature 36.9 C Pulse Rate 88 91 79 Respiratory Rate 20 18 Blood Pressure 100/54 L Pulse Oximetry 99 11/01/20 14:38 Temperature Pulse Rate 88 Respiratory Rate 18 Blood Pressure Pulse Oximetry Intake/Output Intake/Output: Intake & Output 10/29/20 10/30/20 10/31/20 11/01/20 23:59 23:59 23:59 23:59 Intake Total 1950 1450 1720 250 Output Total 5673 073 3005 1250 Balance 750 500 295 -1000 Meds/Results Medications: Active Medications Generic Name Dose Route Start Last Admin Trade Name Freq PRN Reason Stop Dose Admin Acetazolamide 500 mg 10/30/20 17:00 11/01/20 09:55 Acetazolamide Tab 250 Mg Tablet PO 500 mg BID REDD Administration Albuterol 2.5 mg 10/30/20 15:22 10/31/20 04:20 Albuterol Sulfate Neb 2.5 Mg/0.5 Ml Inh INHALATION 2.5 mg Q6HRT PRN Administration Shortness Of Breath Amiodarone HCl 200 mg 10/26/20 17:00 11/01/20 09:57 Amiodarone Hcl 200 Mg Tablet PO 200 mg BID REDD Administration Apixaban 5 mg 10/23/20 21:00 11/01/20 09:56 Apixaban 5 Mg Tablet PO 5 mg Q12HR REDD Administration Aspirin 325 mg 10/24/20 09:25 11/01/20 09:55 Aspirin 325 Mg Tablet PO 325 mg DAILY@0800 REDD Administration Budesonide 0.5 mg 10/24/20 08:35 11/01/20 08:06 Budesonide Respule Neb 0.5 Mg/2 Ml Amp INHALATION 0.5 mg Q12HRT REDD Administration Diltiazem HCl 240 mg 10/29/20 09:00 11/01/20 09:57 Diltiazem Hcl Cd 240 Mg Cap.Er.24h PO 240 mg QAM REDD Administration Furosemide 20 mg 10/31/20 21:00 11/01/20 09:56 Furosemide Inj 40 Mg/4 Ml Vial IV PUSH 20 mg Q12HR REDD Administration Ceftriaxone Sodium/Dextrose 1 gm in 50 mls @ 100 mls/hr 11/01/20 10:30 11/01/20 11:15 R
[2020-11-01 07:46] LABS: Hematocrit 25.7 % (42.0-52.0); Hemoglobin 8.6 g/dL (14.0-18.0); Immature Platelet Fraction Pct 10.5 % (0.9-11.2); Mean Corpuscular HGB Conc 33.5 g/dl (32-36); Mean Corpuscular Hemoglobin 31.5 pg (26-34); Mean Corpuscular Volume 94.1 fl (80-100); Mean Platelet Volume 11.9 fl (7.4-10.4); Platelet Count Result 93 k/mm3 (150-375); Red Blood Count 2.73 M/mm3 (4.6-6.20); White Blood Count 10.3 K/mm3 (4.5-10.0)
[2020-11-01] MEDS: BUDESONIDE RESPULE NEB 0.5 MG/2 ML AMP INHALATION ×2 (08:06→20:51)
[2020-11-01] MEDS: ASPIRIN 325 MG TABLET PO (09:55)
[2020-11-01] MEDS: acetaZOLAMIDE TAB 250 MG TABLET 500 MG PO ×2 (09:55→17:50)
[2020-11-01] MEDS: FUROSEMIDE INJ 40 MG/4 ML VIAL 20 MG IV PUSH ×2 (09:56→20:25)
[2020-11-01] MEDS: MULTIVITAMIN HEMATINIC (*BKC) TABLET 1 TABLET PO (09:56)
[2020-11-01] MEDS: APIXABAN 5 MG TABLET PO ×2 (09:56→20:24)
[2020-11-01] MEDS: AMIODARONE HCL 200 MG TABLET PO ×2 (09:57→17:50)
[2020-11-01] MEDS: PANTOPRAZOLE 40 MG TABLET PO (09:57)
--- NOTE | 2020-11-01 10:24 | PM.PNCARD ---
Progress Note: A&P Assessment and Plan (1) Paroxysmal atrial flutter: Code(s): I48.92 - Unspecified atrial flutter Status: Acute Assessment and Plan: Looks like patient has is likely back in atrial flutter with a reasonably controlled rate on amiodarone 200 mg daily. Will increase to b.i.d.. Continue Eliquis 5 mg b.i.d. We are hoping for short-term amiodarone use but options are limited with this patient. heart rate is fairly well controlled with diltiazem and amiodarone although this is not a great combination given his underlying lung disease long-term. Once well enough, consider referral for ablation Continue furosemide at 20 mg IV Q 12 hours. He is not significantly volume overloaded at this point in my opinion. Potassium chloride 40 mg p.o. x1. (2) Acute and chronic respiratory failure: Code(s): J96.20 - Acute and chronic respiratory failure, unspecified whether with hypoxia or hypercapnia Status: Acute Assessment and Plan: Severe COPD. Respiratory failure improving, needs BiPAP at night. (3) Cardiac arrest with pulseless electrical activity: Code(s): I46.9 - Cardiac arrest, cause unspecified Status: Acute Assessment and Plan: Status post PA arrest secondary to hypercarbia, good recovery. (4) Elevated troponin: Code(s): R77.8 - Other specified abnormalities of plasma proteins Status: Acute Assessment and Plan: 0.045 and 0.045, secondary to cardiac arrest not a acute coronary syndrome event. Subjective Date/time seen: 11/01/20 10:24 Interval history: Follow-up for atrial flutter. Admitted with a PE a cardiac arrest likely secondary to hypercarbic respiratory failure secondary to severe COPD. Date of service 11/01/2020: Still has chest wall pain. No shortness of breath though. Review of Systems Review of Systems: ROS unobtainable: Yes unobtainable due to endotracheal tube Constitutional: Constitutional: Reports fatigue ENT: Denies epistaxis Cardiovascular: Cardiovascular: Reports chest pain (Sore from CPR), Reports pedal edema, Denies dyspnea and Reports dyspnea on exertion Respiratory: Respiratory: Denies cough, Denies dyspnea and Reports dyspnea on exertion Gastrointestinal: Gastrointestinal: Denies abdominal pain Musculoskeletal: Musculoskeletal: Denies back pain Integumentary/Breasts: Skin/Breast: Denies rash Neurologic: Denies behavioral changes and Denies confusion Psychiatric: Psychiatric: Denies behavioral changes and Denies confusion Endocrine: Endocrine: Reports fatigue Exam Const: General: comfortable and no acute distress; No confusion Orientation/consciousness: No confusion Other: Chronically ill-appearing male sitting up in chair in no distress HENMT: Mouth: Yes moist mucous membranes Eyes: Sclera: sclerae normal Pupils: Equal, round and reactive pupils present EOM: EOMs intact bilaterally Neck: Neck: supple and no JVD Chest: Other: chest wall pain to palpate Resp: Effort & Inspection: normal respiratory effort Auscultation: diminished lung sounds Other: Breath sounds are markedly diminished in both lung carreon Cardio: Rate: regular rate Rhythm: abnormal rhythm GI: Inspection: non-distended Auscultation: normal bowel sounds Skin: General skin exam: normal color Rashes: no rashes noted Neuro: General: No confusion Cranial nerves: Yes Equal, round and reactive pupils present Cognition (Neuro): normal cognition Speech: normal speech Motor exam (neuro): Normal motor muscle tone present throughout Other: Cannot assess neurological status as he is currently intubated Extrem: General: normal to inspection Psych: Mental Status: mental status grossly normal Affect: normal affect Objective Data Vital Signs Vital Signs: Vital Signs - 24 hr 10/31/20 12:00 10/31/20 13:25 10/31/20 13
--- NOTE | 2020-11-01 10:26 | PM.PNPUL ---
Progress Note: A&P Assessment and Plan (1) Acute CHF (congestive heart failure): Code(s): I50.9 - Heart failure, unspecified Status: Acute Assessment and Plan: Appears to be euvolemic (2) Bacteremia: Code(s): R78.81 - Bacteremia Status: Acute (3) Diastolic congestive heart failure: Code(s): I50.30 - Unspecified diastolic (congestive) heart failure Status: Acute (4) Acute on chronic respiratory failure with hypoxia and hypercapnia: Code(s): J96.21 - Acute and chronic respiratory failure with hypoxia; J96.22 - Acute and chronic respiratory failure with hypercapnia Status: Acute Assessment and Plan: The patient is on NIV machine at home but I am not sure what type and what settings. Once this is available I can make further recommendations for home use. (5) Chronic obstructive pulmonary disease: Code(s): J44.9 - Chronic obstructive pulmonary disease, unspecified Status: Chronic Assessment and Plan: -Continue Pulmicort 0.5 mg nebulized b.i.d. - continue ipratropium 0.5 mg q.6 hours nebulized -continue albuterol 2.5 mg q.6 hours but p.r.n. only for shortness of breath. -Continue mobilization needs to work with PT OT and ambulate. Subjective Date/time seen: 11/01/20 10:26 Interval history: Sternal fracture reported on chest x-ray from yesterday. The patient is little more short of breath today but he attributes most that to his pain from the fracture. He had 1 episode of coughing up dark colored sputum but no loc blood. Review of Systems Review of Systems: All systems reviewed & are unremarkable except as noted in HPI and below Exam Const: General: cooperative, comfortable, no acute distress, well developed, alert, awake and Physically active HENMT: Head: normal to inspection, normocephalic and atraumatic Eyes: General: appearance normal, both eyes and all related structures Neck: Neck: normal visual inspection, trachea midline and supple Resp: Effort & Inspection: normal respiratory effort and able to speak in complete sentences Auscultation: no crackles, no rales, no rhonchi, no wheezes and diminished lung sounds Cardio: Jugular venous distension: no JVD Rate: regular rate Rhythm: regular rhythm Heart sounds: S1 normal heart sound present and S2 normal heart sound present GI: Inspection: normal to inspection Auscultation: normal bowel sounds Skin: General skin exam: ecchymosis Neuro: General: oriented to person, oriented to place, oriented to time and patient oriented x3 Extrem: General: normal to inspection and no clubbing, cyanosis or edema Psych: Appearance: grossly normal Mental Status: mental status grossly normal Objective Data Vital Signs Vital Signs: Vital Signs - 24 hr 10/31/20 12:00 10/31/20 13:25 10/31/20 13:41 Temperature Pulse Rate 106 H 88 88 Respiratory Rate 20 20 Blood Pressure Pulse Oximetry 10/31/20 14:00 10/31/20 17:23 10/31/20 20:00 Temperature 36.6 C Pulse Rate 110 H 100 Respiratory Rate 18 Blood Pressure 134/71 Pulse Oximetry 90 100 10/31/20 20:30 10/31/20 20:45 10/31/20 21:47 Temperature 36.4 C L Pulse Rate 89 86 94 Respiratory Rate 20 20 22 H Blood Pressure 132/75 Pulse Oximetry 94 100 11/01/20 02:04 11/01/20 02:13 11/01/20 06:00 Temperature 36.6 C Pulse Rate 84 82 88 Respiratory Rate 18 18 22 H Blood Pressure 110/55 L Pulse Oximetry 92 11/01/20 08:07 11/01/20 09:57 Temperature Pulse Rate 91 91 Respiratory Rate 22 H Blood Pressure Pulse Oximetry 89 L Intake/Output Intake/Output: Intake & Output 10/29/20 10/30/20 10/31/20 11/01/20 23:59 23:59 23:59 23:59 Intake Total 1950 1450 1720 200 Output Total 5507 649 4839 1250 Balance 750 500 295 -1050 Meds/Results Medications: Active Medications Generic Name Dose Route Start Last Admin Trade Name Freq PRN Reason Stop Dose Admin Acetazolamide 500 mg
[2020-11-01] MEDS: POTASSIUM CHLORIDE 20 MEQ TABLET 40 MEQ PO (10:44)
--- NOTE | 2020-11-01 13:39 | PM.IMPN ---
Progress Note: A&P Assessment and Plan (1) Acute and chronic respiratory failure: Code(s): J96.20 - Acute and chronic respiratory failure, unspecified whether with hypoxia or hypercapnia Status: Acute Assessment and Plan: [place] with chronic respiratory failure on home O2 at 2L. Cough productive of red-brown sputum. Contineu PT/OT. Increase activity with patient out of bed. Wean O2 as tolerated. Will continue to use BiPAP as he toelrates. Monitor sputum production closely to see if this persists. (2) Diastolic congestive heart failure: Code(s): I50.30 - Unspecified diastolic (congestive) heart failure Status: Acute Assessment and Plan: Still with pedal edema. Remains on Lasix IV but dose decreased. Continue to monitor. Appreciate Cardiology input. (3) Cardiac arrest with pulseless electrical activity: Code(s): I46.9 - Cardiac arrest, cause unspecified Status: Acute Assessment and Plan: [place] realted to hypercarbic respiratory failure. Appreciate pulmonary input. (4) Hypertension: Qualifiers: Hypertension type: essential hypertension Qualified Code(s): I10 - Essential (primary) hypertension Code(s): I10 - Essential (primary) hypertension Status: Chronic Assessment and Plan: Patient's blood pressure was reviewed on 11/01/20. Blood pressure remains well controlled. Will continue current medications. (5) COPD (chronic obstructive pulmonary disease): Qualifiers: COPD type: unspecified COPD Qualified Code(s): J44.9 - Chronic obstructive pulmonary disease, unspecified Code(s): J44.9 - Chronic obstructive pulmonary disease, unspecified Status: Acute Assessment and Plan: Stable; no wheezing. Continue Pulmicort Respules and Atrovent. (6) Paroxysmal atrial flutter: Code(s): I48.92 - Unspecified atrial flutter Status: Acute Assessment and Plan: EKG on admission showing NSR. Continue Amiodarone and Diltiazem. Continue Eliquis. Change to ASA 81mg (7) Hyponatremia: Code(s): E87.1 - Hypo-osmolality and hyponatremia Status: Chronic Assessment and Plan: Sodium normally runs low 130's. Sodium up to 135 but has been dropping daily to 123 yesterday. Better today. Check Urine Na/Cr. Nephrology consulted. Continue NaCl tablets. Related to urine retention? Lonnie 121. Fluid restrict (8) Urine retention: Code(s): R33.9 - Retention of urine, unspecified Status: Acute Assessment and Plan: Bladder distended on exam. Check bladder US; may need Amaya. Called by RN with bladder showing >1L. Instructed to place a Amaya but only drain 1L at a time. Total volume out after Amaya placed 1800mL (9) DVT prophylaxis: Code(s): Z29.9 - Encounter for prophylactic measures, unspecified Status: Acute Assessment and Plan: Eliquis Subjective Date/time seen: 11/01/20 13:39 Interval history: Date of service 11/01 70yo male with chronic respiratory failure (home O2 at 2L), COPD and CHF here for out of hospital cardiopulmonary arrest felt related to severe hypercarbia. Assuming care. Chart reviewed. He did not tolerate the BiPAP mask last night. He is coughing productive of red-brown sputum. He still has the central, palpable chest pain. He has not been out of bed. States he is voiding okay. No n/v. Not sure when Amaya out. Eating okay. Exam Narrative: Exam Narrative: AF 97.8 110/55 91 20 89% 4L Gen - NARD lying semi-recumbent in bed Chest - very distant BS but no wheezing CV - RRR S1/S2; Tele showing PACs. Abd - Soft, scaphoid, bladder feels distended Ext - 1+ bilateral pedal edema, negative Nicol's Psych - Nml mood and affect Skin - Warm and dry; bilateral UE ecchymosis Objective Data Vital Signs Vital Signs: Vital Signs - 24 hr 10/31/20 13:41 10/31/20 14:00 10/31/20 17:23 Te
[2020-11-01 15:26] LABS: Sodium Urine Random 121 meq/L
[2020-11-01 15:44] LABS: Creatinine Urine 15.5 mg/dL
[2020-11-01] MEDS: ALBUTEROL SULFATE NEB 2.5 MG/0.5 ML INH INHALATION (22:23)
[2020-11-02] VITALS (19 sets, daily range): BP systolic 104–130; BP diastolic 51–57; PULSE 91–114; RESP 16–29; TEMP 36.2–36.3; O2SAT 88–100
[2020-11-02] MEDS: IPRATROPIUM BR 0.02% INH SOLN 0.5 MG/2.5 ML VIAL INHALATION ×4 (03:07→22:02)
[2020-11-02 06:41] LABS: Hematocrit 26.6 % (42.0-52.0); Hemoglobin 8.7 g/dL (14.0-18.0); Immature Platelet Fraction Pct 10.3 % (0.9-11.2); Mean Corpuscular HGB Conc 32.7 g/dl (32-36); Mean Corpuscular Hemoglobin 31.3 pg (26-34); Mean Corpuscular Volume 95.7 fl (80-100); Mean Platelet Volume 11.9 fl (7.4-10.4); Platelet Count Result 99 k/mm3 (150-375); Red Blood Count 2.78 M/mm3 (4.6-6.20); White Blood Count 12.1 K/mm3 (4.5-10.0)
[2020-11-02 06:55] LABS: Blood Urea Nitrogen 28 mg/dL (9-20); Calcium 8.3 mg/dL (8.4-10.2); Carbon Dioxide > 40 mmol/L (22-30); Chloride 85 mmol/L (98-107); Estimated CRCL calculation 58 ml/min; Estimated Glomerular Filt Rate > 60; Glucose 104 mg/dL (75-110); Magnesium 1.3 mg/dL (1.6-2.3); Phosphorus 3.1 mg/dL (2.5-4.5); Potassium 3.2 mmol/L (3.4-5.0); Sodium 130 mmol/L (137-145)
[2020-11-02] MEDS: BUDESONIDE RESPULE NEB 0.5 MG/2 ML AMP INHALATION (07:39)
[2020-11-02] MEDS: acetaZOLAMIDE TAB 250 MG TABLET 500 MG PO ×2 (08:36→17:02)
[2020-11-02] MEDS: MAGNESIUM SULF 2 GM/WATER 50ML 2 GM/50 ML BAG IVPB (08:36)
[2020-11-02] MEDS: POTASSIUM CHLORIDE 20 MEQ TABLET 40 MEQ PO (08:36)
[2020-11-02] MEDS: MULTIVITAMIN HEMATINIC (*BKC) TABLET 1 TABLET PO (08:36)
[2020-11-02] MEDS: PANTOPRAZOLE 40 MG TABLET PO (08:37)
[2020-11-02] MEDS: SODIUM CHLORIDE 1 GM TABLET PO ×2 (08:37→20:55)
[2020-11-02] MEDS: ASPIRIN 325 MG TABLET PO (08:37)
[2020-11-02] MEDS: AMIODARONE HCL 200 MG TABLET PO ×2 (08:37→17:03)
[2020-11-02] MEDS: APIXABAN 5 MG TABLET PO ×2 (09:25→20:55)
[2020-11-02] MEDS: FUROSEMIDE INJ 40 MG/4 ML VIAL 20 MG IV PUSH (09:26)
--- NOTE | 2020-11-02 09:59 | PM.PNNEP ---
Progress Note: A&P Assessment and Plan (1) Hyponatremia: Code(s): E87.1 - Hypo-osmolality and hyponatremia Status: Chronic Assessment and Plan: chronic issues since at least February 2020 sodium levels fluctuate around 127 - 135mmol/L extensive evaluation done by Dr. Moreno on last hospitalization a week ago: - TSH and cortisol okay - no evidence of paraproteinemia - no culprit medications patient has hyponatremia - no evidence of any malignancies (although I am unclear when he was last screened) - CT of head with colloid cyst but unclear if this would cause the problem sodium improved to 130. on lasix and salt tabs plus fluid restriction. (2) Acute and chronic respiratory failure: Code(s): J96.20 - Acute and chronic respiratory failure, unspecified whether with hypoxia or hypercapnia Status: Acute Assessment and Plan: resolving but still sob. monitor respiratory status closely (3) Cardiac arrest with pulseless electrical activity: Code(s): I46.9 - Cardiac arrest, cause unspecified Status: Acute Assessment and Plan: thought to be respiratory in origin with regard to CO2 narcosis sore chest from this Cardiology following Subjective Date/time seen: 11/02/20 09:59 Interval history: pt is alert. sob. mild edema still. Exam Narrative: Exam Narrative: WDWN in NAD skin no rash head ncat lungs dec bs at bases, some inc in exp phase cor reg no rub or gallop abd BS+ nontender and soft ext trace to 1+ edema. Objective Data Vital Signs Vital Signs: Vital Signs - 24 hr 11/01/20 14:00 11/01/20 14:38 11/01/20 17:50 Temperature 36.9 C Pulse Rate 79 88 87 Respiratory Rate 18 18 Blood Pressure 100/54 L Pulse Oximetry 99 11/01/20 20:54 11/01/20 21:08 11/01/20 21:38 Temperature 36.4 C Pulse Rate 91 88 91 Respiratory Rate 20 20 20 Blood Pressure 112/56 L Pulse Oximetry 91 91 11/01/20 22:14 11/01/20 22:24 11/01/20 22:30 Temperature Pulse Rate 84 85 84 Respiratory Rate 23 H 27 H 17 Blood Pressure Pulse Oximetry 91 11/02/20 03:04 11/02/20 03:07 11/02/20 03:19 Temperature Pulse Rate 99 99 95 Respiratory Rate 29 H 28 H 24 H Blood Pressure Pulse Oximetry 91 11/02/20 05:39 11/02/20 07:40 11/02/20 07:45 Temperature 36.2 C L Pulse Rate 94 99 99 Respiratory Rate 18 22 H Blood Pressure 104/53 L Pulse Oximetry 94 88 L 11/02/20 08:37 Temperature Pulse Rate 104 H Respiratory Rate Blood Pressure Pulse Oximetry Intake/Output Intake/Output: Intake & Output 10/30/20 10/31/20 11/01/20 11/02/20 23:59 23:59 23:59 23:59 Intake Total 1450 1720 250 Output Total 950 1425 2650 750 Balance 500 295 -0260 -750 Meds/Results Medications: Active Medications Generic Name Dose Route Start Last Admin Trade Name Freq PRN Reason Stop Dose Admin Acetazolamide 500 mg 10/30/20 17:00 11/02/20 08:36 Acetazolamide Tab 250 Mg Tablet PO 500 mg BID REDD Administration Albuterol 2.5 mg 10/30/20 15:22 11/01/20 22:23 Albuterol Sulfate Neb 2.5 Mg/0.5 Ml Inh INHALATION 2.5 mg Q6HRT PRN Administration Shortness Of Breath Amiodarone HCl 200 mg 10/26/20 17:00 11/02/20 08:37 Amiodarone Hcl 200 Mg Tablet PO 200 mg BID REDD Administration Apixaban 5 mg 10/23/20 21:00 11/01/20 20:24 Apixaban 5 Mg Tablet PO 5 mg Q12HR REDD Administration Aspirin 325 mg 10/24/20 09:25 11/02/20 08:37 Aspirin 325 Mg Tablet PO 325 mg DAILY@0800 [facility] Administration Aspirin 81 mg 11/02/20 08:00 Aspirin 81 Mg Chewable Tablet PO DAILY@0800 [facility] Budesonide 0.5 mg 10/24/20 08:35 11/02/20 07:39 Budesonide Respule Neb 0.5 Mg/2 Ml Amp INHALATION 0.5 mg Q12HRT REDD Administration Diltiazem HCl 240 mg 10/29/20 09:00 11/01/20 09:57 Diltiazem Hcl Cd 240 Mg Cap.Er.24h PO 240 mg
[2020-11-02] MEDS: oxyCODONE/ACETAMINOPHEN (*CRX) 5-325 MG TABLET 1 TABLET PO ×2 (12:00→21:09)
--- NOTE | 2020-11-02 13:01 | PM.IMPN ---
Progress Note: A&P Assessment and Plan (1) Acute and chronic respiratory failure: Code(s): J96.20 - Acute and chronic respiratory failure, unspecified whether with hypoxia or hypercapnia Status: Acute Assessment and Plan: Pat[place] with acute on chronic respiratory failure on home O2 at 2L. No wheezing. CXR 10/31 showing retrocardiac airspace disease. WBC up slightlt today at 12K but no fevers. Rocephin started for possible PNA yesterday; Azithro added today. Minimal cough now. Continue to wean O2 as toelrated. Continue PT/OT. Increase activity with patient out of bed as he tolerates. Continue BiPAP at night and as needed; encouraged compliance CXR reviewed showing opacified left hemithorax. Add CPT with vest therapy and pulmozyme. Stable on 4L. Move to IMU or ICU if clinically worsens. (2) Diastolic congestive heart failure: Code(s): I50.30 - Unspecified diastolic (congestive) heart failure Status: Acute Assessment and Plan: Still with pedal edema but improving. Remains on Lasix IV. Continue to monitor. Appreciate Cardiology input. (3) Cardiac arrest with pulseless electrical activity: Code(s): I46.9 - Cardiac arrest, cause unspecified Status: Acute Assessment and Plan: [place] realted to hypercarbic respiratory failure. Appreciate pulmonary input. (4) Hypertension: Qualifiers: Hypertension type: essential hypertension Qualified Code(s): I10 - Essential (primary) hypertension Code(s): I10 - Essential (primary) hypertension Status: Chronic Assessment and Plan: Patient's blood pressure was reviewed on 11/02. Blood pressure remains well controlled. Will continue current medications. (5) COPD (chronic obstructive pulmonary disease): Qualifiers: COPD type: unspecified COPD Qualified Code(s): J44.9 - Chronic obstructive pulmonary disease, unspecified Code(s): J44.9 - Chronic obstructive pulmonary disease, unspecified Status: Acute Assessment and Plan: Stable; no wheezing. Continue Pulmicort Respules and Atrovent. (6) Paroxysmal atrial flutter: Code(s): I48.92 - Unspecified atrial flutter Status: Acute Assessment and Plan: EKG on admission showing NSR. Continue Amiodarone and Diltiazem. Continue Eliquis and ASA 81mg (7) Hyponatremia: Code(s): E87.1 - Hypo-osmolality and hyponatremia Status: Chronic Assessment and Plan: Sodium normally runs low 130's. Sodium up to 135 but has been dropping daily to 123 on 10/31. Better today. Urine Na 121 consistent with SIADH and/or realted to urine retention. Nephrology consulted. Continue NaCl tablets. Chart review showing abnormal (low) gamma globulins. Check light chains and IgG levels. (8) Urine retention: Code(s): R33.9 - Retention of urine, unspecified Status: Acute Assessment and Plan: Bladder distended on exam on 11/01. Bladder US showing >1L so Amaya placed. Total volume out after Amaya placed was 1800mL. Voiding trial when he is more ambulatory. Add Flomax (9) DVT prophylaxis: Code(s): Z29.9 - Encounter for prophylactic measures, unspecified Status: Acute Assessment and Plan: Eliquis (10) Thrombocytopenia: Code(s): D69.6 - Thrombocytopenia, unspecified Status: Acute Assessment and Plan: Noted and chronic. Underlying MDS? Check B12 level. Follow. Subjective Date/time seen: 11/02/20 13:01 Interval history: Date of service 11/02 70yo male with chronic respiratory failure (home O2 at 2L), COPD and CHF here for out of hospital cardiopulmonary arrest felt related to severe hypercarbia. Denies nausea or vomiting. Denies headache. Still has the chest pain but is palpable related to the sternal trauma from CPR. Still feels short of breath at rest. Has not been out of bed. He did wear the BiPAP last night. Not
--- NOTE | 2020-11-02 13:02 | PM.PNPUL ---
Progress Note: A&P Assessment and Plan (1) Acute CHF (congestive heart failure): Code(s): I50.9 - Heart failure, unspecified Status: Acute Assessment and Plan: Appears to be euvolemic (2) Bacteremia: Code(s): R78.81 - Bacteremia Status: Acute (3) Diastolic congestive heart failure: Code(s): I50.30 - Unspecified diastolic (congestive) heart failure Status: Acute (4) Acute on chronic respiratory failure with hypoxia and hypercapnia: Code(s): J96.21 - Acute and chronic respiratory failure with hypoxia; J96.22 - Acute and chronic respiratory failure with hypercapnia Status: Acute Assessment and Plan: The patient is on NIV machine at home but I am not sure what type and what settings. Continue BiPAP 12/6 QHS and as needed for dyspnea during the day. (5) Chronic obstructive pulmonary disease: Code(s): J44.9 - Chronic obstructive pulmonary disease, unspecified Status: Chronic Assessment and Plan: -Increase Pulmicort to 1.0 mg nebulized b.i.d. - continue ipratropium 0.5 mg q.6 hours nebulized -continue albuterol 2.5 mg q.6 hours but p.r.n. only for shortness of breath. -Continue mobilization needs to work with PT OT and ambulate. - CXR to be repeated today to r/o pneumothorax, worsening CHF - Subjective Date/time seen: 11/02/20 13:02 Interval history: He is a little bit more short of breath over the past day or so. He seems to be using accessory muscles more and his oxygenation demands of increased from about 2.5 L to about 5-6 L currently. Review of Systems Review of Systems: All systems reviewed & are unremarkable except as noted in HPI and below Exam Const: General: cooperative, comfortable, no acute distress, well developed, alert, awake and Physically active HENMT: Head: normal to inspection, normocephalic and atraumatic Eyes: General: appearance normal, both eyes and all related structures Neck: Neck: normal visual inspection, trachea midline and supple Resp: Effort & Inspection: normal respiratory effort and able to speak in complete sentences Auscultation: no crackles, no rales, no rhonchi, no wheezes and diminished lung sounds Cardio: Jugular venous distension: no JVD Rate: regular rate Rhythm: regular rhythm Heart sounds: S1 normal heart sound present and S2 normal heart sound present GI: Inspection: normal to inspection Auscultation: normal bowel sounds Skin: General skin exam: ecchymosis Neuro: General: oriented to person, oriented to place, oriented to time and patient oriented x3 Extrem: General: normal to inspection and no clubbing, cyanosis or edema Psych: Appearance: grossly normal Mental Status: mental status grossly normal Objective Data Vital Signs Vital Signs: Vital Signs - 24 hr 11/01/20 14:00 11/01/20 14:38 11/01/20 17:50 Temperature 36.9 C Pulse Rate 79 88 87 Respiratory Rate 18 18 Blood Pressure 100/54 L Pulse Oximetry 99 11/01/20 20:54 11/01/20 21:08 11/01/20 21:38 Temperature 36.4 C Pulse Rate 91 88 91 Respiratory Rate 20 20 20 Blood Pressure 112/56 L Pulse Oximetry 91 91 11/01/20 22:14 11/01/20 22:24 11/01/20 22:30 Temperature Pulse Rate 84 85 84 Respiratory Rate 23 H 27 H 17 Blood Pressure Pulse Oximetry 91 11/02/20 03:04 11/02/20 03:07 11/02/20 03:19 Temperature Pulse Rate 99 99 95 Respiratory Rate 29 H 28 H 24 H Blood Pressure Pulse Oximetry 91 11/02/20 05:39 11/02/20 07:40 11/02/20 07:45 Temperature 36.2 C L Pulse Rate 94 99 99 Respiratory Rate 18 22 H Blood Pressure 104/53 L Pulse Oximetry 94 88 L 11/02/20 08:00 11/02/20 08:37 Temperature Pulse Rate 104 H Respiratory Rate Blood Pressure Pulse Oximetry 92 Intake/Output Intake/Output: Intake & Output 10/30/20 10/31/20 11/01/20 11/02/20 23:59 23:59 23:59 23:59 Intake Total 1450 1720 250 50 Output Total 950 1425 2650 750 Balance 500 295 -
--- NOTE | 2020-11-02 14:11 | PM.PNCARD ---
Progress Note: A&P Assessment and Plan (1) Paroxysmal atrial flutter: Code(s): I48.92 - Unspecified atrial flutter Status: Acute Assessment and Plan: Looks like patient has is likely back in atrial flutter with a reasonably controlled rate on amiodarone 200 mg daily. Will increase to b.i.d.. Continue Eliquis 5 mg b.i.d. We are hoping for short-term amiodarone use but options are limited with this patient. heart rate is fairly well controlled with diltiazem and amiodarone although this is not a great combination given his underlying lung disease long-term. Once well enough, consider referral for ablation Continue furosemide at 20 mg IV Q 12 hours. He is not significantly volume overloaded at this point in my opinion. Potassium chloride 40 mg p.o. x1. DC IV furosemide tomorrow (2) Acute and chronic respiratory failure: Code(s): J96.20 - Acute and chronic respiratory failure, unspecified whether with hypoxia or hypercapnia Status: Acute Assessment and Plan: Severe COPD. Respiratory failure improving, needs BiPAP at night. (3) Cardiac arrest with pulseless electrical activity: Code(s): I46.9 - Cardiac arrest, cause unspecified Status: Acute Assessment and Plan: Status post PA arrest secondary to hypercarbia, good recovery. (4) Elevated troponin: Code(s): R77.8 - Other specified abnormalities of plasma proteins Status: Acute Assessment and Plan: 0.045 and 0.045, secondary to cardiac arrest not a acute coronary syndrome event. on Eliquis. Does not need aspirin from a cardiac perspective. Will discontinue the aspirin Subjective Date/time seen: 11/02/20 14:11 Interval history: Follow-up for atrial flutter. Admitted with a PE a cardiac arrest likely secondary to hypercarbic respiratory failure secondary to severe COPD. Date of service 11/02/2020: chest wall pain has improved. No shortness of breath. Eating lunch without complaints Review of Systems Review of Systems: ROS unobtainable: Yes unobtainable due to endotracheal tube Constitutional: Constitutional: Reports fatigue ENT: Denies epistaxis Cardiovascular: Cardiovascular: Reports chest pain (Sore from CPR), Reports pedal edema, Denies dyspnea and Reports dyspnea on exertion Respiratory: Respiratory: Denies cough, Denies dyspnea and Reports dyspnea on exertion Gastrointestinal: Gastrointestinal: Denies abdominal pain Musculoskeletal: Musculoskeletal: Denies back pain Integumentary/Breasts: Skin/Breast: Denies rash Neurologic: Denies behavioral changes and Denies confusion Psychiatric: Psychiatric: Denies behavioral changes and Denies confusion Endocrine: Endocrine: Reports fatigue Exam Const: General: comfortable and no acute distress; No confusion Orientation/consciousness: No confusion Other: Chronically ill-appearing male sitting up in chair in no distress HENMT: Mouth: Yes moist mucous membranes Eyes: Sclera: sclerae normal EOM: EOMs intact bilaterally Neck: Neck: supple and no JVD Chest: Other: chest wall pain to palpate Resp: Effort & Inspection: normal respiratory effort Auscultation: diminished lung sounds Other: Breath sounds are markedly diminished in both lung carreon Cardio: Rate: regular rate Rhythm: abnormal rhythm GI: Inspection: non-distended Auscultation: normal bowel sounds Skin: General skin exam: normal color Rashes: no rashes noted Neuro: General: No confusion Cranial nerves: Yes Equal, round and reactive pupils present Cognition (Neuro): normal cognition Speech: normal speech Extrem: General: normal to inspection Psych: Mental Status: mental status grossly normal Affect: normal affect Objective Data Vital Signs Vital Signs: Vital Signs - 24 hr 11/01/20 14:38 11/01/20 17:50 11/01/20 20:54 Temperature Pulse Rate 88 87 91
--- NOTE | 2020-11-02 14:57 | PC.NURSE ---
Patient gave verbal permission to speak with ( Malka ) his girlfriend of 14 years. [phone]
--- NOTE | 2020-11-02 16:14 | PCPTNOTE ---
PT attempted to see patient in A.M. Patient declined. PT will continue to follow per plan of care.
[2020-11-02] MEDS: TAMSULOSIN HCL 0.4 MG CAPSULE PO (17:03)
[2020-11-02] MEDS: DORNASE ALFA INH SOLN 1 MG/ML 2.5 ML AMP 2.5 MG INHALATION (22:05)
[2020-11-02] MEDS: BUDESONIDE RESPULE NEB 0.5 MG/2 ML AMP 1 MG INHALATION (22:09)
[2020-11-03] VITALS (14 sets, daily range): BP systolic 92–106; BP diastolic 42–48; PULSE 77–102; RESP 18–24; TEMP 36.3–36.6; O2SAT 92–100
--- NOTE | 2020-11-03 | ECHO_ITS ---
Patient Info Name: Sam Sanchez Age: 70 years : 1950 Gender: Male Ht: 68 in Wt: 110 lbs BSA: 1.53 m2 HR: 89 bpm BP: 106 / 42 mmHg Heart Rhythm: Atrial Fibrillation Technical Quality: Good Exam Date: 11/03/2020 2:23 PM Exam Location: [facility] Patient Status: Inpatient Admit Date: 10/23/2020 Staff Ordering Physician: Pilo Olivares MD Instrument Assembly Supervisor: Ambar Michel RDCS Attending Provider: Miguel Hernnadez MD Referring Physician: Elise ROSS; Exam Type: CA echo doppler color flow Study Info Complete two-dimensional, color flow and Doppler transthoracic echocardiogram is performed. Summary 1. Complete two-dimensional, color flow and Doppler transthoracic echocardiogram is performed. 2. Left ventricular chamber dimension is normal. 3. Left ventricular systolic function is normal, estimated at 65-70%. 4. There is mildly increased left ventricular wall thickness. 5. The left ventricular diastolic function is indeterminate. 6. Right ventricular chamber dimension is moderately enlarged. 7. Right ventricular systolic function is reduced. 8. Left atrial chamber dimension is mildly enlarged. 9. Right atrial chamber dimension is moderately enlarged. 10. There is mild mitral valve regurgitation. 11. There is moderate tricuspid valve regurgitation. 12. Severe pulmonary hypertension, estimated pulmonary arterial systolic pressure is 63 mmHg. 13. There is mild pulmonic regurgitation. 14. The pericardium appears extra-pericardial mass. 15. Pleural effusions are seen. Left Ventricle Left ventricular chamber dimension is normal. Left ventricular systolic function is normal, estimated at 65-70%. There is mildly increased left ventricular wall thickness. The left ventricular diastolic function is indeterminate. Right Ventricle Right ventricular chamber dimension is moderately enlarged. Right ventricular systolic function is reduced. Left Atria Left atrial chamber dimension is mildly enlarged. Right Atria Right atrial chamber dimension is moderately enlarged. Atrial Septum Intact interatrial septum visualized by color flow imaging. Aortic Valve The aortic valve is trileaflet. There is mild aortic valve sclerosis. There is no aortic valve stenosis. There is trace aortic valve regurgitation. Pulmonic Valve The pulmonic valve is normal. There is no pulmonic valve stenosis. There is mild pulmonic regurgitation. Mitral Valve The mitral valve has calcified annulus. There is no mitral valve stenosis. There is mild mitral valve regurgitation. Tricuspid Valve The tricuspid valve leaflets are normal. There is no significant tricuspid valve stenosis. There is moderate tricuspid valve regurgitation. Severe pulmonary hypertension, estimated pulmonary arterial systolic pressure is 63 mmHg. Pericardium/Pleural The pericardium appears extra-pericardial mass. There is trivial pericardial effusion. Pleural effusions are seen. Inferior Vena Cava Dilated inferior vena cava with >50% collapse upon inspiration consistent with elevated right atrial pressure, 15 mmHg. Aorta The aortic root size at the sinus of Valsalva is normal. The prox ascending aorta size is normal. Left Ventricular Outflow Tract Name Value Normal LVOT 2D --------
[2020-11-03] MEDS: IPRATROPIUM BR 0.02% INH SOLN 0.5 MG/2.5 ML VIAL INHALATION ×4 (03:56→19:56)
[2020-11-03 06:27] LABS: Hematocrit 24.6 % (42.0-52.0); Immature Platelet Fraction Pct 7.1 % (0.9-11.2); Mean Corpuscular HGB Conc 32.5 g/dl (32-36); Mean Corpuscular Hemoglobin 31.4 pg (26-34); Mean Corpuscular Volume 96.5 fl (80-100); Platelet Count Result 92 k/mm3 (150-375); Red Blood Count 2.55 M/mm3 (4.6-6.20); Red Cell Distribution Width 13.2 % (11.5-14.5); White Blood Count 10.8 K/mm3 (4.5-10.0)
[2020-11-03 06:35] LABS: Magnesium 1.7 mg/dL (1.6-2.3)
[2020-11-03 06:53] LABS: Immunoglobulin A 130 mg/dL (70-400); Immunoglobulin G 347 mg/dL (700-1600)
[2020-11-03 06:54] LABS: Albumin Level 3.1 g/dL (3.5-5.1); Blood Urea Nitrogen 41 mg/dL (9-20); Calcium 8.2 mg/dL (8.4-10.2); Carbon Dioxide > 40 mmol/L (22-30); Chloride 87 mmol/L (98-107); Estimated CRCL calculation 51 ml/min; Estimated Glomerular Filt Rate > 60; Glucose 127 mg/dL (75-110); Immunoglobulin M < 25 mg/dL (40-230); Potassium 3.6 mmol/L (3.4-5.0); Sodium 129 mmol/L (137-145)
[2020-11-03 07:06] LABS: Lymphocytes Absolute Manual 0.21 K/mm3 (1.1-4.5); Monocytes Absolute Manual 0.32 K/mm3 (0.1-0.90); Monocytes Percent Manual 3 % (3-9); Neutrophils Percent Manual 95 % (46-73); Total Cells Counted 100
[2020-11-03 07:09] LABS: Hypochromasia 1+ (NORMAL); Platelet Estimate Decreased (Adequate)
[2020-11-03 07:10] LABS: Smudge Cells PRESENT
[2020-11-03 07:43] LABS: Folic Acid 18.8 ng/mL (2.76->20)
[2020-11-03] MEDS: AMIODARONE HCL 200 MG TABLET PO ×2 (09:00→17:51)
[2020-11-03] MEDS: acetaZOLAMIDE TAB 250 MG TABLET 500 MG PO ×2 (09:00→17:51)
[2020-11-03] MEDS: APIXABAN 5 MG TABLET PO (09:00)
[2020-11-03] MEDS: FUROSEMIDE INJ 40 MG/4 ML VIAL 20 MG IV PUSH (09:01)
[2020-11-03] MEDS: SODIUM CHLORIDE 1 GM TABLET PO ×2 (09:02→20:40)
[2020-11-03] MEDS: PANTOPRAZOLE 40 MG TABLET PO (09:02)
[2020-11-03] MEDS: MULTIVITAMIN HEMATINIC (*BKC) TABLET 1 TABLET PO (09:02)
[2020-11-03] MEDS: TAMSULOSIN HCL 0.4 MG CAPSULE PO (09:03)
[2020-11-03] MEDS: BUDESONIDE RESPULE NEB 0.5 MG/2 ML AMP 1 MG INHALATION ×2 (09:32→19:56)
[2020-11-03] MEDS: DORNASE ALFA INH SOLN 1 MG/ML 2.5 ML AMP 2.5 MG INHALATION ×2 (09:33→19:56)
--- NOTE | 2020-11-03 10:09 | PM.PNCARD ---
Progress Note: A&P Assessment and Plan (1) Paroxysmal atrial flutter: Code(s): I48.92 - Unspecified atrial flutter Status: Acute Assessment and Plan: Looks like patient has is likely back in atrial flutter with a reasonably controlled rate on amiodarone 200 mg daily. Will increase to b.i.d.. Continue Eliquis 5 mg b.i.d. We are hoping for short-term amiodarone use but options are limited with this patient. heart rate is fairly well controlled with diltiazem and amiodarone although this is not a great combination given his underlying lung disease long-term. Once well enough, consider referral for ablation Continue furosemide at 20 mg IV Q 12 hours. He is not significantly volume overloaded at this point in my opinion. KCL 40 mEq p.o. x1. Likely needs his pleural effusion drained. Check a 2D echocardiogram Doppler (2) Acute and chronic respiratory failure: Code(s): J96.20 - Acute and chronic respiratory failure, unspecified whether with hypoxia or hypercapnia Status: Acute Assessment and Plan: Severe COPD. needs BiPAP at night. (3) Cardiac arrest with pulseless electrical activity: Code(s): I46.9 - Cardiac arrest, cause unspecified Status: Acute Assessment and Plan: Status post PA arrest secondary to hypercarbia, good recovery. (4) Elevated troponin: Code(s): R77.8 - Other specified abnormalities of plasma proteins Status: Acute Assessment and Plan: 0.045 and 0.045, secondary to cardiac arrest not a acute coronary syndrome event. on Eliquis. Does not need aspirin from a cardiac perspective. Subjective Date/time seen: 11/03/20 10:09 Interval history: Follow-up for atrial flutter. Admitted with a PE a cardiac arrest likely secondary to hypercarbic respiratory failure secondary to severe COPD. Date of service 11/03/2020: chest wall pain has improved. Is short of breath. Review of Systems Review of Systems: ROS unobtainable: Yes unobtainable due to endotracheal tube Constitutional: Constitutional: Reports fatigue ENT: Denies epistaxis Cardiovascular: Cardiovascular: Reports chest pain (Sore from CPR), Reports pedal edema, Denies dyspnea and Reports dyspnea on exertion Respiratory: Respiratory: Denies cough, Denies dyspnea and Reports dyspnea on exertion Gastrointestinal: Gastrointestinal: Denies abdominal pain Musculoskeletal: Musculoskeletal: Denies back pain Integumentary/Breasts: Skin/Breast: Denies rash Neurologic: Denies behavioral changes and Denies confusion Psychiatric: Psychiatric: Denies behavioral changes and Denies confusion Endocrine: Endocrine: Reports fatigue Exam Const: General: comfortable and no acute distress; No confusion Orientation/consciousness: No confusion Other: Chronically ill-appearing male sitting up in chair in no distress HENMT: Mouth: Yes moist mucous membranes Eyes: Sclera: sclerae normal Pupils: Equal, round and reactive pupils present EOM: EOMs intact bilaterally Neck: Neck: supple and no JVD Chest: Other: chest wall pain to palpate Resp: Auscultation: diminished lung sounds Other: Breath sounds are markedly diminished in both lung carreon Cardio: Rate: regular rate Rhythm: abnormal rhythm GI: Inspection: non-distended Auscultation: normal bowel sounds Skin: General skin exam: normal color Rashes: no rashes noted Neuro: General: No confusion Cranial nerves: Yes Equal, round and reactive pupils present Cognition (Neuro): normal cognition Speech: normal speech Motor exam (neuro): Normal motor muscle tone present throughout Other: Cannot assess neurological status as he is currently intubated Extrem: General: normal to inspection Psych: Mental Status: mental status grossly normal Affect: normal affect Objective Data Vital Signs Vital Signs: Vital Signs - 24 hr 11/02/20 12:00
--- NOTE | 2020-11-03 10:43 | PM.PNPUL ---
Progress Note: A&P Assessment and Plan (1) Acute CHF (congestive heart failure): Code(s): I50.9 - Heart failure, unspecified Status: Acute Assessment and Plan: Appears to be euvolemic (2) Bacteremia: Code(s): R78.81 - Bacteremia Status: Acute (3) Diastolic congestive heart failure: Code(s): I50.30 - Unspecified diastolic (congestive) heart failure Status: Acute (4) Acute on chronic respiratory failure with hypoxia and hypercapnia: Code(s): J96.21 - Acute and chronic respiratory failure with hypoxia; J96.22 - Acute and chronic respiratory failure with hypercapnia Status: Acute Assessment and Plan: The patient is on NIV machine at home but I am not sure what type and what settings. Continue BiPAP 12/6 QHS and as needed for dyspnea during the day. (5) Chronic obstructive pulmonary disease: Code(s): J44.9 - Chronic obstructive pulmonary disease, unspecified Status: Chronic Assessment and Plan: -Increase Pulmicort to 1.0 mg nebulized b.i.d. - continue ipratropium 0.5 mg q.6 hours nebulized -continue albuterol 2.5 mg q.6 hours but p.r.n. only for shortness of breath. -Continue mobilization needs to work with PT OT and ambulate. - CXR to be repeated today to r/o pneumothorax, worsening CHF - (6) Pleural effusion: Code(s): J90 - Pleural effusion, not elsewhere classified Status: Acute Assessment and Plan: While the pleural effusion may be due to acute atelectasis from bronchus plugging of mucus secretions a hemothorax should be ruled out especially in light of recent CPR, multiple rib fractures and being on anticoagulation with Eliquis. I have ordered a diagnostic thoracentesis to be done to look for hemothorax. (7) Atelectasis of left lung: Code(s): J98.11 - Atelectasis Status: Acute Assessment and Plan: I have scheduled the patient for a bronchoscopy for tomorrow at 1:00 p.m.. NPO after midnight and all anticoagulation has been held. Subjective Date/time seen: 11/03/20 10:43 Interval history: The patient continues to feel a bit more short of breath than normal. Chest x-ray yesterday and today showed left lung opacification difficult to tell if it was a pleural fluid or atelectasis and hence a CT chest with IV contrast was ordered this morning. That does show left lower lobe atelectasis with possible mucous plug but also shows significant pleural effusion. Although the pleural effusion may secondary to the acute atelectasis from bronchus plugging we do want to rule out a hemothorax especially in light of recent CPR and multiple rib fractures. Review of Systems Review of Systems: All systems reviewed & are unremarkable except as noted in HPI and below Exam Const: General: cooperative, comfortable, no acute distress, well developed, alert, awake and Physically active HENMT: Head: normal to inspection, normocephalic and atraumatic Eyes: General: appearance normal, both eyes and all related structures Neck: Neck: normal visual inspection, trachea midline and supple Resp: Effort & Inspection: normal respiratory effort and able to speak in complete sentences Auscultation: no crackles, no rales, no rhonchi, no wheezes and diminished lung sounds (more on the left than right ) Cardio: Jugular venous distension: no JVD Rate: regular rate Rhythm: regular rhythm Heart sounds: S1 normal heart sound present and S2 normal heart sound present GI: Inspection: normal to inspection Auscultation: normal bowel sounds Skin: General skin exam: ecchymosis Neuro: General: oriented to person, oriented to place, oriented to time and patient oriented x3 Extrem: General: normal to inspection and no clubbing, cyanosis or edema Psych: Appearance: grossly normal Mental Status: mental status grossly normal Objective Data Vital Signs Vital Signs: Vital Signs - 24 hr 11/02/20 12:00 11/02/20 13:54 11/02/20
--- NOTE | 2020-11-03 11:09 | PM.PNNEP ---
Progress Note: A&P Assessment and Plan (1) Hyponatremia: Code(s): E87.1 - Hypo-osmolality and hyponatremia Status: Chronic Assessment and Plan: chronic issues since at least February 2020 sodium levels fluctuate around 127 - 135mmol/L in the past. extensive evaluation done by Dr. Moreno on last hospitalization a week ago: - TSH and cortisol okay - no evidence of paraproteinemia - no culprit medications patient has hyponatremia - no evidence of any malignancies (although I am unclear when he was last screened) - CT of head with colloid cyst but unclear if this would cause the problem sodium Ranging around 130. on lasix and salt tabs plus fluid restriction. (2) Acute and chronic respiratory failure: Code(s): J96.20 - Acute and chronic respiratory failure, unspecified whether with hypoxia or hypercapnia Status: Acute Assessment and Plan: resolving A little less short of breath today. (3) Cardiac arrest with pulseless electrical activity: Code(s): I46.9 - Cardiac arrest, cause unspecified Status: Acute Assessment and Plan: thought to be respiratory in origin with regard to CO2 narcosis sore chest from this Cardiology following Subjective Date/time seen: 11/03/20 11:09 Interval history: pt is alert. Breathing is a little bit better today. He still has a little swelling. Review of Systems Cardiovascular: Cardiovascular: Reports no additional cardiovascular complaints Respiratory: Respiratory: Reports no additional respiratory complaints Gastrointestinal: Gastrointestinal: Reports no additional gastrointestinal complaints Genitourinary: Genitourinary: Reports no additional male genitourinary complaints Exam Narrative: Exam Narrative: WDWN in NAD skin no rash Or subcu nodules head ncat lungs dec bs at bases, some inc in exp phase cor reg no rub or gallop abd BS+ nontender and soft ext trace to 1+ edema. Objective Data Vital Signs Vital Signs: Vital Signs - 24 hr 11/02/20 12:00 11/02/20 13:54 11/02/20 14:00 Temperature 36.3 C L Pulse Rate 98 94 Respiratory Rate 22 H 16 Blood Pressure 110/51 L Pulse Oximetry 100 100 11/02/20 16:00 11/02/20 17:03 11/02/20 18:00 Temperature Pulse Rate 100 Respiratory Rate Blood Pressure Pulse Oximetry 98 92 11/02/20 21:35 11/02/20 22:19 11/02/20 22:22 Temperature 36.3 C L Pulse Rate 91 111 H Respiratory Rate 22 H 20 Blood Pressure 130/57 L Pulse Oximetry 100 96 11/02/20 22:45 11/02/20 23:15 11/03/20 04:00 Temperature Pulse Rate 114 H 110 H 102 H Respiratory Rate 20 20 20 Blood Pressure Pulse Oximetry 95 11/03/20 04:10 11/03/20 06:00 11/03/20 09:00 Temperature 36.3 C L Pulse Rate 100 93 96 Respiratory Rate 20 20 Blood Pressure 106/42 L Pulse Oximetry 100 11/03/20 09:30 11/03/20 09:33 11/03/20 09:45 Temperature Pulse Rate 93 95 Respiratory Rate 20 20 Blood Pressure Pulse Oximetry 92 Intake/Output Intake/Output: Intake & Output 10/31/20 11/01/20 11/02/20 11/03/20 23:59 23:59 23:59 23:59 Intake Total 1720 250 500 200 Output Total 1425 2650 1250 100 Balance 295 -2400 -750 100 Meds/Results Medications: Active Medications Generic Name Dose Route Start Last Admin Trade Name Freq PRN Reason Stop Dose Admin Acetazolamide 500 mg 10/30/20 17:00 11/03/20 09:00 Acetazolamide Tab 250 Mg Tablet PO 500 mg BID REDD Administration Albuterol 2.5 mg 10/30/20 15:22 11/01/20 22:23 Albuterol Sulfate Neb 2.5 Mg/0.5 Ml Inh INHALATION 2.5 mg Q6HRT PRN Administration Shortness Of Breath Amiodarone HCl 200 mg 10/26/20 17:00 11/03/20 09:00 Amiodarone Hcl 200 Mg Tablet PO 200 mg BID REDD Administration Apixaban 5 mg 10/23/20 21:00 11/03/20 09:00 Apixaban 5 Mg Tablet PO 5 mg Q12HR REDD Ad
--- NOTE | 2020-11-03 11:38 | PCNFU ---
Nutrition Follow-Up Complete: Inadequate oral intake related to oral intubation as evidenced by NPO status. Goal: Patient to meet estimated nutritional needs. Limited progress towards goal. Will continue working towards current goal. Pt current nutrition is a heart healthy diet as well as a fluid restriction of 800 ml over a 24 hour period. Last recorded weight is 50.1 kg. Stable weight. Bowel Motility: + BM 11/02 Labs Reviewed: Hct 24.6, Hgb 8.0, Alb 3.1, Na 129, BUN 41, Glu 127 Meds Noted: Pulmicort, Atrovent, Albuterol, Zithromax, Eliquis, Protonix, Flomax, Sodium Chloride Additional Notes: Spoke with patient today. Patient complained of having a poor appetite. He is consuming only 5-25% of his meals. Patient is receiving chocolate Ensure Enlive TID providing an additional 350 calories and 20 grams of protein. Follow up every 5 days.
--- NOTE | 2020-11-03 12:18 | PCNSR ---
On 11/03/20, the student, Evon De La Torre, provided care and completed [facility] documentation on this patient. I have reviewed the student's documentation and agree with the findings.
--- NOTE | 2020-11-03 14:40 | PC.NURSE ---
1415 recieved call from radiology pt to have thoracentisis tomorrow , npo at midnight and get pt,ptt,inr,and platelet count.in the am
[2020-11-03] MEDS: ALBUTEROL SULFATE NEB 2.5 MG/0.5 ML INH INHALATION (15:04)
--- NOTE | 2020-11-03 15:13 | PC.NURSE ---
notified Dr. Hernandez of pt b/p 92/47 , no new orders at this time.
--- NOTE | 2020-11-03 15:18 | PM.IMPN ---
Progress Note: A&P Assessment and Plan (1) Acute and chronic respiratory failure: Code(s): J96.20 - Acute and chronic respiratory failure, unspecified whether with hypoxia or hypercapnia Status: Acute Assessment and Plan: Pat[place]n with acute on chronic respiratory failure on home O2 at 2L. No wheezing. CXR 10/31 showing retrocardiac airspace disease. WBC up slightly yesterday at 12K but no fevers; WBC better. Rocephin started for possible PNA 11/01; Azithro added 11/02. CXR 11/02 reviewed showing opacified left hemithorax. Added CPT with vest therapy and pulmozyme. Full code. He is remaining stable on 4L. Repat CXR today showing improvement in the left apex. CT chest showing near complete collapse of the left upper lobe with fluid/mucus filling the bronchi extending to the left mainstem bronchus and moderate sized left pleural effusion. Continue Pulmicort Respules, pulmozyme, Diamox and Atrovent. Continue to wean O2 as tolerated. Continue PT/OT. Continue BiPAP at night and as needed; encouraged compliance. Bronch planned in the morning. Encouraged patient to lie right side down. (2) Diastolic congestive heart failure: Code(s): I50.30 - Unspecified diastolic (congestive) heart failure Status: Acute Assessment and Plan: Still with pedal edema but improving. Remains on Lasix IV but weaning down. Continue to monitor. Appreciate Cardiology input. (3) Cardiac arrest with pulseless electrical activity: Code(s): I46.9 - Cardiac arrest, cause unspecified Status: Acute Assessment and Plan: [place] related to hypercarbic respiratory failure. Encourage compliance with NIV. Appreciate pulmonary input. (4) Hypertension: Qualifiers: Hypertension type: essential hypertension Qualified Code(s): I10 - Essential (primary) hypertension Code(s): I10 - Essential (primary) hypertension Status: Chronic Assessment and Plan: Patient's blood pressure was reviewed on 11/03. Blood pressure remains well controlled. Will continue current medications. (5) COPD (chronic obstructive pulmonary disease): Qualifiers: COPD type: unspecified COPD Qualified Code(s): J44.9 - Chronic obstructive pulmonary disease, unspecified Code(s): J44.9 - Chronic obstructive pulmonary disease, unspecified Status: Acute Assessment and Plan: Stable; no wheezing. Continue treatment as above. (6) Paroxysmal atrial flutter: Code(s): I48.92 - Unspecified atrial flutter Status: Acute Assessment and Plan: EKG on admission showing NSR. Continue Amiodarone and Diltiazem. Continue Eliquis and ASA 81mg (7) Hyponatremia: Code(s): E87.1 - Hypo-osmolality and hyponatremia Status: Chronic Assessment and Plan: Sodium normally runs low 130's. Sodium up to 135 but has been dropping daily to 123 on 10/31. Better overall today at 129. Urine Na 121 consistent with SIADH and/or related to urine retention. Nephrology following. Continue NaCl tablets. Chart review showing abnormal (low) gamma globulins. IgG low at 350 and IgM<25. Light chains pending. (8) Urine retention: Code(s): R33.9 - Retention of urine, unspecified Status: Acute Assessment and Plan: Bladder distended on exam on 11/01 with bladder US showing >1L so Amaya placed. Total volume out after Amaya placed was 1800mL. Voiding trial when he is more ambulatory. Flomax added (9) DVT prophylaxis: Code(s): Z29.9 - Encounter for prophylactic measures, unspecified Status: Acute Assessment and Plan: Eliquis (10) Thrombocytopenia: Code(s): D69.6 - Thrombocytopenia, unspecified Status: Acute Assessment and Plan: Noted and chronic. B12 level normal. Underlying MDS? Follow. Subjective Date/time seen: 11/03/20 15:18 Interval history: Date of service 11/03 70yo male wit
[2020-11-04] VITALS (37 sets, daily range): BP systolic 64–114; BP diastolic 42–66; PULSE 57–108; RESP 18–32; TEMP 36.6–36.9; O2SAT 80–100
[2020-11-04] MEDS: IPRATROPIUM BR 0.02% INH SOLN 0.5 MG/2.5 ML VIAL INHALATION ×3 (02:06→20:27)
[2020-11-04 05:34] LABS: Immature Platelet Fraction Pct 6.5 % (0.9-11.2); Mean Corpuscular HGB Conc 31.9 g/dl (32-36); Mean Corpuscular Volume 97.2 fl (80-100); Mean Platelet Volume 11.7 fl (7.4-10.4); Platelet Count Result 117 k/mm3 (150-375); Red Blood Count 2.16 M/mm3 (4.6-6.20); Red Cell Distribution Width 13.1 % (11.5-14.5); White Blood Count 8.2 K/mm3 (4.5-10.0)
[2020-11-04 05:50] LABS: Albumin Level 2.8 g/dL (3.5-5.1); Blood Urea Nitrogen 38 mg/dL (9-20); Calcium 7.8 mg/dL (8.4-10.2); Carbon Dioxide > 40 mmol/L (22-30); Chloride 84 mmol/L (98-107); Estimated CRCL calculation 58 ml/min; Estimated Glomerular Filt Rate > 60; Glucose 107 mg/dL (75-110); INR 1.3; Phosphorus 2.8 mg/dL (2.5-4.5); Prothrombin Time 16.3 Seconds (11.1-14.7); Sodium 131 mmol/L (137-145)
[2020-11-04 05:51] LABS: Hemoglobin 6.7 g/dL (14.0-18.0); Partial Thromboplastin Time 39.9 SECONDS (22.3-36.8)
[2020-11-04] MEDS: BUDESONIDE RESPULE NEB 0.5 MG/2 ML AMP 1 MG INHALATION ×2 (07:47→20:27)
[2020-11-04] MEDS: DORNASE ALFA INH SOLN 1 MG/ML 2.5 ML AMP 2.5 MG INHALATION ×2 (07:48→20:50)
[2020-11-04] MEDS: AMIODARONE HCL 200 MG TABLET PO ×2 (08:17→17:35)
[2020-11-04] MEDS: PANTOPRAZOLE 40 MG TABLET PO (08:18)
[2020-11-04] MEDS: FUROSEMIDE INJ 40 MG/4 ML VIAL 20 MG IV PUSH (08:21)
[2020-11-04] MEDS: MULTIVITAMIN HEMATINIC (*BKC) TABLET 1 TABLET PO (08:22)
[2020-11-04] MEDS: SODIUM CHLORIDE 1 GM TABLET PO ×2 (08:24→20:11)
[2020-11-04] MEDS: TAMSULOSIN HCL 0.4 MG CAPSULE PO (08:24)
[2020-11-04] MEDS: ASPIRIN 81 MG ENTERIC TABLET PO (08:47)
[2020-11-04] MEDS: POTASSIUM CHLORIDE 20 MEQ TABLET 40 MEQ PO (09:08)
--- NOTE | 2020-11-04 11:45 | PC.NURSE ---
This patient, Sam Sanchez, was received from [[id number]] on 11/04/20 at 1145. Patient/family oriented to unit policies and routines PATIENT WAS A RAPID RESPONSE IN XRAY AND WAS BROUGHT TO IMU AFTER. BEDSIDE REPORT WAS GIVEN FROM ЮЛИЯ KEBEDE.
[2020-11-04 11:55] LABS: Alveolar/Arterial O2 Gradient 85.7 mmHg; Base Excess ABG 17.8 mEq/l (+/-2.0); Fractional Inspired Oxygen 40 %; HCO3 ABG 47.6 mEq/l (22.0-26.0); Oxygen Content ABG 10.3 %vol (16.0-22.0); Oxygen Saturation ABG 91.1 % (95.0-100.0); Oxyhemoglobin 91.6 % THb (90.0-100.0); PO2 ABG 74.3 mmHg (80.0-100.0); PO2 FiO2 Ratio Arterial Blood 1.86 %; pH ABG 7.258 (7.350-7.450)
[2020-11-04 11:56] LABS: Device NON-INVASIVE VENT; Modified Allen's Test Pass; PCO2 ABG 108.9 mmHg (35.0-45.0); Site Drawn RIGHT RADIAL; Total Hemoglobin 7.9 g/dL (12.0-18.0)
--- NOTE | 2020-11-04 11:57 | PC.NURSE ---
This patient, Sam Sanchez, was transferred to [IMU ] on 11/04/20 at 1157. Personal belongings sent with patient. Report given to [AURELIANO ]. Appropriate documentation sent with patient.
[2020-11-04 12:35] LABS: Appearance Pleural Fluid Cloudy (Clear); Color Pleural Fluid Red (Colorless); Lymphocytes Pleural Fluid 3 %; Mesothelial Cells Pleural Flui 2 %; Monocytes Pleural Fluid 9 %; Neutrophils Pleural Fluid 86 % (0-25); Pleural fluid source Pleural fluid
--- NOTE | 2020-11-04 13:07 | PC.NURSE ---
1150 CALLED FAMILY AND GIRLFRIEN AND GAVE UPDATE ON PT MIKE LIVINGST[facility] THE NEW ROOM 212,
--- NOTE | 2020-11-04 13:10 | PC.NURSE ---
This patient, Sam Sanchez, was transferred to [ICU-2] on 11/04/20 at 1310. Personal belongings sent with patient. Report given to [ARY KEBEDE]. Appropriate documentation sent with patient. PATIENT WAS TRANSFERRED TO ICU PER DR. JOYCE'S REQUEST FOR INTUBATION FOR FUTURE BRONCHOSCOPY AND CONTINUED DETERIORATION.
--- NOTE | 2020-11-04 13:42 | WPDINTPN ---
Progress Note: A&P Assessment and Plan (1) Acute and chronic respiratory failure: Code(s): J96.20 - Acute and chronic respiratory failure, unspecified whether with hypoxia or hypercapnia Status: Acute Assessment and Plan: Patient with acute hypercapnic respiratory failure. ABG showed pCO2 of 108, patient was to get a bronchoscopy today on 11/04/2020: The cement based materials pump tender requested that I intubate the patient in the ICU he will perform a bronchoscopy on 11/05/2020 -patient was intubated successfully in the ICU -currently on low tidal volume strategy, peep of 5, 100% FiO2, will adjust ventilator after post intubation ABGs. -fentanyl and Versed for sedation, maintain RASS of 0 to -2, daily sedation vacation (2) Chronic obstructive pulmonary disease: Code(s): J44.9 - Chronic obstructive pulmonary disease, unspecified Status: Chronic Assessment and Plan: COPD exacerbation -under nausea following the patient -remains on Pulmicort, ipratropium albuterol - Continue azithromycin And ceftriaxone per cement based materials pump tender (3) Acute CHF (congestive heart failure): Code(s): I50.9 - Heart failure, unspecified Status: Acute Assessment and Plan: Echocardiogram [id number] showed LV EF of 65-70%, diastolic dysfunction moderate tricuspid valve regurg, mild mitral valve regurg. Severe pulmonary hypertension with RVSP of 63 mmHg. -cardiology following the patient. Currently off diuretics (4) Pleural effusion: Code(s): J90 - Pleural effusion, not elsewhere classified Status: Acute Assessment and Plan: Status post thoracentesis of the left pleural effusion with 1000 mL of maroon colored fluid -cultures pending (5) Atelectasis of left lung: Code(s): J98.11 - Atelectasis Status: Acute Assessment and Plan: Whiteout of the left lung/atelectasis could be related to mucus plugging. Chest x-ray post intubation shows re-expansion (6) DVT prophylaxis: Code(s): Z29.9 - Encounter for prophylactic measures, unspecified Status: Acute Assessment and Plan: SCD (7) Hypertension: Qualifiers: Hypertension type: essential hypertension Qualified Code(s): I10 - Essential (primary) hypertension Code(s): I10 - Essential (primary) hypertension Status: Chronic Assessment and Plan: Blood pressures have been stable post intubation will continue to monitor (8) Hyponatremia: Code(s): E87.1 - Hypo-osmolality and hyponatremia Status: Chronic Assessment and Plan: Sodium levels improving -appreciate Nephrology evaluation -to monitor sodium levels (9) Urine retention: Code(s): R33.9 - Retention of urine, unspecified Status: Acute Assessment and Plan: Urinary retention with distended bladder on bladder ultrasound. Amaya was inserted -patient on Flomax (10) Anemia: Code(s): D64.9 - Anemia, unspecified Status: Acute Assessment and Plan: Thoracentesis done with removal of 1000 mL of maroon colored fluid -patient also anemic and dropped his hemoglobin to 6.7 on 11/04/2020, 1 unit of packed RBCs is been ordered -Eliquis currently on hold (11) Paroxysmal atrial flutter: Code(s): I48.92 - Unspecified atrial flutter Status: Acute Assessment and Plan: Continue amiodarone, diltiazem. -Eliquis has been stopped secondary to anemia -patient started on acetazolamide, will hold furosemide Additional Plan Discussed with cement based materials pump tender, hospitalist. Code status: Full code Critical care time spent:49 minutes Due to a high probability of clinically significant, life threatening deterioration, the patient required my highest level of preparedness to intervene emergently and I personally spent this critical care time directly and personally managing the patient. This critical care time included obtaining a history; examining the patient; pulse oximetry; ordering and review of st
[2020-11-04] MEDS: MIDAZOLAM 100MG/NS 100ML(*CRX) 100 MG/100 ML BAG IV CONT (13:45)
[2020-11-04] MEDS: FENTANYL 2,500MCG/NS250ML(*CRX 2,500 MCG/250 ML BAG IV CONT (13:45)
--- NOTE | 2020-11-04 13:47 | PM.IMPN ---
Progress Note: A&P Assessment and Plan (1) Shock: Code(s): R57.9 - Shock, unspecified Status: Acute Assessment and Plan: Patient moved to ICU and intubated. BP dropped to 64/47 felt related to sedation and hypovolemia given the recent diuresis and anemia. Fluid bolus and started on Levophed. BP more stable. Wean as toerlated (2) Acute and chronic respiratory failure: Code(s): J96.20 - Acute and chronic respiratory failure, unspecified whether with hypoxia or hypercapnia Status: Acute Assessment and Plan: Patient with acute on chronic respiratory failure on home O2 at 2L. CXR 10/31 showing retrocardiac airspace disease but overall clear lung carreon. WBC normal now and no fevers. Rocephin started for possible PNA 11/01; Azithro added 11/02. CXR 11/02 reviewed showing opacified left hemithorax. CPT with vest therapy and pulmozyme added. CT chest 11/03 showing near complete collapse of the left upper lobe with fluid/mucus filling the bronchi extending to the left mainstem bronchus and moderate sized left pleural effusion. Currently on Pulmicort Respules, pulmozyme, Diamox and Atrovent. Today, patient was on BiPAP but changed to 6L O2 and RN states pulse ox was mid90's and was then sent down for his thoracentesis. Patient underwent US guided thoracentesis with 1L of maroon-colored fluid removed. While in radiology, patient decompensated becoming more hypoxic. Post-thor CXR showing decreased now small to moderate left pleural effusion with improved aeration of the left upper lung zone with persistent collapse/consolidation in the left lower lung zone. He was moved to IMU and patient seen in IMU. He has BiPAP in place and was feeling better. He had improved air exchange in the left lung field. ABG performed after appropriate amount of time on BiPAP showing 7.26/109/74. Data Management Manager informed and patient moved to ICU for intubation and to prepare him for bronch. (3) Anemia: Code(s): D64.9 - Anemia, unspecified Status: Acute Assessment and Plan: Hgb dropped to 6.7 today. Bled into pleural space? Transfusion ordered. Follow HH (4) Atelectasis of left lung: Code(s): J98.11 - Atelectasis Status: Acute Assessment and Plan: Suspect related to mucous plugging. Plan for bronch in the morning. Continue vest therapy, nebs and pulmozyme. (5) Pleural effusion: Code(s): J90 - Pleural effusion, not elsewhere classified Status: Acute Assessment and Plan: No significant effusion by CXR on 10/31 but increased to moderate over the last few days. Maroon colored so some component of bleeding. Related to collapsed lung? Late presentation from trauma? 1L removed. Follow (6) Diastolic congestive heart failure: Code(s): I50.30 - Unspecified diastolic (congestive) heart failure Status: Acute Assessment and Plan: Still with pedal edema but improving. Lasix IV held. Continue to monitor. Appreciate Cardiology input. (7) Cardiac arrest with pulseless electrical activity: Code(s): I46.9 - Cardiac arrest, cause unspecified Status: Acute Assessment and Plan: [place] related to hypercarbic respiratory failure. As above. (8) Hypertension: Qualifiers: Hypertension type: essential hypertension Qualified Code(s): I10 - Essential (primary) hypertension Code(s): I10 - Essential (primary) hypertension Status: Chronic Assessment and Plan: Patient's blood pressure was reviewed on 11/04. As above (9) COPD (chronic obstructive pulmonary disease): Qualifiers: COPD type: unspecified COPD Qualified Code(s): J44.9 - Chronic obstructive pulmonary disease, unspecified Code(s): J44.9 - Chronic obstructive pulmonary disease, unspecified Status: Acute Assessment and Plan: Stable; no wheezing. Continue treatment as above. (10) Paroxysmal atria
--- NOTE | 2020-11-04 13:53 | PCPTNOTE ---
PT will be held due to change in patient's medical condition. Patient transferred from 3 med/surg to ICU. PT will hold until further orders are received.
[2020-11-04] MEDS: SODIUM CHLORIDE 0.9% IV 1,000 ML 60 ML IV CONT ×2 (14:05→22:22)
--- NOTE | 2020-11-04 14:20 | WPDPROCEDUR ---
Procedures Intubation Intubation Date: 11/04/20 Intubation Time: 13:15 A pre-procedural Time-Out was completed immediately before starting the procedure and confirmed: Patient Identification, Site, Procedure, Patient Position and the Availability of Requisite Equipment: Yes Sedative: etomidate Mg given: 15 Paralytic: succinylcholine Mg given: 50 Laryngoscope: fiber optic video scope Assist device used: fiber optic device ET tube size: 7.5 Tube secured depth (cm): 24 Tube secured location: lips Tube placement confirmation: visualized tube passing through cords, equal breath sounds bilaterally, no breath sounds over epigastrium and confirmation by capnometry Patient tolerated procedure: well Intubation complications: none
[2020-11-04] MEDS: LIDOCAINE HCL 1% PF INJ 5 ML VIAL INFILTRATE (14:35)
--- NOTE | 2020-11-04 15:06 | PM.PNCARD ---
Progress Note: A&P Additional Plan 70-year-old man with: Persistent atrial flutter being managed rate control. He was anticoagulated and now has developed a large effusion in the left hemithorax as well as mucus plugging of the left lung. Bronchoscopy is planned for tomorrow. The effusion did have hemorrhagic quality to it and hemoglobin has decreased so apixaban has been discontinued. Etiology of this is not clear but my sense is that this probably represents hemorrhagic complication due to the combination of CPR and admission and subsequent administration of anticoagulation. Obviously for the foreseeable future anticoagulation needs to be held. Given severe underlying lung disease prognosis is guarded at this time Sam Morales MD [facility] Subjective Date/time seen: 11/04/20 15:06 Interval history: Follow-up for atrial flutter. Admitted with a PE a cardiac arrest likely secondary to hypercarbic respiratory failure secondary to severe COPD. Date of service Date of service 11/04/2020: Patient now intubated in the ICU. Developed pattern of left hemithorax white out on chest x-ray and hypercarbic ventilatory failure. The patient has mucus plugging of the left lung as well as a significant left pleural effusion which had hemorrhagic quality to it. Exam Const: Other: Intubated patient on the ventilator in the ICU Eyes: Sclera: sclerae normal Neck: Neck: supple and no JVD Resp: Other: ventilator breath sounds. Diminished breath sounds bilaterally Cardio: Rhythm: abnormal rhythm irregularly irregular GI: GI Palp: Yes Soft to palpation Auscultation: normal bowel sounds Neuro: Other: sedated on ventilator Objective Data Vital Signs Vital Signs: Vital Signs - 24 hr 11/03/20 17:51 11/03/20 17:57 11/03/20 17:58 Temperature Pulse Rate 78 85 88 Respiratory Rate 20 20 Blood Pressure Pulse Oximetry 11/03/20 20:00 11/03/20 20:05 11/03/20 22:00 Temperature 36.6 C Pulse Rate 88 77 Respiratory Rate 20 20 Blood Pressure 94/48 L Pulse Oximetry 96 93 93 11/04/20 00:58 11/04/20 02:06 11/04/20 06:00 Temperature 36.6 C Pulse Rate 108 H 80 90 Respiratory Rate 20 20 22 H Blood Pressure 100/42 L Pulse Oximetry 92 90 11/04/20 07:54 11/04/20 07:58 11/04/20 08:00 Temperature Pulse Rate 89 91 Respiratory Rate 20 32 H Blood Pressure Pulse Oximetry 80 L 91 11/04/20 08:03 11/04/20 08:08 11/04/20 10:35 Temperature Pulse Rate 107 H 97 90 Respiratory Rate 30 H 26 H 24 H Blood Pressure 105/43 L Pulse Oximetry 88 L 100 11/04/20 11:13 11/04/20 11:46 11/04/20 13:10 Temperature 36.6 C Pulse Rate 91 95 Respiratory Rate 30 H 32 H 22 H Blood Pressure 95/66 L 106/49 L Pulse Oximetry 92 91 98 11/04/20 13:25 11/04/20 13:45 11/04/20 13:59 Temperature Pulse Rate 82 89 Respiratory Rate 27 H 27 H Blood Pressure Pulse Oximetry 100 11/04/20 14:12 11/04/20 14:13 11/04/20 14:24 Temperature Pulse Rate 88 81 83 Respiratory Rate 24 H 24 H 30 H Blood Pressure Pulse Oximetry Intake/Output Intake/Output: Intake & Output 11/01/20 11/02/20 11/03/20 11/04/20 23:59 23:59 23:59 23:59 Intake Total 250 500 450 400 Output Total 2650 7438 932 5397 Balance -2400 -750 -500 -1950 Meds/Results Medications: Active Medications Generic Name Dose Route Start Last Admin Trade Name Freq PRN Reason Stop Dose Admin Acetazolamide 500 mg 11/04/20 17:00 Acetazolamide Tab 250 Mg Tablet PO BID REDD Albuterol 2.5 mg 10/30/20 15:22 11/03/20 15:04 Albuterol Sulfate Neb 2.5 Mg/0.5 Ml Inh INHALATION 2.5 mg Q6HRT PRN Administration Shortness Of Breath Amiodarone HCl 200 mg 10/26/20 17:00 11/04/20 08:17 Amiodarone Hcl 200 Mg Tablet PO 200 mg BID REDD Administration Apixaban 5 mg 10/23/20 21:00 11/03/20 09:00 Apixaban 5 Mg Tablet PO 5 mg Q12HR REDD Administration Aspirin 81 mg 11/04/20 09:00
[2020-11-04] MEDS: SODIUM CHLORIDE 0.9% IV 250 ML 30 ML IV CONT (16:05)
[2020-11-04 16:11] LABS: Alveolar/Arterial O2 Gradient 225.7 mmHg; Base Excess ABG 15.5 mEq/l (+/-2.0); Carboxyhemoglobin 0.3 % THb (0-2.0); Fractional Inspired Oxygen 100 %; HCO3 ABG 38.5 mEq/l (22.0-26.0); Methemoglobin ABG 0.5 %THb (0-1.5); Oxygen Content ABG 10.9 %vol (16.0-22.0); Oxygen Saturation ABG 99.9 % (95.0-100.0); Oxyhemoglobin 97.7 % THb (90.0-100.0); PCO2 ABG 40.8 mmHg (35.0-45.0); PO2 ABG 446.5 mmHg (80.0-100.0); PO2 FiO2 Ratio Arterial Blood 4.47 %; Reduced Hemoglobin 1.5 %THb (0-5.0)
[2020-11-04 16:13] LABS: Device VENTILATOR; Modified Allen's Test Pass; Site Drawn RIGHT RADIAL; pH ABG 7.593 (7.350-7.450)
[2020-11-04] MEDS: NOREPINEPHRINE 8 MG/D5W 250 ML 8 MG/250 ML BAG 15 MG IV CONT (16:13)
[2020-11-04 16:14] LABS: Arterial Blood Gas PEEP 5 cmH2O; Arterial Blood Gas Tidal Volume 400 ml; Arterial Blood Gas Vent Mode CMV; Arterial Blood Gas Ventilator rate 24 /MIN
[2020-11-04] MEDS: SODIUM CHLORIDE 0.9% IV 500 ML IV CONT (16:14)
[2020-11-04] MEDS: CENTRAL LINE FLUSH 10 ML IV PUSH ×3 (16:15→20:11)
[2020-11-04] MEDS: TUBING, BLOOD PLUM PUMP TUBING 1 EACH XX (16:15)
--- NOTE | 2020-11-04 16:22 | PCRCNOTE ---
Window of time for administration has passed. See next scheduled administration.
[2020-11-04] MEDS: ALBUTEROL SULFATE NEB 2.5 MG/0.5 ML INH INHALATION (20:27)
[2020-11-04 21:52] LABS: Hematocrit 26.6 % (42.0-52.0)
[2020-11-05] VITALS (35 sets, daily range): BP systolic 91–123; BP diastolic 49–67; PULSE 58–107; RESP 14–34; TEMP 35.3–36.4; O2SAT 95–100
[2020-11-05] MEDS: IPRATROPIUM BR 0.02% INH SOLN 0.5 MG/2.5 ML VIAL INHALATION ×4 (02:25→21:00)
[2020-11-05] MEDS: CENTRAL LINE FLUSH 10 ML IV PUSH ×3 (04:18→19:46)
[2020-11-05 04:34] LABS: Alveolar/Arterial O2 Gradient 105.6 mmHg; Base Excess ABG 10.1 mEq/l (+/-2.0); Carboxyhemoglobin 0.1 % THb (0-2.0); Fractional Inspired Oxygen 35 %; HCO3 ABG 33.1 mEq/l (22.0-26.0); Methemoglobin ABG 0.3 %THb (0-1.5); Oxygen Content ABG 13.5 %vol (16.0-22.0); Oxygen Saturation ABG 98.2 % (95.0-100.0); Oxyhemoglobin 96.7 % THb (90.0-100.0); PCO2 ABG 37.9 mmHg (35.0-45.0); PO2 ABG 99.9 mmHg (80.0-100.0); PO2 FiO2 Ratio Arterial Blood 2.85 %; Reduced Hemoglobin 2.9 %THb (0-5.0); Total Hemoglobin 9.8 g/dL (12.0-18.0)
[2020-11-05 04:36] LABS: pH ABG 7.559 (7.350-7.450)
[2020-11-05 04:37] LABS: Arterial Blood Gas Ventilator rate 18 /MIN; Device VENTILATOR; Modified Allen's Test Unable to perform; Site Drawn LEFT RADIAL
[2020-11-05 04:38] LABS: Arterial Blood Gas PEEP 5 cmH2O; Arterial Blood Gas Tidal Volume 400 ml; Arterial Blood Gas Vent Mode CMV
[2020-11-05 05:35] LABS: Hematocrit 25.8 % (42.0-52.0); Hemoglobin 8.8 g/dL (14.0-18.0); Immature Platelet Fraction Pct 6.3 % (0.9-11.2); Mean Corpuscular HGB Conc 34.1 g/dl (32-36); Mean Corpuscular Hemoglobin 30.9 pg (26-34); Mean Corpuscular Volume 90.5 fl (80-100); Mean Platelet Volume 10.9 fl (7.4-10.4); Platelet Count Result 134 k/mm3 (150-375); Red Blood Count 2.85 M/mm3 (4.6-6.20); Red Cell Distribution Width 14.1 % (11.5-14.5); White Blood Count 6.3 K/mm3 (4.5-10.0)
[2020-11-05 06:00] LABS: Lactic Acid Reflex 0.7 mmol/L (0.7-2.1)
[2020-11-05 06:04] LABS: Alanine Aminotransferase 22 U/L (4-50); Albumin Level 2.6 g/dL (3.5-5.1); Alkaline Phosphatase 55 U/L (38-126); Anion Gap 3 mmol/L (8-16); Aspartate Amino Transferase 19 U/L (17-59); Bilirubin,Total 1.7 mg/dL (0.2-1.3); Blood Urea Nitrogen 31 mg/dL (9-20); CRP 8.3 mg/dL (<1.0); Calcium 7.8 mg/dL (8.4-10.2); Carbon Dioxide 37 mmol/L (22-30); Chloride 92 mmol/L (98-107); Estimated CRCL calculation 79 ml/min; Estimated Glomerular Filt Rate > 60; Glucose 108 mg/dL (75-110); Magnesium 1.4 mg/dL (1.6-2.3); Potassium 2.4 mmol/L (3.4-5.0); Sodium 132 mmol/L (137-145)
[2020-11-05 06:29] LABS: Phosphorus < 1.0 mg/dL (2.5-4.5)
[2020-11-05 06:43] LABS: Potassium 2.3 mmol/L (3.4-5.0)
[2020-11-05] MEDS: DORNASE ALFA INH SOLN 1 MG/ML 2.5 ML AMP 2.5 MG INHALATION ×2 (08:26→21:00)
[2020-11-05] MEDS: BUDESONIDE RESPULE NEB 0.5 MG/2 ML AMP 1 MG INHALATION ×2 (08:26→21:00)
[2020-11-05] MEDS: ALBUTEROL SULFATE NEB 2.5 MG/0.5 ML INH INHALATION ×2 (08:27→14:05)
[2020-11-05] MEDS: POTASSIUM CHLORIDE 20 MEQ PACKET (FOR LIQUID) 40 MEQ PO (08:30)
[2020-11-05] MEDS: AMIODARONE HCL 200 MG TABLET PO ×2 (08:30→17:05)
[2020-11-05] MEDS: ASPIRIN 81 MG ENTERIC TABLET PO (08:31)
[2020-11-05] MEDS: MULTIVITAMIN HEMATINIC (*BKC) TABLET 1 TABLET PO (08:32)
[2020-11-05] MEDS: SODIUM CHLORIDE 1 GM TABLET PO ×2 (08:32→19:46)
[2020-11-05] MEDS: PANTOPRAZOLE SODIUM IV 40 MG VIAL IV PUSH (08:32)
[2020-11-05] MEDS: MAGNESIUM SULF 2 GM/WATER 50ML 2 GM/50 ML BAG IVPB (08:52)
[2020-11-05] MEDS: NOREPINEPHRINE 8 MG/D5W 250 ML 8 MG/250 ML BAG 11.25 MG IV CONT (09:38)
--- NOTE | 2020-11-05 10:44 | PM.PNNEP ---
Progress Note: A&P Assessment and Plan (1) Hyponatremia: Code(s): E87.1 - Hypo-osmolality and hyponatremia Status: Chronic Assessment and Plan: chronic issues since at least February 2020 sodium levels fluctuate around 127 - 135mmol/L in the past. extensive evaluation done by Dr. Moreno on last hospitalization a week ago: - TSH and cortisol okay - no evidence of paraproteinemia - no culprit medications patient has hyponatremia - no evidence of any malignancies (although I am unclear when he was last screened) - CT of head with colloid cyst but unclear if this would cause the problem sodium Ranging around 130. Now that he is intubated, he is not taking anything by mouth. He is off his diuretics. Sodium level is stable. Will just keep an eye on it while in this condition. (2) Acute and chronic respiratory failure: Code(s): J96.20 - Acute and chronic respiratory failure, unspecified whether with hypoxia or hypercapnia Status: Acute Assessment and Plan: intubated due to co2 retention. (3) Cardiac arrest with pulseless electrical activity: Code(s): I46.9 - Cardiac arrest, cause unspecified Status: Acute Assessment and Plan: Cardiology following Subjective Date/time seen: 11/05/20 10:44 Interval history: pt was intubated yesterday. His pCO2 was very high. He is sedated. he is on some norepinephrine Review of Systems Cardiovascular: Cardiovascular: Reports no additional cardiovascular complaints Respiratory: Respiratory: Reports no additional respiratory complaints Gastrointestinal: Gastrointestinal: Reports no additional gastrointestinal complaints Genitourinary: Genitourinary: Reports no additional male genitourinary complaints Exam Narrative: Exam Narrative: WDWN intubated gentleman the ventilator in NAD skin no rash Or subcu nodules head ncat lungs mildly coarse bilateral cor reg no rub or gallop abd BS+ nontender and soft ext trace to 1+ edema. Objective Data Vital Signs Vital Signs: Vital Signs - 24 hr 11/04/20 11:13 11/04/20 11:46 11/04/20 13:10 Temperature 36.6 C Pulse Rate 91 95 Respiratory Rate 30 H 32 H 22 H Blood Pressure 95/66 L 106/49 L Pulse Oximetry 92 91 98 11/04/20 13:25 11/04/20 13:45 11/04/20 13:59 Temperature Pulse Rate 82 89 Respiratory Rate 27 H 27 H Blood Pressure Pulse Oximetry 100 11/04/20 14:12 11/04/20 14:13 11/04/20 14:24 Temperature Pulse Rate 88 81 83 Respiratory Rate 24 H 24 H 30 H Blood Pressure Pulse Oximetry 11/04/20 16:00 11/04/20 16:02 11/04/20 16:07 Temperature 36.7 C 36.6 C Pulse Rate 69 72 70 Respiratory Rate 18 24 H Blood Pressure 99/51 L 99/51 L Pulse Oximetry 100 100 100 11/04/20 16:13 11/04/20 16:23 11/04/20 17:35 Temperature 36.8 C Pulse Rate 71 63 66 Respiratory Rate 22 H Blood Pressure 64/47 L 91/48 L Pulse Oximetry 100 11/04/20 18:00 11/04/20 18:15 11/04/20 18:57 Temperature 36.7 C 36.7 C Pulse Rate 69 57 L 71 Respiratory Rate 18 18 18 Blood Pressure 106/54 L 114/53 L 95/47 L Pulse Oximetry 100 99 100 11/04/20 19:14 11/04/20 20:00 11/04/20 20:12 Temperature 36.7 C 36.8 C Pulse Rate 62 68 67 Respiratory Rate 18 18 18 Blood Pressure 107/54 L 98/54 L 114/56 L Pulse Oximetry 100 100 11/04/20 20:28 11/04/20 20:52 11/04/20 20:58 Temperature Pulse Rate 66 66 68 Respiratory Rate 18 18 Blood Pressure Pulse Oximetry 100 11/04/20 22:00 11/04/20 22:25 11/04/20 23:36 Temperature Pulse Rate 67 67 Respiratory Rate 18 18 Blood Pressure 114/55 L Pulse Oximetry 100 100 100 11/04/20 23:57 11/05/20 00:02 11/05/20 01:07 Temperature 36.9 C Pulse Rate 65 60 Respiratory Rate 18 Blood Pressure 114/55 L 115/60 Pulse Oximetry 100 100 11/05/20 02:00 11/05/20 02:25 11/05/20 02:35 Temperature Pulse Ra
--- NOTE | 2020-11-05 12:08 | WPDINTPN ---
Progress Note: A&P Assessment and Plan (1) Acute and chronic respiratory failure: Code(s): J96.20 - Acute and chronic respiratory failure, unspecified whether with hypoxia or hypercapnia Status: Acute Assessment and Plan: Sedation has been held this morning in anticipation of performing CPAP trials and extubation. In the meantime I have adjusted his vent settings to a tidal volume of 400 respiratory rate has been decreased to 14 from 18 continue 30% FiO2 and peep of 5. I reviewed his ABGs and chest x-rays this morning. 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 Severe pulmonary hypertension with RVSP of 63 mmHg. -cardiology following the patient. Currently off diuretics (4) Pleural effusion: Code(s): J90 - Pleural effusion, not elsewhere classified Status: Acute Assessment and Plan: Status post thoracentesis of the left pleural effusion with 1000 mL of maroon colored fluid -cultures pending (5) Atelectasis of left lung: Code(s): J98.11 - Atelectasis Status: Acute Assessment and Plan: Whiteout of the left lung/atelectasis could be related to mucus plugging. Chest x-ray post intubation shows re-expansion (6) DVT prophylaxis: Code(s): Z29.9 - Encounter for prophylactic measures, unspecified Status: Acute Assessment and Plan: SCD (7) Hypertension: Qualifiers: Hypertension type: essential hypertension Qualified Code(s): I10 - Essential (primary) hypertension Code(s): I10 - Essential (primary) hypertension Status: Chronic Assessment and Plan: Blood pressures have been stable post intubation will continue to monitor (8) Hyponatremia: Code(s): E87.1 - Hypo-osmolality and hyponatremia Status: Chronic Assessment and Plan: Sodium levels improving -appreciate Nephrology evaluation -to monitor sodium levels (9) Urine retention: Code(s): R33.9 - Retention of urine, unspecified Status: Acute Assessment and Plan: Urinary retention with distended bladder on bladder ultrasound. Amaya was inserted -patient on Flomax (10) Anemia: Code(s): D64.9 - Anemia, unspecified Status: Acute Assessment and Plan: Thoracentesis done with removal of 1000 mL of maroon colored fluid -patient also anemic and dropped his hemoglobin to 6.7 on 11/04/2020, 1 unit of packed RBCs is been ordered -Eliquis currently on hold (11) Paroxysmal atrial flutter: Code(s): I48.92 - Unspecified atrial flutter Status: Acute Assessment and Plan: Continue amiodarone, diltiazem. -Eliquis has been stopped secondary to anemia -patient started on acetazolamide, will hold furosemide (12) Mucus plugging of bronchi: Code(s): J98.09 - Other diseases of bronchus, not elsewhere classified Status: Acute Assessment and Plan: Seems to have resolved with intubation and pulmonary toilet and suctioning. Additional Plan . Code status: Full code Critical care time spent:33 minutes Due to a high probability of clinically significant, life threatening deterioration, the patient required my highest level of preparedness to intervene emergently and I personally spent this critical care time directly and personally managing the patient. This critical care time included obtaining a history; examining the patient; pulse oximetry; ordering and review
--- NOTE | 2020-11-05 12:35 | PCOTNOTE ---
Spoke to RN, hold orders being placed for therapy secondary to medical status change and patient currently intubated.
--- NOTE | 2020-11-05 12:38 | PCPTNOTE ---
patient is intubated..not currently appropriate for SKILLED therapy...HOLD orders coming...will resume therapy when appropriate
[2020-11-05 14:08] LABS: Alanine Aminotransferase 21 U/L (4-50); Albumin Level 2.5 g/dL (3.5-5.1); Alkaline Phosphatase 57 U/L (38-126); Anion Gap -2 mmol/L (8-16); Aspartate Amino Transferase 22 U/L (17-59); Blood Urea Nitrogen 29 mg/dL (9-20); Calcium 7.7 mg/dL (8.4-10.2); Carbon Dioxide 39 mmol/L (22-30); Chloride 95 mmol/L (98-107); Estimated CRCL calculation 80 ml/min; Estimated Glomerular Filt Rate > 60; Glucose 140 mg/dL (75-110); Phosphorus 1.1 mg/dL (2.5-4.5); Potassium 3.5 mmol/L (3.4-5.0); Sodium 132 mmol/L (137-145)
--- NOTE | 2020-11-05 14:57 | PM.IMPN ---
Progress Note: A&P Assessment and Plan (1) Shock: Code(s): R57.9 - Shock, unspecified Status: Acute Assessment and Plan: Patient moved to ICU and intubated on 11/04. BP dropped to 64/47 felt related to sedation and hypovolemia given the recent diuresis and anemia. Fluid bolus and started on Levophed. BP more stable. Wean Levophed as tolerated. (2) Acute and chronic respiratory failure: Code(s): J96.20 - Acute and chronic respiratory failure, unspecified whether with hypoxia or hypercapnia Status: Acute Assessment and Plan: Patient with acute on chronic respiratory failure on home O2 at 2L. CXR 10/31 showing retrocardiac airspace disease but overall clear lung carreon. Rocephin started for possible PNA 11/01; Azithro added 11/02. CXR 11/02 showing opacified left hemithorax. CPT with vest therapy and pulmozyme added. CT chest 11/03 showing near complete collapse of the left upper lobe with fluid/mucus filling the bronchi extending to the left mainstem bronchus and moderate sized left pleural effusion. Patient initially tolerated this new finding until 11/04 when patient noted to be hypxoic so BiPAP started. Patient underwent US guided thoracentesis with 1L of maroon-colored fluid removed. While in radiology, patient decompensated becoming more hypoxic. Post-thor CXR showing decreased now small to moderate left pleural effusion with improved aeration of the left upper lung zone with persistent collapse/consolidation in the left lower lung zone. He was ultimately moved to the ICU and intubated. CXR today showing resolution of the mucous plugging. Bronch cancelled. ABG today 7.56/38/100 on MV. Wean MV as toelrated. Appreciate director of sales marketing input. (3) Anemia: Code(s): D64.9 - Anemia, unspecified Status: Acute Assessment and Plan: Hgb dropped to 6.7 yesterday for unclear reasons. No evidence of obvious source of blood loss. Bled into pleural space? Transfused 2U PRBC yesterday. Hgb 8.8 today. Follow HH (4) Atelectasis of left lung: Code(s): J98.11 - Atelectasis Status: Acute Assessment and Plan: Suspect related to mucous plugging. CXR improved. Bronch cancelled. Continue vest therapy, nebs and pulmozyme. (5) Pleural effusion: Code(s): J90 - Pleural effusion, not elsewhere classified Status: Acute Assessment and Plan: No significant effusion by CXR on 10/31 but increased to moderate over the last few days. Maroon colored so some component of bleeding. Related to collapsed lung? Late presentation from trauma? 1L removed and now small effusion. Follow (6) Diastolic congestive heart failure: Code(s): I50.30 - Unspecified diastolic (congestive) heart failure Status: Acute Assessment and Plan: Still with pedal edema but improving. Lasix IV held. Continue to monitor. Appreciate Cardiology input. (7) Cardiac arrest with pulseless electrical activity: Code(s): I46.9 - Cardiac arrest, cause unspecified Status: Acute Assessment and Plan: [place] related to hypercarbic respiratory failure. As above. (8) Hypertension: Qualifiers: Hypertension type: essential hypertension Qualified Code(s): I10 - Essential (primary) hypertension Code(s): I10 - Essential (primary) hypertension Status: Chronic Assessment and Plan: Patient's blood pressure was reviewed on 11/05. As above (9) COPD (chronic obstructive pulmonary disease): Qualifiers: COPD type: unspecified COPD Qualified Code(s): J44.9 - Chronic obstructive pulmonary disease, unspecified Code(s): J44.9 - Chronic obstructive pulmonary disease, unspecified Status: Acute Assessment and Plan: Stable. Continue treatment as above. (10) Paroxysmal atrial flutter: Code(s): I48.92 - Unspecified atrial flutter Status: Acute Assessment and Plan: EKG o
[2020-11-05] MEDS: SODIUM CHLORIDE 0.9% IV 1,000 ML 60 ML IV CONT (20:41)
[2020-11-06] VITALS (30 sets, daily range): BP systolic 93–125; BP diastolic 58–94; PULSE 66–118; RESP 14–30; TEMP 35.9–36.3; O2SAT 90–100
[2020-11-06] MEDS: IPRATROPIUM BR 0.02% INH SOLN 0.5 MG/2.5 ML VIAL INHALATION ×3 (02:23→19:47)
[2020-11-06 03:19] LABS: Immunoglobulin G, Serum 374 mg/dL (600-1540); Immunoglobulin G1 202 mg/dL (382-929); Immunoglobulin G2 107 mg/dL (241-700); Immunoglobulin G3 13 mg/dL (22-178); Immunoglobulin G4 9.1 mg/dL (4.0-86.0); Kappa\\Lambda Light Chains 1.16 (0.26-1.65); Lambda Light Chain 12.8 mg/L (5.7-26.3)
[2020-11-06 04:06] LABS: Alveolar/Arterial O2 Gradient 85.1 mmHg; Carboxyhemoglobin 0.3 % THb (0-2.0); Fractional Inspired Oxygen 30 %; HCO3 ABG 33.2 mEq/l (22.0-26.0); Methemoglobin ABG 0.4 %THb (0-1.5); Oxygen Content ABG 11.7 %vol (16.0-22.0); Oxygen Saturation ABG 96.2 % (95.0-100.0); PCO2 ABG 44.1 mmHg (35.0-45.0); PO2 FiO2 Ratio Arterial Blood 2.57 %; Reduced Hemoglobin 5.3 %THb (0-5.0); Total Hemoglobin 8.8 g/dL (12.0-18.0); pH ABG 7.494 (7.350-7.450)
[2020-11-06 04:07] LABS: Device VENTILATOR; Modified Allen's Test Unable to perform; Site Drawn LEFT RADIAL
[2020-11-06 04:08] LABS: Arterial Blood Gas PEEP 5 cmH2O; Arterial Blood Gas Tidal Volume 400 ml; Arterial Blood Gas Vent Mode CMV; Arterial Blood Gas Ventilator rate 14 /MIN
[2020-11-06] MEDS: CENTRAL LINE FLUSH 10 ML IV PUSH ×3 (05:22→19:33)
[2020-11-06 06:08] LABS: Hematocrit 23.2 % (42.0-52.0); Hemoglobin 7.9 g/dL (14.0-18.0); Mean Corpuscular HGB Conc 34.1 g/dl (32-36); Mean Corpuscular Hemoglobin 30.9 pg (26-34); Mean Corpuscular Volume 90.6 fl (80-100); Mean Platelet Volume 10.6 fl (7.4-10.4); Platelet Count Result 117 k/mm3 (150-375); Red Blood Count 2.56 M/mm3 (4.6-6.20); Red Cell Distribution Width 14.5 % (11.5-14.5); White Blood Count 4.4 K/mm3 (4.5-10.0)
[2020-11-06 06:20] LABS: Alanine Aminotransferase 20 U/L (4-50); Albumin Level 2.4 g/dL (3.5-5.1); Alkaline Phosphatase 53 U/L (38-126); Anion Gap 0 mmol/L (8-16); Aspartate Amino Transferase 18 U/L (17-59); Bilirubin,Total 1.2 mg/dL (0.2-1.3); Blood Urea Nitrogen 24 mg/dL (9-20); Calcium 7.2 mg/dL (8.4-10.2); Carbon Dioxide 36 mmol/L (22-30); Chloride 98 mmol/L (98-107); Estimated CRCL calculation 81 ml/min; Estimated Glomerular Filt Rate > 60; Glucose 75 mg/dL (75-110); Magnesium 1.7 mg/dL (1.6-2.3); Phosphorus 2.3 mg/dL (2.5-4.5); Potassium 3.2 mmol/L (3.4-5.0); Sodium 134 mmol/L (137-145)
--- NOTE | 2020-11-06 08:36 | PM.PNNEP ---
Progress Note: A&P Assessment and Plan (1) Hyponatremia: Code(s): E87.1 - Hypo-osmolality and hyponatremia Status: Chronic Assessment and Plan: chronic issues since at least February 2020 sodium levels fluctuate around 127 - 135mmol/L in the past. extensive evaluation done by Dr. Moreno on last hospitalization a week ago: - TSH and cortisol okay - no evidence of paraproteinemia - no culprit medications patient has hyponatremia - no evidence of any malignancies (although I am unclear when he was last screened) - CT of head with colloid cyst but unclear if this would cause the problem sodium is still low but stable. (2) Acute and chronic respiratory failure: Code(s): J96.20 - Acute and chronic respiratory failure, unspecified whether with hypoxia or hypercapnia Status: Acute Assessment and Plan: intubated due to co2 retention. More awake now. Hopefully will be able to wean soon. (3) Cardiac arrest with pulseless electrical activity: Code(s): I46.9 - Cardiac arrest, cause unspecified Status: Acute Assessment and Plan: Cardiology following Subjective Date/time seen: 11/06/20 08:36 Interval history: pt is still intubated. He is awake now. He denies any chest pain or shortness of breath Review of Systems Cardiovascular: Cardiovascular: Reports no additional cardiovascular complaints Respiratory: Respiratory: Reports no additional respiratory complaints Gastrointestinal: Gastrointestinal: Reports no additional gastrointestinal complaints Genitourinary: Genitourinary: Reports no additional male genitourinary complaints Exam Narrative: Exam Narrative: WDWN intubated gentleman the ventilator in NAD skin no rash head ncat lungs mildly coarse bilateral cor reg no rub abd BS+ nontender and soft ext trace to 1+ edema. Objective Data Vital Signs Vital Signs: Vital Signs - 24 hr 11/05/20 09:38 11/05/20 10:00 11/05/20 10:55 Temperature Pulse Rate 61 67 62 Respiratory Rate 14 Blood Pressure 99/51 L 107/55 L Pulse Oximetry 99 99 11/05/20 11:00 11/05/20 12:00 11/05/20 12:25 Temperature 35.3 C L Pulse Rate 70 65 81 Respiratory Rate 16 Blood Pressure 103/49 L 113/49 L 113/49 L Pulse Oximetry 100 11/05/20 14:00 11/05/20 14:10 11/05/20 16:00 Temperature 35.9 C L Pulse Rate 73 72 87 Respiratory Rate 14 14 21 H Blood Pressure 105/60 108/67 Pulse Oximetry 99 100 11/05/20 17:30 11/05/20 18:00 11/05/20 19:46 Temperature Pulse Rate 65 88 87 Respiratory Rate 16 33 H Blood Pressure 91/57 L Pulse Oximetry 99 98 11/05/20 19:47 11/05/20 20:00 11/05/20 20:55 Temperature 36.4 C Pulse Rate 87 89 97 Respiratory Rate 34 H 25 H Blood Pressure 102/53 L 92/58 L Pulse Oximetry 96 99 11/05/20 21:00 11/05/20 21:20 11/05/20 21:41 Temperature Pulse Rate 106 H 87 94 Respiratory Rate 14 14 25 H Blood Pressure 108/56 L Pulse Oximetry 96 11/05/20 23:28 11/05/20 23:32 11/05/20 23:35 Temperature Pulse Rate 107 H 106 H Respiratory Rate 30 H Blood Pressure 112/56 L Pulse Oximetry 97 96 95 11/06/20 02:00 11/06/20 02:17 11/06/20 02:25 Temperature Pulse Rate 100 100 99 Respiratory Rate 29 H 14 14 Blood Pressure 97/58 L Pulse Oximetry 99 11/06/20 02:29 11/06/20 02:37 11/06/20 03:39 Temperature Pulse Rate 90 91 Respiratory Rate 14 Blood Pressure Pulse Oximetry 95 98 11/06/20 03:44 11/06/20 04:00 11/06/20 04:12 Temperature 36.3 C L Pulse Rate 91 66 98 Respiratory Rate 15 Blood Pressure 103/59 L Pulse Oximetry 98 98 11/06/20 05:20 11/06/20 05:21 11/06/20 05:35 Temperature Pulse Rate 89 90 90 Respiratory Rate 14 14 16 Blood Pressure 93/62 L Pulse Oximetry 97 Intake/Output Intake/Output: Intake & Output 11/03/20 11/04/20 11/05/20 11/06/20 23:59 23:5
[2020-11-06] MEDS: MULTIVITAMIN HEMATINIC (*BKC) TABLET 1 TABLET PO (09:08)
[2020-11-06] MEDS: SODIUM CHLORIDE 1 GM TABLET PO (09:08)
[2020-11-06] MEDS: PANTOPRAZOLE SODIUM IV 40 MG VIAL IV PUSH (09:09)
[2020-11-06] MEDS: AMIODARONE HCL 200 MG TABLET PO ×2 (09:12→16:39)
[2020-11-06] MEDS: ASPIRIN 81 MG ENTERIC TABLET PO (09:12)
--- NOTE | 2020-11-06 10:39 | PCRCNOTE ---
Window of time for administration has passed. See next scheduled administration.
--- NOTE | 2020-11-06 11:47 | PM.IMPN ---
Progress Note: A&P Assessment and Plan (1) Shock: Code(s): R57.9 - Shock, unspecified Status: Acute Assessment and Plan: Patient moved to ICU and intubated on 11/04. BP dropped to 64/47 felt related to sedation and hypovolemia given the recent diuresis and anemia. Fluid bolus and started on Levophed. BP more stable. Weaned off Levophed last evening. Monitor. (2) Acute and chronic respiratory failure: Code(s): J96.20 - Acute and chronic respiratory failure, unspecified whether with hypoxia or hypercapnia Status: Acute Assessment and Plan: Patient with acute on chronic respiratory failure on home O2 at 2L. CTA chest 10/23 showing no PE but reticulonodular densities predominantly of the right upper and middle lobe and multiple pleural based irregular shaped nodules right upper thorax posteriorly which may be infectious/inflammatory, although neoplasm is not excluded.CXR 10/31 showing retrocardiac airspace disease but overall clear lung carreon. Rocephin started for possible PNA 11/01; Azithro added 11/02. CXR 11/02 showing opacified left hemithorax. CPT with vest therapy and pulmozyme added. CT chest 11/03 showing near complete collapse of the left upper lobe with fluid/mucus filling the bronchi extending to the left mainstem bronchus and moderate sized left pleural effusion. Patient initially tolerated this new finding until 11/04 when patient noted to be hypxoic so BiPAP started. Patient underwent US guided thoracentesis with 1L of maroon-colored fluid removed. While in radiology, patient decompensated becoming more hypoxic. Post-thor CXR showing decreased now small to moderate left pleural effusion with improved aeration of the left upper lung zone with persistent collapse/consolidation in the left lower lung zone. He was ultimately moved to the ICU and intubated. CXR 11/05 showing resolution of the mucous plugging so bronch cancelled. CXR today showing only minimal bibasilar disease. ABG today 7.49// on MV. Wean MV as toelrated. Appreciate anesthesiology fellow input. Should be able to be extubated today. (3) Anemia: Code(s): D64.9 - Anemia, unspecified Status: Acute Assessment and Plan: Hgb dropped to 6.7 11/04/20 for unclear reasons and transfused 2U PRBC. No evidence of obvious source of blood loss. Bled into pleural space? Hgb 7.9 today. Follow HH (4) Atelectasis of left lung: Code(s): J98.11 - Atelectasis Status: Acute Assessment and Plan: Suspect related to mucous plugging. CXR improved. Bronch cancelled. Continue vest therapy, nebs and pulmozyme. (5) Pleural effusion: Code(s): J90 - Pleural effusion, not elsewhere classified Status: Acute Assessment and Plan: No significant effusion by CXR on 10/31 but increased to moderate over the next few days. Maroon colored fluid from thoracentsis so some component of bleeding. Related to collapsed lung? Late presentation from trauma? 1L removed and now small effusion. No pH and cell count not performed. Majority of the cells are neutrophils. Follow (6) Diastolic congestive heart failure: Code(s): I50.30 - Unspecified diastolic (congestive) heart failure Status: Acute Assessment and Plan: Still with pedal edema but improving. Lasix IV held. Continue to monitor. Appreciate Cardiology input. Add Quinn max (7) Cardiac arrest with pulseless electrical activity: Code(s): I46.9 - Cardiac arrest, cause unspecified Status: Acute Assessment and Plan: EMS called because patient was apparently unresponsive all day. On EMS arrival he was found with agonal respirations but did have a pulse however went into PEA shortly thereafter. CPR was initiated and after 2 doses of epinephrine he had return of spontaneous circulation, within approximately 10 minutes or less. A supraglottic airway was placed and he was being bagged on arrival to the emergency dep
--- NOTE | 2020-11-06 12:14 | WPDINTPN ---
Progress Note: A&P Assessment and Plan (1) Acute and chronic respiratory failure: Code(s): J96.20 - Acute and chronic respiratory failure, unspecified whether with hypoxia or hypercapnia Status: Acute Assessment and Plan: Sedation has been held this morning in anticipation of performing CPAP trials and extubation. In the meantime I have adjusted his vent settings to a tidal volume of 400 respiratory rate has been decreased to 14 from 18 continue 30% FiO2 and peep of 5. I reviewed his ABGs and chest x-rays this morning. 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 Severe pulmonary hypertension with RVSP of 63 mmHg. -cardiology following the patient. Currently off diuretics (4) Pleural effusion: Code(s): J90 - Pleural effusion, not elsewhere classified Status: Acute Assessment and Plan: Resolved Status post thoracentesis of the left pleural effusion with 1000 mL of maroon colored fluid -cultures pending (5) Atelectasis of left lung: Code(s): J98.11 - Atelectasis Status: Acute Assessment and Plan: Whiteout of the left lung/atelectasis could be related to mucus plugging. Chest x-ray post intubation shows re-expansion (6) DVT prophylaxis: Code(s): Z29.9 - Encounter for prophylactic measures, unspecified Status: Acute Assessment and Plan: SCD (7) Hypertension: Qualifiers: Hypertension type: essential hypertension Qualified Code(s): I10 - Essential (primary) hypertension Code(s): I10 - Essential (primary) hypertension Status: Chronic Assessment and Plan: Blood pressures have been stable post intubation will continue to monitor (8) Hyponatremia: Code(s): E87.1 - Hypo-osmolality and hyponatremia Status: Chronic Assessment and Plan: Sodium levels improving -appreciate Nephrology evaluation -to monitor sodium levels (9) Urine retention: Code(s): R33.9 - Retention of urine, unspecified Status: Acute Assessment and Plan: Urinary retention with distended bladder on bladder ultrasound. Amaya was inserted -patient on Flomax (10) Anemia: Code(s): D64.9 - Anemia, unspecified Status: Acute Assessment and Plan: Thoracentesis done with removal of 1000 mL of maroon colored fluid -patient also anemic and dropped his hemoglobin to 6.7 on 11/04/2020, 1 unit of packed RBCs is been ordered -Eliquis currently on hold (11) Paroxysmal atrial flutter: Code(s): I48.92 - Unspecified atrial flutter Status: Acute Assessment and Plan: Continue amiodarone, diltiazem. -Eliquis has been stopped secondary to anemia and supsion for blood loss in the hemothorax s/p rib fractures - appears diuretics can likely be restarted in 1-2 days. - would recommend starting heparin drip when appropropriate and then transition back to NOAC if no signs of bleeding and Hgb stable (12) Mucus plugging of bronchi: Code(s): J98.09 - Other diseases of bronchus, not elsewhere classified Status: Acute Assessment and Plan: Seems to have resolved with intubation and pulmonary toilet and suctioning. Additional Plan . Code status: Full code Critical care time spent:33 minutes Due to a high probability of clinically significant, life threatening deterioration, the patient required my highest level of preparedness to intervene emergen
[2020-11-06] MEDS: SODIUM CHLORIDE 0.9% IV 1,000 ML 60 ML IV CONT (13:33)
[2020-11-06] MEDS: ALBUTEROL SULFATE NEB 2.5 MG/0.5 ML INH INHALATION (14:31)
[2020-11-06] MEDS: BUDESONIDE RESPULE NEB 0.5 MG/2 ML AMP 1 MG INHALATION (19:47)
[2020-11-06] MEDS: DORNASE ALFA INH SOLN 1 MG/ML 2.5 ML AMP 2.5 MG INHALATION (19:48)
--- NOTE | 2020-11-06 20:12 | PCRCNOTE ---
CALLED TO PT ROOM FOR SPO2 85%, VT ON BIPAP LESS THAN 200MLS. PT WAS BECOMING ANXIOUS. ADJUSTED IPAP/EPAP FOR PT COMFORT AND VT IN THE HIGH 300'S, WHICH IS DOCUMENTED ON NIV FLOWSHEET. RN LAUREL AT BEDSIDE FOR ALL EVENTS.
[2020-11-07] VITALS (30 sets, daily range): BP systolic 123–143; BP diastolic 69–88; PULSE 93–118; RESP 15–38; TEMP 36.1–36.3; O2SAT 87–100
[2020-11-07] MEDS: IPRATROPIUM BR 0.02% INH SOLN 0.5 MG/2.5 ML VIAL INHALATION ×4 (01:26→20:04)
[2020-11-07] MEDS: SODIUM CHLORIDE 0.9% IV 1,000 ML 60 ML IV CONT (04:53)
[2020-11-07 05:07] LABS: Hematocrit 26.3 % (42.0-52.0); Hemoglobin 8.6 g/dL (14.0-18.0); Mean Corpuscular HGB Conc 32.7 g/dl (32-36); Mean Corpuscular Hemoglobin 30.5 pg (26-34); Mean Corpuscular Volume 93.3 fl (80-100); Mean Platelet Volume 10.4 fl (7.4-10.4); Platelet Count Result 129 k/mm3 (150-375); Red Blood Count 2.82 M/mm3 (4.6-6.20); Red Cell Distribution Width 14.6 % (11.5-14.5); White Blood Count 5.2 K/mm3 (4.5-10.0)
[2020-11-07 05:18] LABS: Alanine Aminotransferase 19 U/L (4-50); Albumin Level 2.5 g/dL (3.5-5.1); Alkaline Phosphatase 61 U/L (38-126); Anion Gap -4 mmol/L (8-16); Aspartate Amino Transferase 20 U/L (17-59); Bilirubin,Total 0.8 mg/dL (0.2-1.3); Blood Urea Nitrogen 22 mg/dL (9-20); Calcium 7.5 mg/dL (8.4-10.2); Carbon Dioxide 38 mmol/L (22-30); Chloride 100 mmol/L (98-107); Estimated CRCL calculation 92 ml/min; Estimated Glomerular Filt Rate > 60; Glucose 89 mg/dL (75-110); Magnesium 1.7 mg/dL (1.6-2.3); Phosphorus 2.5 mg/dL (2.5-4.5); Potassium 3.6 mmol/L (3.4-5.0); Sodium 134 mmol/L (137-145)
[2020-11-07] MEDS: CENTRAL LINE FLUSH 10 ML IV PUSH ×3 (05:20→19:51)
[2020-11-07 06:04] LABS: Alveolar/Arterial O2 Gradient 120.2 mmHg; Base Excess ABG 5.7 mEq/l (+/-2.0); Carboxyhemoglobin 0.8 % THb (0-2.0); Fractional Inspired Oxygen 36 %; HCO3 ABG 32.8 mEq/l (22.0-26.0); Methemoglobin ABG 0.3 %THb (0-1.5); Oxygen Content ABG 13.1 %vol (16.0-22.0); Oxygen Saturation ABG 90.8 % (95.0-100.0); Oxyhemoglobin 89.9 % THb (90.0-100.0); PO2 ABG 64.4 mmHg (80.0-100.0); PO2 FiO2 Ratio Arterial Blood 1.79 %; Total Hemoglobin 10.3 g/dL (12.0-18.0); pH ABG 7.341 (7.350-7.450)
[2020-11-07 06:07] LABS: Device NASAL CANNULA; Modified Allen's Test Pass; PCO2 ABG 62.1 mmHg (35.0-45.0); Site Drawn LEFT RADIAL
[2020-11-07] MEDS: DORNASE ALFA INH SOLN 1 MG/ML 2.5 ML AMP 2.5 MG INHALATION ×2 (08:01→20:04)
[2020-11-07] MEDS: BUDESONIDE RESPULE NEB 0.5 MG/2 ML AMP 1 MG INHALATION ×2 (08:01→20:04)
[2020-11-07] MEDS: ALBUTEROL SULFATE NEB 2.5 MG/0.5 ML INH INHALATION ×2 (08:02→20:03)
--- NOTE | 2020-11-07 08:14 | PCPTNOTE ---
PT orders discontinued, please reorder when appropriate.
[2020-11-07] MEDS: TAMSULOSIN HCL 0.4 MG CAPSULE PO (08:47)
[2020-11-07] MEDS: MULTIVITAMIN HEMATINIC (*BKC) TABLET 1 TABLET PO (08:47)
[2020-11-07] MEDS: PANTOPRAZOLE SODIUM IV 40 MG VIAL IV PUSH (08:47)
[2020-11-07] MEDS: ASPIRIN 81 MG ENTERIC TABLET PO (08:47)
[2020-11-07] MEDS: AMIODARONE HCL 200 MG TABLET PO ×2 (08:48→17:22)
[2020-11-07] MEDS: FUROSEMIDE INJ 40 MG/4 ML VIAL 20 MG IV PUSH (09:04)
[2020-11-07] MEDS: methylPREDNISolone SOD SUCC 125 MG VIAL IV PUSH (09:04)
--- NOTE | 2020-11-07 10:09 | PM.IMPN ---
Progress Note: A&P Assessment and Plan (1) Shock: Code(s): R57.9 - Shock, unspecified Status: Acute Assessment and Plan: Patient moved to ICU due to hypoxia after thoracentesis and intubated on 11/04. After intubation, BP dropped to 64/47 felt related to sedation and hypovolemia given the recent diuresis and anemia. Fluid bolus and started on Levophed. BP more stable. Weaned off Levophed evening of 11/05. Monitor. (2) Acute and chronic respiratory failure: Code(s): J96.20 - Acute and chronic respiratory failure, unspecified whether with hypoxia or hypercapnia Status: Acute Assessment and Plan: Patient with acute on chronic respiratory failure on home O2 at 2L. CTA chest 10/23 showing no PE but reticulonodular densities predominantly of the right upper and middle lobe and multiple pleural based irregular shaped nodules right upper thorax posteriorly which may be infectious/inflammatory, although neoplasm is not excluded. CXR 10/31 showing retrocardiac airspace disease but overall clear lung carreon. Rocephin started for possible PNA 11/01; Azithro added 11/02. CXR 11/02 showing opacified left hemithorax. CPT with vest therapy and pulmozyme added. CT chest 11/03 showing near complete collapse of the left upper lobe with fluid/mucus filling the bronchi extending to the left mainstem bronchus and moderate sized left pleural effusion. Patient initially tolerated this new finding until 11/04 when patient noted to be hypxoic so BiPAP started. Patient underwent US guided thoracentesis with 1L of maroon-colored fluid removed. While in radiology, patient decompensated becoming more hypoxic. Post-thor CXR showing decreased now small to moderate left pleural effusion with improved aeration of the left upper lung zone with persistent collapse/consolidation in the left lower lung zone. He was ultimately moved to the ICU and intubated 11/04. CXR 11/05 showing resolution of the mucous plugging so bronch cancelled. Patient extubated 11/06. CXR reviewed today showing small bilateral pleural effusions with bibasilar airspace disease and mild pulm edema. ABG today 7.34/62/64 on BiPAP. Appreciate meat cutting block repairer input. Keep in ICU for now. (3) Anemia: Code(s): D64.9 - Anemia, unspecified Status: Acute Assessment and Plan: Hgb dropped to 6.7 on 11/04 for unclear reasons and transfused 2U PRBC. No evidence of obvious source of blood loss. Bled into pleural space? Hgb up to 8.6 today. Stool guaiac negative. Follow HH (4) Atelectasis of left lung: Code(s): J98.11 - Atelectasis Status: Acute Assessment and Plan: Patient with left lung white out found by CXR 11/02. Suspect related to mucous plugging. CXR improved while on MV. Bronch cancelled. Continue vest therapy, nebs and pulmozyme. (5) Pleural effusion: Code(s): J90 - Pleural effusion, not elsewhere classified Status: Acute Assessment and Plan: No significant effusion by CXR on 10/31 but increased to moderate over the next few days. Maroon colored fluid from thoracentsis 11/04 so some component of bleeding. Related to collapsed lung? Late presentation from trauma? 1L removed and now small effusion. No pH and cell count not performed. Majority of the cells are neutrophils. Follow (6) Diastolic congestive heart failure: Code(s): I50.30 - Unspecified diastolic (congestive) heart failure Status: Acute Assessment and Plan: Still with pedal edema and now with pulmonary edema Lasix IV on hold. Continue to monitor. Appreciate Cardiology input. Quinn max ordered. Stop IV fluids. Resume Lasix (7) Cardiac arrest with pulseless electrical activity: Code(s): I46.9 - Cardiac arrest, cause unspecified Status: Acute Assessment and Plan: EMS called to patient's home because patient was apparently unresponsive all day. On EMS arrival he was found with agonal respirations
[2020-11-07 10:49] LABS: Non-Invasive Expiratory Pressure 6 CMH2O; Non-Invasive Inspiratory Pressure 12 CMH2O
--- NOTE | 2020-11-07 11:22 | WPDINTPN ---
Progress Note: A&P Assessment and Plan (1) Acute and chronic respiratory failure: Code(s): J96.20 - Acute and chronic respiratory failure, unspecified whether with hypoxia or hypercapnia Status: Acute Assessment and Plan: Patient intubated on 11/04/2020, successfully extubated on 11/06/2020 -patient this morning decompensated requiring BiPAP -patient was diuresed this morning and started on Solu-Medrol with improvement -chest x-ray reviewed (2) Chronic obstructive pulmonary disease: Code(s): J44.9 - Chronic obstructive pulmonary disease, unspecified Status: Chronic Assessment and Plan: COPD exacerbation -continue p.r.n. BiPAP -remains on Pulmicort, ipratropium - continue steroids - Continue azithromycin And ceftriaxone (3) Acute CHF (congestive heart failure): Code(s): I50.9 - Heart failure, unspecified Status: Acute Assessment and Plan: Echocardiogram [id number] showed LV EF of 65-70%, diastolic dysfunction moderate tricuspid valve regurg, mild mitral valve regurg. Severe pulmonary hypertension with RVSP of 63 mmHg. -cardiology following the patient. -restart furosemide per cardiology (4) Pleural effusion: Code(s): J90 - Pleural effusion, not elsewhere classified Status: Acute Assessment and Plan: Resolved Status post thoracentesis of the left pleural effusion with 1000 mL of maroon colored fluid (5) Atelectasis of left lung: Code(s): J98.11 - Atelectasis Status: Acute Assessment and Plan: Whiteout of the left lung/atelectasis could be related to mucus plugging. -chest x-ray shows re-expansion post intubation and remained expanded after that. (6) DVT prophylaxis: Code(s): Z29.9 - Encounter for prophylactic measures, unspecified Status: Acute Assessment and Plan: SCD (7) Hypertension: Qualifiers: Hypertension type: essential hypertension Qualified Code(s): I10 - Essential (primary) hypertension Code(s): I10 - Essential (primary) hypertension Status: Chronic Assessment and Plan: Blood pressures have been stable post intubation will continue to monitor (8) Hyponatremia: Code(s): E87.1 - Hypo-osmolality and hyponatremia Status: Chronic Assessment and Plan: Sodium levels improving -appreciate Nephrology evaluation -to monitor sodium levels (9) Urine retention: Code(s): R33.9 - Retention of urine, unspecified Status: Acute Assessment and Plan: Urinary retention with distended bladder on bladder ultrasound. Amaya was inserted -patient on Flomax (10) Anemia: Code(s): D64.9 - Anemia, unspecified Status: Acute Assessment and Plan: Thoracentesis done with removal of 1000 mL of maroon colored fluid -patient also anemic and dropped his hemoglobin to 6.7 on 11/04/2020, 1 unit of packed RBCs is been ordered -hemoglobin has stable -Eliquis currently on hold (11) Paroxysmal atrial flutter: Code(s): I48.92 - Unspecified atrial flutter Status: Acute Assessment and Plan: Continue amiodarone, diltiazem. -Eliquis has been stopped secondary to anemia and supsion for blood loss in the hemothorax s/p rib fractures -restarted on diuretics. - would recommend starting heparin drip when appropropriate and then transition back to NOAC if no signs of bleeding and Hgb stable (12) Mucus plugging of bronchi: Code(s): J98.09 - Other diseases of bronchus, not elsewhere classified Status: Acute Assessment and Plan: Seems to have resolved with intubation and pulmonary toilet and suctioning. Additional Plan Discussed with patient updated with his condition plan of care Code status: Full code Critical care time spent:33 minutes Due to a high probability of clinically significant, life threatening deterioration, the patient required my highest level of preparedness to intervene emergently and
--- NOTE | 2020-11-07 11:29 | PCDIET ---
Nutrition Follow-Up Complete: Nutrition Diagnosis: Inadequate oral intake related to oral intubation as evidenced by NPO status. Nutrition Goal: Patient to meet estimated nutritional needs. Goal in progress. Patient intubated over weekend. Extubated on 11/06/20; currently on bipap. Diet is regular with Ensure Compact BID. Intakes currently limited due to bipap use, per RN. Last recorded weight is 58.7 kg which is significantly increased from last review. +I/O. May consider re-weighing for accuracy. Bowel Motility: Liquid BMs documented. Labs Reviewed: Hgb (8.6), Hct (26.3), BUN (22), Cr (0.5), Na (134), Alb (2.5), Ashly Ca (8.7) Meds Noted: Albuterol, Lasix, Zithromax, Atrovent, Pulmicort, Centrum, Rocephin, Protonix, D5NS at 50mL/hr Additional Notes: Deep tissue injuries to bilateral heels and left ischium. Will continue to monitor with same goal. Nutrition Monitoring and Evaluation: Follow up every 3 days.
--- NOTE | 2020-11-07 14:39 | PM.PNNEP ---
Progress Note: A&P Assessment and Plan (1) Hyponatremia: Code(s): E87.1 - Hypo-osmolality and hyponatremia Status: Chronic Assessment and Plan: chronic issues since at least February 2020 sodium levels fluctuate around 127 - 135mmol/L in the past. extensive evaluation done on last hospitalization: - TSH and cortisol okay - no evidence of paraproteinemia - no culprit medications patient has hyponatremia - no evidence of any malignancies (although I am unclear when he was last screened) - CT of head with colloid cyst but unclear if this would cause the problem sodium is still low but stable (2) Acute and chronic respiratory failure: Code(s): J96.20 - Acute and chronic respiratory failure, unspecified whether with hypoxia or hypercapnia Status: Acute Assessment and Plan: extubated and doing better at this time follow respiratory status closely BiPAP PRN not opposed to diuresis PRN (this may help improve #1) (3) Cardiac arrest with pulseless electrical activity: Code(s): I46.9 - Cardiac arrest, cause unspecified Status: Acute Assessment and Plan: Cardiology following Will continue to follow intermittently. Subjective Date/time seen: 11/07/20 14:39 Patient extubated yesterday afternoon but earlier this AM had issues with tachypnea along with hypoxia requiring institution of BiPAP therapy; doing better with BiPAP along with addition of diuresis and steroids; has now been weaned down to oxygen by nasal cannula; no other acute events/issues noted at this time. Exam Narrative: Exam Narrative: General: WD/WN male in NAD Heart: normal S1 and S2; no rub Lungs: coarse breath sounds throughtout Abdomen: soft, nontender, nondistended, positive bowel sounds Extremities: no cyanosis or clubbing; 1+edema Skin: warm and dry Objective Data Vital Signs Vital Signs: Vital Signs Temp Pulse Resp BP Pulse Ox 11/07/20 14:00 112 H 28 H 128/73 99 11/07/20 13:59 112 H 27 H 11/07/20 12:00 36.3 C L 103 H 33 H 129/78 100 11/07/20 10:42 104 H 19 100 11/07/20 10:00 115 H 38 H 130/79 100 11/07/20 08:48 118 H 11/07/20 08:31 117 H 30 H 92 11/07/20 08:30 117 H 30 H 11/07/20 08:08 92 11/07/20 08:07 87 L 11/07/20 08:06 115 H 30 H 11/07/20 08:00 36.2 C L 110 H 33 H 143/78 H 94 11/07/20 06:18 113 H 28 H 95 11/07/20 06:00 107 H 28 H 137/74 98 11/07/20 04:00 36.3 C L 95 18 125/69 100 11/07/20 03:27 103 H 29 H 98 11/07/20 02:00 115 H 27 H 137/73 96 11/07/20 01:36 111 H 32 H 11/07/20 01:27 112 H 28 H 11/07/20 00:00 36.1 C L 98 15 123/72 100 11/06/20 23:35 89 18 100 11/06/20 23:33 96 16 100 11/06/20 22:00 99 16 115/67 100 11/06/20 21:05 111 H 25 H 11/06/20 20:14 114 H 30 H 97 11/06/20 20:00 107 H 27 H 121/69 91 11/06/20 19:48 104 H 27 H 94 11/06/20 19:43 104 H 27 H 99 Intake/Output Intake/Output: Intake & Output 11/04/20 11/05/20 11/06/20 11/07/20 23:59 23:59 23:59 23:59 Intake Total 2960 1750 1420 2900 Output Total 2600 6245 692 9262 Balance 360 063 711 7544 Meds/Results Medications: Active Medications Generic Name Dose Route Start Last Admin Trade Name Freq PRN Reason Stop Dose Admin Albuterol 2.5 mg 10/30/20 15:22 11/07/20 08:02 Albuterol Sulfate Neb 2.5 Mg/0.5 Ml Inh INHALATION 2.5 mg Q6HRT PRN Administration Shortness Of Breath Amiodarone HCl 200 mg 10/26/20 17:00 11/07/20 17:22 Amiodarone Hcl 200 Mg Tablet PO 200 mg BID REDD Administration Apixaban 5 mg 10/23/20 21:00 11/03/20 09:00 Apixaban 5 Mg Tablet PO 5 mg Q12HR REDD Administration Aspirin 81 mg 11/04/20 09:00 11/07/20 08:47 Aspirin 81 Mg Enteric Tablet PO 81 mg QAM REDD Administration Budesonide 1 mg 11/02/20 20
[2020-11-07] MEDS: methylPREDNISolone SOD SUCC 40 MG VIAL IV PUSH ×3 (15:04→23:09)
[2020-11-07] MEDS: DEXTROSE 5%/0.9% SOD CHL 1,000 ML 50 ML IV CONT (17:21)
--- NOTE | 2020-11-07 17:45 | PM.PNCARD ---
Progress Note: A&P Assessment and Plan (1) Paroxysmal atrial flutter: Code(s): I48.92 - Unspecified atrial flutter Status: Acute Assessment and Plan: Persistent atrial flutter with RVR. Heart rate reasonable otherwise. Continue amiodarone. Resume diltiazem in a.m. as BP allows. continue telemetry. Continue Eliquis 5 mg b.i.d. While we are hoping for short-term amiodarone use options are very limited with this patient. heart rate is fairly well controlled with diltiazem and amiodarone although this is not a great combination given his underlying lung disease long-term. Once well enough, consider referral for ablation on an outpatient basis. Resume diltiazem at reduced dose 120 mg in a.m. provided BP stable. (2) Acute and chronic respiratory failure: Code(s): J96.20 - Acute and chronic respiratory failure, unspecified whether with hypoxia or hypercapnia Status: Acute Assessment and Plan: Severe COPD. needs BiPAP at night. Prognosis poor. As above, amiodarone poor option given lung disease, however, options very limited. Does not appear to be significantly volume overloaded at this time. Continue furosemide at 20 mg IV Q 12 hours. Severe pulmonary hypertension RVSP 63 mmHg. (3) Cardiac arrest with pulseless electrical activity: Code(s): I46.9 - Cardiac arrest, cause unspecified Status: Acute Assessment and Plan: Status post PA arrest secondary to hypercarbia, good recovery. EF preserved 65-70% without wall motion abnormalities. PT OT. (4) Elevated troponin: Code(s): R77.8 - Other specified abnormalities of plasma proteins Status: Acute Assessment and Plan: 0.045 and 0.045, secondary to cardiac arrest not a acute coronary syndrome event. on Eliquis. Does not need aspirin from a cardiac perspective. Subjective Date/time seen: Date of Service: 11/07/20 17:45 Interval history: Follow-up for atrial flutter. Admitted with a PE a cardiac arrest likely secondary to hypercarbic respiratory failure secondary to severe COPD. PT extubated, Pt feels ok notes chest chest soreness, breathing ok. denies palps. Remains in atrial flutter on telemetry 112bpm. BP improved. Review of Systems Review of Systems: ROS unobtainable: Yes unobtainable due to endotracheal tube Constitutional: Constitutional: Reports fatigue ENT: Denies epistaxis Cardiovascular: Cardiovascular: Reports chest pain (Sore from CPR), Reports pedal edema, Denies dyspnea and Reports dyspnea on exertion Respiratory: Respiratory: Denies cough, Denies dyspnea and Reports dyspnea on exertion Gastrointestinal: Gastrointestinal: Denies abdominal pain Musculoskeletal: Musculoskeletal: Denies back pain Integumentary/Breasts: Skin/Breast: Denies rash Neurologic: Denies behavioral changes and Denies confusion Psychiatric: Psychiatric: Denies behavioral changes and Denies confusion Endocrine: Endocrine: Reports fatigue Exam Const: General: comfortable, no acute distress, alert, awake and ill appearing; No acute distress or confusion Nutritional Appearance: thin Orientation/consciousness: No confusion HENMT: Mouth: Yes moist mucous membranes Eyes: Sclera: sclerae normal Pupils: Equal, round and reactive pupils present EOM: EOMs intact bilaterally Neck: Neck: supple and no JVD Chest: Other: chest wall pain to palpate Resp: Effort & Inspection: normal respiratory effort Auscultation: diminished lung sounds Other: Diminished breath sounds bilaterally, poor air entry diffusely. Cardio: Jugular venous distension: no JVD Rate: tachycardic Rhythm: regular rhythm and abnormal rhythm irregularly irregular GI: Inspection: non-distended Auscultation: normal bowel sounds Skin: General skin exam: normal color Rashes: no rashes noted Neuro: General: No confusion Cranial nerve
--- NOTE | 2020-11-07 19:27 | PC.NURSE ---
Patient refuses to wear bipap tonight unless he is SoB.
[2020-11-07] MEDS: APIXABAN 5 MG TABLET PO (19:50)
[2020-11-07] MEDS: SODIUM CHLORIDE 1 GM TABLET PO (19:51)
[2020-11-08] VITALS (23 sets, daily range): BP systolic 116–142; BP diastolic 71–82; PULSE 88–116; RESP 12–28; TEMP 36.2–36.9; O2SAT 95–100
[2020-11-08] MEDS: IPRATROPIUM BR 0.02% INH SOLN 0.5 MG/2.5 ML VIAL INHALATION ×4 (02:47→20:22)
[2020-11-08] MEDS: ALBUTEROL SULFATE NEB 2.5 MG/0.5 ML INH INHALATION (02:47)
[2020-11-08 03:56] LABS: Alanine Aminotransferase 23 U/L (4-50); Albumin Level 2.8 g/dL (3.5-5.1); Alkaline Phosphatase 73 U/L (38-126); Aspartate Amino Transferase 17 U/L (17-59); Bilirubin,Total 0.8 mg/dL (0.2-1.3); Blood Urea Nitrogen 22 mg/dL (9-20); Calcium 7.8 mg/dL (8.4-10.2); Carbon Dioxide > 40 mmol/L (22-30); Chloride 96 mmol/L (98-107); Estimated CRCL calculation 93 ml/min; Estimated Glomerular Filt Rate > 60; Glucose 204 mg/dL (75-110); Magnesium 1.6 mg/dL (1.6-2.3); Phosphorus 2.6 mg/dL (2.5-4.5); Potassium 3.9 mmol/L (3.4-5.0); Sodium 135 mmol/L (137-145)
[2020-11-08 05:10] LABS: Hematocrit 28.5 % (42.0-52.0); Hemoglobin 9.3 g/dL (14.0-18.0); Mean Corpuscular HGB Conc 32.6 g/dl (32-36); Mean Platelet Volume 10.7 fl (7.4-10.4); Platelet Count Result 170 k/mm3 (150-375); Red Cell Distribution Width 14.3 % (11.5-14.5); White Blood Count 6.1 K/mm3 (4.5-10.0)
[2020-11-08] MEDS: methylPREDNISolone SOD SUCC 40 MG VIAL IV PUSH ×3 (07:41→18:24)
[2020-11-08] MEDS: CENTRAL LINE FLUSH 10 ML IV PUSH ×3 (07:41→21:02)
[2020-11-08] MEDS: APIXABAN 5 MG TABLET PO ×2 (07:42→18:24)
[2020-11-08] MEDS: AMIODARONE HCL 200 MG TABLET PO ×2 (07:42→18:23)
[2020-11-08] MEDS: ASPIRIN 81 MG ENTERIC TABLET PO (07:42)
[2020-11-08] MEDS: FUROSEMIDE INJ 40 MG/4 ML VIAL 20 MG IV PUSH (07:43)
[2020-11-08] MEDS: SODIUM CHLORIDE 1 GM TABLET PO ×2 (07:44→21:01)
[2020-11-08] MEDS: MULTIVITAMIN HEMATINIC (*BKC) TABLET 1 TABLET PO (07:44)
[2020-11-08] MEDS: PANTOPRAZOLE SODIUM IV 40 MG VIAL IV PUSH (07:44)
[2020-11-08] MEDS: TAMSULOSIN HCL 0.4 MG CAPSULE PO (07:45)
[2020-11-08] MEDS: DORNASE ALFA INH SOLN 1 MG/ML 2.5 ML AMP 2.5 MG INHALATION ×2 (08:12→20:22)
[2020-11-08] MEDS: BUDESONIDE RESPULE NEB 0.5 MG/2 ML AMP 1 MG INHALATION ×2 (08:12→20:22)
[2020-11-09] VITALS (28 sets, daily range): BP systolic 108–133; BP diastolic 68–80; PULSE 84–115; RESP 12–96; TEMP 36.4–36.6; O2SAT 23–100
[2020-11-09] MEDS: methylPREDNISolone SOD SUCC 40 MG VIAL IV PUSH ×4 (00:09→17:28)
[2020-11-09] MEDS: IPRATROPIUM BR 0.02% INH SOLN 0.5 MG/2.5 ML VIAL INHALATION ×4 (01:53→19:07)
[2020-11-09 04:45] LABS: Hematocrit 26.3 % (42.0-52.0); Hemoglobin 8.3 g/dL (14.0-18.0); Mean Corpuscular HGB Conc 31.6 g/dl (32-36); Mean Corpuscular Hemoglobin 30.6 pg (26-34); Mean Platelet Volume 10.4 fl (7.4-10.4); Platelet Count Result 152 k/mm3 (150-375); Red Blood Count 2.71 M/mm3 (4.6-6.20); Red Cell Distribution Width 14.1 % (11.5-14.5); White Blood Count 10.6 K/mm3 (4.5-10.0)
[2020-11-09] MEDS: CENTRAL LINE FLUSH 10 ML IV PUSH ×3 (06:00→22:00)
[2020-11-09 06:35] LABS: Alanine Aminotransferase 18 U/L (4-50); Albumin Level 2.4 g/dL (3.5-5.1); Alkaline Phosphatase 55 U/L (38-126); Aspartate Amino Transferase 14 U/L (17-59); Bilirubin,Total 0.5 mg/dL (0.2-1.3); Blood Urea Nitrogen 25 mg/dL (9-20); Calcium 7.2 mg/dL (8.4-10.2); Carbon Dioxide > 40 mmol/L (22-30); Chloride 99 mmol/L (98-107); Estimated CRCL calculation 95 ml/min; Estimated Glomerular Filt Rate > 60; Glucose 333 mg/dL (75-110); Magnesium 1.4 mg/dL (1.6-2.3); Phosphorus 2.1 mg/dL (2.5-4.5); Sodium 138 mmol/L (137-145)
[2020-11-09] MEDS: FUROSEMIDE INJ 40 MG/4 ML VIAL 20 MG IV PUSH (08:23)
[2020-11-09] MEDS: APIXABAN 5 MG TABLET PO ×2 (08:23→20:45)
[2020-11-09] MEDS: TAMSULOSIN HCL 0.4 MG CAPSULE PO (08:23)
[2020-11-09] MEDS: SODIUM CHLORIDE 1 GM TABLET PO ×2 (08:23→20:45)
[2020-11-09] MEDS: PANTOPRAZOLE SODIUM IV 40 MG VIAL IV PUSH (08:23)
[2020-11-09] MEDS: MULTIVITAMIN HEMATINIC (*BKC) TABLET 1 TABLET PO (08:23)
[2020-11-09] MEDS: AMIODARONE HCL 200 MG TABLET PO ×2 (08:23→17:28)
[2020-11-09] MEDS: BUDESONIDE RESPULE NEB 0.5 MG/2 ML AMP 1 MG INHALATION ×2 (08:48→19:07)
[2020-11-09] MEDS: DORNASE ALFA INH SOLN 1 MG/ML 2.5 ML AMP 2.5 MG INHALATION ×2 (08:48→19:07)
[2020-11-09] MEDS: ALBUTEROL SULFATE NEB 2.5 MG/0.5 ML INH INHALATION ×2 (08:48→14:32)
[2020-11-09] MEDS: ASPIRIN 81 MG ENTERIC TABLET PO (09:18)
--- NOTE | 2020-11-09 09:37 | PM.PNCARD ---
Progress Note: A&P Additional Plan 70-year-old man with: Chronic persistent atrial flutter we are managing this with rate control and anticoagulation. His principal health problem is his end-stage lung disease with which he obviously has a very poor prognosis. Very good to see that he was actually able to be extubated several days ago. I was concerned last week that he extubation would be very challenging given his underlying lung disease. Sam Morales MD [facility] Subjective Date/time seen: Date of service: 11/09/20 09:37 Interval history: Follow-up visit in this 70-year-old man with: Persistent atrial flutter which we are managing with rate control and anticoagulation. Severe/end-stage COPD with respiratory failure related to mucus plugging of his left lung last week necessitating urgent/emergent intubation. Patient now extubated for the last 3 days remains in the ICU. Exam Const: General: comfortable HENMT: Mouth: Yes dry mucous membranes Eyes: Sclera: sclerae normal Pupils: Equal, round and reactive pupils present Neck: Neck: supple and no JVD Resp: Other: Breath sounds markedly diminished in both lung carreon better aeration of the left hemithorax Cardio: Rate: regular rate and tachycardic Rhythm: regular rhythm Other: Tachycardic atrial flutter heart rate approximately 115 GI: GI Palp: Yes Soft to palpation Auscultation: normal bowel sounds Skin: General skin exam: normal color Neuro: Cognition (Neuro): normal cognition Objective Data Vital Signs Vital Signs: Vital Signs - 24 hr 11/08/20 10:00 11/08/20 12:00 11/08/20 14:00 Temperature Pulse Rate 115 H 116 H 114 H Respiratory Rate Blood Pressure Pulse Oximetry 11/08/20 14:05 11/08/20 16:00 11/08/20 18:00 Temperature 36.9 C Pulse Rate 113 H 109 H 114 H Respiratory Rate 22 H 25 H Blood Pressure 116/73 Pulse Oximetry 95 11/08/20 18:23 11/08/20 19:45 11/08/20 20:00 Temperature 36.4 C L Pulse Rate 114 H 110 H 112 H Respiratory Rate 24 H 25 H Blood Pressure 118/74 Pulse Oximetry 99 11/08/20 21:30 11/08/20 22:00 11/09/20 00:00 Temperature Pulse Rate 99 84 Respiratory Rate 22 H 13 Blood Pressure 119/71 Pulse Oximetry 99 100 11/09/20 00:43 11/09/20 01:55 11/09/20 01:56 Temperature Pulse Rate Respiratory Rate Blood Pressure Pulse Oximetry 98 78 L 85 L 11/09/20 02:00 11/09/20 02:10 11/09/20 04:00 Temperature Pulse Rate 113 H 92 Respiratory Rate 20 Blood Pressure Pulse Oximetry 100 11/09/20 04:47 11/09/20 05:38 11/09/20 05:50 Temperature Pulse Rate 97 110 H Respiratory Rate 24 H Blood Pressure 126/80 Pulse Oximetry 100 97 99 11/09/20 06:00 11/09/20 06:21 11/09/20 08:00 Temperature 36.6 C 36.4 C Pulse Rate 94 90 94 Respiratory Rate 16 12 Blood Pressure 125/77 133/75 Pulse Oximetry 100 100 11/09/20 08:23 Temperature Pulse Rate 108 H Respiratory Rate Blood Pressure Pulse Oximetry Intake/Output Intake/Output: Intake & Output 11/06/20 11/07/20 11/08/20 11/09/20 23:59 23:59 23:59 23:59 Intake Total 1420 3270 2460 430 Output Total 925 1900 1325 325 Balance 495 1370 1135 105 Meds/Results Medications: Active Medications Generic Name Dose Route Start Last Admin Trade Name Freq PRN Reason Stop Dose Admin Albuterol 2.5 mg 10/30/20 15:22 11/09/20 08:48 Albuterol Sulfate Neb 2.5 Mg/0.5 Ml Inh INHALATION 2.5 mg Q6HRT PRN Administration Shortness Of Breath Amiodarone HCl 200 mg 10/26/20 17:00 11/09/20 08:23 Amiodarone Hcl 200 Mg Tablet PO 200 mg BID REDD Administration Apixaban 5 mg 10/23/20 21:00 11/09/20 08:23 Apixaban 5 Mg Tablet PO 5 mg Q12HR REDD Administration Aspirin 81 mg 11/04/20 09:00 11/09/20 09:18 Aspirin 81 Mg Enteric Tablet PO 81 mg QAM REDD Administration Budesonide 1 mg 11/02/20 20:00 11/09/20 08:48 Budesonide Respule Neb 0.5 Mg/2 Ml Amp IN
--- NOTE | 2020-11-09 12:06 | PM.PNNEP ---
Progress Note: A&P Assessment and Plan (1) Hyponatremia: Code(s): E87.1 - Hypo-osmolality and hyponatremia Status: Chronic Assessment and Plan: chronic issues since at least February 2020 sodium levels fluctuate around 127 - 135mmol/L in the past. extensive evaluation done on last hospitalization: - TSH and cortisol okay - no evidence of paraproteinemia - no culprit medications patient has hyponatremia - no evidence of any malignancies (although I am unclear when he was last screened) - CT of head with colloid cyst but unclear if this would cause the problem sodium stable if not improving (2) Acute and chronic respiratory failure: Code(s): J96.20 - Acute and chronic respiratory failure, unspecified whether with hypoxia or hypercapnia Status: Acute Assessment and Plan: extubated and doing better at this time follow respiratory status closely BiPAP PRN not opposed to diuresis PRN (this may help improve #1) (3) Cardiac arrest with pulseless electrical activity: Code(s): I46.9 - Cardiac arrest, cause unspecified Status: Acute Assessment and Plan: Cardiology following Not much else to add from renal perspective -- will continue to follow intermittently. Subjective Date/time seen: 11/09/20 12:06 Respiratory status seems to be stable if not improving with current intervention; responding well to diuresis; no other apparent issues/problems voiced at this time. Exam Narrative: Exam Narrative: General: WD/WN male in NAD Heart: normal S1 and S2; no rub Lungs: coarse breath sounds Abdomen: soft, nontender, nondistended, positive bowel sounds Extremities: no cyanosis or clubbing; trace edema Skin: warm and intact Objective Data Vital Signs Vital Signs: Vital Signs Temp Pulse Resp BP Pulse Ox 11/09/20 12:00 110 H 11/09/20 10:00 115 H 11/09/20 08:55 110 H 20 11/09/20 08:45 110 H 20 93 11/09/20 08:23 108 H 11/09/20 08:00 36.4 C 94 12 133/75 100 11/09/20 06:21 36.6 C 90 16 125/77 100 11/09/20 06:00 94 11/09/20 05:50 110 H 24 H 99 11/09/20 05:38 97 11/09/20 04:47 97 126/80 100 11/09/20 04:00 92 11/09/20 02:10 100 11/09/20 02:00 113 H 20 11/09/20 01:56 85 L 11/09/20 01:55 78 L 11/09/20 00:43 98 11/09/20 00:00 84 13 119/71 100 11/08/20 22:00 99 11/08/20 21:30 22 H 99 11/08/20 20:00 36.4 C L 112 H 25 H 118/74 99 11/08/20 19:45 110 H 24 H Intake/Output Intake/Output: Intake & Output 11/06/20 11/07/20 11/08/20 11/09/20 23:59 23:59 23:59 23:59 Intake Total 1420 3270 2460 1100 Output Total 925 1900 1325 1225 Balance 495 1370 1135 -125 Meds/Results Medications: Active Medications Generic Name Dose Route Start Last Admin Trade Name Freq PRN Reason Stop Dose Admin Albuterol 2.5 mg 10/30/20 15:22 11/09/20 14:32 Albuterol Sulfate Neb 2.5 Mg/0.5 Ml Inh INHALATION 2.5 mg Q6HRT PRN Administration Shortness Of Breath Amiodarone HCl 200 mg 10/26/20 17:00 11/09/20 17:28 Amiodarone Hcl 200 Mg Tablet PO 200 mg BID REDD Administration Apixaban 5 mg 10/23/20 21:00 11/09/20 08:23 Apixaban 5 Mg Tablet PO 5 mg Q12HR REDD Administration Aspirin 81 mg 11/04/20 09:00 11/09/20 09:18 Aspirin 81 Mg Enteric Tablet PO 81 mg QAM REDD Administration Budesonide 1 mg 11/02/20 20:00 11/09/20 08:48 Budesonide Respule Neb 0.5 Mg/2 Ml Amp INHALATION 1 mg Q12HRT REDD Administration Diltiazem HCl 120 mg 11/08/20 09:00 Diltiazem Hcl Cd 240 Mg Cap.Er.24h PO QAM REDD Dornase Yoan 2.5 mg 11/02/20 20:00 11/09/20 08:48 Dornase Yoan Inh Soln 1 Mg/Ml 2.5 Ml Amp INHALATION 2.5 mg Q12HRT REDD Administration Furosemide 20 mg 11/08/20 09:00 11/09/20 08:23 Furosemide Inj 40 Mg/4 Ml Vial IV PUSH 20
--- NOTE | 2020-11-09 12:27 | PM.IMPN ---
Progress Note: A&P Assessment and Plan (1) Acute and chronic respiratory failure: Code(s): J96.20 - Acute and chronic respiratory failure, unspecified whether with hypoxia or hypercapnia Status: Acute Assessment and Plan: Patient intubated on 11/04/2020, successfully extubated on 11/06/2020 -On nasal cannula 2 L O2. - BiPAP at night and PRN -Continue diuresis -continue bronchodilators -chest x-ray reviewed - PT/OT to follow increase activity, up in chair (2) Chronic obstructive pulmonary disease: Code(s): J44.9 - Chronic obstructive pulmonary disease, unspecified Status: Chronic Assessment and Plan: COPD exacerbation -continue p.r.n. BiPAP -remains on Pulmicort, ipratropium - continue steroids - Continue azithromycin And ceftriaxone (3) Acute CHF (congestive heart failure): Code(s): I50.9 - Heart failure, unspecified Status: Acute Assessment and Plan: Echocardiogram [id number] showed LV EF of 65-70%, diastolic dysfunction moderate tricuspid valve regurg, mild mitral valve regurg. Severe pulmonary hypertension with RVSP of 63 mmHg. -cardiology following the patient. -continue furosemide per cardiology (4) Pleural effusion: Code(s): J90 - Pleural effusion, not elsewhere classified Status: Acute Assessment and Plan: Resolved Status post thoracentesis of the left pleural effusion with 1000 mL of maroon colored fluid (5) Atelectasis of left lung: Code(s): J98.11 - Atelectasis Status: Acute Assessment and Plan: Whiteout of the left lung/atelectasis could be related to mucus plugging. -chest x-ray shows re-expansion (6) DVT prophylaxis: Code(s): Z29.9 - Encounter for prophylactic measures, unspecified Status: Acute Assessment and Plan: SCD, Eliquis (7) Hypertension: Qualifiers: Hypertension type: essential hypertension Qualified Code(s): I10 - Essential (primary) hypertension Code(s): I10 - Essential (primary) hypertension Status: Chronic Assessment and Plan: Blood pressures have been stable (8) Hyponatremia: Code(s): E87.1 - Hypo-osmolality and hyponatremia Status: Chronic Assessment and Plan: Sodium levels improving -appreciate Nephrology evaluation -to monitor sodium levels (9) Urine retention: Code(s): R33.9 - Retention of urine, unspecified Status: Acute Assessment and Plan: Urinary retention with distended bladder on bladder ultrasound. Amaya was inserted -patient on Flomax (10) Anemia: Code(s): D64.9 - Anemia, unspecified Status: Acute Assessment and Plan: Thoracentesis done with removal of 1000 mL of maroon colored fluid -patient also anemic and dropped his hemoglobin to 6.7 on 11/04/2020, 1 unit of packed RBCs is been ordered -hemoglobin has stable -Eliquis currently on hold (11) Paroxysmal atrial flutter: Code(s): I48.92 - Unspecified atrial flutter Status: Acute Assessment and Plan: Continue amiodarone, diltiazem. -Eliquis has been stopped secondary to anemia and supsion for blood loss in the hemothorax s/p rib fractures continue diuretics. - would recommend starting heparin drip when appropropriate and then transition back to NOAC if no signs of bleeding and Hgb stable (12) Mucus plugging of bronchi: Code(s): J98.09 - Other diseases of bronchus, not elsewhere classified Status: Acute Assessment and Plan: Resolved Additional Plan Discussed with patient updated with his condition plan of care. Discussed with patient regarding intubation and CPR to which he said he wants to be revived and was to be intubated and put on mechanical ventilation if needed. Code status: Full code Due to a high probability of clinically significant, life threatening deterioration, the patient required my highest level of preparedness to intervene emergently and I pers
[2020-11-10] VITALS (21 sets, daily range): BP systolic 127–146; BP diastolic 61–86; PULSE 94–109; RESP 17–33; TEMP 35.9–36.2; O2SAT 93–99
[2020-11-10] MEDS: methylPREDNISolone SOD SUCC 40 MG VIAL IV PUSH ×5 (00:17→23:02)
[2020-11-10] MEDS: ALBUTEROL SULFATE NEB 2.5 MG/0.5 ML INH INHALATION (01:15)
[2020-11-10] MEDS: IPRATROPIUM BR 0.02% INH SOLN 0.5 MG/2.5 ML VIAL INHALATION ×4 (01:15→20:01)
[2020-11-10] MEDS: CENTRAL LINE FLUSH 10 ML IV PUSH ×3 (06:30→21:00)
[2020-11-10 07:03] LABS: Blood Urea Nitrogen 29 mg/dL (9-20); Calcium 7.7 mg/dL (8.4-10.2); Carbon Dioxide > 40 mmol/L (22-30); Chloride 92 mmol/L (98-107); Estimated CRCL calculation 80 ml/min; Estimated Glomerular Filt Rate > 60; Glucose 139 mg/dL (75-110); Magnesium 1.5 mg/dL (1.6-2.3); Potassium 4.5 mmol/L (3.4-5.0); Sodium 137 mmol/L (137-145)
[2020-11-10 07:36] LABS: Hematocrit 28.6 % (42.0-52.0); Hemoglobin 9.1 g/dL (14.0-18.0); Mean Corpuscular HGB Conc 31.8 g/dl (32-36); Mean Corpuscular Hemoglobin 31.1 pg (26-34); Mean Corpuscular Volume 97.6 fl (80-100); Mean Platelet Volume 11.1 fl (7.4-10.4); Platelet Count Result 162 k/mm3 (150-375); Red Blood Count 2.93 M/mm3 (4.6-6.20); Red Cell Distribution Width 14.3 % (11.5-14.5); White Blood Count 9.9 K/mm3 (4.5-10.0)
[2020-11-10] MEDS: BUDESONIDE RESPULE NEB 0.5 MG/2 ML AMP 1 MG INHALATION ×2 (08:01→20:01)
[2020-11-10] MEDS: DORNASE ALFA INH SOLN 1 MG/ML 2.5 ML AMP 2.5 MG INHALATION ×2 (08:02→20:01)
[2020-11-10] MEDS: MAGNESIUM SULF 2 GM/WATER 50ML 2 GM/50 ML BAG IVPB (08:54)
[2020-11-10] MEDS: ASPIRIN 81 MG ENTERIC TABLET PO (08:55)
[2020-11-10] MEDS: SODIUM CHLORIDE 1 GM TABLET PO ×2 (08:55→20:35)
[2020-11-10] MEDS: AMIODARONE HCL 200 MG TABLET PO ×2 (08:55→17:15)
[2020-11-10] MEDS: APIXABAN 5 MG TABLET PO (08:55)
[2020-11-10] MEDS: acetaZOLAMIDE SODIUM FOR INJ 500 MG VIAL 250 MG IV PUSH (08:55)
[2020-11-10] MEDS: PANTOPRAZOLE SODIUM IV 40 MG VIAL IV PUSH (08:56)
[2020-11-10] MEDS: TAMSULOSIN HCL 0.4 MG CAPSULE PO (08:56)
[2020-11-10] MEDS: MULTIVITAMIN HEMATINIC (*BKC) TABLET 1 TABLET PO (08:56)
--- NOTE | 2020-11-10 09:11 | PM.IMPN ---
Progress Note: A&P Assessment and Plan (1) Acute and chronic respiratory failure: Code(s): J96.20 - Acute and chronic respiratory failure, unspecified whether with hypoxia or hypercapnia Status: Acute Assessment and Plan: Patient intubated on 11/04/2020, successfully extubated on 11/06/2020 -On nasal cannula 2 L O2. - BiPAP at night and PRN -Continue diuresis will give a dose of diamox as pt has contraction alkalosis -continue bronchodilators -chest x-ray reviewed - PT/OT following increase activity, up in chair (2) Chronic obstructive pulmonary disease: Code(s): J44.9 - Chronic obstructive pulmonary disease, unspecified Status: Chronic Assessment and Plan: COPD exacerbation -continue p.r.n. BiPAP -remains on Pulmicort, ipratropium - continue steroids - S/p azithromycin And ceftriaxone (completed 7 days) (3) Acute CHF (congestive heart failure): Code(s): I50.9 - Heart failure, unspecified Status: Acute Assessment and Plan: Echocardiogram 620642 showed LV EF of 65-70%, diastolic dysfunction moderate tricuspid valve regurg, mild mitral valve regurg. Severe pulmonary hypertension with RVSP of 63 mmHg. -cardiology following the patient. -continue furosemide per cardiology (4) Pleural effusion: Code(s): J90 - Pleural effusion, not elsewhere classified Status: Acute Assessment and Plan: Resolved Status post thoracentesis of the left pleural effusion with 1000 mL of maroon colored fluid (5) Atelectasis of left lung: Code(s): J98.11 - Atelectasis Status: Acute Assessment and Plan: Whiteout of the left lung/atelectasis could be related to mucus plugging. -chest x-ray shows re-expansion (6) DVT prophylaxis: Code(s): Z29.9 - Encounter for prophylactic measures, unspecified Status: Acute Assessment and Plan: SCD, Eliquis (7) Hypertension: Qualifiers: Hypertension type: essential hypertension Qualified Code(s): I10 - Essential (primary) hypertension Code(s): I10 - Essential (primary) hypertension Status: Chronic Assessment and Plan: Blood pressures have been stable (8) Hyponatremia: Code(s): E87.1 - Hypo-osmolality and hyponatremia Status: Chronic Assessment and Plan: Sodium levels improving -appreciate Nephrology evaluation -to monitor sodium levels (9) Urine retention: Code(s): R33.9 - Retention of urine, unspecified Status: Acute Assessment and Plan: Urinary retention with distended bladder on bladder ultrasound. Amaya was inserted -patient on Flomax (10) Anemia: Code(s): D64.9 - Anemia, unspecified Status: Acute Assessment and Plan: Thoracentesis done with removal of 1000 mL of maroon colored fluid -patient also anemic and dropped his hemoglobin to 6.7 on 11/04/2020, 1 unit of packed RBCs is been ordered -hemoglobin has stable -Eliquis currently on hold (11) Paroxysmal atrial flutter: Code(s): I48.92 - Unspecified atrial flutter Status: Acute Assessment and Plan: Continue amiodarone, diltiazem, increased diltiazem dose. -continue Eliquis continue diuretics. (12) Mucus plugging of bronchi: Code(s): J98.09 - Other diseases of bronchus, not elsewhere classified Status: Acute Assessment and Plan: Resolved Additional Plan Discussed with patient updated with his condition plan of care. Discussed with patient regarding intubation and CPR to which he said he wants to be revived and was to be intubated and put on mechanical ventilation if needed. Code status: Full code Due to a high probability of clinically significant, life threatening deterioration, the patient required my highest level of preparedness to intervene emergently and I personally spent this critical care time directly and personally managing the patient. This critical care time included obtai
[2020-11-10] MEDS: ALTEPLASE 2 MG VIAL (CATHFLO) IV PUSH ×2 (10:21→10:22)
--- NOTE | 2020-11-10 11:37 | PCDIET ---
Nutrition Follow-Up Complete: Nutrition Diagnosis: Inadequate oral intake related to oral intubation as evidenced by NPO status. Nutrition Goal: Patient to meet estimated nutritional needs. Goal in progress. Patient now consuming 25-50% of meals on regular diet. Per RN, patient had been taking ice cream well, so Ensure Compact (220kcal, 9g protein) was changed to Frozen Nutritional Treat (300kcal, 9g protein) TID with meals. Would allow two servings with meals, upon request, as patient feels he could take more than one at a time. Patient states he still likes the Ensure but is ready for a change. Last recorded weight is 60 kg which is increased from last review, but down from admission. +I/O. Bowel Motility: Last documented BM on 11/08/20 - liquid. Labs Reviewed: Hgb (9.1), Hct (28.6), Glu (139), BUN (29), Cr (0.6), Mg (1.5), Ashly Ca (8.98) Meds Noted: Albuterol, Pulmicort, Lasix, Atrovent, Solu Medrol, Centrum, Protonix, Sodium Chloride, Magnesium Sulfate Additional Notes: Band-aid to nose abrasion. Deep tissue injury to left ischium and bilateral heels. Will continue to monitor with same goal. Nutrition Monitoring and Evaluation: Follow up every 3 days.
--- NOTE | 2020-11-10 14:26 | PC.NURSE ---
Dr. Wells notified of pt's urine is salas red in color. new order to hold eliquis and continue to monitor
--- NOTE | 2020-11-10 19:02 | PC.NURSE ---
This patient, Sam Sanchez, was transferred to [ [id number]] on 11/10/20 at 1902. Personal belongings sent with patient. Report given to [ DELIO Anaya @ [phone]]. Appropriate documentation sent with patient.
--- NOTE | 2020-11-10 19:16 | PC.NURSE ---
Pt's [id number] updated on patient's room transfer and condition
--- NOTE | 2020-11-10 19:28 | PC.NURSE ---
This patient, Sam Sanchez, was received from IMU on 11/10/20 at 1858. Patient/family oriented to unit policies and routines
[2020-11-11] VITALS (25 sets, daily range): BP systolic 112–120; BP diastolic 61–73; PULSE 83–105; RESP 18–28; TEMP 36.1–36.7; O2SAT 90–97
[2020-11-11] MEDS: IPRATROPIUM BR 0.02% INH SOLN 0.5 MG/2.5 ML VIAL INHALATION ×4 (02:41→21:09)
[2020-11-11] MEDS: methylPREDNISolone SOD SUCC 40 MG VIAL IV PUSH ×4 (05:56→23:12)
[2020-11-11] MEDS: CENTRAL LINE FLUSH 10 ML IV PUSH ×3 (05:56→20:46)
[2020-11-11] MEDS: DORNASE ALFA INH SOLN 1 MG/ML 2.5 ML AMP 2.5 MG INHALATION ×2 (07:45→21:09)
[2020-11-11] MEDS: BUDESONIDE RESPULE NEB 0.5 MG/2 ML AMP 1 MG INHALATION ×2 (07:45→21:09)
--- NOTE | 2020-11-11 08:24 | PM.IMPN ---
Progress Note: A&P Assessment and Plan (1) Shock: Code(s): R57.9 - Shock, unspecified Status: Acute Assessment and Plan: Patient moved to ICU and intubated on 11/04. BP dropped to 64/47 felt related to sedation and hypovolemia given the recent diuresis and anemia. Today patient is in room 341. Requiring BiPAP, blood pressure is stable will continue current treatment (2) Acute and chronic respiratory failure: Code(s): J96.20 - Acute and chronic respiratory failure, unspecified whether with hypoxia or hypercapnia Status: Acute Assessment and Plan: Patient with acute on chronic respiratory failure on home O2 at 2L. Patient will move to floor. Patient is still requiring BiPAP. Will continue to monitor. (3) Anemia: Code(s): D64.9 - Anemia, unspecified Status: Acute Assessment and Plan: Hgb dropped to 6.7 11/04/20 for unclear reasons and transfused 2U PRBC. Hemoglobin is stable a (4) Atelectasis of left lung: Code(s): J98.11 - Atelectasis Status: Acute Assessment and Plan: Suspect related to mucous plugging. CXR improved. Bronch cancelled. Continue nebs and BiPAP as needed. (5) Pleural effusion: Code(s): J90 - Pleural effusion, not elsewhere classified Status: Acute Assessment and Plan: No significant effusion by CXR on 10/31 but increased to moderate over the next few days. Maroon colored fluid from thoracentsis so some component of bleeding. Related to collapsed lung? Late presentation from trauma? 1L removed and now small effusion. No pH and cell count not performed. Majority of the cells are neutrophils. Follow up chest x-ray shows slight improvement. (6) Diastolic congestive heart failure: Code(s): I50.30 - Unspecified diastolic (congestive) heart failure Status: Acute Assessment and Plan: Still with pedal edema but improving. Lasix IV held. Continue to monitor. Appreciate Cardiology input. Will start low-dose Eliquis. Patient has no hematuria at present time. (7) Cardiac arrest with pulseless electrical activity: Code(s): I46.9 - Cardiac arrest, cause unspecified Status: Acute Assessment and Plan: EMS called because patient was apparently unresponsive all day. On EMS arrival he was found with agonal respirations but did have a pulse however went into PEA shortly thereafter. CPR was initiated and after 2 doses of epinephrine he had return of spontaneous circulation, within approximately 10 minutes or less. A supraglottic airway was placed and he was being bagged on arrival to the emergency department. He was intubated not long after arrival to ED. [place] cardiac arrest related to hypercarbic respiratory failure. As above. Patient is in no form out of ICU now. Will continue to monitor. (8) Hypertension: Qualifiers: Hypertension type: essential hypertension Qualified Code(s): I10 - Essential (primary) hypertension Code(s): I10 - Essential (primary) hypertension Status: Chronic Assessment and Plan: Stable at present. (9) COPD (chronic obstructive pulmonary disease): Qualifiers: COPD type: unspecified COPD Qualified Code(s): J44.9 - Chronic obstructive pulmonary disease, unspecified Code(s): J44.9 - Chronic obstructive pulmonary disease, unspecified Status: Acute Assessment and Plan: Stable. Continue treatment as above. (10) Paroxysmal atrial flutter: Code(s): I48.92 - Unspecified atrial flutter Status: Acute Assessment and Plan: EKG on admission showing NSR. Telemetry on 11/04 showing AFlutter with controlled rate. Continue Amiodarone but hold Diltiazem due to HoTN. Continue ASA 81mg; Will start low-dose Eliquis as there is no hematuria at present time. (11) Hyponatremia: Code(s): E87.1 - Hypo-osmolality and hyponatremia Status: Chronic
[2020-11-11] MEDS: SODIUM CHLORIDE 1 GM TABLET PO ×2 (09:17→20:36)
[2020-11-11] MEDS: MAGNESIUM OXIDE 400 MG TABLET PO (09:17)
[2020-11-11] MEDS: dilTIAZem HCL CD 180 MG CAP.ER.24H PO (09:17)
[2020-11-11] MEDS: MULTIVITAMIN HEMATINIC (*BKC) TABLET 1 TABLET PO (09:17)
[2020-11-11] MEDS: APIXABAN 2.5 MG TABLET PO ×2 (09:17→20:46)
[2020-11-11] MEDS: AMIODARONE HCL 200 MG TABLET PO ×2 (09:17→17:13)
[2020-11-11] MEDS: ASPIRIN 81 MG ENTERIC TABLET PO (09:17)
[2020-11-11] MEDS: PANTOPRAZOLE SODIUM IV 40 MG VIAL IV PUSH (09:17)
[2020-11-11] MEDS: TAMSULOSIN HCL 0.4 MG CAPSULE PO (09:17)
--- NOTE | 2020-11-11 09:35 | PC.NURSE ---
Addendum entered by Heavenly Gonzalez, DELIOLP 11/11/20 15:00: He only has a small amount of lung capacity and will likely feel like he can't breathe because of this. Original Note: Spoke with respiratory about patient status. Patient has multiple complaints of feeling like he can't breathe. With O2 checks and vitals patient status looks to be normal. O2 sat continues to be 100% despite patient feeling like he can't breathe. Respiratory informed us that he has only a very small amount of lunch capacity and will likely feel like he can't breathe because of this. We will continue to monitor patient at all times.
[2020-11-11] MEDS: ALBUTEROL SULFATE NEB 2.5 MG/0.5 ML INH INHALATION (14:08)
--- NOTE | 2020-11-11 14:20 | PM.PNCARD ---
Progress Note: A&P Additional Plan 70-year-old man with persistent atrial flutter he is being managed with rate control and anticoagulation. At some point I would like to try discontinuing amiodarone since he has extensive truly end-stage lung disease and would like to not expose him to this agent for the long-term. In any event he is stable for the time being heart rate is in the 105-110 which is certainly not inappropriate given his overall frail condition. Sam Morales MD [facility] Subjective Date/time seen: 11/11/20 14:20 Interval history: follow-up visit in this 70-year-old man with: Chronic persistent atrial flutter being managed with rate control. End-stage COPD with chronic hypoventilation hypercarbia despite aggressive measures as well as BiPAP. Recent acute decompensation last week to his of mucous plugging and whiteout of left lung Exam Const: General: comfortable and no acute distress Other: very thin cachectic gentleman supine in bed with BiPAP in place appears to be comfortable otherwise and offers no complaints HENMT: Mouth: Yes moist mucous membranes Eyes: Sclera: sclerae normal Pupils: Equal, round and reactive pupils present Neck: Neck: supple and no JVD Resp: Auscultation: diminished lung sounds Other: patient has diffuse Inspira gurmeet/expiratory wheezing and rhonchi throughout both lung carreon Cardio: Rate: regular rate and tachycardic GI: GI Palp: Yes Soft to palpation Auscultation: normal bowel sounds Skin: General skin exam: normal color Neuro: Cognition (Neuro): normal cognition Extrem: Other: no peripheral edema Objective Data Vital Signs Vital Signs: Vital Signs - 24 hr 11/10/20 16:00 11/10/20 17:15 11/10/20 19:19 Temperature 35.9 C L 36.2 C L Pulse Rate 104 H 105 H 99 Respiratory Rate 24 H 22 H Blood Pressure 129/71 127/61 Pulse Oximetry 97 98 11/10/20 20:00 11/10/20 20:02 11/10/20 20:05 Temperature Pulse Rate 102 H 98 99 Respiratory Rate 22 H 22 H Blood Pressure Pulse Oximetry 97 11/10/20 20:11 11/10/20 20:30 11/10/20 23:10 Temperature Pulse Rate 99 99 Respiratory Rate 22 H 27 H Blood Pressure Pulse Oximetry 97 97 11/11/20 00:00 11/11/20 00:32 11/11/20 02:40 Temperature 36.6 C Pulse Rate 94 100 101 H Respiratory Rate 23 H 22 H Blood Pressure 115/73 Pulse Oximetry 94 11/11/20 02:42 11/11/20 02:47 11/11/20 04:00 Temperature Pulse Rate 101 H 98 101 H Respiratory Rate 25 H 22 H Blood Pressure Pulse Oximetry 97 11/11/20 05:55 11/11/20 07:45 11/11/20 08:00 Temperature 36.3 C L Pulse Rate 88 100 97 Respiratory Rate 18 20 Blood Pressure 120/65 Pulse Oximetry 95 96 11/11/20 08:27 11/11/20 09:17 11/11/20 12:00 Temperature Pulse Rate 103 H 83 Respiratory Rate Blood Pressure Pulse Oximetry 96 11/11/20 14:16 Temperature 36.1 C L Pulse Rate 86 Respiratory Rate 18 Blood Pressure 112/68 Pulse Oximetry 95 Intake/Output Intake/Output: Intake & Output 11/08/20 11/09/20 11/10/20 11/11/20 23:59 23:59 23:59 23:59 Intake Total 2460 1220 1400 490 Output Total 1325 1225 700 500 Balance 1135 -5 700 -10 Meds/Results Medications: Active Medications Generic Name Dose Route Start Last Admin Trade Name Freq PRN Reason Stop Dose Admin Albuterol 2.5 mg 10/30/20 15:22 11/11/20 14:08 Albuterol Sulfate Neb 2.5 Mg/0.5 Ml Inh INHALATION 2.5 mg Q6HRT PRN Administration Shortness Of Breath Alteplase, Recombinant 2 mg 11/10/20 09:00 11/10/20 10:22 Alteplase 2 Mg Vial (Cathflo) IV PUSH 2 mg ONCE PRN Administration Line Occlusion Amiodarone HCl 200 mg 10/26/20 17:00 11/11/20 09:17 Amiodarone Hcl 200 Mg Tablet PO 200 mg BID REDD Administration Apixaban 2.5 mg 11/11/20 09:00 11/11/20 09:17 Apixaban 2.5 Mg Tablet PO 2.5 mg Q12HR REDD Administration Aspirin 81 mg 11/04/20 09:00 11/11/20 09:17 Aspirin 81 Mg Ent
[2020-11-12] VITALS (18 sets, daily range): BP systolic 114–122; BP diastolic 51–80; PULSE 69–116; RESP 16–34; TEMP 35.6–36.7; O2SAT 91–98
[2020-11-12] MEDS: IPRATROPIUM BR 0.02% INH SOLN 0.5 MG/2.5 ML VIAL INHALATION ×4 (03:01→20:13)
[2020-11-12] MEDS: methylPREDNISolone SOD SUCC 40 MG VIAL IV PUSH ×4 (05:35→23:26)
[2020-11-12] MEDS: CENTRAL LINE FLUSH 10 ML IV PUSH ×3 (05:35→21:18)
[2020-11-12] MEDS: CENTRAL LINE FLUSH 20 ML IV PUSH (05:36)
[2020-11-12 05:54] LABS: Magnesium 1.6 mg/dL (1.6-2.3)
[2020-11-12] MEDS: BUDESONIDE RESPULE NEB 0.5 MG/2 ML AMP 1 MG INHALATION ×2 (06:56→20:00)
[2020-11-12] MEDS: DORNASE ALFA INH SOLN 1 MG/ML 2.5 ML AMP 2.5 MG INHALATION ×3 (06:57→20:30)
[2020-11-12] MEDS: SODIUM CHLORIDE 1 GM TABLET PO ×2 (09:17→21:18)
[2020-11-12] MEDS: APIXABAN 2.5 MG TABLET PO ×2 (09:17→21:18)
[2020-11-12] MEDS: PANTOPRAZOLE SODIUM IV 40 MG VIAL IV PUSH (09:17)
[2020-11-12] MEDS: MAGNESIUM OXIDE 400 MG TABLET PO (09:18)
[2020-11-12] MEDS: MULTIVITAMIN HEMATINIC (*BKC) TABLET 1 TABLET PO (09:18)
[2020-11-12] MEDS: AMIODARONE HCL 200 MG TABLET PO ×2 (09:18→16:31)
[2020-11-12] MEDS: TAMSULOSIN HCL 0.4 MG CAPSULE PO (09:18)
[2020-11-12] MEDS: dilTIAZem HCL CD 180 MG CAP.ER.24H PO (09:18)
[2020-11-12] MEDS: ASPIRIN 81 MG ENTERIC TABLET PO (09:18)
--- NOTE | 2020-11-12 12:58 | PM.PNCARD ---
Progress Note: A&P Assessment and Plan (1) Paroxysmal atrial flutter: Code(s): I48.92 - Unspecified atrial flutter Status: Acute Assessment and Plan: Persistent atrial flutter with RVR. Heart rate reasonable otherwise. -Continue amiodarone reduce to 200mg daily beginning tomorrow morning and continue Diltiazem 180 mg daily. -May discontinue telemetry, pt has been very stable in this regard. -Continue Eliquis 5 mg b.i.d. While we are hoping for short-term amiodarone use options are very limited with this patient. heart rate is fairly well controlled with diltiazem and amiodarone although this is not a great combination given his underlying lung disease long-term. Once well enough, consider referral for ablation on an outpatient basis. (2) Acute and chronic respiratory failure: Code(s): J96.20 - Acute and chronic respiratory failure, unspecified whether with hypoxia or hypercapnia Status: Acute Assessment and Plan: Severe COPD, end-stage lung disease. needs BiPAP at night. Prognosis poor. As above, amiodarone poor option given lung disease, however, options very limited. Does not appear to be significantly volume overloaded at this time. Continue furosemide at 20 mg IV Q 12 hours. Severe pulmonary hypertension RVSP 63 mmHg. (3) Cardiac arrest with pulseless electrical activity: Code(s): I46.9 - Cardiac arrest, cause unspecified Status: Acute Assessment and Plan: Status post PA arrest secondary to hypercarbia, good recovery. EF preserved 65-70% without wall motion abnormalities. PT OT. (4) Elevated troponin: Code(s): R77.8 - Other specified abnormalities of plasma proteins Status: Acute Assessment and Plan: 0.045 and 0.045, secondary to cardiac arrest not a acute coronary syndrome event. on Eliquis. Does not need aspirin from a cardiac perspective. Subjective Date/time seen: Date of service:11/12/20 12:58 Interval history: Follow-up visit in this 70-year-old man with: Chronic persistent atrial flutter being managed with rate control. End-stage COPD with chronic hypoventilation hypercarbia despite aggressive measures as well as BiPAP. Recent acute decompensation last week to his of mucous plugging and whiteout of left lung Patient denies new issues overnight. States he is breathing okay, denies palpitations or chest pain. Remains in atrial flutter with heart rate low 100s. Review of Systems Review of Systems: All systems reviewed & are unremarkable except as noted in HPI and below Constitutional: Constitutional: Reports as per HPI and Reports fatigue Eyes: Eyes: Reports as per HPI ENT: Reports as per HPI and Denies epistaxis Cardiovascular: Cardiovascular: Reports as per HPI, Denies chest pain (Sore from CPR), Reports pedal edema, Reports leg edema, Denies dyspnea and Reports dyspnea on exertion Respiratory: Respiratory: Reports as per HPI, Denies cough, Denies dyspnea and Reports dyspnea on exertion Gastrointestinal: Gastrointestinal: Denies abdominal pain Genitourinary: Genitourinary: Reports as per HPI Musculoskeletal: Musculoskeletal: Reports as per HPI and Denies back pain Integumentary/Breasts: Skin/Breast: Reports as per HPI and Denies rash Neurologic: Reports as per HPI, Denies behavioral changes and Denies confusion Psychiatric: Psychiatric: Reports as per HPI, Denies behavioral changes and Denies confusion Endocrine: Endocrine: Reports as per HPI and Reports fatigue Hematologic/Lymphatic: Hematologic/Lymphatic: Reports as per HPI Allergic/Immunologic: Allergic/Immunologic: Reports as per HPI Exam Const: General: comfortable, no acute distress, alert, awake and ill appearing; No acute distress or confusion Nutritional Appearance: thin Orientation/consciousness: No confusion Other: very thin
--- NOTE | 2020-11-12 13:05 | PM.IMPN ---
Progress Note: A&P Assessment and Plan (1) Shock: Code(s): R57.9 - Shock, unspecified Status: Acute Assessment and Plan: Patient moved to ICU and intubated on 11/04. extubated now on medical floor stable (2) Acute and chronic respiratory failure: Code(s): J96.20 - Acute and chronic respiratory failure, unspecified whether with hypoxia or hypercapnia Status: Acute Assessment and Plan: Patient with acute on chronic respiratory failure on home O2 at 2L. Pt is wearing bipap prn and oxygen at 3-4 liters (3) Anemia: Code(s): D64.9 - Anemia, unspecified Status: Acute Assessment and Plan: Hgb dropped to 6.7 11/04/20 for unclear reasons and transfused 2U PRBC. hb presently at 9 (4) Atelectasis of left lung: Code(s): J98.11 - Atelectasis Status: Acute Assessment and Plan: Suspect related to mucous plugging. Cxr has improved. Continue nebs and BiPAP as needed. (5) Pleural effusion: Code(s): J90 - Pleural effusion, not elsewhere classified Status: Acute Assessment and Plan: No significant effusion by CXR on 10/31, 1L removed and now small effusion. Follow up chest x-ray shows slight improvement. (6) Diastolic congestive heart failure: Code(s): I50.30 - Unspecified diastolic (congestive) heart failure Status: Acute Assessment and Plan: Still with pedal edema but improving. Continue iv lasix for diuresis, cardiology is rounding. (7) Cardiac arrest with pulseless electrical activity: Code(s): I46.9 - Cardiac arrest, cause unspecified Status: Acute Assessment and Plan: Pt sp cardiac arrest. He was intubated not long after arrival to ED. Pt is now extubated and out of icu. Will continue to monitor. (8) Hypertension: Qualifiers: Hypertension type: essential hypertension Qualified Code(s): I10 - Essential (primary) hypertension Code(s): I10 - Essential (primary) hypertension Status: Chronic Assessment and Plan: Stable at present. (9) COPD (chronic obstructive pulmonary disease): Qualifiers: COPD type: unspecified COPD Qualified Code(s): J44.9 - Chronic obstructive pulmonary disease, unspecified Code(s): J44.9 - Chronic obstructive pulmonary disease, unspecified Status: Acute Assessment and Plan: Stable. Continue treatment as above. (10) Paroxysmal atrial flutter: Code(s): I48.92 - Unspecified atrial flutter Status: Acute Assessment and Plan: watch telemtry. Continue Amiodarone and diltiazem. Continue ASA 81mg; low-dose Eliquis . (11) Hyponatremia: Code(s): E87.1 - Hypo-osmolality and hyponatremia Status: Chronic Assessment and Plan: Nephrology following. Continue NaCl tablets. (12) Urine retention: Code(s): R33.9 - Retention of urine, unspecified Status: Acute Assessment and Plan: Bladder distended on exam on 11/01 with bladder US showing >1L so Amaya placed. (13) Thrombocytopenia: Code(s): D69.6 - Thrombocytopenia, unspecified Status: Acute Assessment and Plan: continue to monitor (14) DVT prophylaxis: Code(s): Z29.9 - Encounter for prophylactic measures, unspecified Status: Acute Assessment and Plan: Eliquis restarted. Subjective Date/time seen: 11/12/20 13:05 Interval history: 70yo male with chronic respiratory failure (home O2 at 2L), COPD and CHF here for out of hospital cardiopulmonary arrest. Pt doing better using BIPAP prn mostly on oxygen 3-4 liters. No acute complaints Review of Systems Review of Systems: All systems reviewed & are unremarkable except as noted in HPI and below Exam Narrative: Exam Narrative: Gen - thin, wearing oxygen Chest - BL wet crackles at bases CV - RRR. S1-S2. Abd -soft. NT, +BS - Amaya secured draining c
[2020-11-12] MEDS: PHENOL/SOD PHENO SPRAY CHERRY (*BKC) 1 SPRAY MUCOUS MEM (16:34)
[2020-11-12] MEDS: MAG HYDROX/AL HYDROX/SIMETH 30 ML UDC PO (16:35)
--- NOTE | 2020-11-12 19:26 | ECG_ITS ---
Measurements Intervals [place] Rate: 97 P: CA: 0 QRS: 82 QRSD: 91 T: 0 QT: 348 QTc: 444 Interpretive Statements ATRIAL FLUTTER/TACHYCARDIA DELAYED PRECORDIAL R/S TRANSITION BASELINE ARTIFACT- II, III, AVL, AVF, V1-V3, V5-V6 ABNORMAL ECG Electronically Signed On 11-13-2020 7:53:46 CLINICAL DIRECTOR by Austin Shelley D.O.
[2020-11-12 19:30] LABS: Alveolar/Arterial O2 Gradient 481.9 mmHg; Base Excess ABG 20.5 mEq/l (+/-2.0); Carboxyhemoglobin 0.3 % THb (0-2.0); Fractional Inspired Oxygen 100 %; HCO3 ABG 53.1 mEq/l (22.0-26.0); Methemoglobin ABG 0.2 %THb (0-1.5); Oxygen Content ABG 15.1 %vol (16.0-22.0); Oxygen Saturation ABG 95.7 % (95.0-100.0); Oxyhemoglobin 95.6 % THb (90.0-100.0); PO2 ABG 101.2 mmHg (80.0-100.0); PO2 FiO2 Ratio Arterial Blood 1.01 %; Reduced Hemoglobin 3.9 %THb (0-5.0); Total Hemoglobin 11.1 g/dL (12.0-18.0)
[2020-11-12 19:33] LABS: Modified Allen's Test Pass; PCO2 ABG 129.9 mmHg (35.0-45.0); Site Drawn RIGHT RADIAL; pH ABG 7.229 (7.350-7.450)
[2020-11-12 19:34] LABS: Device NON-REBREATHER MASK
[2020-11-12 19:38] LABS: Hematocrit 31.8 % (42.0-52.0); Hemoglobin 9.9 g/dL (14.0-18.0)
[2020-11-12 19:58] LABS: Lactic Acid Reflex 0.6 mmol/L (0.7-2.1)
--- NOTE | 2020-11-12 19:58 | PM.EVENT ---
Event Note Event Note Event Note: Rapid Response Note Called to see this 70 year old male with known COPD and respiratory failure who is being treated for a pleural effusion, shock, and acute respiratory failure who tonight suddenly developed worsening shortness of breath and chest discomfort. On arrival to bedside the patient had a nonrebreather on at 100% and was saturating 88% on pulse oximetry. On Exam, the patient had absent lung sounds on the left and coarse breath sounds on the right. No chest tenderness w/ palpation. ABG was obtained which demonstrated severe hypercapnia. CXR revealed total opacification of his left lung and recurrent large left pleural effusion. EKG demonstrated atrial flutter. The patient is full code status and would like to be intubated and placed on mechanical ventilation if necessary. I have consulted our Photographic Hand Developer, Dr. Wells who agrees with transfer to ICU. A/P Acute on Chronic Respiratory failure secondary to total left lung atelectasis from large pleural effusion. -Transfer to ICU -Bipap initiation -Check ABG in one hour -Continue current medical therapy -The patient will need a therapeutic thoracentesis in am. -Continue pulmonology recommendations -I have consulted and discussed the case in detail w/ Dr. Wells, Photographic Hand Developer -Will continue to reassess as needed Total critical time spent tonight exceeded 36 minutes.
[2020-11-12 20:00] LABS: Blood Urea Nitrogen 43 mg/dL (9-20); Calcium 8.4 mg/dL (8.4-10.2); Carbon Dioxide > 40 mmol/L (22-30); Chloride 89 mmol/L (98-107); Estimated CRCL calculation 60 ml/min; Estimated Glomerular Filt Rate > 60; Glucose 155 mg/dL (75-110); Magnesium 1.7 mg/dL (1.6-2.3); Potassium 5.3 mmol/L (3.4-5.0); Sodium 134 mmol/L (137-145)
--- NOTE | 2020-11-12 20:00 | PC.NURSE ---
Addendum entered by Kristy Wharton RN 11/13/20 00:28: This patient, Sam Sanchez, was received from 341 on 11/12/20 at 2000. Patient/family oriented to unit policies and routines Original Note: This patient, Sam Sanchez, was received from [ ] on 11/13/20 at 0028. Patient/family oriented to unit policies and routines
[2020-11-12 20:11] LABS: Troponin I 0.014 ng/mL (0.000-0.034)
[2020-11-12 21:18] LABS: Alveolar/Arterial O2 Gradient 265.7 mmHg; Base Excess ABG 15.5 mEq/l (+/-2.0); Fractional Inspired Oxygen 60 %; HCO3 ABG 44.6 mEq/l (22.0-26.0); Oxygen Content ABG 14.3 %vol (16.0-22.0); Oxygen Saturation ABG 91.7 % (95.0-100.0); Oxyhemoglobin 92.1 % THb (90.0-100.0); PO2 ABG 69.2 mmHg (80.0-100.0); PO2 FiO2 Ratio Arterial Blood 1.15 %
[2020-11-12 21:19] LABS: Device NON-INVASIVE VENT; Modified Allen's Test Pass; PCO2 ABG 84.5 mmHg (35.0-45.0); Site Drawn LEFT RADIAL
[2020-11-12 21:20] LABS: Non-Invasive Expiratory Pressure 8 CMH2O; Non-Invasive Inspiratory Pressure 16 CMH2O; Non-Invasive Vent Rate 20 /MIN
[2020-11-13] VITALS (29 sets, daily range): BP systolic 90–131; BP diastolic 66–86; PULSE 90–104; RESP 15–31; TEMP 36.1–36.6; O2SAT 92–100
[2020-11-13] MEDS: LORazepam INJ (*CRX) 2 MG/ML VIAL 0.5 MG IV PUSH (00:14)
[2020-11-13] MEDS: ALBUTEROL SULFATE NEB 2.5 MG/0.5 ML INH INHALATION ×2 (01:53→20:36)
[2020-11-13] MEDS: IPRATROPIUM BR 0.02% INH SOLN 0.5 MG/2.5 ML VIAL INHALATION ×4 (01:53→20:37)
[2020-11-13 05:34] LABS: Basophils Percent Auto 0.1 % (0.2-1.2); Hematocrit 29.9 % (42.0-52.0); Hemoglobin 9.4 g/dL (14.0-18.0); Immature Granulocyte Absolute 0.11 K/mm3 (0.00-0.031); Immature Granulocyte Percent A 0.7 % (0-0.5); Immature Platelet Fraction Pct 11.6 % (0.9-11.2); Lymphocytes Percent Auto 0.7 % (18.3-44.2); Mean Corpuscular HGB Conc 31.4 g/dl (32-36); Mean Corpuscular Hemoglobin 30.4 pg (26-34); Mean Corpuscular Volume 96.8 fl (80-100); Mean Platelet Volume 11.5 fl (7.4-10.4); Monocytes Absolute Auto 0.5 K/mm3 (0.1-0.6); Monocytes Percent Auto 3.6 % (2.6-8.5); Neutrophils Absolute Auto 14.1 K/mm3 (1.3-6.7); Neutrophils Percent Auto 94.9 % (45.5-73.1); Platelet Count Result 130 k/mm3 (150-375); Red Blood Count 3.09 M/mm3 (4.6-6.20); Red Cell Distribution Width 13.8 % (11.5-14.5); White Blood Count 14.8 K/mm3 (4.5-10.0)
[2020-11-13] MEDS: methylPREDNISolone SOD SUCC 40 MG VIAL IV PUSH ×4 (05:46→23:26)
[2020-11-13] MEDS: CENTRAL LINE FLUSH 10 ML IV PUSH ×3 (05:46→22:06)
[2020-11-13 05:49] LABS: Blood Urea Nitrogen 40 mg/dL (9-20); Carbon Dioxide > 40 mmol/L (22-30); Chloride 89 mmol/L (98-107); Estimated CRCL calculation 68 ml/min; Estimated Glomerular Filt Rate > 60; Glucose 123 mg/dL (75-110); Potassium 5.2 mmol/L (3.4-5.0); Sodium 134 mmol/L (137-145)
[2020-11-13 06:22] LABS: Glucose Point of Care 155 (65-105)
--- NOTE | 2020-11-13 07:09 | PCDIET ---
This patient, Sam Sanchez, was transferred to ICU 10 on 11/12/20 at 1945. Personal belongings sent with patient. Report given to Kristy Appropriate documentation sent with patient.
--- NOTE | 2020-11-13 07:10 | PC.NURSE ---
Pt alert and oriented complained of chest pain at 1915, checked vitals, pt oxygenation 68% on 3L, increased 4L and still not saturating to normal range. Rapid response called at 1920. Rapid response team on the floor and took over
[2020-11-13] MEDS: BUDESONIDE RESPULE NEB 0.5 MG/2 ML AMP 1 MG INHALATION ×2 (07:33→20:36)
--- NOTE | 2020-11-13 07:52 | PCPTNOTE ---
Patient transferred to ICU. PT will hold therapy until further orders are received.
[2020-11-13] MEDS: PANTOPRAZOLE SODIUM IV 40 MG VIAL IV PUSH (09:46)
[2020-11-13] MEDS: acetaZOLAMIDE SODIUM FOR INJ 500 MG VIAL 250 MG IV PUSH (09:46)
[2020-11-13] MEDS: TAMSULOSIN HCL 0.4 MG CAPSULE PO (09:49)
[2020-11-13] MEDS: dilTIAZem HCL CD 180 MG CAP.ER.24H PO (09:49)
[2020-11-13] MEDS: SODIUM CHLORIDE 1 GM TABLET PO ×2 (09:50→22:05)
[2020-11-13] MEDS: ASPIRIN 81 MG ENTERIC TABLET PO (09:50)
[2020-11-13] MEDS: MAGNESIUM OXIDE 400 MG TABLET PO (09:50)
[2020-11-13] MEDS: MULTIVITAMIN HEMATINIC (*BKC) TABLET 1 TABLET PO (09:50)
[2020-11-13] MEDS: APIXABAN 2.5 MG TABLET PO (09:50)
[2020-11-13] MEDS: AMIODARONE HCL 200 MG TABLET PO (11:04)
--- NOTE | 2020-11-13 11:34 | PCOTNOTE ---
Patient transferred from medical floor to ICU, per RN hold occupational therapy today (11/13) due to patient being on continuous bipap at this time and check in tomorrow on patient's status to continue therapy. Will follow and attempt tomorrow if appropriate on .
--- NOTE | 2020-11-13 13:03 | WPDINTPN ---
Progress Note: A&P Assessment and Plan (1) Acute and chronic respiratory failure: Code(s): J96.20 - Acute and chronic respiratory failure, unspecified whether with hypoxia or hypercapnia Status: Acute Assessment and Plan: Patient intubated on 11/04/2020, successfully extubated on 11/06/2020 -patient was transferred to the ICU again on 11/12/2020 at night with hypercarbic respiratory failure requiring BiPAP. -repeat ABG showed improving hypercapnia -chest x-ray showed complete whiteout of the left side could be pleural effusion versus mucous plugging and atelectasis -have added chest PT, continue bronchodilators (2) Chronic obstructive pulmonary disease: Code(s): J44.9 - Chronic obstructive pulmonary disease, unspecified Status: Chronic Assessment and Plan: COPD exacerbation -continue p.r.n. BiPAP -remains on Pulmicort, ipratropium - continue steroids - S/p azithromycin And ceftriaxone (completed 7 days) (3) Acute CHF (congestive heart failure): Code(s): I50.9 - Heart failure, unspecified Status: Acute Assessment and Plan: Echocardiogram [id number] showed LV EF of 65-70%, diastolic dysfunction moderate tricuspid valve regurg, mild mitral valve regurg. Severe pulmonary hypertension with RVSP of 63 mmHg. -cardiology following the patient. -hold furosemide, will give a dose of Diamox as patient has contraction alkalosis (4) Pleural effusion: Code(s): J90 - Pleural effusion, not elsewhere classified Status: Acute Assessment and Plan: 11/04/2020: Status post thoracentesis of the left pleural effusion with 1000 mL of maroon colored fluid Chest x-ray this morning shows left pleural effusion, past interventional radiology to perform thoracentesis, since patient is on Eliquis will have to hold the Eliquis dose tonight into more moaning and patient will get his thoracentesis done on 11/14/2020 (5) Atelectasis of left lung: Code(s): J98.11 - Atelectasis Status: Acute Assessment and Plan: Whiteout of the left lung/atelectasis could be related to mucus plugging. -continue chest PT, bronchodilators, (6) DVT prophylaxis: Code(s): Z29.9 - Encounter for prophylactic measures, unspecified Status: Acute Assessment and Plan: SCD, Eliquis (7) Hypertension: Qualifiers: Hypertension type: essential hypertension Qualified Code(s): I10 - Essential (primary) hypertension Code(s): I10 - Essential (primary) hypertension Status: Chronic Assessment and Plan: Blood pressures have been stable (8) Hyponatremia: Code(s): E87.1 - Hypo-osmolality and hyponatremia Status: Chronic Assessment and Plan: Sodium levels improving -appreciate Nephrology evaluation - monitor sodium levels (9) Urine retention: Code(s): R33.9 - Retention of urine, unspecified Status: Acute Assessment and Plan: Urinary retention with distended bladder on bladder ultrasound. Amaya was inserted -patient on Flomax (10) Anemia: Code(s): D64.9 - Anemia, unspecified Status: Acute Assessment and Plan: 11/04/2020 Thoracentesis done with removal of 1000 mL of maroon colored fluid -patient also anemic and dropped his hemoglobin to 6.7 on 11/04/2020, 1 unit of packed RBCs is been ordered -hemoglobin has stable -on Eliquis, currently holding for thoracentesis to be done on 11/14/2020 (11) Paroxysmal atrial flutter: Code(s): I48.92 - Unspecified atrial flutter Status: Acute Assessment and Plan: Continue amiodarone, diltiazem, -continue Eliquis currently on hold continue diuretics. (12) Mucus plugging of bronchi: Code(s): J98.09 - Other diseases of bronchus, not elsewhere classified Status: Acute Assessment and Plan: Repeat mucus plugging, will discuss with pulmonology regarding bronchoscopy at some point Additional Plan Discussed
--- NOTE | 2020-11-13 14:12 | PCPTNOTE ---
patient transferred to ICU due to respiratory issues...spoke with Dr Stoddard...she ill issue HOLD PT/OT orders until patient's medical circumstances stabilize
--- NOTE | 2020-11-13 14:24 | PM.PNCARD ---
Progress Note: A&P Assessment and Plan (1) Paroxysmal atrial flutter: Code(s): I48.92 - Unspecified atrial flutter Status: Acute Assessment and Plan: Persistent atrial flutter with RVR. Heart rate reasonable otherwise. -Continue Amiodarone 200mg daily and Diltiazem 180 mg daily. -Continue Eliquis 5 mg b.i.d. on hold for thoracentesis. (2) Acute and chronic respiratory failure: Code(s): J96.20 - Acute and chronic respiratory failure, unspecified whether with hypoxia or hypercapnia Status: Acute Assessment and Plan: Transferred to ICU last night for acute decompensated respiratory failure secondary to recurrent mucous plugging with rapid recurrent L pleural effusion with complete white out on CXR once again last night. On BiPAP. Eliquis held for planned repeat thoracentesis on L. Severe COPD, end-stage lung disease. needs BiPAP at night. Prognosis poor. As above, amiodarone poor option given lung disease, however, options very limited. Does not appear to be significantly volume overloaded at this time. Continue furosemide at 20 mg IV Q 12 hours. Severe pulmonary hypertension RVSP 63 mmHg. (3) Pleural effusion: Code(s): J90 - Pleural effusion, not elsewhere classified Status: Acute Assessment and Plan: As above. (4) Mucus plugging of bronchi: Code(s): J98.09 - Other diseases of bronchus, not elsewhere classified Status: Acute Assessment and Plan: As above. (5) Cardiac arrest with pulseless electrical activity: Code(s): I46.9 - Cardiac arrest, cause unspecified Status: Acute Assessment and Plan: Status post PA arrest secondary to hypercarbia, good recovery. EF preserved 65-70% without wall motion abnormalities. PT OT. (6) Elevated troponin: Code(s): R77.8 - Other specified abnormalities of plasma proteins Status: Acute Assessment and Plan: 0.045 and 0.045, secondary to cardiac arrest not a acute coronary syndrome event. on Eliquis. Does not need aspirin from a cardiac perspective. Subjective Date/time seen: 11/13/20 14:24 Interval history: Follow-up visit in this 70-year-old man with: Chronic persistent atrial flutter being managed with rate control. End-stage COPD with chronic hypoventilation hypercarbia despite aggressive measures as well as BiPAP. Recent acute decompensation last week to his of mucous plugging and whiteout of left lung Patient acutely became short of breath and more hypoxic last night transfer to the ICU with recurrent complete whiteout of his left lung thought to be secondary to mucous plugging and large pleural effusion. Patient stabilized on BiPAP. Remains in atrial flutter with controlled ventricular response. Patient complained of ongoing shortness of breath but denies chest pain. He states he is comfortable. Review of Systems Review of Systems: All systems reviewed & are unremarkable except as noted in HPI and below ROS unobtainable: Yes unobtainable due to endotracheal tube Constitutional: Constitutional: Reports as per HPI, Reports fatigue and Reports weakness Eyes: Eyes: Reports as per HPI ENT: Reports as per HPI and Denies epistaxis Cardiovascular: Cardiovascular: Reports as per HPI, Denies chest pain (Sore from CPR), Reports pedal edema, Reports leg edema, Denies dyspnea and Reports dyspnea on exertion Respiratory: Respiratory: Reports as per HPI, Denies cough, Reports dyspnea and Reports dyspnea on exertion Gastrointestinal: Gastrointestinal: Denies abdominal pain Genitourinary: Genitourinary: Reports as per HPI Musculoskeletal: Musculoskeletal: Reports as per HPI and Denies back pain Integumentary/Breasts: Skin/Breast: Reports as per HPI and Denies rash Neurologic: Reports as per HPI, Denies behavioral changes and Denies confusion Psychiat
--- NOTE | 2020-11-13 15:30 | PM.IMPN ---
Progress Note: A&P Assessment and Plan (1) Shock: Code(s): R57.9 - Shock, unspecified Status: Acute Assessment and Plan: Patient moved to ICU and intubated on 11/04. Extubated but back in ICU on BIPAP. Bp is low continue to watch. (2) Acute and chronic respiratory failure: Code(s): J96.20 - Acute and chronic respiratory failure, unspecified whether with hypoxia or hypercapnia Status: Acute Assessment and Plan: Patient with acute on chronic respiratory failure With mucous plugging and pleural effusions. (3) Anemia: Code(s): D64.9 - Anemia, unspecified Status: Acute Assessment and Plan: Hgb dropped to 6.7 11/04/20 for unclear reasons and transfused 2U PRBC. Hb presently at 9 (4) Atelectasis of left lung: Code(s): J98.11 - Atelectasis Status: Acute Assessment and Plan: Secondary to mucous plugging. (5) Pleural effusion: Code(s): J90 - Pleural effusion, not elsewhere classified Status: Acute Assessment and Plan: Persistent large left pleural effusion, pt will need thoracentesis soon (6) Diastolic congestive heart failure: Code(s): I50.30 - Unspecified diastolic (congestive) heart failure Status: Acute Assessment and Plan: Still with pedal edema but improving. Continue iv lasix for diuresis, cardiology is rounding. (7) Cardiac arrest with pulseless electrical activity: Code(s): I46.9 - Cardiac arrest, cause unspecified Status: Acute Assessment and Plan: Pt sp cardiac arrest. He was intubated not long after arrival to ED. Pt is now on BIPAP due to respiratory distress. Will continue to monitor. (8) Hypertension: Qualifiers: Hypertension type: essential hypertension Qualified Code(s): I10 - Essential (primary) hypertension Code(s): I10 - Essential (primary) hypertension Status: Chronic Assessment and Plan: Stable at present. (9) COPD (chronic obstructive pulmonary disease): Qualifiers: COPD type: unspecified COPD Qualified Code(s): J44.9 - Chronic obstructive pulmonary disease, unspecified Code(s): J44.9 - Chronic obstructive pulmonary disease, unspecified Status: Acute Assessment and Plan: Stable. Continue treatment as above. (10) Paroxysmal atrial flutter: Code(s): I48.92 - Unspecified atrial flutter Status: Acute Assessment and Plan: Watch telemtry. Continue Amiodarone and diltiazem. Continue ASA 81mg; low-dose Eliquis on hold (11) Hyponatremia: Code(s): E87.1 - Hypo-osmolality and hyponatremia Status: Chronic Assessment and Plan: Nephrology following. Continue NaCl tablets. (12) Urine retention: Code(s): R33.9 - Retention of urine, unspecified Status: Acute Assessment and Plan: Amaya placed. (13) Thrombocytopenia: Code(s): D69.6 - Thrombocytopenia, unspecified Status: Acute Assessment and Plan: Continue to monitor, platelets are 130. (14) DVT prophylaxis: Code(s): Z29.9 - Encounter for prophylactic measures, unspecified Status: Acute Assessment and Plan: Eliquis on hold for procedure. Subjective Date/time seen: 11/13/20 15:30 Interval history: 70yo male with chronic respiratory failure (home O2 at 2L), COPD and CHF here for out of hospital cardiopulmonary arrest. unfortunately pt developed severe SOB and respiratory failure and was transferred to the medical floor and is now back on BIPAP. Pt will need further thoracentesis for persistent large left pleural effusion. Review of Systems Review of Systems: All systems reviewed & are unremarkable except as noted in HPI and below Exam Narrative: Exam Narrative: Gen - thin, chronically ill, wearing bipap Chest - BL crackles CV - RRR. S1-S2. Abd -soft. NT, +BS - Amaya secured draining
[2020-11-14] VITALS (17 sets, daily range): BP systolic 119–135; BP diastolic 60–79; PULSE 89–119; RESP 16–32; TEMP 36.5–36.7; O2SAT 87–100
[2020-11-14] MEDS: IPRATROPIUM BR 0.02% INH SOLN 0.5 MG/2.5 ML VIAL INHALATION ×3 (02:54→14:10)
[2020-11-14] MEDS: ALBUTEROL SULFATE NEB 2.5 MG/0.5 ML INH INHALATION (02:54)
[2020-11-14 04:38] LABS: Alveolar/Arterial O2 Gradient 107.1 mmHg; Base Excess ABG 14.2 mEq/l (+/-2.0); Carboxyhemoglobin 0.3 % THb (0-2.0); Fractional Inspired Oxygen 35 %; HCO3 ABG 40.1 mEq/l (22.0-26.0); Methemoglobin ABG 0.2 %THb (0-1.5); Oxygen Content ABG 13.4 %vol (16.0-22.0); Oxygen Saturation ABG 95.3 % (95.0-100.0); Oxyhemoglobin 93.6 % THb (90.0-100.0); PCO2 ABG 58.1 mmHg (35.0-45.0); PO2 ABG 74.9 mmHg (80.0-100.0); PO2 FiO2 Ratio Arterial Blood 2.14 %; Reduced Hemoglobin 5.9 %THb (0-5.0); Total Hemoglobin 10.1 g/dL (12.0-18.0); pH ABG 7.457 (7.350-7.450)
[2020-11-14 04:39] LABS: Device BIPAP; Modified Allen's Test Pass; Site Drawn LEFT RADIAL
[2020-11-14 04:40] LABS: Expiratory Pressure 6 cmH2O; Inspiratory Pressure 18 cmH2O
[2020-11-14] MEDS: CENTRAL LINE FLUSH 10 ML IV PUSH (05:11)
[2020-11-14] MEDS: methylPREDNISolone SOD SUCC 40 MG VIAL IV PUSH (05:11)
[2020-11-14 05:21] LABS: Basophils Percent Auto 0.1 % (0.2-1.2); Hematocrit 26.6 % (42.0-52.0); Hemoglobin 8.7 g/dL (14.0-18.0); Immature Granulocyte Absolute 0.06 K/mm3 (0.00-0.031); Immature Granulocyte Percent A 0.6 % (0-0.5); Lymphocytes Absolute Auto 0.08 K/mm3 (0.9-3.2); Lymphocytes Percent Auto 0.7 % (18.3-44.2); Mean Corpuscular HGB Conc 32.7 g/dl (32-36); Mean Corpuscular Hemoglobin 30.9 pg (26-34); Mean Corpuscular Volume 94.3 fl (80-100); Mean Platelet Volume 12.2 fl (7.4-10.4); Monocytes Absolute Auto 0.2 K/mm3 (0.1-0.6); Monocytes Percent Auto 1.9 % (2.6-8.5); Neutrophils Absolute Auto 10.4 K/mm3 (1.3-6.7); Neutrophils Percent Auto 96.7 % (45.5-73.1); Platelet Count Result 98 k/mm3 (150-375); Red Blood Count 2.82 M/mm3 (4.6-6.20); Red Cell Distribution Width 13.8 % (11.5-14.5); White Blood Count 10.7 K/mm3 (4.5-10.0)
[2020-11-14 05:30] LABS: Lactic Acid Reflex 0.8 mmol/L (0.7-2.1)
[2020-11-14 05:32] LABS: Alanine Aminotransferase 27 U/L (4-50); Albumin Level 2.7 g/dL (3.5-5.1); Alkaline Phosphatase 60 U/L (38-126); Aspartate Amino Transferase 24 U/L (17-59); Bilirubin,Total 0.9 mg/dL (0.2-1.3); Blood Urea Nitrogen 34 mg/dL (9-20); CRP 1.1 mg/dL (<1.0); Calcium 8.2 mg/dL (8.4-10.2); Carbon Dioxide > 40 mmol/L (22-30); Chloride 89 mmol/L (98-107); Estimated CRCL calculation 80 ml/min; Estimated Glomerular Filt Rate > 60; Glucose 106 mg/dL (75-110); Magnesium 1.5 mg/dL (1.6-2.3); Potassium 4.4 mmol/L (3.4-5.0); Sodium 134 mmol/L (137-145)
[2020-11-14 06:57] LABS: Anisocytosis 1+ (NORMAL); Hypochromasia 2+ (NORMAL)
[2020-11-14 06:58] LABS: Ovalocytes 1+ (NORMAL); Target Cells 1+ (NORMAL)
[2020-11-14 07:04] LABS: INR 1.3; Partial Thromboplastin Time 29.7 SECONDS (22.3-36.8); Prothrombin Time 16.5 Seconds (11.1-14.7)
[2020-11-14] MEDS: BUDESONIDE RESPULE NEB 0.5 MG/2 ML AMP 1 MG INHALATION (07:33)
[2020-11-14] MEDS: ASPIRIN 81 MG ENTERIC TABLET PO (08:01)
[2020-11-14] MEDS: TAMSULOSIN HCL 0.4 MG CAPSULE PO (08:01)
[2020-11-14] MEDS: AMIODARONE HCL 200 MG TABLET PO (08:02)
[2020-11-14] MEDS: SODIUM CHLORIDE 1 GM TABLET PO (08:02)
[2020-11-14] MEDS: dilTIAZem HCL CD 180 MG CAP.ER.24H PO (08:03)
[2020-11-14] MEDS: MAGNESIUM OXIDE 400 MG TABLET PO (08:03)
[2020-11-14] MEDS: PANTOPRAZOLE SODIUM IV 40 MG VIAL IV PUSH (08:04)
[2020-11-14] MEDS: MULTIVITAMIN HEMATINIC (*BKC) TABLET 1 TABLET PO (08:32)
--- NOTE | 2020-11-14 08:42 | PC.NURSE ---
At this time, patient is requesting to be made DNR/DNI. Dr. Russell at bedside to discuss with patient.
--- NOTE | 2020-11-14 09:32 | WPDINTPN ---
Progress Note: A&P Assessment and Plan (1) Acute and chronic respiratory failure: Code(s): J96.20 - Acute and chronic respiratory failure, unspecified whether with hypoxia or hypercapnia Status: Acute Assessment and Plan: Patient intubated on 11/04/2020, successfully extubated on 11/06/2020 -patient was transferred to the ICU again on 11/12/2020 at night with hypercarbic respiratory failure requiring BiPAP. -repeat ABG showed improving hypercapnia -chest x-ray showed complete whiteout of the left side which was likely atelectasis and may be a small pleural effusion -chest x-ray done today showed significant improvement -continue chest PT, continue bronchodilators -continue p.r.n. BiPAP and nightly BiPAP -patient does not want to be intubated and is DNR DNI (2) Chronic obstructive pulmonary disease: Code(s): J44.9 - Chronic obstructive pulmonary disease, unspecified Status: Chronic Assessment and Plan: COPD exacerbation -continue p.r.n. and nightly BiPAP -remains on Pulmicort, ipratropium - continue steroids but cut down the dose - S/p azithromycin And ceftriaxone (completed 7 days) (3) Acute CHF (congestive heart failure): Code(s): I50.9 - Heart failure, unspecified Status: Acute Assessment and Plan: Echocardiogram [id number] showed LV EF of 65-70%, diastolic dysfunction moderate tricuspid valve regurg, mild mitral valve regurg. Severe pulmonary hypertension with RVSP of 63 mmHg. -cor pulmonale -cardiology following the patient. -continue diuresis (4) Pleural effusion: Code(s): J90 - Pleural effusion, not elsewhere classified Status: Acute Assessment and Plan: 11/04/2020: Status post thoracentesis of the left pleural effusion with 1000 mL of maroon colored fluid Chest x-ray this morning shows Small left pleural effusion. Will hold any further thoracentesis at this time (5) Atelectasis of left lung: Code(s): J98.11 - Atelectasis Status: Acute Assessment and Plan: Whiteout of the left lung/atelectasis could be related to mucus plugging. -improved -continue chest PT, bronchodilators, (6) DVT prophylaxis: Code(s): Z29.9 - Encounter for prophylactic measures, unspecified Status: Acute Assessment and Plan: SCD, Eliquis (7) Hypertension: Qualifiers: Hypertension type: essential hypertension Qualified Code(s): I10 - Essential (primary) hypertension Code(s): I10 - Essential (primary) hypertension Status: Chronic Assessment and Plan: Blood pressures have been stable (8) Hyponatremia: Code(s): E87.1 - Hypo-osmolality and hyponatremia Status: Chronic Assessment and Plan: Sodium levels improving -appreciate Nephrology evaluation - monitor sodium levels (9) Urine retention: Code(s): R33.9 - Retention of urine, unspecified Status: Acute Assessment and Plan: Urinary retention with distended bladder on bladder ultrasound. Amaya was inserted -patient on Flomax (10) Anemia: Code(s): D64.9 - Anemia, unspecified Status: Acute Assessment and Plan: 11/04/2020 Thoracentesis done with removal of 1000 mL of maroon colored fluid -patient also anemic and dropped his hemoglobin to 6.7 on 11/04/2020, 1 unit of packed RBCs is been ordered -hemoglobin has stable (11) Paroxysmal atrial flutter: Code(s): I48.92 - Unspecified atrial flutter Status: Acute Assessment and Plan: Continue amiodarone, diltiazem, -continue Eliquis continue diuretics. (12) Mucus plugging of bronchi: Code(s): J98.09 - Other diseases of bronchus, not elsewhere classified Status: Acute Assessment and Plan: Improved monitor Additional Plan Discussed with patient today. He was alert oriented x3 and had insight in his lung disease from smoking and heart failure. He told me that he does not want to go back on the ventil
--- NOTE | 2020-11-14 10:10 | PCOTNOTE ---
Spoke with Fitness Sales Associate Dr. Russell, continue Occupational therapy per care plan.
--- NOTE | 2020-11-14 10:56 | PCPTNOTE ---
Attempted PT treatment. Pt refused therapy and Odilia Gate Manager states pt wants Hospice.
[2020-11-14] MEDS: MAGNESIUM SULF 2 GM/WATER 50ML 2 GM/50 ML BAG IVPB (11:23)
--- NOTE | 2020-11-14 11:39 | PCDIET ---
Nutrition Follow-Up Complete: Nutrition Diagnosis: Inadequate oral intake related to oral intubation as evidenced by NPO status. Nutrition Goal: Patient to meet estimated nutritional needs. Goal not met. No recorded intake since 11/12/20; however, patient did eat breakfast this morning, per nurse. Recommend continuing regular diet with Frozen Nutritional Treat (300kcal, 9g protein) TID. Patient reportedly considering hospice and was meeting with Ordering Box Operator when I attempted to visit. Last recorded weight is 60.4 kg which is stable with last review. Bowel Motility: No recent BM documented - would consider medication, if medically appropriate. Labs Reviewed: Hgb (8.7), Hct (26.6), BUN (34), Cr (0.6), Na (134), Alb (2.7), Ashly Ca (9.24) Meds Noted: Albuterol, Pulmicort, Lasix, Mag-Ox, Solu-Medrol, Centrum, Protonix, Sodium Chloride Additional Notes: Multiple skin issues documented with no significant change from last review. Nutrition Monitoring and Evaluation: Follow up every 3 days.
--- NOTE | 2020-11-14 11:44 | PM.PNCARD ---
Progress Note: A&P Additional Plan 70-year-old man with: Continue current regimen of diltiazem and low-dose amiodarone for rate control. For the moment there is no additional cardiac recommendation to make. He truly has end-stage lung disease in my opinion and it is not unreasonable to consider hospice level service. His atrial flutter is certainly not the principal cause of his clinical difficulties at this time. Sam Morales MD [facility] Subjective Date/time seen: Date of service: 11/14/20 11:44 Interval history: Follow-up visit in this 70-year-old man with: Severe apparent end-stage chronic lung disease and atrial flutter as result of this. Patient has been in atrial flutter with well-controlled heart rate for quite a long time now. He was sent back to the ICU over the weekend because of recurrent mucus plugging of the left lung. Aeration looks much better on today's x-ray. Sewing Machine Repairer notes reviewed. Patient now is apparently considering hospice level services. Exam Const: General: comfortable, no acute distress, alert, awake and ill appearing; No acute distress or confusion Nutritional Appearance: thin Orientation/consciousness: No confusion Other: very thin cachectic gentleman sitting upright in bed, on BiPAP, increased work of breathing. HENMT: Mouth: Yes moist mucous membranes and Yes dry mucous membranes Eyes: Sclera: sclerae normal Pupils: Equal, round and reactive pupils present EOM: EOMs intact bilaterally Neck: Neck: supple and no JVD Chest: Other: chest wall pain to palpate Resp: Effort & Inspection: normal respiratory effort Auscultation: diminished lung sounds Other: Very poor air entry, lungs hyperinflated on R, scaphoid chest increased work of breathing, absent breath sounds now appreciated on the L Cardio: Jugular venous distension: no JVD Rate: regular rate Rhythm: regular rhythm and abnormal rhythm irregularly irregular Other: GI: Inspection: non-distended Auscultation: normal bowel sounds Skin: General skin exam: normal color Rashes: no rashes noted Neuro: General: No confusion Cranial nerves: Yes Equal, round and reactive pupils present Cognition (Neuro): normal cognition Speech: normal speech Motor exam (neuro): Normal motor muscle tone present throughout Other: sedated on ventilator Extrem: General: normal to inspection and edema (1+) bilateral Other: 1+ bilateral LE edema Psych: Mental Status: mental status grossly normal Affect: normal affect Objective Data Vital Signs Vital Signs: Vital Signs - 24 hr 11/13/20 12:00 11/13/20 13:05 11/13/20 13:49 Temperature 36.6 C Pulse Rate 99 98 98 Respiratory Rate 27 H 22 H 17 Blood Pressure 109/67 Pulse Oximetry 97 98 11/13/20 14:00 11/13/20 16:00 11/13/20 16:58 Temperature 36.1 C L Pulse Rate 102 H 104 H 101 H Respiratory Rate 19 24 H 22 H Blood Pressure 122/72 102/86 Pulse Oximetry 93 94 95 11/13/20 18:00 11/13/20 20:00 11/13/20 20:10 Temperature 36.4 C L Pulse Rate 103 H 101 H 101 H Respiratory Rate 29 H 18 22 H Blood Pressure 105/81 127/75 Pulse Oximetry 92 100 96 11/13/20 20:37 11/13/20 20:41 11/13/20 22:00 Temperature Pulse Rate 101 H 99 99 Respiratory Rate 22 H 15 15 Blood Pressure 116/73 Pulse Oximetry 97 98 11/13/20 23:10 11/14/20 00:00 11/14/20 02:00 Temperature 36.7 C Pulse Rate 99 89 98 Respiratory Rate 25 H 17 25 H Blood Pressure 119/71 128/77 Pulse Oximetry 96 99 100 11/14/20 02:54 11/14/20 02:56 11/14/20 03:06 Temperature Pulse Rate 99 93 98 Respiratory Rate 32 H 31 H 21 H Blood Pressure Pulse Oximetry 97 11/14/20 04:00 11/14/20 06:00 11/14/20 07:33 Temperature 36.6 C Pulse Rate 99 89 108 H Respiratory Rate 23 H 16 24 H Blood Pressure 127/75 121/78 Pulse Oximetry 100 100 96 11/14/20 08:00 11/14/20 08:02 11/14/20 08:30 Temperature 36.5 C Pulse Rate 111 H 110 H Respiratory Rate 29 H Blood Pressure 129/79
--- NOTE | 2020-11-14 13:03 | PM.DS ---
DS: Admitting Diagnosis Admitting Diagnosis Admitting Diagnosis: Unresponsive. DS: Discharge Diagnosis Discharge Diagnosis (1) Shock: Code(s): R57.9 - Shock, unspecified Status: Acute Assessment and Plan: Patient moved to ICU and intubated on 11/04. Extubated but back in ICU on BIPAP. Pt refusing Bipap wants to discharge to hospice. realises he is ill. (2) Acute and chronic respiratory failure: Code(s): J96.20 - Acute and chronic respiratory failure, unspecified whether with hypoxia or hypercapnia Status: Acute Assessment and Plan: Patient with acute on chronic respiratory failure With mucous plugging and pleural effusions. Pt is changed to hospice status (3) Anemia: Code(s): D64.9 - Anemia, unspecified Status: Acute Assessment and Plan: Hgb dropped to 6.7 11/04/20 for unclear reasons and transfused 2U PRBC. Hb presently at 9 (4) Atelectasis of left lung: Code(s): J98.11 - Atelectasis Status: Acute Assessment and Plan: Secondary to mucous plugging. (5) Pleural effusion: Code(s): J90 - Pleural effusion, not elsewhere classified Status: Acute Assessment and Plan: Persistent large left pleural effusion, pt will need thoracentesis soon (6) Diastolic congestive heart failure: Code(s): I50.30 - Unspecified diastolic (congestive) heart failure Status: Acute Assessment and Plan: Still with pedal edema but improving. Continue iv lasix for diuresis, cardiology is rounding. (7) Cardiac arrest with pulseless electrical activity: Code(s): I46.9 - Cardiac arrest, cause unspecified Status: Acute Assessment and Plan: Pt sp cardiac arrest. He was intubated not long after arrival to ED. Pt is now on BIPAP due to respiratory distress. Will continue to monitor.Pt changed to hospice status (8) Hypertension: Qualifiers: Hypertension type: essential hypertension Qualified Code(s): I10 - Essential (primary) hypertension Code(s): I10 - Essential (primary) hypertension Status: Chronic Assessment and Plan: Stable at present. (9) COPD (chronic obstructive pulmonary disease): Qualifiers: COPD type: unspecified COPD Qualified Code(s): J44.9 - Chronic obstructive pulmonary disease, unspecified Code(s): J44.9 - Chronic obstructive pulmonary disease, unspecified Status: Acute Assessment and Plan: Stable. Continue treatment as above. (10) Paroxysmal atrial flutter: Code(s): I48.92 - Unspecified atrial flutter Status: Acute Assessment and Plan: Watch telemtry. Continue Amiodarone and diltiazem. Continue ASA 81mg; low-dose Eliquis on hold (11) Hyponatremia: Code(s): E87.1 - Hypo-osmolality and hyponatremia Status: Chronic Assessment and Plan: Nephrology following. Continue NaCl tablets. (12) Urine retention: Code(s): R33.9 - Retention of urine, unspecified Status: Acute Assessment and Plan: Amaya placed. (13) Thrombocytopenia: Code(s): D69.6 - Thrombocytopenia, unspecified Status: Acute Assessment and Plan: Continue to monitor, platelets are 130. (14) DVT prophylaxis: Code(s): Z29.9 - Encounter for prophylactic measures, unspecified Status: Acute Assessment and Plan: Eliquis on hold for procedure. DS: Summary Hospital Course Hospital Course: 70yo male with chronic respiratory failure (home O2 at 2L), COPD and CHF here for out of hospital cardiopulmonary arrest. unfortunately pt developed severe SOB and respiratory failure and was transferred to the medical floor and is now back on BIPAP. Pt will need further thoracentesis for persistent large left pleural effusion.Pt refusing BIPap wants to go home on hospice. Time Spent with Patient Time attestation: Total time spent providing and/o
--- NOTE | 2020-11-14 14:42 | PC.NURSE ---
Pt to be discharged home on hospice at 1442. Personal belongings gathered, PICC line, IV and palacios removed. All catheters intact. Pt has no further needs/ questions at this time.
--- NOTE | 2021-01-03 17:49 | PM.IMPN ---
Progress Note: A&P Assessment and Plan (1) COPD (chronic obstructive pulmonary disease): Qualifiers: COPD type: unspecified COPD Qualified Code(s): J44.9 - Chronic obstructive pulmonary disease, unspecified Code(s): J44.9 - Chronic obstructive pulmonary disease, unspecified Status: Acute (2) Acute diastolic heart failure: Code(s): I50.31 - Acute diastolic (congestive) heart failure Status: Acute (3) Cardiac arrest with pulseless electrical activity: Code(s): I46.9 - Cardiac arrest, cause unspecified Status: Acute Additional Plan Progress Note: A&P Assessment and Plan (1) Acute and chronic respiratory failure: Code(s): J96.20 - Acute and chronic respiratory failure, unspecified whether with hypoxia or hypercapnia Status: Acute Assessment and Plan: Patient is getting better. Will continue to use BiPAP. (2) Diastolic congestive heart failure: Code(s): I50.30 - Unspecified diastolic (congestive) heart failure Status: Acute Assessment and Plan: Stable on medications. (3) Cardiac arrest with pulseless electrical activity: Code(s): I46.9 - Cardiac arrest, cause unspecified Status: Acute Assessment and Plan: Stable medications at present time, patient is alert and awake. (4) Hypertension: Qualifiers: Hypertension type: essential hypertension Qualified Code(s): I10 - Essential (primary) hypertension Code(s): I10 - Essential (primary) hypertension Status: Chronic Assessment and Plan: Stable on medication. (5) COPD (chronic obstructive pulmonary disease): Qualifiers: COPD type: unspecified COPD Qualified Code(s): J44.9 - Chronic obstructive pulmonary disease, unspecified Code(s): J44.9 - Chronic obstructive pulmonary disease, unspecified Status: Acute Assessment and Plan: Stable on medications (6) Paroxysmal atrial flutter: Code(s): I48.92 - Unspecified atrial flutter Status: Acute Assessment and Plan: Stable on medication. Subjective Date/time seen: 10/27/2020 Interval history: 70-year-old male with severe COPD chronic respiratory failure on home oxygen he was recently discharged by me after he was treated for atrial flutter and was sent home on tapering dose of amiodarone, patient also received a trilogy and he had tried it before discharge, patient was brought to the emergency department as he was unresponsive most of the day at home and his called EMS, upon arrival to emergency department he was having agonal breathing with pulse and later he went into PEA and had a cardiac arrest CPR. Pt has been extubated, AF is controlled, covid is found to be negative. Pt is recovering. Review of Systems Review of Systems: All systems reviewed & are unremarkable except as noted in HPI and below Exam Narrative: Exam Narrative: Gen - thin, chronically ill, on BIPAP Chest - BL crackles CV - RRR. S1-S2. Abd -soft. NT, +BS Ext - 1+ bilateral pedal edema Skin - Warm and dry Neuro - Alert, appropriate. Objective Data Meds/Results Radiology Results: ITS Impressions Head CT 10/23/20 12:57 IMPRESSION: 1. 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 Chest CTA 10/23/20 16:54 IMPRESSION: 1. No evidence for pulmonary embolism. 2: Reticulonodular densities predominantly of the right upper and middle lobe, most likely infectious/inflammatory. 3: Multiple pleural based irregular shaped nodules right upper thorax posteriorly which may be infectious/inflammatory, although neoplasm is not excluded. 4: Emphysema. 5: Small pleural effusions. Abdomen Ultrasound 10/24/20 09:32 IMPRESSION: 1. Gallbladder sludge. Gallbladder wall thickening is likely secondary to interstitial edema. Ribs w/Chest X-Ray 10/31/20 15:36 IMPRESSION: 1. Acute sternal fracture with mild depression and angulation.
== END 2020-11-14 14:45 | disposition hospice, home (50) | DRG 208 ==
LOC: ANHED 16:38 → ANHICU 22:54 → ANH3MEDSUR 10-31 04:16 → ANHIMU 11-04 12:48 → ANHICU 11-07 07:21 → ANH3MED 11-15 12:22 → ANH3MEDSUR 11-15 12:22 → ANHICU 11-15 12:22 → ANHIMU 11-15 12:22
PROVIDERS: Family Medicine; Internal Medicine; Internal Medicine Critical Care Medicine; Internal Medicine Nephrology; Physician Assistant; Admitting Provider Internal Medicine; Emergency Provider General Practice; PCP Internal Medicine Cardiovascular Disease; Visit Provider Internal Medicine
DX: I46.9 Cardiac arrest, cause unspecified (principal); I50.33 Acute on chronic diastolic (congestive) heart failure; J96.22 Acute and chronic respiratory failure with hypercapnia; R57.9 Shock, unspecified; S22.49XA Multiple fractures of ribs, unspecified side, initial encounter for closed fracture; S22.20XA Unspecified fracture of sternum, initial encounter for closed fracture; E87.2 Acidosis; I48.92 Unspecified atrial flutter; E87.1 Hypo-osmolality and hyponatremia; R78.81 Bacteremia; J98.11 Atelectasis; J91.8 Pleural effusion in other conditions classified elsewhere; J44.1 Chronic obstructive pulmonary disease with (acute) exacerbation; J96.21 Acute and chronic respiratory failure with hypoxia; Z20.822 Contact with and (suspected) exposure to COVID-19; D69.6 Thrombocytopenia, unspecified; J98.09 Other diseases of bronchus, not elsewhere classified; I27.20 Pulmonary hypertension, unspecified; Z99.81 Dependence on supplemental oxygen; I11.0 Hypertensive heart disease with heart failure; D64.9 Anemia, unspecified; R77.8 Other specified abnormalities of plasma proteins; Y84.8 Other medical procedures as the cause of abnormal reaction of the patient, or of later complication, without mention of misadventure at the time of the procedure; F17.210 Nicotine dependence, cigarettes, uncomplicated; R79.89 Other specified abnormal findings of blood chemistry; R94.2 Abnormal results of pulmonary function studies; R33.9 Retention of urine, unspecified; Z28.21 Immunization not carried out because of patient refusal; Z79.01 Long term (current) use of anticoagulants; Z79.899 Other long term (current) drug therapy; Z98.49 Cataract extraction status, unspecified eye
CPT/HCPCS: 31500; 32555; 36415; 36430; 36569; 36600; 70450; 71045; 71046; 71100; 71260; 71275; 76705; 80048; 80053; 80069; 80074; 80202; 81001; 82040; 82375; 82533; 82570; 82607; 82728; 82746; 82784; 82787; 82805; 82948; 83050; 83605; 83615; 83735; 83880; 83883; 84100; 84132; 84295; 84300; 84443; 84484; 85014; 85018; 85025; 85027; 85055; 85610; 85730; 86140; 86335; 86850; 86900; 86901; 86923; 87040; 87070; 87077; 87086; 87205; 89051; 92950; 93005; 93306; 94002; 94003; 94640; 94667; 94668; 94669; 96361; 96374; 96375; 97110; 97161; 97165; 97530; 97535; 99291; A9270; C1751; C9113; C9803; J0330; J0456; J0610; J0696; J1120; J1940; J2060; J2250; J2543; J2920; J2930; J2997; J3010; J3370; J3475; J3480; J7030; J7040; J7042; J7050; J7120; J7512; P9016; Q9967; U0003; U0005

== ENCOUNTER 2020-11-14 21:29 | Emergency (ER) | payer MEDICAID, SELFPAY ==
[2020-11-14] VITALS (12 sets, daily range): BP systolic 83–120; BP diastolic 42–78; PULSE 70–94; RESP 10–15; O2SAT 82–100
--- NOTE | ~2020-11-14 | XR_ITS ---
EXAMINATION: XR abdomen NG/feed tube insert INDICATION: Nasogastric tube insertion TECHNIQUE: Portable AP KUB-NG at 2006 hours COMPARISON: 11/04/2020 FINDINGS: The nasogastric tube is in the stomach. There is complete opacification of the left hemitho rax. There is a small right pleural effusion. IMPRESSION: 1. Nasogastric tube in the stomach. Reviewed, dictated and finalized at location A. ER CULTIVATOR
--- NOTE | ~2020-11-14 | XR_ITS ---
EXAMINATION: XR chest ET placement INDICATION: Endotracheal tube placement TECHNIQUE: Portable AP chest at 2006 hours COMPARISON: 0521 hours FINDINGS: An endotracheal tube has been inserted which ends 6.5 cm above the miguel. The nasogastric tube is followed as far as the stomach. Its tip is beyond the inferior margin of the radiograph. Ther e has been interval development of complete opacification of the left hemithorax with volume loss. Th ere appears to be abrupt cut off in the distal left mainstem bronchus. The right lung is clear. No ri ght-sided pleural effusion or pneumothorax are identified. IMPRESSION: 1. Endotracheal tube ending 6.5 cm above the miguel. 2. Interval development of complete opacification of the left hemithorax with volume loss, likely due to mucous plugging. Reviewed, dictated and finalized at location A. SCAPE CREW LEADER IMPRESSION: 1. Endotracheal tube ending 6.5 cm above the miguel. 2. Interval development of complete opacification of the left hemithorax with v olume loss, likely due to mucous plugging.
--- NOTE | 2020-11-14 21:45 | ED.CPR ---
HPI - CPR General Chief Complaint: Cardiac Arrest/CPR Stated Complaint: POST CARDIAC ARREST Time Seen by Provider: 11/14/20 21:44 Source: EMS Mode of arrival: EMS Limitations: clinical condition History of Present Illness HPI narrative: Patient is a 70-year-old male brought in cardiorespiratory arrest. Per EMS, patient was complaining of shortness of breath, and a on their arrival he went into cardiac arrest. Patient was given approximately 4 bouts of epi with continuous cardiopulmonary resuscitation and was work on for about 30 minutes until they were able to get ROSC according to EMS. Patient had an I Gel in placed upon arrival. According to EMS patient was discharged today from this hospital due to shortness of breath he refused BiPAP and intubation so he signed out AMA, this was confirmed by the respiratory therapist and stated that the patient refused BiPAP or intubation during his hospital stay so he signed out AMA today. Patient is in hospice and per hospice patient has a DNR document signed complaint: stopped breathing Bystander CPR performed: No Related Data Home Medications Medication Instructions Recorded Confirmed albuterol sulfate 2 puff INHALATION Q4-6H PRN 10/23/20 10/23/20 amiodarone 200 mg PO USEASDIRECTD 10/23/20 10/23/20 Allergies Allergy/AdvReac Type Severity Reaction Status Date / Time No Known Allergies Allergy Verified 10/13/20 20:25 Review of Systems Review of Systems: ROS unobtainable: Yes unobtainable due to medical condition [facility] Past Medical History Medical History (Updated 11/15/20 @ 00:07 by Mamadou Macias MD) Atrial flutter Chronic anemia Chronic obstructive pulmonary disease Chronic respiratory failure with hypoxia, on home oxygen therapy Congestive heart failure Echocardiogram dated 03/12/2020 showed normal LV size and function with an EF of 77%, grade 2 diastolic dysfunction, and a moderately enlarged right ventricle with moderate hypokinesis and right ventricular hypertrophy. Hypertension Moderate pulmonary arterial systolic hypertension On echocardiogram dated 03/12/2020 with an estimated pulmonary arterial systolic pressure of 50 mmHg. Paroxysmal atrial flutter Tobacco abuse Surgical History Surgical History History of cataract extraction Family History Family History Sibling Heart disease 3/4 the patient has 4 brothers have of heart disease. Diabetes mellitus The patient has 1 remaining living brother has diabetes. Mother Stomach cancer age 54, or perhaps a braille transcriber cancer, patient unsure. Father COPD (chronic obstructive pulmonary disease) age 87 of asbestosis and COPD Social History Social History Social History: Surrogate decision maker: Marítnez Sanchez, brother, as documented by myself in July 2020. Code status: Full code. Smoking packs per day: 1 Smoking cigarettes per day: 20.0 Years smoked: 56 Smoking pack-years: 56.00 Smoking status: Current every day smoker Tobacco type: cigarettes Additional smoking assessment comments: Began smoking at age 13. Down to 1/2 pack a day as of 08/02/2020. Alcohol intake: former Substance use: never Substance use type: does not use Additional living arrangements comments: He lives in [place] with his girlfriend of 16 years. He has 4 grown children her relatively healthy. Has 2 daughters and 2 sons. 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 Gender identity (if verbalized by the patient): Male Spiritual care concerns: No Exam Narrative: Exam Narrative: Patient unresponsive, intubated Course Vit
--- NOTE | 2020-11-14 22:10 | PC.NURSE ---
patient extubated. placed on o2 2l per nc for comfort
[2020-11-15] VITALS: BP 76/39; PULSE 68; RESP 16; O2SAT 100
[2020-11-15 00:29] VITALS: BP 66/39; PULSE 61; RESP 15; O2SAT 92
[2020-11-15 00:30] VITALS: BP 57/34; PULSE 62; RESP 16; O2SAT 93
[2020-11-15 01:00] VITALS: BP 43/29; PULSE 55; RESP 12; O2SAT 76
[2020-11-15 01:20] VITALS: BP 42/28; PULSE 50; RESP 14; O2SAT 67
--- NOTE | 2020-11-15 01:35 | PC.NURSE ---
called to bedside. Pt asystole on the monitor. No pulses felt or heart tones auscultated and respirations absent. EDP Macias pronounced pt expiration at 0135. Pts two sons and daughter in law at bedside at this time.
[2020-11-15 02:49] VITALS: BP 0/0; PULSE 0; RESP 0; O2SAT 0
--- NOTE | 2020-11-16 09:37 | PC.NURSE ---
[facility] notified of patient expiration and release from [facility] at 0700.
== END 2020-11-15 02:49 | disposition expired ==
PROVIDERS: Emergency Provider Emergency Medicine; PCP Internal Medicine Cardiovascular Disease
DX: I46.9 Cardiac arrest, cause unspecified (principal); J96.11 Chronic respiratory failure with hypoxia; Z66 Do not resuscitate; I48.92 Unspecified atrial flutter; J44.9 Chronic obstructive pulmonary disease, unspecified; F17.210 Nicotine dependence, cigarettes, uncomplicated; I50.9 Heart failure, unspecified; I11.0 Hypertensive heart disease with heart failure; D64.9 Anemia, unspecified; Z98.49 Cataract extraction status, unspecified eye; Z79.01 Long term (current) use of anticoagulants
CPT/HCPCS: 31500; 99285; C1751; J7030